=== PATIENT | female | born 1995 | race Two or more races ===

== ENCOUNTER → 2020-05-18 15:28 | Outpatient (BNVA) | payer OTHER, SELFPAY | PROVIDERS: PCP Internal Medicine; Visit Provider Internal Medicine Pulmonary Disease | DX: Z76.89 Persons encountering health services in other specified circumstances (principal) ==

== ENCOUNTER 2020-05-25 13:24 | Outpatient (REF) | payer OTHER, SELFPAY ==
--- NOTE | 2020-05-25 | US_ITS ---
EXAMINATION: OBSTETRICAL ULTRASOUND, FIRST TRIMESTER HISTORY: 24-year-old at 12.0 weeks of gestation NT screening COMPARISON: 05/01/2020 TECHNIQUE: Real time transabdominal imaging with color and M-mode Doppler. Transvaginal ultrasound was performed using an endovaginal probe. FINDINGS: A single, live IUP CRL of 59.2 mm c/w 12.3wks is noted. Heart Rate: 155 beats per minute. Normal yolk sac seen. NT was 1.0.mm. NB Present The embryo appears sonographically wnl for this GA. Unable to visualize bilateral ovaries. No adnexal mass or free fluid in the cul-de-sac were noted. GESTATIONAL AGE: 1. Established GA: 12 0 wks 2. GA from [facility]: 12.3 wks ESTIMATED DATE OF DELIVERY: 1. Established ARIANNA: 12/07/2020 2. ARIANNA from [facility]: 12/04/2020 IMPRESSION: 1. A single live IUP 2. Size equals dates 3. NT of 1.0 mm MFM Consultation: I reviewed the ultrasound findings along with significance of NT measurement. The NT of less than 3mm is generally reassuring. However, the sensitivity for T21 detection is only 60%. I reviewed the availability of serum aneuploidy screening which includes cell-free DNA and placental protein based tests. I discussed the sensitivity, false-positive rate, and other limitations associated with each test. I also reviewed the availability of invasive diagnostic tests that are associated small but definite risk of miscarriage. We also reviewed the differences between screening tests and diagnostic tests. Patient already had the NIPT drawn. The result is pending. A follow up at 18 weeks for survey has been scheduled. Thank you very much for this referral. Majority of this visit was spent reviewing her care and counselling her in face to face time: Time spent 20 min.
[2020-05-25 14:53] LABS: CT PCR NOT DETECTED (Not Detect.); NG PCR NOT DETECTED (Not Detect.)
== END 2020-05-25 13:25 | disposition home or self-care (01) ==
LOC: HO.US 13:24
PROVIDERS: Visit Provider Advanced Practice Midwife
DX: Z34.91 Encounter for supervision of normal pregnancy, unspecified, first trimester (principal)
CPT/HCPCS: 76813; 76830; 87491; 87591

== ENCOUNTER → 2020-06-15 16:52 | Outpatient (BNVA) | payer OTHER, SELFPAY | PROVIDERS: PCP Internal Medicine; Visit Provider Obstetrics & Gynecology | DX: Z76.89 Persons encountering health services in other specified circumstances (principal) ==

== ENCOUNTER 2020-06-22 09:19 | Outpatient (REF) | payer OTHER, SELFPAY ==
--- NOTE | 2020-06-22 09:23 | US_ITS ---
EXAMINATION: OBSTETRICAL ULTRASOUND, Follow up HISTORY: 24-year-old at 16.0 weeks of gestation Increased risk of aneuploidy on serum screening COMPARISON: 05/25/2020 TECHNIQUE: Real time transabdominal imaging with color and M-mode Doppler. PRESENTATION: Variable PLACENTA LOCATION: Posterior without previa AMNIOTIC FLUID: Normal MEASUREMENTS: 1. Biparietal Diameter: 3.3 cm; 16.2 wks 2. Head Circumference: 12.2 cm; 16.1 wks 3. Abdominal Circumference: 9.5 cm; 15.5 wks 4. Femur Length: 1.8 cm; 15.3 wks 5. Heart Rate: 149 beats per minute survey was not attempted due to early gestational age. Normal views of cranium, lateral cerebral ventricle, profile. GESTATIONAL AGE: 1. Established GA: 16.0 wks 2. GA from [facility]: 16.0 wks ESTIMATED DATE OF DELIVERY: 1. Established ARIANNA: 12/07/2020 2. ARIANNA from [facility]: 12/07/2020 US/ OB amniocentesis IMPRESSION: 1. A single fetus with appropriate interval growth. 2. No abnormalities were seen in visualized anatomy. However too early for complete survey. Her NIPT had low DNA fraction but suspicious for triploidy, trisomy 18 and 13. I informed the patient that the sensitivity and specificity of this result is unclear. In addition, an appropriately grown fetus today is reassuring especially regards to the possibility of triploidy. Ultrasound however cannot rule out these aneuploidy. We reviewed the risks and benefits of amniocentesis. She consented to the procedure. She was informed that the baseline instance of congenital abnormalities and defects in the general population is approximately 3-5%. Not all these conditions are diagnosable in utero. Thank you very much for this referral. AMNIOCENTESIS After obtaining the consent, preprocedural timeout was performed. Her abdomen was prepped and draped the usual sterile fashion. Under the ultrasound guidance amniocentesis was attempted using 22-gauge spinal needle. Although the needle tip was clearly visible within the amniotic cavity, no fluid was retrieved suggesting that the amnion was not punctured. Second attempt also resulted in no fluid retrieval. The fetus and umbilical cord loops were well out of the field. Further attempt was abandoned. I informed the patient that amnion and chorion layers have not fused yet, making it difficult to penetrate the amnion layer. She'll be referred to [facility] next week for consultation and amniocentesis. Her blood type is O+. There were no immediate complications. I gave her postprocedure warnings. Normal heart rate was documented after the procedure. Visiting time 25 minutes. Majority of this visit was spent reviewing the ultrasound findings as well as her care.
== END 2020-06-22 09:20 | disposition home or self-care (01) ==
LOC: HO.US 09:19
PROVIDERS: PCP Internal Medicine; Visit Provider Obstetrics & Gynecology
DX: O21.9 Vomiting of pregnancy, unspecified (principal); O28.9 Unspecified abnormal findings on antenatal screening of mother
CPT/HCPCS: 59000; 76816; 76946

== ENCOUNTER 2020-06-25 08:19 | Outpatient (REF) | payer OTHER, SELFPAY ==
[2020-06-25 09:38] LABS: Hematocrit 32.2 % (37-47); Hemoglobin 10.6 g/dl (12.0-16.0); Mean Corpuscular HGB Conc 32.9 g/dl (31.0-35.0); Mean Corpuscular Volume 75.9 fL (80-98); Mean Platelet Volume 9.5 fL (9.4-12.3); Platelet Count 333 X10*3/uL (160-400); Red Blood Count 4.24 X10*6/uL (4.20-5.50); Red Cell Distribution Width 15.1 % (11.0-16.0); White Blood Count 13.4 X10*3/uL (4.8-10.8)
[2020-06-25 10:12] LABS: MANUAL DIFF FLAG NO
[2020-06-25 10:15] LABS: Basophils Absolute Auto 0.1 X10*3/uL (0.0-0.2); Basophils Percent Auto 0.5 % (0-2); Eosinophils Absolute Auto 0.3 X10*3/uL (0.0-0.4); Imm Gran Abs Auto 0.14 X10*3/uL (0.00-0.03); Lymphocytes Absolute Auto 2.6 X10*3/uL (1.2-4.9); Lymphocytes Percent Auto 18.7 % (20-40); Monocytes Absolute Auto 0.6 X10*3/uL (0.1-1.2); Monocytes Percent Auto 4.6 % (2-11); Neutrophils Absolute Auto 10.1 X10*3/uL (2.0-8.3); Neutrophils Percent Auto 73.2 % (45-73)
[2020-06-26 11:34] LABS: CT PCR NOT DETECTED (Not Detect.); NG PCR NOT DETECTED (Not Detect.)
[2020-06-26 13:51] LABS: BV Int Neg Control Negative (Negative); BV Int Pos Control Positive (Positive)
== END 2020-06-25 08:20 | disposition home or self-care (01) ==
LOC: HO.LAB 08:19
PROVIDERS: PCP Internal Medicine; Visit Provider Advanced Practice Midwife
DX: O26.899 Other specified pregnancy related conditions, unspecified trimester (principal); R10.9 Unspecified abdominal pain; O09.892 Supervision of other high risk pregnancies, second trimester; Z3A.16 16 weeks gestation of pregnancy
CPT/HCPCS: 36415; 85025; 85027; 87480; 87491; 87510; 87591; 87660

== ENCOUNTER → 2020-07-02 09:25 | Outpatient (BNVA) | payer OTHER, SELFPAY | PROVIDERS: Visit Provider Advanced Practice Midwife | DX: Z76.89 Persons encountering health services in other specified circumstances (principal) ==

== ENCOUNTER 2020-07-02 12:04 | Outpatient (REF) | payer OTHER, SELFPAY ==
[2020-07-02 13:05] LABS: COVID-19 Test Negative (Negative); IDNOW Serial# 55D5AD1C
== END 2020-07-02 12:05 | disposition home or self-care (01) ==
LOC: HO.EMPCOV 12:04
PROVIDERS: Visit Provider Internal Medicine
DX: Z20.828 Contact with and (suspected) exposure to other viral communicable diseases (principal)
CPT/HCPCS: 87635; C9803

== ENCOUNTER 2020-07-09 08:17 | Outpatient (REF) | payer OTHER, SELFPAY ==
[2020-07-09 09:27] LABS: COVID-19 Test Negative (Negative)
== END 2020-07-09 08:18 | disposition home or self-care (01) ==
LOC: HO.EMPCOV 08:17
PROVIDERS: Visit Provider Internal Medicine
DX: Z20.828 Contact with and (suspected) exposure to other viral communicable diseases (principal)
CPT/HCPCS: 87635; C9803

== ENCOUNTER 2020-07-11 08:44 | Outpatient (REF) | payer OTHER, SELFPAY ==
[2020-07-11 09:29] LABS: COVID-19 Test Negative (Negative)
== END 2020-07-11 08:45 | disposition home or self-care (01) ==
LOC: HO.EMPCOV 08:44
PROVIDERS: Visit Provider Internal Medicine
DX: Z20.828 Contact with and (suspected) exposure to other viral communicable diseases (principal)
CPT/HCPCS: 87635; C9803

== ENCOUNTER 2020-07-13 08:34 | Outpatient (REF) | payer OTHER, SELFPAY ==
--- NOTE | 2020-07-13 | US_ITS ---
EXAMINATION: US OBSTETRICAL CLINICAL INFORMATION: 24-year-old at 19.0 weeks of gestation Suspected elected the chromosomal abnormality on serum aneuploidy screening COMPARISON: 06/22/2020 TECHNIQUE: Real-time transabdominal ultrasound was performed using C1-5 megahertz transducer. Transvaginal ultrasound was performed to better evaluate the intracranial anatomy as well as the cervical length. FINDINGS: A single, active, fetus is seen in vertex presentation. The placenta is posterior without previa, and the amniotic fluid volume is wnl. MEASUREMENTS: 1. Biparietal Diameter: 4.3 cm; 19.1 wks 2. Occipital Frontal Diameter: 5.2 cm 3. Head Circumference: 16.03 cm; 18.6 wks 4. Abdominal Circumference: 14.7 cm; 20.0 wks 5. Femur Length: 2.81 cm; 18.5 wks 6. Humerus Length: 2.8 cm; 19.0 wks 7. Tibia Length: 2.5 cm; 18.6 wks 8. Ulna Length: 2.5 cm; 19.1 wks 9. Lateral ventricle: 0.64 cm 10. Cerebellum: 1.98 cm; 20.2 wks 11. Cisterna Magna: 0.42 cm 12. Nuchal Fold: 2.5 mm 13. Heart Rate: 143 beats per minute Rt ovary: normal Lt ovary: normal Cervical length 3.5 cm on T/V. GESTATIONAL AGE: 1. Established GA: 19.0 wks 2. GA from [facility]: 19.2 wks ESTIMATED DATE OF DELIVERY: 1. Established ARIANNA: 12/07/2020 2. ARIANNA from [facility]: 12/05/2020 ANATOMY: The visualized anatomy includes but not limited to: 1. Cranium: Normal 2. Intracranial anatomy: cavum septum pellucidi, lateral ventricles, choroid plexus, cerebellum, posterior fossa, third and fourth ventricles. 3. face: orbits, lip/palate, profile, nasal bone 4. Heart: four-chamber view of the heart, ventricular septum, foramen ovale, pulmonary vein, left and right outflow tracts, three-vessel view, 3 vessel trachea view, aortic and ductal arches, situs.. 5. Diaphragm: Normal 6. Abdominal wall: Normal 7. Cord Insertion: Normal 8. Spine: Cervical, thoracic, lumbar, sacral. 9. Stomach: Normal size and shape 10. Right Kidney: Normal 11. Left Kidney: Normal 12. 3 vessel cord: Normal 13. Upper extremity: Open hands, fifth digit. 14. Lower extremity: Tibia, fibula, bilateral feet. 15. Bladder: Normal 16. Genitalia: Female, patient aware US/US OB transvaginal IMPRESSION: 1. Single, living, intrauterine with appropriate biometry. 2. Normal survey DISCUSSION: I reviewed today's ultrasound findings. We discussed the limitations of ultrasound in diagnosing aneuploidy and other congenital abnormalities. I reviewed the differences between screening test and diagnostic test. I reassured her that the there is no sonographic stigmata for triploidy, trisomy 18 or 13. She is scheduled to undergo amniocentesis at the [facility] for increased suspicion of triploidy, trisomy 18 and 13 on her serum aneuploidy screening. Amniocentesis attempted on 06/22/2020 was unsuccessful due to unfused amnion and chorion layers. She was informed that the baseline incidence of congenital abnormalities is approximately 3-5%. Not all these conditions are diagnosable in utero. RECOMMENDATIONS: 1. No further ultrasound has been scheduled today. Thank you for allowing me to participate in her care. Visiting time 25 minutes. Majority of this visit was spent reviewing and discussing her care.
--- NOTE | 2020-07-13 08:36 | US_ITS ---
EXAMINATION: US OBSTETRICAL CLINICAL INFORMATION: 24-year-old at 19.0 weeks of gestation Suspected elected the chromosomal abnormality on serum aneuploidy screening COMPARISON: 06/22/2020 TECHNIQUE: Real-time transabdominal ultrasound was performed using C1-5 megahertz transducer. Transvaginal ultrasound was performed to better evaluate the intracranial anatomy as well as the cervical length. FINDINGS: A single, active, fetus is seen in vertex presentation. The placenta is posterior without previa, and the amniotic fluid volume is wnl. MEASUREMENTS: 1. Biparietal Diameter: 4.3 cm; 19.1 wks 2. Occipital Frontal Diameter: 5.2 cm 3. Head Circumference: 16.03 cm; 18.6 wks 4. Abdominal Circumference: 14.7 cm; 20.0 wks 5. Femur Length: 2.81 cm; 18.5 wks 6. Humerus Length: 2.8 cm; 19.0 wks 7. Tibia Length: 2.5 cm; 18.6 wks 8. Ulna Length: 2.5 cm; 19.1 wks 9. Lateral ventricle: 0.64 cm 10. Cerebellum: 1.98 cm; 20.2 wks 11. Cisterna Magna: 0.42 cm 12. Nuchal Fold: 2.5 mm 13. Heart Rate: 143 beats per minute Rt ovary: normal Lt ovary: normal Cervical length 3.5 cm on T/V. GESTATIONAL AGE: 1. Established GA: 19.0 wks 2. GA from [facility]: 19.2 wks ESTIMATED DATE OF DELIVERY: 1. Established ARIANNA: 12/07/2020 2. ARIANNA from [facility]: 12/05/2020 ANATOMY: The visualized anatomy includes but not limited to: 1. Cranium: Normal 2. Intracranial anatomy: cavum septum pellucidi, lateral ventricles, choroid plexus, cerebellum, posterior fossa, third and fourth ventricles. 3. face: orbits, lip/palate, profile, nasal bone 4. Heart: four-chamber view of the heart, ventricular septum, foramen ovale, pulmonary vein, left and right outflow tracts, three-vessel view, 3 vessel trachea view, aortic and ductal arches, situs.. 5. Diaphragm: Normal 6. Abdominal wall: Normal 7. Cord Insertion: Normal 8. Spine: Cervical, thoracic, lumbar, sacral. 9. Stomach: Normal size and shape 10. Right Kidney: Normal 11. Left Kidney: Normal 12. 3 vessel cord: Normal 13. Upper extremity: Open hands, fifth digit. 14. Lower extremity: Tibia, fibula, bilateral feet. 15. Bladder: Normal 16. Genitalia: Female, patient aware US/US OB /maternal detail IMPRESSION: 1. Single, living, intrauterine with appropriate biometry. 2. Normal survey DISCUSSION: I reviewed today's ultrasound findings. We discussed the limitations of ultrasound in diagnosing aneuploidy and other congenital abnormalities. I reviewed the differences between screening test and diagnostic test. I reassured her that the there is no sonographic stigmata for triploidy, trisomy 18 or 13. She is scheduled to undergo amniocentesis at the [facility] for increased suspicion of triploidy, trisomy 18 and 13 on her serum aneuploidy screening. Amniocentesis attempted on 06/22/2020 was unsuccessful due to unfused amnion and chorion layers. She was informed that the baseline incidence of congenital abnormalities is approximately 3-5%. Not all these conditions are diagnosable in utero. RECOMMENDATIONS: 1. No further ultrasound has been scheduled today. Thank you for allowing me to participate in her care. Visiting time 25 minutes. Majority of this visit was spent reviewing and discussing her care.
== END 2020-07-13 08:35 | disposition home or self-care (01) ==
LOC: HO.US 08:34
PROVIDERS: Visit Provider Advanced Practice Midwife
DX: Z36.3 Encounter for antenatal screening for malformations (principal); Z34.92 Encounter for supervision of normal pregnancy, unspecified, second trimester; Z3A.19 19 weeks gestation of pregnancy
CPT/HCPCS: 76811; 76817; 76830

== ENCOUNTER → 2020-07-24 08:41 | Outpatient (BNVA) | payer OTHER, SELFPAY | PROVIDERS: PCP Internal Medicine; Visit Provider Advanced Practice Midwife | DX: O09.899 Supervision of other high risk pregnancies, unspecified trimester (principal); O26.899 Other specified pregnancy related conditions, unspecified trimester; N63.0 Unspecified lump in unspecified breast; Z23 Encounter for immunization; Z3A.20 20 weeks gestation of pregnancy | CPT/HCPCS: 81003; 90686 ==

== ENCOUNTER 2020-08-09 15:05 | Outpatient (REF) | payer OTHER, SELFPAY ==
--- NOTE | 2020-08-09 15:10 | US_ITS ---
EXAMINATION: US DIAGNOSTIC ULTRASOUND BREAST, RIGHT CLINICAL INFORMATION: 24-year-old female, or approximately 23 weeks gestation with palpable fullness upper outer right breast. No known family history breast cancer. COMPARISON: Targeted right breast ultrasound 05/02/2019. TECHNIQUE: Ultrasound of the right breast is targeted to the area of clinical concern upper outer quadrant. Patient is imaged both supine and sitting up and able to point to area of concern at time of imaging. Grayscale imaging and color Doppler are performed without and with harmonics. FINDINGS: There is no focal suspicious finding. There is no cystic or solid mass, architectural abnormality, duct ectasia, or edema in the soft tissue planes. No skin thickening. No ultrasound correlate for patient's symptoms. Results are discussed with the patient at time of visit. Patient should be managed based on the clinical impression. If clinically indicated, further evaluation may be considered with surgical consult. Decision to proceed with biopsy should be based on clinical grounds and degree of clinical concern. US/US breast RT limited IMPRESSION: Normal study. ASSESSMENT: BI-RADS 1: Negative RECOMMENDATION: Patient should be managed based on the clinical impression. If clinically indicated, further evaluation may be considered with surgical consult. Decision to proceed with biopsy should be based on clinical grounds and degree of clinical concern.
== END 2020-08-09 15:06 | disposition home or self-care (01) ==
LOC: HO.MAMMO 15:05
PROVIDERS: PCP Internal Medicine; Visit Provider Advanced Practice Midwife
DX: O26.892 Other specified pregnancy related conditions, second trimester (principal); N63.11 Unspecified lump in the right breast, upper outer quadrant; Z3A.23 23 weeks gestation of pregnancy
CPT/HCPCS: 76642

== ENCOUNTER 2020-08-21 08:33 | Outpatient (REF) | payer OTHER, SELFPAY | END 2020-08-21 08:34 | disposition home or self-care (01) | LOC: HO.LAB 08:33 | PROVIDERS: Visit Provider Advanced Practice Midwife | DX: O99.512 Diseases of the respiratory system complicating pregnancy, second trimester (principal); J45.909 Unspecified asthma, uncomplicated; O99.342 Other mental disorders complicating pregnancy, second trimester; F41.9 Anxiety disorder, unspecified; F32.9 Major depressive disorder, single episode, unspecified; Z3A.24 24 weeks gestation of pregnancy | CPT/HCPCS: 81003; 87086; 99212 ==

== ENCOUNTER 2020-09-04 13:26 | Outpatient (REF) | payer OTHER, SELFPAY ==
[2020-09-04 13:44] LABS: COVID-19 Test Negative (Negative)
== END 2020-09-04 13:27 | disposition home or self-care (01) ==
LOC: HO.EMPCOV 13:26
PROVIDERS: Visit Provider Internal Medicine
DX: Z20.822 Contact with and (suspected) exposure to COVID-19 (principal)
CPT/HCPCS: 36415; 87635; C9803

== ENCOUNTER 2020-09-14 16:49 | Outpatient (REF) | payer OTHER, SELFPAY ==
[2020-09-14 18:19] LABS: Hematocrit 29.3 % (37-47); Hemoglobin 9.3 g/dl (12.0-16.0); Mean Corpuscular HGB Conc 31.7 g/dl (31.0-35.0); Mean Corpuscular Hemoglobin 23.6 pg (27.0-33.0); Mean Corpuscular Volume 74.4 fL (80-98); Mean Platelet Volume 9.6 fL (9.4-12.3); Platelet Count 378 X10*3/uL (160-400); Red Blood Count 3.94 X10*6/uL (4.20-5.50); Red Cell Distribution Width 16.3 % (11.0-16.0); White Blood Count 13.1 X10*3/uL (4.8-10.8)
[2020-09-14 18:35] LABS: Glucose 1 Hour PP 50gm Dose 156 mg/dL (60-140)
[2020-09-14 19:00] LABS: Syphilis Screen Nonreactive (Nonreactive)
[2020-09-17 04:34] LABS: HIV AB/AG Nonreactive (Nonreactive); HIV Num 1 0.09 S/CO (0.00-0.99)
== END 2020-09-14 16:50 | disposition home or self-care (01) ==
LOC: HO.LAB 16:49
PROVIDERS: PCP Internal Medicine; Visit Provider Advanced Practice Midwife
DX: Z34.80 Encounter for supervision of other normal pregnancy, unspecified trimester (principal)
CPT/HCPCS: 36415; 85027; 86780; 87389

== ENCOUNTER 2020-09-18 09:09 | Outpatient (REF) | payer OTHER, SELFPAY ==
[2020-09-18 10:44] LABS: Glucose Fasting 79 mg/dL (60-99)
[2020-09-18 12:16] LABS: Glucose 1 Hour 170 mg/dL
[2020-09-18 12:30] LABS: Glucose 2 Hour 143 mg/dL
[2020-09-18 13:21] LABS: Glucose 3 Hour 117 mg/dL
== END 2020-09-18 09:10 | disposition home or self-care (01) ==
LOC: HO.LAB 09:09
PROVIDERS: PCP Internal Medicine; Visit Provider Advanced Practice Midwife
DX: O09.293 Supervision of pregnancy with other poor reproductive or obstetric history, third trimester (principal); O99.343 Other mental disorders complicating pregnancy, third trimester; F41.8 Other specified anxiety disorders; O99.513 Diseases of the respiratory system complicating pregnancy, third trimester; J45.40 Moderate persistent asthma, uncomplicated; O99.613 Diseases of the digestive system complicating pregnancy, third trimester; K21.9 Gastro-esophageal reflux disease without esophagitis; O99.013 Anemia complicating pregnancy, third trimester; D64.9 Anemia, unspecified; O99.810 Abnormal glucose complicating pregnancy; Z3A.28 28 weeks gestation of pregnancy; Z62.810 Personal history of physical and sexual abuse in childhood
CPT/HCPCS: 36415; 81003; 82951; 90471; 90715; 99212

== ENCOUNTER 2020-09-19 11:04 | Outpatient (REF) | payer OTHER, SELFPAY ==
[2020-09-19 11:22] LABS: COVID-19 Test Negative (Negative)
== END 2020-09-19 11:05 | disposition home or self-care (01) ==
LOC: HO.EMPCOV 11:04
PROVIDERS: Visit Provider Internal Medicine
DX: Z20.822 Contact with and (suspected) exposure to COVID-19 (principal)
CPT/HCPCS: 36415; 87635; C9803

== ENCOUNTER 2020-09-20 11:16 | Outpatient (REF) | payer OTHER, SELFPAY ==
[2020-09-20 11:37] LABS: COVID-19 Test Negative (Negative)
== END 2020-09-20 11:17 | disposition home or self-care (01) ==
LOC: HO.EMPCOV 11:16
PROVIDERS: Visit Provider Internal Medicine
DX: Z20.822 Contact with and (suspected) exposure to COVID-19 (principal)
CPT/HCPCS: 36415; 87635; C9803

== ENCOUNTER 2020-09-25 08:07 | Outpatient (REF) | payer OTHER, SELFPAY ==
[2020-09-25 08:56] LABS: COVID-19 Test Negative (Negative)
== END 2020-09-25 08:08 | disposition home or self-care (01) ==
LOC: HO.EMPCOV 08:07
PROVIDERS: Visit Provider Internal Medicine
DX: Z20.822 Contact with and (suspected) exposure to COVID-19 (principal)
CPT/HCPCS: 36415; 87635; C9803

== ENCOUNTER 2020-09-25 08:20 | Emergency (ER) | payer OTHER, SELFPAY ==
[2020-09-25 08:41] VITALS: BP 113/66; PULSE 110; RESP 16; TEMP 37; O2SAT 99; BMI 35.9
--- NOTE | 2020-09-25 08:46 | ED.NAVMDI ---
HPI - Nausea/Vomiting/Diarrhea General Chief complaint: Nausea/Vomiting/Diarrhea Stated complaint: nausea,headache,dizzy sob Time Seen by Provider: 09/25/20 08:46 Source: patient Mode of arrival: ambulatory Limitations: no limitations History of Present Illness HPI Narrative: 29 weeks not keeping any food down. Patient was covid tested this morning, results pending. Patient has phenergan and zofran at home with limited results MD elicited complaint: nausea and vomiting Onset (ago): day(s) (2) Associated nausea: Yes Severity: moderate Related Data Home Medications Medication Instructions Recorded Confirmed clotrimazole-betamethasone 1 applic TOPICAL 05/05/20 08/29/20 %-0.05 % topical cream fluticasone propionate 110 0 mcg INHALATION 05/05/20 08/29/20 mcg/actuation HFA aerosol inhaler prenat.vits,tari,[id number] 1 tab PO DAILY 07/17/20 07/17/20 epinephrine 0.3 mg/0.3 mL IM 07/24/20 08/29/20 injection, auto-injector Previous Rx's Medication Instructions Recorded ondansetron HCl 4 mg tablet 4 mg PO Q6H #30 tab 06/20/20 promethazine 12.5 mg rectal 12.5 mg IN Q4-6H PRN #12 ea 06/29/20 suppository famotidine 10 mg tablet 20 mg PO BID #60 tab 08/02/20 sucralfate 100 mg/mL oral 10 ml PO BID PRN 10 Days #200 ml 08/29/20 suspension ferrous sulfate 325 mg (65 mg 325 mg PO BID 30 Days #60 tab 09/17/20 iron) tablet,delayed release Allergies Allergy/AdvReac Type Severity Reaction Status Date / Time No Known Allergies Allergy Verified 09/18/20 14:54 Review of Systems Constitutional: Constitutional: Reports no additional constitutional complaints Eyes: Eyes: Reports no additional eye complaints ENT: Denies dizziness Cardiovascular: Cardiovascular: Reports no additional cardiovascular complaints Respiratory: Respiratory: Reports as per HPI Gastrointestinal: Gastrointestinal: Reports nausea Genitourinary: Genitourinary: Reports no additional female genitourinary complaints Musculoskeletal: Musculoskeletal: Reports no additional musculoskeletal complaints Integumentary/Breasts: Skin/Breast: Denies rash Neurologic: Reports system reviewed and no additional complaints, except as documented, Denies dizziness and Denies Sensory deficit (Neuro) Psychiatric: Psychiatric: Denies anxiety PMFSH Past Medical History Medical History Allergic rhinitis Anxiety Bipolar disorder Chronic eczema Depression History of deviated nasal septum IBS (irritable bowel syndrome) Moderate persistent asthma Obstetrical visit for first PCOS (polycystic ovarian syndrome) Surgical History History of wisdom tooth extraction Hx of nasal septoplasty Family History Family History Father Asthma Mother Liver disease Maternal Aunt Ovarian cancer Maternal Aunt Ovarian cancer Maternal Aunt Ovarian cancer Maternal Grandfather Leukemia Paternal Grandmother Pancreatic cancer Social History Social History Alcohol intake: never Smoking Status: Never smoker Substance Use Type: Marijuana Advance Directives: No Advance Directives Information Provided: No Sexual orientation: Straight/Heterosexual Gender identity: female Physical Exam Vital Signs: Vital Signs: Last Vital Signs Temp 98.6 F 09/25/20 08:41 Pulse 110 H 09/25/20 08:41 Resp 16 09/25/20 08:41 BP 113/66 09/25/20 08:41 Pulse Ox 99 09/25/20 08:41 Body Mass Index 35.9 Const: Other: gravid General: healthy appearing Nutritional Appearance: average body habitus Orientation/consciousness: oriented to person and patient oriented x3 Limitations: no limitations HENMT: Head: Yes normal to inspection Ears: external ears normal General nose exam: Normal external nose present Mouth: Normal oral and palatal mucosa present and oropharynx normal Throat: Yes posterior oropharynx normal Eyes: General: appearance normal, both eyes and all related structures Neck: Other: supple Neck: Yes normal visual inspection Chest: Chest palpation & inspection: normal inspection of the chest Resp: Auscultation: clear to auscultation bilaterally Cardio: Jugular venous distension: no JVD Rate: regular rate Rhythm: regular rhythm Heart sounds: S1 normal heart sound present and S2 normal heart sound present GI: Other: gravid Inspection: Yes normal to inspection Palpation (GI): Soft to palpation, nontender and No hepatosplenomegaly present Auscultation: normal bowel sounds : General: Yes no CVA tenderness Back/Spine/Pelvis: Back: no CVA tenderness Skin: General skin exam: no rashes or lesions noted Neuro: General: oriented to person and patient oriented x3 Cranial nerves: Yes CN's II-XII intact bilaterally Motor exam (neuro): 5/5 motor strength present throughout Sensory Exam: No Sensory deficit (Neuro) Extrem: General: Yes normal to inspection Psych: Appearance: grossly normal MDM - Nausea/Vomiting/Diarrhea MDM Narrative Medical decision making narrative: Labs normal COVID negative will dc home Lab Data Result diagrams: 09/25/20 09:46 09/25/20 09:46 Labs: Lab Results 09/25/20 09/25/20 09/25/20 Range/Units 09:46 09:46 09:46 WBC 12.9 H (4.8-10.8) X10*3/uL RBC 4.23 (4.20-5.50) X10*6/uL Hgb 9.9 L (12.0-16.0) g/dl Hct 31.8 L (37-47) % MCV 75.2 L (80-98) fL MCH 23.4 L (27.0-33.0) pg MCHC 31.1 (31.0-35.0) g/dl RDW 16.8 H (11.0-16.0) % Plt Count 361 (160-400) X10*3/uL MPV 9.5 (9.4-12.3) fL Immature Gran % (Auto) 1.0 H (0.0-0.4) % Neut % (Auto) 71.7 (45-73) % Lymph % (Auto) 19.0 L (20-40) % Campbell % (Auto) 6.0 (2-11) % Eos % (Auto) 1.8 (0-4) % Baso % (Auto) 0.5 (0-2) % Lymph # (Auto) 2.4 (1.2-4.9) X10*3/uL Campbell # (Auto) 0.8 (0.1-1.2) X10*3/uL Eos # (Auto) 0.2 (0.0-0.4) X10*3/uL Baso # (Auto) 0.1 (0.0-0.2) X10*3/uL Abs Immat Gran (auto) 0.13 H (0.00-0.03) X10*3/uL Absolute Neuts (auto) 9.2 H (2.0-8.3) X10*3/uL Absolute Nucleated RBC 0.000 (0.0-0.012) X10*3/uL Nucleated RBC % (auto) 0.0 (0.0-0.2) /100WBC Sodium 136 (135-145) mmol/L Potassium 4.2 (3.3-5.1) mmol/L Chloride 106 (96-108) mmol/L Carbon Dioxide 23 (22-29) mmol/L Anion Gap 11 L (12-20) BUN 5 L (9-16) mg/dL Creatinine 0.67 (0.5-1.4) mg/dL Estim Creat Clear Calc 122.9 Estimated GFR > 60 Random Glucose 80 (60-115) mg/dL Calcium 8.5 (8.4-10.2) mg/dL Urine Color YELLOW Urine Appearance HAZY Urine pH 7.0 (5.0-8.0) Ur Specific Eagle 1.025 (1.005-1.025) Urine Protein NEG (NEG-TRACE) MG/DL Urine Glucose (UA) NEG (NEG) MG/DL Urine Ketones NEG (NEG) MG/DL Urine Blood NEG (NEG) Urine Nitrite NEG (NEG) Ur Leukocyte Esterase 1+ H (NEG) Urine RBC 0 (0) /HPF Urine WBC 1-4 (0-4) /HPF Ur Squamous Epith Cells 4+ /LPF Urine Bacteria 1+ /LPF Discharge Plan Discharge Clinical Impression: Nausea/vomiting in Patient Disposition: Home, Self-Care Instructions: Hyperemesis Gravidarum (ED), Acute Nausea and Vomiting in Children (ED) Prescriptions: No Action ondansetron HCl 4 mg tablet 4 mg PO Q6H Qty: 30 RF: 0 promethazine 12.5 mg suppository 12.5 mg IN Q4-6H PRN (Reason: sedation) Qty: 12 RF: 0 famotidine [Pepcid AC] 10 mg tablet 20 mg PO BID Qty: 60 RF: 1 ferrous sulfate 325 mg (65 mg iron) tablet,delayed release (DR/EC) 325 mg PO BID 30 Days Qty: 60 RF: 2 sucralfate 100 mg/mL suspension 10 ml PO BID PRN (Reason: GERD symptoms ) 10 Days Qty: 200 RF: 0 prenat.vits,tari,[id number] Tablet 1 tab PO DAILY RF: 0 Flovent HFA 110 mcg/actuation HFA aerosol inhaler 0 mcg inhalation RF: 0 clotrimazole-betamethasone 1-0.05 % cream topical RF: 0 epinephrine 0.3 mg/0.3 mL auto-injector IM RF: 0 Referrals: Leslie Clements MD [Primary Care Provider] - 2 days
[2020-09-25 09:50] LABS: MANUAL DIFF FLAG NO
[2020-09-25] MEDS: ondansetron HCL 4 MG/2 ML VIAL IVPUSH (09:52)
[2020-09-25 09:54] LABS: Basophils Absolute Auto 0.1 X10*3/uL (0.0-0.2); Basophils Percent Auto 0.5 % (0-2); Eosinophils Absolute Auto 0.2 X10*3/uL (0.0-0.4); Eosinophils Percent Auto 1.8 % (0-4); Glucose Urine UA NEG (NEG); Hematocrit 31.8 % (37-47); Hemoglobin 9.9 g/dl (12.0-16.0); Imm Gran Abs Auto 0.13 X10*3/uL (0.00-0.03); Leukocyte Esterase Urine 1+ (NEG); Lymphocytes Absolute Auto 2.4 X10*3/uL (1.2-4.9); Mean Corpuscular HGB Conc 31.1 g/dl (31.0-35.0); Mean Corpuscular Hemoglobin 23.4 pg (27.0-33.0); Mean Corpuscular Volume 75.2 fL (80-98); Mean Platelet Volume 9.5 fL (9.4-12.3); Monocytes Absolute Auto 0.8 X10*3/uL (0.1-1.2); Neutrophils Absolute Auto 9.2 X10*3/uL (2.0-8.3); Neutrophils Percent Auto 71.7 % (45-73); Nitrite Urine NEG (NEG); Platelet Count 361 X10*3/uL (160-400); Red Blood Count 4.23 X10*6/uL (4.20-5.50); Red Cell Distribution Width 16.8 % (11.0-16.0); Specific Gravity - Urine 1.025 (1.005-1.025); UACC Culture Trigger YES; Urine Blood NEG (NEG); Urine Ketones NEG (NEG); Urine Protein NEG (NEG-TRACE); White Blood Count 12.9 X10*3/uL (4.8-10.8)
[2020-09-25] MEDS: 0.9 % Sodium Chloride 1,000 ML 999 ML IVCONT ×2 (09:54→09:55)
[2020-09-25 09:56] LABS: Appearance Urine HAZY; Color Urine YELLOW
[2020-09-25 10:04] LABS: Bacteria Urine 1+ /LPF; RBC Urine 0 /HPF (0); Squamous Epithelial Cell Urine 4+ /LPF
[2020-09-25 10:22] LABS: Anion Gap 11 (12-20); Blood Urea Nitrogen 5 mg/dL (9-16); Calcium 8.5 mg/dL (8.4-10.2); Carbon Dioxide 23 mmol/L (22-29); Chloride 106 mmol/L (96-108); Creatinine Clr Calc Pharmacy 122.9; Estimated Glomerular Filt Rate > 60; Glucose Random 80 mg/dL (60-115); Potassium 4.2 mmol/L (3.3-5.1); Sodium 136 mmol/L (135-145)
== END 2020-09-25 11:10 | disposition home or self-care (01) ==
PROVIDERS: Emergency Provider Emergency Medicine; PCP Internal Medicine
DX: O26.893 Other specified pregnancy related conditions, third trimester (principal); R11.2 Nausea with vomiting, unspecified; Z3A.29 29 weeks gestation of pregnancy
CPT/HCPCS: 36415; 80048; 81001; 81003; 85025; 87086; 96361; 96374; 99283; 99284; J2405

== ENCOUNTER → 2020-10-02 08:40 | Outpatient (BNVA) | payer OTHER, SELFPAY | PROVIDERS: PCP Internal Medicine; Visit Provider Advanced Practice Midwife | DX: Z34.80 Encounter for supervision of other normal pregnancy, unspecified trimester (principal) | CPT/HCPCS: 81003; 99212 ==

== ENCOUNTER → 2020-10-17 09:49 | Outpatient (BNVA) | payer OTHER, SELFPAY | PROVIDERS: PCP Internal Medicine; Visit Provider Obstetrics & Gynecology | DX: O09.899 Supervision of other high risk pregnancies, unspecified trimester (principal); Z3A.32 32 weeks gestation of pregnancy | CPT/HCPCS: 99212 ==

== ENCOUNTER 2020-10-18 09:47 | Outpatient (REF) | payer OTHER, SELFPAY ==
[2020-10-18 13:55] LABS: Fetal Fibronectin Positive (Negative)
[2020-10-19 19:07] LABS: C. trachomatis RNA TMA NOT DETECTED (NOT DETECTED); N. gonorrhoeae RNA TMA NOT DETECTED (NOT DETECTED)
== END 2020-10-18 09:48 | disposition home or self-care (01) ==
LOC: HO.LAB 09:47
PROVIDERS: PCP Internal Medicine; Visit Provider Obstetrics & Gynecology
DX: O34.33 Maternal care for cervical incompetence, third trimester (principal); O99.343 Other mental disorders complicating pregnancy, third trimester; F32.9 Major depressive disorder, single episode, unspecified; F41.9 Anxiety disorder, unspecified; J45.909 Unspecified asthma, uncomplicated; Z79.899 Other long term (current) drug therapy; Z3A.32 32 weeks gestation of pregnancy
CPT/HCPCS: 36415; 82731; 87081; 87147; 87491; 87591; 99212

== ENCOUNTER → 2020-10-19 14:21 | Outpatient (BNVA) | payer OTHER, SELFPAY | PROVIDERS: Visit Provider Obstetrics & Gynecology | DX: O34.30 Maternal care for cervical incompetence, unspecified trimester (principal); Z3A.33 33 weeks gestation of pregnancy | CPT/HCPCS: 99212 ==

== ENCOUNTER 2020-10-29 10:31 | Outpatient (REF) | payer OTHER, SELFPAY ==
[2020-10-29 12:00] LABS: MANUAL DIFF FLAG NO
[2020-10-29 12:06] LABS: Basophils Percent Auto 0.3 % (0-2); Eosinophils Absolute Auto 0.2 X10*3/uL (0.0-0.4); Eosinophils Percent Auto 1.1 % (0-4); Hematocrit 32.5 % (37-47); Hemoglobin 10.1 g/dl (12.0-16.0); Imm Gran Abs Auto 0.11 X10*3/uL (0.00-0.03); Imm Gran Pct Auto 0.8 % (0.0-0.4); Lymphocytes Absolute Auto 2.5 X10*3/uL (1.2-4.9); Lymphocytes Percent Auto 18.8 % (20-40); Mean Corpuscular HGB Conc 31.1 g/dl (31.0-35.0); Mean Corpuscular Hemoglobin 22.8 pg (27.0-33.0); Mean Corpuscular Volume 73.4 fL (80-98); Mean Platelet Volume 9.6 fL (9.4-12.3); Monocytes Absolute Auto 0.9 X10*3/uL (0.1-1.2); Monocytes Percent Auto 6.6 % (2-11); Neutrophils Absolute Auto 9.6 X10*3/uL (2.0-8.3); Neutrophils Percent Auto 72.4 % (45-73); Platelet Count 435 X10*3/uL (160-400); Red Blood Count 4.43 X10*6/uL (4.20-5.50); Red Cell Distribution Width 17.2 % (11.0-16.0); White Blood Count 13.2 X10*3/uL (4.8-10.8)
[2020-10-29 12:34] LABS: Creatinine Urine 87.18 mg/dL; Protein/Creatinine Ratio, Ur 0.09 (<0.2); Total Protein Urine Random 8 mg/dL (<12)
[2020-10-29 12:38] LABS: Alanine Aminotransferase 15 U/L (0-31); Aspartate Amino Transferase 14 U/L (5-31); Estimated Glomerular Filt Rate > 60
[2020-10-29 13:44] LABS: Uric Acid 4.1 mg/dL (2.4-5.7)
[2020-10-30 09:52] LABS: CT PCR NOT DETECTED (Not Detect.); NG PCR NOT DETECTED (Not Detect.)
== END 2020-10-29 10:32 | disposition home or self-care (01) ==
LOC: HO.LAB 10:31
PROVIDERS: Absent Provider Obstetrics & Gynecology; PCP Internal Medicine; Visit Provider Obstetrics & Gynecology
DX: O34.30 Maternal care for cervical incompetence, unspecified trimester (principal); O09.893 Supervision of other high risk pregnancies, third trimester; O99.613 Diseases of the digestive system complicating pregnancy, third trimester; O99.343 Other mental disorders complicating pregnancy, third trimester; O99.513 Diseases of the respiratory system complicating pregnancy, third trimester; O26.893 Other specified pregnancy related conditions, third trimester; K21.9 Gastro-esophageal reflux disease without esophagitis; J45.909 Unspecified asthma, uncomplicated; F41.9 Anxiety disorder, unspecified; M79.89 Other specified soft tissue disorders; R51.9 Headache, unspecified; Z3A.34 34 weeks gestation of pregnancy
CPT/HCPCS: 36415; 82565; 84156; 84450; 84460; 84550; 85025; 87491; 87591; 99212

== ENCOUNTER 2020-11-02 14:35 | Outpatient (REF) | payer OTHER, SELFPAY ==
--- NOTE | ~2020-11-02 | US_ITS ---
EXAMINATION: OBSTETRICAL ULTRASOUND, Follow up HISTORY: 25-year-old at the 35.0 weeks of gestation Size date discrepancy COMPARISON: 07/13/2020 TECHNIQUE: Real time transabdominal imaging with color and M-mode Doppler. PRESENTATION: Vertex PLACENTA LOCATION: Left, without previa AMNIOTIC FLUID: FRANSISCO 10.4 cm MEASUREMENTS: 1. Biparietal Diameter: 8.7 cm; 35.1 wks 2. Head Circumference: 31.3 cm; 35.0 wks 3. Abdominal Circumference: 31.8 cm; 35.5 wks 4. Femur Length: 6.32 cm; 32.5 wks 5. Heart Rate: 128 beats per minute WEIGHT: EFW: 2510 grams (5 lbs 9 oz) -- 40 %. BIOPHYSICAL PROFILE: Motion: 2 Tone: 2 Breathin Amniotic Fluid: 2 Total score: 8/8 GESTATIONAL AGE: 1. Established GA: 35.0 wks 2. GA from [facility]: 34.5 wks ESTIMATED DATE OF DELIVERY: 1. Established ARIANNA: 12/07/2020 2. [facility] 12[facility]09[facility]2020 US/US OB follow up IMPRESSION: 1. A single active fetus is in vertex presentation 2. Size equals dates, EFW corresponds to 48 percentile 3. Reassuring biophysical profile with normal amniotic fluid volume Thank you very much for this referral. This note was generated with a voice recognition program. Please excuse any errors which may have been overlooked during my review of this note. Sometimes these errors may affect the content or meaning of a given sentence.
== END 2020-11-02 14:36 | disposition home or self-care (01) ==
LOC: HO.US 14:35
PROVIDERS: Visit Provider Obstetrics & Gynecology
DX: Z34.80 Encounter for supervision of other normal pregnancy, unspecified trimester (principal)
CPT/HCPCS: 76816

== ENCOUNTER → 2020-11-14 08:43 | Outpatient (BNVA) | payer OTHER, SELFPAY | PROVIDERS: Visit Provider Obstetrics & Gynecology | DX: Z34.80 Encounter for supervision of other normal pregnancy, unspecified trimester (principal); Z3A.36 36 weeks gestation of pregnancy | CPT/HCPCS: 99212 ==

== ENCOUNTER → 2020-11-23 11:59 | Outpatient (BNVA) | payer OTHER, SELFPAY | PROVIDERS: Visit Provider Obstetrics & Gynecology | CPT/HCPCS: 99212 ==

== ENCOUNTER 2020-11-23 15:50 | Outpatient (REF) | payer OTHER, SELFPAY ==
[2020-11-23 16:12] LABS: COVID-19 Test Negative (Negative)
== END 2020-11-23 15:51 | disposition home or self-care (01) ==
LOC: HO.EMPCOV 15:50
PROVIDERS: Referring Provider Obstetrics & Gynecology; Visit Provider Internal Medicine
DX: Z20.822 Contact with and (suspected) exposure to COVID-19 (principal)
CPT/HCPCS: 36415; 87635; C9803

== ENCOUNTER → 2020-11-30 15:26 | Outpatient (BNVA) | payer OTHER, SELFPAY | PROVIDERS: Visit Provider Obstetrics & Gynecology | DX: Z34.83 Encounter for supervision of other normal pregnancy, third trimester (principal); Z3A.39 39 weeks gestation of pregnancy | CPT/HCPCS: 99212 ==

== ENCOUNTER → 2020-12-07 09:57 | Outpatient (BNVA) | payer OTHER, SELFPAY | PROVIDERS: Visit Provider Obstetrics & Gynecology | DX: Z34.03 Encounter for supervision of normal first pregnancy, third trimester (principal); Z3A.40 40 weeks gestation of pregnancy | CPT/HCPCS: 99212 ==

== ENCOUNTER → 2020-12-27 12:55 | Outpatient (BNVA) | payer OTHER, SELFPAY | PROVIDERS: Visit Provider Advanced Practice Midwife ==

== ENCOUNTER → 2021-01-01 08:58 | Outpatient (BNVA) | payer OTHER, SELFPAY | PROVIDERS: Visit Provider Obstetrics & Gynecology | DX: O99.345 Other mental disorders complicating the puerperium (principal); F53.0 Postpartum depression; Z30.09 Encounter for other general counseling and advice on contraception | CPT/HCPCS: 96372; J1050 ==

== ENCOUNTER 2021-01-06 11:47 | Emergency (ER) | payer OTHER, SELFPAY ==
--- NOTE | ~2021-01-06 | XR_ITS ---
EXAMINATION: XR CHEST CLINICAL INFORMATION: Dyspnea, COVID COMPARISON: 04/29/2020 TECHNIQUE: 2 views of the chest were obtained. FINDINGS: Normal cardiomediastinal silhouette. There are patchy opacities in the bilateral mid to lower lungs in a perihilar and peripheral distribution. No pleural effusion or pneumothorax. No acute osseous abnormality. XR/XR chest 2V IMPRESSION: Patchy airspace opacities in the bilateral mid to lower lungs in a perihilar and parapharyngeal distribution Commonly reported imaging features of COVID-19 pneumonia are present. Other processes such as influenza pneumonia or organizing pneumonia can cause a similar imaging appearance, as can certain drug toxicities and connective tissue disorders.
[2021-01-06 11:57] VITALS: BP 101/65; PULSE 116; RESP 18; TEMP 37.6; O2SAT 93; BMI 24.7
--- NOTE | 2021-01-06 12:26 | ECG_ITS ---
Test Reason : ASTHMA Blood Pressure : / mmHG Vent. Rate : 110 BPM Atrial Rate : 110 BPM P-R Int : 128 ms QRS Dur : 078 ms QT Int : 330 ms P-R-T Axes : 042 006 -08 degrees QTc Int : 446 ms Sinus tachycardia Nonspecific T wave abnormality Abnormal ECG When compared with ECG of 19-DEC-2019 09:34, T wave inversion now evident in Anterior leads Referred By: Arianna Silva Electronically Signed By:OLAMIDE BREWSTER
--- NOTE | 2021-01-06 12:39 | ED_ITS ---
HPI - Asthma General Chief Complaint: Asthma Stated Complaint: COVID + Time Seen by Provider: 01/06/21 12:16 Source: patient Mode of arrival: ambulatory History of Present Illness HPI Narrative: 25-year-old female past medical history of asthma, anemia, GERD, anxiety, depression presenting to emergency department for feeling unwell. She states she was COVID positive on 01/03. She states that she has been feeling unwell, fevers, headache, body aches, central chest pain that is described as tightness and sharp, Shortness of breath, nonproductive cough, diarrhea, nausea. She denies dysuria or hematuria. She denies recent travel. No limb swelling. She does admit that she gave 3 months ago and that was uncomplicated. She does have asthma and has been using her albuterol inhaler and nebulizer without any relief. She reports being hospitalized for her asthma but denies being intubated. Related Data Home Medications Medication Instructions Recorded Confirmed clotrimazole-betamethasone 1 applic TOPICAL 05/05/20 10/18/20 %-0.05 % topical cream fluticasone propionate 110 0 mcg INHALATION 05/05/20 10/18/20 mcg/actuation HFA aerosol inhaler prenat.vits,tari,[id number] 1 tab PO DAILY 07/17/20 10/18/20 epinephrine 0.3 mg/0.3 mL IM 07/24/20 10/18/20 injection, auto-injector Previous Rx's Medication Instructions Recorded ondansetron HCl 4 mg tablet 4 mg PO Q6H #30 tab 06/20/20 promethazine 12.5 mg rectal 12.5 mg OH Q4-6H PRN #12 ea 06/29/20 suppository famotidine 10 mg tablet 20 mg PO BID #60 tab 08/02/20 sucralfate 100 mg/mL oral 10 ml PO BID PRN 10 Days #200 ml 08/29/20 suspension ferrous sulfate 325 mg (65 mg 325 mg PO TID 30 Days #90 tab 10/29/20 iron) tablet,delayed release sennosides 8.6 mg-docusate sodium 1 tab-cap PO BEDTIME #30 tab 10/29/20 50 mg tablet levonorgestrel 1.5 mg tablet 1.5 mg PO ONCE #1 tab 12/27/20 medroxyprogesterone 150 mg/mL 150 mg IM [id number] #1 ml 12/27/20 intramuscular suspension dexamethasone 6 mg PO DAILY 5 Days #5 tab 01/06/21 ibuprofen 600 mg PO Q6H PRN 5 Days #20 tab 01/06/21 Allergies Allergy/AdvReac Type Severity Reaction Status Date / Time No Known Allergies Allergy Verified 01/06/21 12:00 Review of Systems Constitutional: Constitutional: Reports body ache(s), Reports chills, Reports fatigue, Reports fever(s) and Reports headache(s) Eyes: Eyes: Reports no additional eye complaints ENT: Reports headache(s) Cardiovascular: Cardiovascular: Reports chest pain and Reports dyspnea Respiratory: Respiratory: Reports cough and Reports dyspnea Gastrointestinal: Gastrointestinal: Reports diarrhea, Reports nausea and Denies vomiting Genitourinary: Genitourinary: Denies dysuria Musculoskeletal: Musculoskeletal: Reports myalgias Neurologic: Reports headache(s) Endocrine: Endocrine: Reports fatigue Hematologic/Lymphatic: Hematologic/Lymphatic: Denies easy bleeding PMF Past Medical History Medical History Allergic rhinitis Anxiety Bipolar disorder Chronic eczema Depression History of deviated nasal septum IBS (irritable bowel syndrome) Moderate persistent asthma Obstetrical visit for first PCOS (polycystic ovarian syndrome) Surgical History History of wisdom tooth extraction Hx of nasal septoplasty Family History Family History Father Asthma Mother Liver disease Maternal Aunt Ovarian cancer Maternal Aunt Ovarian cancer Maternal Aunt Ovarian cancer Maternal Grandfather Leukemia Paternal Grandmother Pancreatic cancer Social History Social History Alcohol intake: never Smoked in Last 30 Days: No Use of substances other than those prescribed or required for medical reasons: No Substance Use Type: Marijuana Advance Directives: No Advance Directives Information Provided: No Sexual orientation: Straight/Heterosexual Gender identity: female Physical Exam Vital Signs: Vital Signs: Last Vital Signs Temp 98.9 F 01/06/21 17:06 Pulse 91 01/06/21 17:06 Resp 24 H 01/06/21 17:06 BP 110/63 01/06/21 17:06 Pulse Ox 97 01/06/21 17:06 Body Mass Index 24.7 Const: Other: sitting upright in chair, appears fatigued Orientation/consciousness: patient oriented x3 HENMT: Head: Yes atraumatic Eyes: Pupils: Equal, round and reactive pupils present Neck: Neck: Yes full ROM, Yes no meningeal signs, Yes trachea midline and Yes supple Resp: Effort & Inspection: normal respiratory effort, able to speak in co mplete sentences and no audible wheezes Auscultation: clear to auscultation bilaterally Cardio: Rate: tachycardic Rhythm: regular rhythm GI: Inspection: No distended Palpation (GI): Soft to palpation and nontender Skin: Rashes: no rashes Neuro: General: patient oriented x3 and no meningeal signs Cranial nerves: Yes Equal, round and reactive pupils present Extrem: General: Yes full ROM Psych: Appearance: grossly normal Course Course Course Narrative: Tachycardia improving after 2 L of fluids. Will discharge her home with symptomatic management. Given his asthmatic will give her steroids to go home with. CXR was negative for focal PNA, shows pattern of COVID infection. She has albuterol and a nebulizer at home. discussed supportive measures with her. Advised her to get a pulse oximeter to monitor her O2 levels. Quarantine was discussed. Return precautions provided. Reevaluation(s) Reevaluation #1: pt. sitting upright in chair. She states she does not feel any different than when she first came in. Will order additional fluids. Time: 14:29 Reevaluation #2: Patient has been ambulatory to the bathroom, no significant dyspnea noted. O2 sat was 97%. Her urine appears concentrated, will give her 2nd fluid bolus. Time: 15:45 Reevaluation #3: pt. is sleeping. Fluids slowly infusing. Will re-evaluate once fluids are completed. Time: 16:52 MDM - Asthma MDM Narrative Medical decision making narrative: 25-year-old female presenting to the emergency department with feeling unwell since , recent diagnosis of COVID Vital significant for tachycardia, hypoxia Will initiate basic labs to assess for leukocytosis, anemia, renal dysfunction. We will check for electrolyte abnormalities. We will check troponin EKG for signs of ischemia. No evaluate for myocarditis with troponin. Will send off a D-dimer given she is tachycardic and has associated chest pain. She denies urinary symptoms therefore urinalysis will be withheld. Will obtain chest x-ray to assess for underlying pneumonia that could be contributing to her shortness of breath. Patient does have a history of asthma but does not have any wheezing on exam but will give her albuterol inhaler and p.o. steroids. Will give steroids to cover for COVID hypoxia as well. Low concern for intra-abdominal process. No meningeal signs. Will give her IV fluids and analgesia will monitor on the lead database developer case discussed with attending Lab Data Result diagrams: 01/06/21 13:08 01/06/21 13:08 Labs: Lab Results 01/06/21 01/06/21 01/06/21 Range/Units 13:08 13:08 13:08 WBC 9.8 (4.8-10.8) X10*3/uL RBC 5.00 (4.20-5.50) X10*6/uL Hgb 11.2 L (12.0-16.0) g/dl Hct 36.1 L (37-47) % MCV 72.2 L (80-98) fL MCH 22.4 L (27.0-33.0) pg MCHC 31.0 (31.0-35.0) g/dl RDW 19.4 H (11.0-16.0) % Plt Count 338 (160-400) X10*3/uL MPV 9.7 (9.4-12.3) fL Immature Gran % (Auto) 0.6 H (0.0-0.4) % Neut % (Auto) 77.6 H (45-73) % Lymph % (Auto) 17.4 L (20-40) % [place] % (Auto) 4.3 (2-11) % Eos % (Auto) 0.0 (0-4) % Baso % (Auto) 0.1 (0-2) % Lymph # (Auto) 1.7 (1.2-4.9) X10*3/uL [place] # (Auto) 0.4 (0.1-1.2) X10*3/uL Eos # (Auto) 0.0 (0.0-0.4) X10*3/uL Baso # (Auto) 0.0 (0.0-0.2) X10*3/uL Abs Immat Gran (auto) 0.06 H (0.00-0.03) X10*3/uL Absolute Neuts (auto) 7.6 (2.0-8.3) X10*3/uL Absolute Nucleated RBC 0.000 (0.0-0.012) X10*3/uL Nucleated RBC % (auto) 0.0 (0.0-0.2) /100WBC Smear Tech's Comments VERIFIED D-Dimer 451 NG/ML Sodium 139 (135-145) mmol/L Potassium 4.4 (3.3-5.1) mmol/L Chloride 107 (96-108) mmol/L Carbon Dioxide 22 (22-29) mmol/L Anion Gap 14 (12-20) BUN 6 L (9-16) mg/dL Creatinine 0.94 (0.5-1.4) mg/dL Estim Creat Clear Calc 98.9 Estimated GFR > 60 Random Glucose 96 (60-115) mg/dL Calcium 8.6 (8.4-10.2) mg/dL Troponin I High Sens (<3.5-17.0) ng/L B-Natriuretic Peptide (<100) pg/mL Beta HCG, Quant < 2 mIU/mL Urine Color Urine Appearance Urine pH (5.0-8.0) Ur Specific [place] (1.005-1.025) Urine Protein (NEG-TRACE) MG/DL Urine Glucose (UA) (NEG) MG/DL Urine Ketones (NEG) MG/DL Urine Blood (NEG) Urine Nitrite (NEG) Ur Leukocyte Esterase (NEG) Urine RBC (0) /HPF Urine WBC (0-4) /HPF Ur Squamous Epith Cells /LPF Urine Bacteria /LPF 01/06/21 01/06/21 Range/Units 13:08 15:50 WBC (4.8-10.8) X10*3/uL RBC (4.20-5.50) X10*6/uL Hgb (12.0-16.0) g/dl Hct (37-47) % MCV (80-98) fL MCH (27.0-33.0) pg MCHC (31.0-35.0) g/dl RDW (11.0-16.0) % Plt Count (160-400) X10*3/uL MPV (9.4-12.3) fL Immature Gran % (Auto) (0.0-0.4) % Neut % (Auto) (45-73) % Lymph % (Auto) (20-40) % [place] % (Auto) (2-11) % Eos % (Auto) (0-4) % Baso % (Auto) (0-2) % Lymph # (Auto) (1.2-4.9) X10*3/uL [place] # (Auto) (0.1-1.2) X10*3/uL Eos # (Auto) (0.0-0.4) X10*3/uL Baso # (Auto) (0.0-0.2) X10*3/uL Abs Immat Gran (auto) (0.00-0.03) X10*3/uL Absolute Neuts (auto) (2.0-8.3) X10*3/uL Absolute Nucleated RBC (0.0-0.012) X10*3/uL Nucleated RBC % (auto) (0.0-0.2) /100WBC Smear Tech's Comments D-Dimer NG/ML Sodium (135-145) mmol/L Potassium (3.3-5.1) mmol/L Chloride (96-108) mmol/L Carbon Dioxide (22-29) mmol/L Anion Gap (12-20) BUN (9-16) mg/dL Creatinine (0.5-1.4) mg/dL Estim Creat Clear Calc Estimated GFR Random Glucose (60-115) mg/dL Calcium (8.4-10.2) mg/dL Troponin I High Sens 3.6 (<3.5-17.0) ng/L B-Natriuretic Peptide 25 (<100) pg/mL Beta HCG, Quant mIU/mL Urine Color YELLOW Urine Appearance CLEAR Urine pH 6.0 (5.0-8.0) Ur Specific [place] <= 1.005 (1.005-1.025) Urine Protein 1+ H (NEG-TRACE) MG/DL Urine Glucose (UA) NEG (NEG) MG/DL Urine Ketones NEG (NEG) MG/DL Urine Blood 1+ H (NEG) Urine Nitrite NEG (NEG) Ur Leukocyte Esterase 1+ H (NEG) Urine RBC 0 (0) /HPF Urine WBC 1-4 (0-4) /HPF Ur Squamous Epith Cells 2+ /LPF Urine Bacteria 1+ /LPF ECG Data ECG interpretation date: 01/06/21 Interpretation: Rate 110, sinus tachycardia QTC 446 T-wave inversion in V3, V4, V5, 3 and AVF, no STEMI Discharge Plan Discharge Clinical Impression: Respiratory tract infection due to COVID-19 virus, Tachycardia, Dehydration Patient Disposition: Home, Self-Care Instructions: COVID-19 (Coronavirus Disease 2019) (ED) Additional Instructions: Please return to the emergency department if your fevers are ongoing, worsening breathing, weakness, dizziness, chest pain vomiting, unable to eat or drink, or any other concerning symptoms. Please self quarantine for the next 14 days. You may take Tylenol and Motrin as directed for your symptoms. Take the steroids as prescribed help with your asthma symptoms. Buy a pulse oximeter to measure your oxygen levels, if your oxygen drops below 94% please return back to the emergency department. Prescriptions: New ibuprofen 600 mg tablet 600 mg PO Q6H PRN (Reason: fever or pain) 5 Days Qty: 20 RF: 0 dexamethasone 6 mg tablet 6 mg PO DAILY 5 Days Qty: 5 RF: 0 No Action ondansetron HCl 4 mg tablet 4 mg PO Q6H Qty: 30 RF: 0 promethazine 12.5 mg suppository 12.5 mg OH Q4-6H PRN (Reason: sedation) Qty: 12 RF: 0 famotidine [Pepcid AC] 10 mg tablet 20 mg PO BID Qty: 60 RF: 1 ferrous sulfate 325 mg (65 mg iron) tablet,delayed release (DR/EC) 325 mg PO TID 30 Days Qty: 90 RF: 2 sennosides-docusate sodium [Lax Stool Softener With Senna] 8.6-50 mg tablet 1 tab-cap PO BEDTIME Qty: 30 RF: 2 sucralfate 100 mg/mL suspension 10 ml PO BID PRN (Reason: GERD symptoms ) 10 Days Qty: 200 RF: 0 prenat.vits,tair,[id number] Tablet 1 tab PO DAILY RF: 0 Flovent HFA 110 mcg/actuation HFA aerosol inhaler 0 mcg inhalation RF: 0 clotrimazole-betamethasone 1-0.05 % cream topical RF: 0 levonorgestrel [Plan B One-Step] 1.5 mg tablet 1.5 mg PO ONCE Qty: 1 RF: 0 medroxyprogesterone [Depo-Provera] 150 mg/mL suspension 150 mg IM [id number] Qty: 1 RF: 3 epinephrine 0.3 mg/0.3 mL auto-injector IM RF: 0
[2021-01-06] MEDS: Albuterol Sulfate 90 MCG 8 GM INHALER 6 PUFF INHALE (13:06)
[2021-01-06 13:09] VITALS: PULSE 112; O2SAT 94
[2021-01-06 13:15] LABS: Basophils Percent Auto 0.1 % (0-2); Hematocrit 36.1 % (37-47); Hemoglobin 11.2 g/dl (12.0-16.0); Imm Gran Abs Auto 0.06 X10*3/uL (0.00-0.03); Imm Gran Pct Auto 0.6 % (0.0-0.4); Lymphocytes Absolute Auto 1.7 X10*3/uL (1.2-4.9); Lymphocytes Percent Auto 17.4 % (20-40); MANUAL DIFF FLAG SCAN; Mean Corpuscular Hemoglobin 22.4 pg (27.0-33.0); Mean Corpuscular Volume 72.2 fL (80-98); Mean Platelet Volume 9.7 fL (9.4-12.3); Monocytes Absolute Auto 0.4 X10*3/uL (0.1-1.2); Monocytes Percent Auto 4.3 % (2-11); Neutrophils Absolute Auto 7.6 X10*3/uL (2.0-8.3); Neutrophils Percent Auto 77.6 % (45-73); Platelet Count 338 X10*3/uL (160-400); Red Cell Distribution Width 19.4 % (11.0-16.0); SCAN SMEAR FLAG 1; White Blood Count 9.8 X10*3/uL (4.8-10.8)
[2021-01-06] MEDS: 0.9 % Sodium Chloride 250 ML 999 ML IV (13:30)
[2021-01-06 13:37] LABS: Anion Gap 14 (12-20); Blood Urea Nitrogen 6 mg/dL (9-16); Calcium 8.6 mg/dL (8.4-10.2); Carbon Dioxide 22 mmol/L (22-29); Chloride 107 mmol/L (96-108); Creatinine Clr Calc Pharmacy 98.9; Estimated Glomerular Filt Rate > 60; Glucose Random 96 mg/dL (60-115); Potassium 4.4 mmol/L (3.3-5.1); Sodium 139 mmol/L (135-145)
[2021-01-06] MEDS: Acetaminophen 325 MG TABLET 650 MG PO (13:37)
[2021-01-06] MEDS: dexAMETHasone 6 MG TABLET PO (13:38)
[2021-01-06 13:39] LABS: SLIDE REVIEW VERIFIED
[2021-01-06 13:40] LABS: D Dimer 451 NG/ML
[2021-01-06 13:43] LABS: B Type Natriuretic Peptide 25 pg/mL (<100); Troponin-I High Sensitivity 3.6 ng/L (<3.5-17.0)
[2021-01-06 15:00] LABS: HCG Quantitative < 2 mIU/mL
[2021-01-06 15:26] VITALS: PULSE 116; RESP 18; O2SAT 97
[2021-01-06] MEDS: 0.9 % Sodium Chloride 1,000 ML 999 ML IV (15:49)
[2021-01-06 16:09] LABS: Glucose Urine UA NEG (NEG); Leukocyte Esterase Urine 1+ (NEG); Nitrite Urine NEG (NEG); Specific Gravity - Urine <= 1.005 (1.005-1.025); UACC Culture Trigger YES; Urine Blood 1+ (NEG); Urine Ketones NEG (NEG); Urine Protein 1+ MG/DL (NEG-TRACE)
[2021-01-06 16:11] LABS: Appearance Urine CLEAR; Color Urine YELLOW
[2021-01-06 16:23] LABS: Bacteria Urine 1+ /LPF; RBC Urine 0 /HPF (0); Squamous Epithelial Cell Urine 2+ /LPF; UACC CULT YES
[2021-01-06 17:06] VITALS: BP 110/63; PULSE 91; RESP 24; TEMP 37.2; O2SAT 97
== END 2021-01-06 17:32 | disposition home or self-care (01) ==
PROVIDERS: Physician Assistant Medical; Emergency Provider Emergency Medicine Emergency Medical Services; PCP Internal Medicine
DX: U07.1 COVID-19 (principal); J98.8 Other specified respiratory disorders; R00.0 Tachycardia, unspecified; R09.02 Hypoxemia; E86.0 Dehydration; R07.9 Chest pain, unspecified; J45.909 Unspecified asthma, uncomplicated; F12.90 Cannabis use, unspecified, uncomplicated; Z79.899 Other long term (current) drug therapy
CPT/HCPCS: 36415; 71046; 80048; 81001; 83880; 84484; 84702; 85025; 85379; 87086; 87088; 87186; 93005; 94640; 96360; 99285; J8540

== ENCOUNTER 2021-01-27 19:27 | Inpatient (IN) | payer OTHER, SELFPAY ==
[2021-01-27 19:42] VITALS: BP 129/92; PULSE 94; RESP 20; TEMP 36.8; O2SAT 98; BMI 32.5
[2021-01-27 20:43] LABS: COVID-19 Test Negative (Negative); IDNOW Serial# 9DD0AD1C
--- NOTE | 2021-01-27 20:51 | ED_ITS ---
HPI - Psych General Chief Complaint: Psychiatric Symptoms Stated Complaint: crisis Time Seen by Provider: 01/27/21 19:48 Source: patient Mode of arrival: ambulatory Limitations: no limitations History of Present Illness HPI Narrative: 25 y/o female with history of anxiety, depression, bipolar disorder, asthma, PCOS, recently diagnosed depression who presents to the ER with auditory hallucinations for unknown duration. She has been off of her psychiatric medications for months due to being , she gave in early December. She has been struggling hearing voices, being very anxious and her family reports she is not acting herself. She is very paranoid. She is worried about sleeping here, the cleanliness of the Pod, people watching her. She wants her family to come in to be with her. She denies drug use and does not want to be on any medications. She is not suicidal or homicidal. MD complaint: altered mental status, anxiety and hallucinations Onset (ago): week(s) Duration: constant History of same: No Relieving factors: none Exacerbating factors: none Context: significant life stressor Associated psychiatric symptoms: racing thoughts, auditory hallucinations and delusions Associated symptoms: confusion, headache and insomnia Related Data Home Medications Medication Instructions Recorded Confirmed clotrimazole-betamethasone 1 applic TOPICAL 05/05/20 10/18/20 %-0.05 % topical cream fluticasone propionate 110 0 mcg INHALATION 05/05/20 10/18/20 mcg/actuation HFA aerosol inhaler prenat.vits,tari,[id number] 1 tab PO DAILY 07/17/20 10/18/20 epinephrine 0.3 mg/0.3 mL IM 07/24/20 10/18/20 injection, auto-injector Previous Rx's Medication Instructions Recorded ondansetron HCl 4 mg tablet 4 mg PO Q6H #30 tab 06/20/20 promethazine 12.5 mg rectal 12.5 mg MS Q4-6H PRN #12 ea 06/29/20 suppository famotidine 10 mg tablet 20 mg PO BID #60 tab 08/02/20 sucralfate 100 mg/mL oral 10 ml PO BID PRN 10 Days #200 ml 08/29/20 suspension ferrous sulfate 325 mg (65 mg 325 mg PO TID 30 Days #90 tab 10/29/20 iron) tablet,delayed release sennosides 8.6 mg-docusate sodium 1 tab-cap PO BEDTIME #30 tab 10/29/20 50 mg tablet levonorgestrel 1.5 mg tablet 1.5 mg PO ONCE #1 tab 12/27/20 medroxyprogesterone 150 mg/mL 150 mg IM [id number] #1 ml 12/27/20 intramuscular suspension dexamethasone 6 mg PO DAILY 5 Days #5 tab 01/06/21 ibuprofen 600 mg PO Q6H PRN 5 Days #20 tab 01/06/21 levofloxacin 500 mg PO DAILY #5 tab 01/11/21 Allergies Allergy/AdvReac Type Severity Reaction Status Date / Time No Known Allergies Allergy Verified 01/06/21 12:00 Review of Systems Review of Systems: Yes Unobtainable due to mental status PMFSH Past Medical History Attestation statement: The following information was validated with the patient. Medical History Allergic rhinitis Anxiety Bipolar disorder Chronic eczema Depression History of deviated nasal septum IBS (irritable bowel syndrome) Moderate persistent asthma Obstetrical visit for first PCOS (polycystic ovarian syndrome) Surgical History History of wisdom tooth extraction Hx of nasal septoplasty Family History Family History Father Asthma Mother Liver disease Maternal Aunt Ovarian cancer Maternal Aunt Ovarian cancer Maternal Aunt Ovarian cancer Maternal Grandfather Leukemia Paternal Grandmother Pancreatic cancer Social History Social History Alcohol intake: never Patient Tobacco Use Status: Never used Tobacco Smoked in Last 30 Days: No Use of substances other than those prescribed or required for medical reasons: No Substance Use Type: Marijuana Any prior treatment program specific to substance use: No Advance Directives: No Advance Directives Information Provided: No Guardian: No Patient : No Sexual orientation: Straight/Heterosexual Gender identity: female Physical Exam Vital Signs: Vital Signs: Last Vital Signs Temp 97.3 F 01/28/21 00:37 Pulse 104 H 01/28/21 01:20 Resp 20 01/28/21 01:20 BP 96/65 01/28/21 01:20 Pulse Ox 98 01/28/21 01:20 Body Mass Index 32.5 Const: General: well developed, alert, awake and anxious Nutritional Appearance: average body habitus Orientation/consciousness: patient oriented x3 Limitations: behavioral limitations HENMT: Head: Yes normal to inspection Ears: hearing grossly normal bilaterally General nose exam: Normal external nose present Face and sinus: Yes normal facial exam Eyes: General: appearance normal, both eyes and all related structures Neck: Neck: Yes normal visual inspection Chest: Chest palpation & inspection: normal inspection of the chest Resp: Effort & Inspection: normal respiratory effort and able to speak in complete sentences Skin: General skin exam: no rashes or lesions noted Neuro: General: patient oriented x3 Extrem: General: Yes normal to inspection and Yes full ROM Psych: Appearance: grossly normal Speech and movement: Restless speech present Affect: Anxious affect present and Irritable affect present Attitude: Guarded attititude/behavior present Thought process: Illogical thought process present, Tangential thought process present and Racing thoughts present Thought content: Paranoid delusions present and Hallucination(s) present auditory Insight: Poor insight present (Psych) Judgement: Poor judgement present (Psych) Course Course Course Narrative: 25 y/o female with history of bipolar, anxiety, depression and recently diagnosed depression presents to the ER with auditory hallucinations, paranoia, anxiety and strange behavior at home. Not on her psych medications. Concern for acute psychosis given her behaviors here. Doubt substance abuse. Will get UA, Utox, lab workup and have CARE team evaluate her. Anticipate inpatient level of care. Reevaluation(s) Reevaluation #1: CARE team recommending inpatient bed search. Section 12 implemented. She has an appointment with [facility] [facility] here tomorrow for follow up of her depression, they have been made aware she is here. UA is positive for blood and small WBC. She reports some vaginal spotting. She denies dysuria, frequency or urgency. Will hold off on treating for infection as it is likely a contaminated sample. Labs are pending. Reevaluation #2: Called to the POD for worsening paranoia and anxiety. She was unable to be redirected. Not agreeing to take any oral medications. Her symptoms are severe to require IM medications at this time for her safety. IM Haldol and IM ativan ordered. Psych consult placed for medication recommendations. Reevaluation #3: Patient significantly improved after IM medications. Will continue to monitor closely. Physician observation started at 1:30am. Patient placed in physician observation because patient is awaiting inpatient psych admission. At the time observation was started patient's vital signs were stable. Patient is alert and oriented. Neuro exam is non-focal. CV: RRR and lungs are clear. Section 12 bed search underway. [facility] - Psych Lab Data Labs: Lab Results 01/27/21 01/27/21 01/27/21 Range/Units 20:08 21:47 21:48 Urine Color STRAW Urine Appearance CLEAR Urine pH 6.0 (5.0-8.0) Ur Specific [place] <= 1.005 (1.005-1.025) Urine Protein NEG (NEG-TRACE) MG/DL Urine Glucose (UA) NEG (NEG) MG/DL Urine Ketones NEG (NEG) MG/DL Urine Blood 3+ H (NEG) Urine Nitrite NEG (NEG) Ur Leukocyte Esterase 1+ H (NEG) Urine RBC 50-75 H (0) /HPF Urine WBC 5-9 H (0-4) /HPF Ur Squamous Epith Cells 2+ /LPF Urine Bacteria NONE /LPF Urine Opiates Screen Not Detected (Not Detect) Ur Barbiturates Screen Not Detected (Not Detect) Ur Phencyclidine Scrn Not Detected (Not Detect) Ur Amphetamines Screen Not Detected (Not Detect) U Benzodiazepines Scrn Not Detected (Not Detect) Urine Cocaine Screen Not Detected (Not Detect) U Marijuana (THC) Screen Not Detected (Not Detect) COVID-19 ([facility]AD[facility]INE) Negative (Negative) COVID-19 Clin Com See Note Discharge Plan Discharge Clinical Impression: Psychosis Qualifiers: Psychosis type: unspecified psychosis type Qualified Code(s): F29 - Unspecified psychosis not due to a substance or known physiological condition Prescriptions: No Action ondansetron HCl 4 mg tablet 4 mg PO Q6H Qty: 30 RF: 0 promethazine 12.5 mg suppository 12.5 mg MS Q4-6H PRN (Reason: sedation) Qty: 12 RF: 0 famotidine [Pepcid AC] 10 mg tablet 20 mg PO BID Qty: 60 RF: 1 ferrous sulfate 325 mg (65 mg iron) tablet,delayed release (DR/EC) 325 mg PO TID 30 Days Qty: 90 RF: 2 sennosides-docusate sodium [Lax Stool Softener With Senna] 8.6-50 mg tablet 1 tab-cap PO BEDTIME Qty: 30 RF: 2 ibuprofen 600 mg tablet 600 mg PO Q6H PRN (Reason: fever or pain) 5 Days Qty: 20 RF: 0 dexamethasone 6 mg tablet 6 mg PO DAILY 5 Days Qty: 5 RF: 0 levofloxacin 500 mg tablet 500 mg PO DAILY Qty: 5 RF: 0 sucralfate 100 mg/mL suspension 10 ml PO BID PRN (Reason: GERD symptoms ) 10 Days Qty: 200 RF: 0 prenat.vits,tari,[id number] Tablet 1 tab PO DAILY RF: 0 Flovent HFA 110 mcg/actuation HFA aerosol inhaler 0 mcg inhalation RF: 0 clotrimazole-betamethasone 1-0.05 % cream topical RF: 0 levonorgestrel [Plan B One-Step] 1.5 mg tablet 1.5 mg PO ONCE Qty: 1 RF: 0 medroxyprogesterone [Depo-Provera] 150 mg/mL suspension 150 mg IM [id number] Qty: 1 RF: 3 epinephrine 0.3 mg/0.3 mL auto-injector IM RF: 0
[2021-01-27 22:08] LABS: Glucose Urine UA NEG (NEG); Leukocyte Esterase Urine 1+ (NEG); Nitrite Urine NEG (NEG); Specific Gravity - Urine <= 1.005 (1.005-1.025); UACC Culture Trigger YES; Urine Blood 3+ (NEG); Urine Ketones NEG (NEG); Urine Protein NEG (NEG-TRACE)
[2021-01-27 22:09] LABS: Appearance Urine CLEAR; Color Urine STRAW
[2021-01-27 22:15] LABS: RBC Urine 50-75 /HPF (0); Squamous Epithelial Cell Urine 2+ /LPF; UACC CULT YES
[2021-01-27 22:33] LABS: Amphetamine Screen Urine Not Detected (Not Detect); Barbiturates, Urine Not Detected (Not Detect); Benzodiazepines Screen Urine Not Detected (Not Detect); Cannabinoid Screen Urine Not Detected (Not Detect); Cocaine Screen Urine Not Detected (Not Detect); Opiate Screen Urine Not Detected (Not Detect); Phencyclidine Screen Urine Not Detected (Not Detect)
--- NOTE | 2021-01-27 22:47 | PC.NURSE ---
Care team at bedside, patient seems engaged.
--- NOTE | 2021-01-27 23:25 | MHC.CARE ---
CARE team evaluated pt, disposition is for inpt psychiatric treatment. Discussed plan of care with ED provider. Sect 12a is signed and in pt's chart.
[2021-01-28] VITALS (8 sets, daily range): BP systolic 96–149; BP diastolic 65–93; PULSE 75–110; RESP 16–22; TEMP 36.3–37.1; O2SAT 97–99
[2021-01-28] MEDS: Haloperidol Lactate 5 MG/ML VIAL IM (01:05)
[2021-01-28] MEDS: LORazepam 2 MG/ML VIAL IM (01:05)
--- NOTE | 2021-01-28 01:46 | PC.NURSE ---
Patient is psychotic, delusional, non direct-able, at time loud and disruptive, tearful, refused to take PO medication, patient is evidently suffering, provider spoke with patient offered medication, patient refused, ordered Ativan 2 mg IM and Haldol 5 mg IM, administered IM medication at 0105 with therapeutic support from the [facility], VSS, patient is currently in bed appears sleeping, will continue to monitor.
--- NOTE | 2021-01-28 07:03 | PC.NURSE ---
patient appears at rest at present, appears to remain asleep with even unlabored breaths. patient appears in no distress
[2021-01-28 10:25] LABS: Basophils Percent Auto 0.4 % (0-2); Eosinophils Absolute Auto 0.2 X10*3/uL (0.0-0.4); Imm Gran Abs Auto 0.01 X10*3/uL (0.00-0.03); Imm Gran Pct Auto 0.1 % (0.0-0.4); Lymphocytes Absolute Auto 1.9 X10*3/uL (1.2-4.9); Lymphocytes Percent Auto 25.2 % (20-40); MANUAL DIFF FLAG NO; Mean Corpuscular HGB Conc 31.4 g/dl (31.0-35.0); Mean Corpuscular Volume 76.4 fL (80-98); Mean Platelet Volume 9.2 fL (9.4-12.3); Monocytes Absolute Auto 0.6 X10*3/uL (0.1-1.2); Monocytes Percent Auto 7.7 % (2-11); Neutrophils Absolute Auto 4.9 X10*3/uL (2.0-8.3); Neutrophils Percent Auto 64.6 % (45-73); Platelet Count 347 X10*3/uL (160-400); Red Blood Count 4.58 X10*6/uL (4.20-5.50); White Blood Count 7.6 X10*3/uL (4.8-10.8)
[2021-01-28 10:50] LABS: Alanine Aminotransferase 38 U/L (0-31); Albumin Level 4.3 g/dL (3.5-5.0); Alkaline Phosphatase 60 U/L (39-117); Anion Gap 13 (12-20); Aspartate Amino Transferase 35 U/L (5-31); Bilirubin Direct 0.4 mg/dL (0.0-0.5); Bilirubin Total 0.8 mg/dL (0.0-1.0); Blood Urea Nitrogen 6 mg/dL (9-16); Calcium 9.2 mg/dL (8.4-10.2); Carbon Dioxide 21 mmol/L (22-29); Chloride 113 mmol/L (96-108); Estimated Glomerular Filt Rate > 60; Glucose Random 101 mg/dL (60-115); Magnesium 2.2 mg/dL (1.6-2.6); Potassium 3.5 mmol/L (3.3-5.1); Sodium 143 mmol/L (135-145); Total Protein 7.4 g/dL (6.5-8.0)
--- NOTE | 2021-01-28 15:05 | MHC.CARE ---
Insurance: CARE Team received call from [facility]- Pt does not require prior authorization.
--- NOTE | 2021-01-28 16:09 | PC.NURSE ---
Report given to MARY Hill on M3. Pt will be going into room 326-1, ETA [id number]
[2021-01-29 06:00] VITALS: BP 134/80; PULSE 116; RESP 16; TEMP 37.4; O2SAT 99
[2021-01-29 08:11] LABS: Estimated Average Glucose 94 mg/dL; Hemoglobin A1c % 4.9 %
[2021-01-29 08:42] LABS: Cholesterol 106 mg/dL; HDL Cholesterol 25 mg/dL; LDL Cholesterol Calculated 67 mg/dl; Triglycerides 73 mg/dL
[2021-01-29 09:04] LABS: Thyroid Stimulating Hormone 0.38 uIU/mL (0.32-4.0)
[2021-01-29 09:24] LABS: Folate 10.8 ng/mL (> or = 4.0); Vitamin B12 375 pg/mL (200-900)
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
[2021-01-29] MEDS: clonazePAM 1 MG TABLET PO ×2 (11:47→22:01)
[2021-01-29] MEDS: risperiDONE 1 MG TABLET PO ×2 (11:47→22:01)
[2021-01-29 18:00] VITALS: BP 138/82; PULSE 91; RESP 16; TEMP 36.7; O2SAT 100
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
[2021-01-29] MEDS: OLANZapine 5 MG TABLET PO (22:01)
[2021-01-30 01:50] LABS: CT PCR NOT DETECTED (Not Detect.); NG PCR NOT DETECTED (Not Detect.)
[2021-01-30 07:38] LABS: HBsAGNum1 0.26 S/CO (0.00-0.99); HIV AB/AG Nonreactive (Nonreactive); HIV Num 1 0.13 S/CO (0.00-0.99); Hepatitis B Surface Antigen Negative (Negative)
[2021-01-30 08:53] LABS: Syphilis Screen Nonreactive (Nonreactive)
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
[2021-01-30 09:36] LABS: BV Int Neg Control Negative (Negative); BV Int Pos Control Positive (Positive)
[2021-01-30 17:35] LABS: UPreg QC Valid YES; Urine Pregnancy NEGATIVE (NEGATIVE)
[2021-01-30] MEDS: metroNIDAZOLE 500 MG TABLET PO (18:22)
[2021-01-30 20:15] VITALS: BP 140/82; PULSE 112; TEMP 37; O2SAT 100
[2021-01-31] MEDS: metroNIDAZOLE 500 MG TABLET PO ×2 (04:59→17:43)
[2021-01-31 06:00] VITALS: BP 129/75; PULSE 97; RESP 16; TEMP 37.1; O2SAT 100
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
[2021-01-31] MEDS: risperiDONE 2 MG TABLET PO (14:39)
--- NOTE | 2021-01-31 16:25 | PC.NURSE ---
Patient with increased paranoia early afternoon. Requested discharge multiple times, increasingly demanding. I need my things from back there to pack so I can go My sister is coming to get me right now . Sister's industrial sales manager? came on unit unannounced to provide support, followed by patients sister. Explained multiple times to patient her current legal status and inability to discharge at this time. Patient crying, becoming increasingly upset, increasingly irrational. Provider called to speak to patient. Provider met with patient and patients sister. Calmer following interaction. Accepted 1/2 of 2 mg Risperdol.
--- NOTE | 2021-01-31 17:23 | PC.NURSE ---
Patient informed staff she did not like the way the medication made her feel. Reports it made my face swell, I can't hold my head up, I feel tired and dizzy . I think it was too much for me . VSS 125/74 p96. Patient currently resting in bed. Requested female staff to sit with her.
[2021-02-01] MEDS: metroNIDAZOLE 500 MG TABLET PO ×2 (05:25→17:13)
--- NOTE | 2021-02-01 05:40 | PC.NURSE ---
05:30- Pt tearful at nursing station, demanding to go to the ED due to abdominal pain 07/19. After examining the packaging of scheduled Flagyl pt agreed to received scheduled dose. Refused PRN medication for pain and anxiety. When asked if she was experiencing vaginal bleeding, pt replied I'm holding it all in. Something is wrong. Will continue to monitor and report.
[2021-02-01 07:50] VITALS: BP 157/86; PULSE 111; RESP 17; TEMP 36.8; O2SAT 100
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
[2021-02-01] MEDS: OLANZapine 5 MG TABLET PO (17:13)
[2021-02-01 18:00] VITALS: BP 105/63; PULSE 94; TEMP 36.9; O2SAT 100
[2021-02-02 08:11] VITALS: BP 141/88; PULSE 126; RESP 18; TEMP 36.9; O2SAT 100
[2021-02-02] MEDS: OLANZapine ODT 10 MG TAB.RAPDIS 5 MG TRANSLINGU (09:06)
[2021-02-02] MEDS: metroNIDAZOLE 500 MG TABLET PO ×2 (09:06→17:34)
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
[2021-02-03 05:44] VITALS: BP 129/76; PULSE 114; TEMP 36.6
[2021-02-03] MEDS: OLANZapine ODT 10 MG TAB.RAPDIS 5 MG TRANSLINGU ×2 (06:02→21:18)
[2021-02-03] MEDS: metroNIDAZOLE 500 MG TABLET PO ×2 (06:02→18:12)
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
[2021-02-03 21:13] VITALS: BP 125/72; PULSE 107; RESP 18; TEMP 36.9; O2SAT 100
[2021-02-04 06:00] VITALS: TEMP 36.1
[2021-02-04] MEDS: metroNIDAZOLE 500 MG TABLET PO ×2 (06:06→18:29)
[2021-02-04] MEDS: OLANZapine ODT 10 MG TAB.RAPDIS 5 MG TRANSLINGU ×2 (08:00→21:54)
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
[2021-02-04 20:47] VITALS: BP 130/89; PULSE 116; RESP 16; TEMP 37.1; O2SAT 100
[2021-02-05 06:00] VITALS: BP 120/69; PULSE 115; RESP 16; TEMP 36.4; O2SAT 99
[2021-02-05] MEDS: metroNIDAZOLE 500 MG TABLET PO ×2 (06:29→18:02)
[2021-02-05] MEDS: OLANZapine ODT 10 MG TAB.RAPDIS 5 MG TRANSLINGU ×2 (09:10→21:21)
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
[2021-02-05 22:00] VITALS: BP 122/77; PULSE 106; TEMP 37.2; O2SAT 100
[2021-02-06 06:00] VITALS: BP 111/68; PULSE 109; TEMP 36.8; O2SAT 96
[2021-02-06] MEDS: metroNIDAZOLE 500 MG TABLET PO (06:13)
[2021-02-06] MEDS: OLANZapine ODT 10 MG TAB.RAPDIS 5 MG TRANSLINGU (08:15)
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
--- NOTE | 2021-02-06 13:12 | PC.NURSE ---
Patient gives verbal permission to send discharge information to PCP Dr. Leslie Ledesma.
== END 2021-02-06 12:07 | disposition home or self-care (01) | DRG 561 ==
LOC: HO.ED 01-28 16:32 → HO.PADLT16 01-28 17:17
PROVIDERS: Obstetrics & Gynecology; Physician Assistant; Admitting Provider Social Worker; Emergency Provider Emergency Medicine; Visit Provider Social Worker
DX: O99.345 Other mental disorders complicating the puerperium (principal); F31.12 Bipolar disorder, current episode manic without psychotic features, moderate; F53.1 Puerperal psychosis; O99.63 Diseases of the digestive system complicating the puerperium; K21.9 Gastro-esophageal reflux disease without esophagitis; Z20.822 Contact with and (suspected) exposure to COVID-19; Z79.899 Other long term (current) drug therapy
CPT/HCPCS: 36415; 80048; 80061; 80076; 80307; 81001; 81025; 82607; 82746; 83036; 83735; 84443; 85025; 86780; 87086; 87088; 87186; 87340; 87389; 87480; 87491; 87510; 87591; 87635; 87660; 99285; J2060

== ENCOUNTER → 2021-02-12 13:56 | Outpatient (BNVA) | payer OTHER, SELFPAY | PROVIDERS: Visit Provider Advanced Practice Midwife | DX: Z30.09 Encounter for other general counseling and advice on contraception (principal); O99.345 Other mental disorders complicating the puerperium; F53.0 Postpartum depression | CPT/HCPCS: 99212 ==

== ENCOUNTER → 2021-03-19 15:04 | Outpatient (BNVA) | payer OTHER, MEDICAID, SELFPAY | PROVIDERS: Visit Provider Obstetrics & Gynecology | DX: Z30.42 Encounter for surveillance of injectable contraceptive (principal) | CPT/HCPCS: 96372 ==

== ENCOUNTER 2021-03-26 14:18 | Outpatient (REF) | payer OTHER, SELFPAY | END 2021-03-26 14:19 | disposition home or self-care (01) | LOC: HO.LNP 14:18 | PROVIDERS: Visit Provider Internal Medicine | DX: J06.9 Acute upper respiratory infection, unspecified (principal); Z20.822 Contact with and (suspected) exposure to COVID-19 | CPT/HCPCS: U0003; U0005 ==

== ENCOUNTER 2021-04-24 08:46 | Emergency (ER) | payer OTHER, SELFPAY ==
--- NOTE | ~2021-04-24 | XR_ITS ---
EXAMINATION: LEFT SHOULDER, LEFT ELBOW, LEFT FOOT LEFT FOREARM, LEFT ANKLE CLINICAL INFORMATION: Status post fall. COMPARISON: None TECHNIQUE: Left ankle 2 views. Left foot 3 views. Left elbow 3 views. Left forearm 2 views. Left shoulder 3 views. FINDINGS: Left ankle: There is lateral malleolar soft tissue swelling. There is no visible acute fracture, dislocation or subluxation seen. A small retrocalcaneal and calculi heel enthesophytes. Left foot: There is no visible acute fracture, dislocation or subluxation seen. The soft tissues are normal. Left elbow: There is no visible acute fracture, dislocation or subluxation. The fat pad sign is normal. Left forearm: There is no visible acute fracture, dislocation or subluxation. The soft tissues are normal. Left shoulder: There is no visible acute fracture or dislocation. The soft tissues are normal. XR/XR elbow LT min 3V IMPRESSION: No acute fracture or dislocation left foot, left elbow or left forearm. There is moderate lateral malleolar soft tissue swelling left ankle. Unremarkable left shoulder exam.
--- NOTE | ~2021-04-24 | XR_ITS ---
EXAMINATION: LEFT SHOULDER, LEFT ELBOW, LEFT FOOT LEFT FOREARM, LEFT ANKLE CLINICAL INFORMATION: Status post fall. COMPARISON: None TECHNIQUE: Left ankle 2 views. Left foot 3 views. Left elbow 3 views. Left forearm 2 views. Left shoulder 3 views. FINDINGS: Left ankle: There is lateral malleolar soft tissue swelling. There is no visible acute fracture, dislocation or subluxation seen. A small retrocalcaneal and calculi heel enthesophytes. Left foot: There is no visible acute fracture, dislocation or subluxation seen. The soft tissues are normal. Left elbow: There is no visible acute fracture, dislocation or subluxation. The fat pad sign is normal. Left forearm: There is no visible acute fracture, dislocation or subluxation. The soft tissues are normal. Left shoulder: There is no visible acute fracture or dislocation. The soft tissues are normal. XR/XR ankle LT 2V IMPRESSION: No acute fracture or dislocation left foot, left elbow or left forearm. There is moderate lateral malleolar soft tissue swelling left ankle. Unremarkable left shoulder exam.
--- NOTE | ~2021-04-24 | XR_ITS ---
EXAMINATION: LEFT SHOULDER, LEFT ELBOW, LEFT FOOT LEFT FOREARM, LEFT ANKLE CLINICAL INFORMATION: Status post fall. COMPARISON: None TECHNIQUE: Left ankle 2 views. Left foot 3 views. Left elbow 3 views. Left forearm 2 views. Left shoulder 3 views. FINDINGS: Left ankle: There is lateral malleolar soft tissue swelling. There is no visible acute fracture, dislocation or subluxation seen. A small retrocalcaneal and calculi heel enthesophytes. Left foot: There is no visible acute fracture, dislocation or subluxation seen. The soft tissues are normal. Left elbow: There is no visible acute fracture, dislocation or subluxation. The fat pad sign is normal. Left forearm: There is no visible acute fracture, dislocation or subluxation. The soft tissues are normal. Left shoulder: There is no visible acute fracture or dislocation. The soft tissues are normal. XR/XR forearm LT 2V IMPRESSION: No acute fracture or dislocation left foot, left elbow or left forearm. There is moderate lateral malleolar soft tissue swelling left ankle. Unremarkable left shoulder exam.
--- NOTE | ~2021-04-24 | XR_ITS ---
EXAMINATION: LEFT SHOULDER, LEFT ELBOW, LEFT FOOT LEFT FOREARM, LEFT ANKLE CLINICAL INFORMATION: Status post fall. COMPARISON: None TECHNIQUE: Left ankle 2 views. Left foot 3 views. Left elbow 3 views. Left forearm 2 views. Left shoulder 3 views. FINDINGS: Left ankle: There is lateral malleolar soft tissue swelling. There is no visible acute fracture, dislocation or subluxation seen. A small retrocalcaneal and calculi heel enthesophytes. Left foot: There is no visible acute fracture, dislocation or subluxation seen. The soft tissues are normal. Left elbow: There is no visible acute fracture, dislocation or subluxation. The fat pad sign is normal. Left forearm: There is no visible acute fracture, dislocation or subluxation. The soft tissues are normal. Left shoulder: There is no visible acute fracture or dislocation. The soft tissues are normal. XR/XR shoulder LT min 2V IMPRESSION: No acute fracture or dislocation left foot, left elbow or left forearm. There is moderate lateral malleolar soft tissue swelling left ankle. Unremarkable left shoulder exam.
--- NOTE | ~2021-04-24 | XR_ITS ---
EXAMINATION: LEFT SHOULDER, LEFT ELBOW, LEFT FOOT LEFT FOREARM, LEFT ANKLE CLINICAL INFORMATION: Status post fall. COMPARISON: None TECHNIQUE: Left ankle 2 views. Left foot 3 views. Left elbow 3 views. Left forearm 2 views. Left shoulder 3 views. FINDINGS: Left ankle: There is lateral malleolar soft tissue swelling. There is no visible acute fracture, dislocation or subluxation seen. A small retrocalcaneal and calculi heel enthesophytes. Left foot: There is no visible acute fracture, dislocation or subluxation seen. The soft tissues are normal. Left elbow: There is no visible acute fracture, dislocation or subluxation. The fat pad sign is normal. Left forearm: There is no visible acute fracture, dislocation or subluxation. The soft tissues are normal. Left shoulder: There is no visible acute fracture or dislocation. The soft tissues are normal. XR/XR foot LT min 3V IMPRESSION: No acute fracture or dislocation left foot, left elbow or left forearm. There is moderate lateral malleolar soft tissue swelling left ankle. Unremarkable left shoulder exam.
[2021-04-24 09:41] VITALS: BP 115/70; PULSE 93; RESP 14; TEMP 36.4; O2SAT 100; BMI 29.6
--- NOTE | 2021-04-24 09:51 | ED_ITS ---
HPI - Extremity Problem General Chief complaint: Extremity Injury, Upper Stated complaint: fall - ankle & shoulder pain Time Seen by Provider: 04/24/21 09:36 Source: patient Mode of arrival: ambulatory Limitations: no limitations History of Present Illness HPI Narrative: This is a 25-year-old female presents to the emergency department after sustaining a fall from a pickup truck. She states she was getting out of the car, and fell onto the left side of her body. She did not hit her head, did not lose consciousness. But she reports 9/10 pain to her left lower extremity as well as her left upper extremity. She states she is unable to move her left arm. And is in severe pain to her left lower extremity. She states she scratched her ankle when she fell. She denies any paresthesias, numbness or tingling to her extremities. has no significant past medical history other than anxiety, and depression. She is currently not taking any blood thinners and is not on any medications. She reports no allergies. MD Complaint: extremity pain Onset (ago): hour(s) (2 hours) Pain Consistency: constant Location: left (Left ankle and foot as well as left shoulder, elbow and forearm) Severity scale (1-10): 9 Quality: constant Radiation: none Relieving factors: nothing Exacerbating factors: walking, exertion and palpation Associated symptoms: denies other symptoms Related Data Home Medications Medication Instructions Recorded Confirmed albuterol sulfate 90 mcg/actuation 1 inh INHALATION QID 03/26/21 04/08/21 aerosol inhaler medroxyprogesterone 150 mg/mL 150 mg IM [id number] 03/26/21 04/08/21 intramuscular suspension (Depo-Provera) Previous Rx's Medication Instructions Recorded ibuprofen 600 mg tablet 600 mg PO Q8H PRN 30 Days #90 tab 03/14/21 azithromycin 250 mg tablet 250 mg PO DIRECTED 5 Days #6 tab 04/08/21 fluticasone propionate 110 110 mcg INHALATION BID 30 Days #12 04/08/21 mcg/actuation HFA aerosol inhaler g methylprednisolone 4 mg tablets in 4 mg PO PER PKG DIR 6 Days #21 ea 04/08/21 a dose pack acetaminophen 500 mg tablet 1,000 mg PO QID PRN #14 tab 04/24/21 (Tylenol Extra Strength) ibuprofen 800 mg tablet 800 mg PO Q8H PRN #14 tab 04/24/21 oxycodone 5 mg tablet 5 mg PO Q6H PRN #14 tab 04/24/21 Allergies Allergy/AdvReac Type Severity Reaction Status Date / Time No Known Allergies Allergy Verified 04/08/21 09:49 Review of Systems Constitutional: Constitutional: Reports no additional constitutional complaints Eyes: Eyes: Reports no additional eye complaints ENT: Reports system reviewed and no additional complaints, except as documented Cardiovascular: Cardiovascular: Reports no additional cardiovascular complaints Respiratory: Respiratory: Reports no additional respiratory complaints Gastrointestinal: Gastrointestinal: Reports no additional gastrointestinal complaints Musculoskeletal: Musculoskeletal: Reports as per HPI and Reports abnormal gait Comments: Patient reports pain to her foot, ankle, elbow forearm and shoulder to the left side. Status post fall. She also reports decreased range of motion to the left upper extremity and lower extremity. Integumentary/Breasts: Skin/Breast: Reports other (Abrasion noted to the lateral portion of the left ankle.) Neurologic: Reports abnormal gait [facility] Past Medical History Medical History (Updated 04/24/21 @ 11:33 by RHINA Fine) Allergic rhinitis Anxiety Bipolar disorder Chronic eczema Class 1 obesity with body mass index (BMI) of 32.0 to 32.9 in adult Depression Enlarged tonsils History of deviated nasal septum IBS (irritable bowel syndrome) Mild recurrent major depression Moderate persistent asthma Obstetrical visit for first PCOS (polycystic ovarian syndrome) Surgical History History of wisdom tooth extraction Hx of nasal septoplasty Family History Family History Father Asthma Mother Liver disease Mental health disorder Maternal Aunt Ovarian cancer Maternal Aunt Ovarian cancer Maternal Aunt Ovarian cancer Maternal Grandfather Leukemia Paternal Grandmother Pancreatic cancer Social History Social History Household Members: Significant Other and Children Housing: Apartment Do you presently have visiting nurse or other home services: No Alcohol intake: never Patient Tobacco Use Status: Never used Tobacco e-Cigarette/Vaping Use: Never Used Second Hand Smoke Exposure: No Substance Use Type: Marijuana Advance Directives: No Advance Directives Information Provided: No Patient : No service: No 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 Blood pressure normal. Heart rate normal. Respiration rate normal. Temperature normal. Oxygen saturation normal. Appearance: Alert. Oriented X3. No acute distress. Head: Normal external exam. Normocephalic. Atraumatic. No Damian signs noted. No raccoon eyes noted. New lesions once or masses Eyes: PERRLA. EOMI. Conjunctiva and sclera normal. Eyelids normal. Neck: Normal inspection. Neck supple. FROM. No adenopathy. Thyroid Normal. No meningeal signs. No neck mass noted. No C-spine tenderness CVS: Normal heart rate and rhythm. Heart sound normal. Pulses normal throughout. No murmurs/rales/gallops. Respiratory: No respiratory distress. Painless inspiration. Breath sounds normal. No wheezes/rales/rhonchi noted. Chest nontender. No accessory muscle usage noted or decreased air movement noted. Abdomen: Soft and nontender. Back: No CVA tenderness. Full range of motion noted. No rashes/lesion/induration/fluctuance or signs of infection noted. Skin: Skin warm and dry. Normal skin color. Normal skin turgor. No rashes/lesions/lacerations noted. Extremities: No lower extremity edema. Patient unable to move her left shoulder, elbow due to pain but no obvious deformities. No skin abrasions, bruises or erythema noted to the left upper extremity. Pain to palpation and around the radial head, and distal 1/3 of the clavicle. No step-offs, or deformities noted to the clavicle. Left lower ankle/foot exhibits abrasions, and dry blood. Pain to palpation over the medial and lateral malleolus. Pain to palpation and around the Achilles area. Negative Segovia's test does not appear to be an Achilles tendon rupture. No ligamentous injury evident Neuro: Oriented X 3. No motor deficit. No sensory deficit. Reflexes normal. Normal steady gait. No focal neuro deficits noted. Vascular: + radial pulses/+ 2 distal pedal pulses/+2 dorsalis pedis b/l. Normal cap refill. No cyanosis noted to upper extremity nails and lower extremity toes nails. Course Course Course Narrative: 1127 Re-evaluated the patient, and discussed x-ray results with patient as well as discharge plan patient is aware of the plan. Upon re-evaluation the patient is able to move her shoulder, elbow and lower extremity. She has been advised to follow-up with her primary care provider, and contact Orthopedics if pain worsens, or if it persists for more than 2-3 weeks. She will be sent home with pain medication. And a work note will be written for a few days. MDM - Extremity (Nontraumatic) MDM Narrative Medical decision making narrative: Patient status post fall earlier this morning. Patient landed on her left side. Exhibits tenderness to the left lower extremities, as well as the right upper extremities. X-rays have been ordered ABS the left foot/ankle. Left forearm, elbow and shoulder. Patient in 04/19 pain, oxycodone and Motrin have been ordered. Will continue to monitor this patient. Imaging Data X-ray of left shoulder/left elbow/left ankle/left forearm/left 5th: Attestation: I personally reviewed and interpreted this imaging study as follows: Radiologist's impression: FINDINGS: Left ankle: There is lateral malleolar soft tissue swelling. There is no visible acute fracture, dislocation or subluxation seen. A small retrocalcaneal and calculi heel enthesophytes. Left foot: There is no visible acute fracture, dislocation or subluxation seen. The soft tissues are normal. Left elbow: There is no visible acute fracture, dislocation or subluxation. The fat pad sign is normal. Left forearm: There is no visible acute fracture, dislocation or subluxation. The soft tissues are normal. Left shoulder: There is no visible acute fracture or dislocation. The soft tissues are normal. XR/XR shoulder LT min 2V IMPRESSION: No acute fracture or dislocation left foot, left elbow or left forearm. ? There is moderate lateral malleolar soft tissue swelling left ankle. ? Unremarkable left shoulder exam. Discharge Plan Discharge Clinical Impression: Fall, Shoulder sprain, Sprain of elbow, left, Ankle sprain, Foot sprain Patient Disposition: Home, Self-Care Instructions: Ankle Sprain (ED), Elbow Sprain (ED), Shoulder Sprain (ED), Foot Sprain (ED), Fall Prevention (ED) Additional Instructions: Follow up with PCP and Orthopedics if no improvement in 2-3 weeks Try and move your shoulder, elbow and foot when possible. Dont wear the sling for more than 48 hours. Take medications as prescribed If worsening symptoms return to the emergency department Prescriptions: New oxycodone 5 mg tablet 5 mg PO Q6H PRN (Reason: pain) Qty: 14 RF: 0 ibuprofen 800 mg tablet 800 mg PO Q8H PRN (Reason: pain) Qty: 14 RF: 0 acetaminophen [Tylenol Extra Strength] 500 mg tablet 1,000 mg PO QID PRN (Reason: fever or pain) Qty: 14 RF: 0 No Action ibuprofen 600 mg tablet 600 mg PO Q8H PRN (Reason: pain) 30 Days Qty: 90 RF: 0 fluticasone propionate 110 mcg/actuation HFA aerosol inhaler 110 mcg inhalation BID 30 Days Qty: 12 RF: 3 methylprednisolone 4 mg tablets,dose pack 4 mg PO PER PKG DIR 6 Days Qty: 21 RF: 0 azithromycin 250 mg tablet 250 mg PO DIRECTED 5 Days Qty: 6 RF: 0 albuterol sulfate 90 mcg/actuation HFA aerosol inhaler 1 inh inhalation QID RF: 0 medroxyprogesterone [Depo-Provera] 150 mg/mL suspension 150 mg IM [id number] RF: 0 Referrals: Brittanie Montes MD [Physician] - 2 weeks (If symptoms persist) Leslie Clements MD [Primary Care Provider] - 2 days Stand Alone Forms: Work/School Release
[2021-04-24] MEDS: oxyCODONE HCl Immed Release 5 MG TABLET PO (10:08)
[2021-04-24] MEDS: Ibuprofen 800 MG TABLET PO (10:09)
== END 2021-04-24 12:34 | disposition home or self-care (01) ==
PROVIDERS: Emergency Provider Emergency Medicine; PCP Internal Medicine
DX: S43.402A Unspecified sprain of left shoulder joint, initial encounter (principal); S93.402A Sprain of unspecified ligament of left ankle, initial encounter; M25.512 Pain in left shoulder; M25.572 Pain in left ankle and joints of left foot; F12.90 Cannabis use, unspecified, uncomplicated; W17.89XA Other fall from one level to another, initial encounter; Y93.9 Activity, unspecified; Y92.9 Unspecified place or not applicable; Y99.9 Unspecified external cause status; Z79.899 Other long term (current) drug therapy
CPT/HCPCS: 73030; 73080; 73090; 73600; 73630; 99283; 99284

== ENCOUNTER → 2021-05-03 09:21 | Outpatient (BNVA) | payer OTHER, SELFPAY | PROVIDERS: PCP Internal Medicine; Visit Provider Orthopaedic Surgery ==

== ENCOUNTER → 2021-06-11 08:30 | Outpatient (BNVA) | payer OTHER, SELFPAY | PROVIDERS: PCP Internal Medicine; Visit Provider Advanced Practice Midwife | DX: Z30.42 Encounter for surveillance of injectable contraceptive (principal) | CPT/HCPCS: 96372 ==

== ENCOUNTER 2021-08-06 16:34 | Outpatient (REF) | payer OTHER, SELFPAY ==
--- NOTE | ~2021-08-06 | XR_ITS ---
EXAMINATION: XR CERVICAL SPINE CLINICAL INFORMATION: Ongoing low back pain without known injury and body aches COMPARISON: None TECHNIQUE: 4 views of the cervical spine FINDINGS: No fracture or dislocation. Slight straightening of the normal cervical curvature which may be secondary to patient positioning versus muscle spasm. No overt dynamic instability on flexion-extension views. Visualized dens is intact. Lateral masses are symmetric. Vertebral body heights and disc spaces are maintained. Prevertebral soft tissues are unremarkable. Posterior elements are intact. Paraspinal soft tissues are unremarkable. Visualized portions of the upper chest are unremarkable. XR/XR cervical spine w flex/ext IMPRESSION: 1. No fracture or dislocation. 2. Slight straightening of the normal cervical curvature which may be secondary to patient positioning versus muscle spasm. 3. No overt dynamic instability on flexion-extension views.
--- NOTE | ~2021-08-06 | XR_ITS ---
EXAMINATION: XR LUMBOSACRAL SPINE CLINICAL INFORMATION: Back pain COMPARISON: None TECHNIQUE: Three views of the lumbosacral spine. FINDINGS: 5 nonrib-bearing lumbar-type vertebral bodies. No acute visible fracture or dislocation. Minimal degenerative changes with right L4-L5 facet arthropathy. Vertebral body heights and disc spaces are maintained. Posterior elements are intact. Paraspinal soft tissues are unremarkable. Visualized bowel gas is unremarkable. XR/XR lumbar spine 2-3V IMPRESSION: 1. No acute visible fracture or dislocation. 2. Minimal degenerative changes with right L4-L5 facet arthropathy.
== END 2021-08-06 16:35 | disposition home or self-care (01) ==
LOC: HO.XRAY 16:34
PROVIDERS: PCP Internal Medicine; Visit Provider Nurse Practitioner Acute Care
DX: M54.50 Low back pain, unspecified (principal); R20.0 Anesthesia of skin
CPT/HCPCS: 72052; 72100

== ENCOUNTER 2021-08-09 10:44 | Outpatient (REF) | payer OTHER, SELFPAY ==
[2021-08-09 12:36] LABS: COVID-19 Test Negative (Negative)
== END 2021-08-09 10:45 | disposition home or self-care (01) ==
LOC: HO.LAB 10:44
PROVIDERS: Visit Provider Internal Medicine
DX: Z20.822 Contact with and (suspected) exposure to COVID-19 (principal)
CPT/HCPCS: 36415; 87635; C9803

== ENCOUNTER 2021-08-15 07:03 | Outpatient (RCR) | payer OTHER, SELFPAY ==
--- NOTE | 2021-08-15 15:26 | MHC.PT.EP ---
[facility] [place] Office [place] Office [place] Office [address] Rachele Harkins [address] [phone] F: [phone] F: [phone] F: [phone] F: [phone] Physical Therapy Plan of Care Date of Evaluation: Date of Surgery: Diagnosis: vertigo Assessment: The patient arrived reporting dizziness with head and body movement. She had a sense of dizziness in right hallpike but no true spinning. No nystagmus noted. I did the CRM as a precautionary measure but she felt no better upon repeating hallpike. Pt had significant weakness in her VOR. Dizziness noted with visual tracking. Pt had poor balance without visual fixation and on a soft surface. 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 She would benefit from Vestibular therapy to help her compensate for hypofunction and to help decrease and desensitize dizziness. Pt is a good candidate for skilled PT. Frequency and Duration: The patient will be seen 2x/week x 4 weeks. Short Term Goals: 1. Pt to be able to perform basic transfers and bed mobility with at least 30% reduced subjective dizziness. 2. Pt to be independent with initial HEP to help improve compliance and carryover. [employer] Goals: 1. For the patient to be negative for nystagmus or reports of vertigo in all diagnostic positions bilaterally to resolution of BPPV in 4 weeks. 2. For the patient to be able to functionally move in all planes and directions without provocation of dizziness to show return to PLOF. 3.For the patient to be educated on symptoms and indications to return to therapy when needed in 4 weeks. Treatment Plan: Modalities to reduce pain, spasms and effusion. Manual therapy to restore motion and function. Therapeutic exercise to improve strength and flexibility. Neuromuscular re-education for posture and balance. Therapeutic activities to return to functional activities of daily living. Electronically signed by: Birdie Ledesma PT DPT Please sign and return to therapist. Thank you for your referral.
== END 2022-02-14 11:14 | disposition home or self-care (01) ==
LOC: HO.PT 07:03
PROVIDERS: PCP Internal Medicine; Visit Provider Nurse Practitioner Acute Care
DX: H81.12 Benign paroxysmal vertigo, left ear (principal)
CPT/HCPCS: 95992; 97112; 97161

== ENCOUNTER → 2021-08-29 13:54 | Outpatient (BNVA) | payer OTHER, SELFPAY | PROVIDERS: PCP Internal Medicine; Visit Provider Advanced Practice Midwife | DX: Z30.42 Encounter for surveillance of injectable contraceptive (principal) | CPT/HCPCS: 96372; 99211 ==

== ENCOUNTER 2021-11-12 10:54 | Outpatient (REF) | payer OTHER, SELFPAY ==
[2021-11-12 14:33] LABS: IDNOW Serial# 08D9AD1C; Strep A Nucleic Acid Negative (Negative)
== END 2021-11-12 10:55 | disposition home or self-care (01) ==
LOC: HO.LNP 10:54
PROVIDERS: Visit Provider Nurse Practitioner Family
DX: J02.9 Acute pharyngitis, unspecified (principal)
CPT/HCPCS: 87071; 87147; 87651

== ENCOUNTER → 2021-11-20 10:05 | Outpatient (BNVA) | payer OTHER, SELFPAY | PROVIDERS: PCP Internal Medicine; Visit Provider Advanced Practice Midwife | DX: Z30.42 Encounter for surveillance of injectable contraceptive (principal) | CPT/HCPCS: 96372; 99211 ==

== ENCOUNTER 2021-12-19 14:03 | Outpatient (REF) | payer OTHER, SELFPAY ==
[2021-12-19 14:55] LABS: Influenza A PCR NEGATIVE (Negative); Influenza B PCR NEGATIVE (Negative); Resp Syncy Virus RNA Qual PCR NEGATIVE (Negative); SARS COV2 PCR INHOUSE NEGATIVE (Negative)
== END 2021-12-19 14:04 | disposition home or self-care (01) ==
LOC: HO.LNP 14:03
PROVIDERS: Visit Provider Internal Medicine
DX: Z20.822 Contact with and (suspected) exposure to COVID-19 (principal); J02.9 Acute pharyngitis, unspecified; J45.901 Unspecified asthma with (acute) exacerbation; M79.10 Myalgia, unspecified site
CPT/HCPCS: 0241U

== ENCOUNTER 2022-01-16 17:47 | Emergency (ER) | payer OTHER, SELFPAY ==
[2022-01-16 17:52] VITALS: BP 131/85; PULSE 117; RESP 18; TEMP 37.5; O2SAT 99; BMI 30.8
[2022-01-16 18:16] LABS: Strep A Nucleic Acid Positive (Negative)
--- NOTE | 2022-01-16 19:14 | ED.URI ---
HPI - URI/Sore Throat General Chief Complaint: Upper Respiratory Symptoms Stated Complaint: diff breathing/throat sweling Source: patient Mode of arrival: ambulatory Limitations: no limitations History of Present Illness HPI Narrative: 26-year-old female presents with 3 days of sore throat, headache, and body aches. Was evaluated at an urgent care and told that she had strep throat but was never given an antibiotic. MD elicited complaint: fever and sore throat Onset (ago): day(s) (3) Consistency: constant Severity: moderate Pain scale (0-10): 7 Able to tolerate fluids by mouth: Yes Exacerbating factors: swallowing and speaking Relieving factors: nothing Associated symptoms: fever, headache and sore throat Treatments prior to arrival: none Related Data Home Medications Medication Instructions Recorded Confirmed albuterol sulfate 90 mcg/actuation 1 inh inhalation QID 03/26/21 01/16/22 aerosol inhaler Previous Rx's Medication Instructions Recorded ibuprofen 800 mg tablet 800 mg PO Q8H PRN pain #14 tabs 04/24/21 meclizine 25 mg tablet 25 mg PO BID PRN dizziness #14 tabs 08/06/21 ondansetron HCl 4 mg tablet 4 mg PO Q8H PRN nausea and 11/12/21 vomiting #14 tabs medroxyprogesterone 150 mg/mL 150 mg IM [id number] #1 mL 11/19/21 intramuscular suspension (Depo-Provera) epinephrine 0.3 mg/0.3 mL 0.3 mg (0.3 mL) IM Q4H PRN 12/02/21 injection, auto-injector anaphylaxis 30 days #1 ea fluticasone propionate 110 110 mcg inhalation BID 30 days #12 12/02/21 mcg/actuation HFA aerosol inhaler grams albuterol sulfate 90 mcg/actuation 1 inh inhalation QID PRN shortness 12/19/21 aerosol inhaler (ProAir HFA) of breath or wheezing 30 days #18 grams amoxicillin 875 mg tablet 875 mg PO BID 7 days #14 tabs 12/19/21 prednisone 10 mg tablet 10 mg PO DAILY 7 days #7 tabs 12/19/21 levocetirizine 5 mg tablet (Xyzal) 5 mg PO DAILY #30 tabs 12/24/21 cyclobenzaprine 5 mg tablet 5 mg PO TID PRN muscle spasm #42 12/27/21 tabs oxycodone 5 mg tablet 5 mg PO Q8H PRN pain 5 days #15 12/27/21 tabs acetaminophen 500 mg tablet 1,000 mg PO QID PRN fever or pain 01/07/22 (Tylenol Extra Strength) #30 tabs lidocaine 5 % topical patch 1 patch topical DAILY #15 ea 01/07/22 (Lidoderm) amoxicillin 875 mg-potassium 1 tab PO Q12H 10 days #20 tabs 01/16/22 clavulanate 125 mg tablet Allergies Allergy/AdvReac Type Severity Reaction Status Date / Time No Known Allergies Allergy Verified 01/16/22 12:12 Review of Systems Review of Systems: Constitutional: No Fever, No Chills ENT/Mouth: No Ear Pain, No Hoarseness, positive sore throat Eyes: No Eye Pain, No Swelling, No Redness, No Foreign Body Cardiovascular: No Chest Pain, No SOB Respiratory: No Cough, No Dyspnea Gastrointestinal: No Nausea, No Vomiting, No Diarrhea, No abdominal Pain Genitourinary: No Dysuria, No Hematuria Musculoskeletal: No joint pain, No Myalgias, No Joint Swelling Skin: No Skin lacerations, No rash Neuro: No Weakness, No Numbness, No Paresthesias, No Loss of Consciousness, No Dizziness, positive Headache Psych: No Anxiety/Panic, No Depression Heme/Lymph: no easy bruising, no Lymphadenopathy Endocrine: No Polyuria, No Polydipsia Yes all other systems are reviewed and are negative [facility], LAT[facility] Past Medical History Attestation statement: The following information was validated with the patient. Source: old records reviewed Medical History Allergic rhinitis Anxiety Bipolar disorder Chronic eczema Class 1 obesity with body mass index (BMI) of 32.0 to 32.9 in adult Depression Enlarged tonsils History of deviated nasal septum IBS (irritable bowel syndrome) Mild recurrent major depression Moderate persistent asthma PCOS (polycystic ovarian syndrome) Physical exam Surgical History History of wisdom tooth extraction Hx of nasal septoplasty Family History Family History Father Asthma Mother Liver disease Mental health disorder Maternal Aunt Ovarian cancer Maternal Aunt Ovarian cancer Maternal Aunt Ovarian cancer Maternal Grandfather Leukemia Paternal Grandmother Pancreatic cancer Social History Social History Household Members: Significant Other and Children Housing: Apartment Do you presently have visiting nurse or other home services: No Alcohol intake: current Alcohol intake frequency: holidays/special occasions only Alcohol type: wine and hard liquor Patient Tobacco Use Status: Never used Tobacco e-Cigarette/Vaping Use: Never Used Second Hand Smoke Exposure: No Substance Use Type: Marijuana Advance Directives: No Advance Directives Information Provided: No service: No Current occupational status: employed Current occupational exposures/hazards: No Sexual orientation: Straight/Heterosexual Gender identity: Female Cognitive needs: No Hearing needs: No Vision needs: No Physical Exam Vital Signs: Vital Signs: Last Vital Signs Temp 99.5 F 01/16/22 17:52 Pulse 117 H 01/16/22 17:52 Resp 18 01/16/22 17:52 BP 131/85 01/16/22 17:52 Pulse Ox 99 01/16/22 17:52 O2 Del Method 01/16/22 17:52 BMI result Body Mass Index 30.8 Appearance: Alert. Oriented X3. No acute distress. Eyes: Pupils equal, round and reactive to light. ENT: Pharynx erythematous with bilaterally swollen tonsils with exudates. No mastoid tenderness. Tympanic membranes intact. Neck: Normal inspection. Neck supple. Anterior posterior cervical lymphadenopathy. CVS: Normal heart rate and rhythm. Pulses normal. Respiratory: No respiratory distress. Breath sounds normal. Abdomen: Soft and nontender. Skin: Skin warm and dry. Normal skin color. Normal skin turgor. Extremities: No lower extremity edema. Gait well-balanced well coordinated. Neuro: No motor deficit. No sensory deficit. Cranial nerves 2-12 intact. Course Course Course Narrative: 26-year-old female presents with 3 days of headache, sore throat, and body aches. Patient is afebrile, appears nontoxic. Strep tested positive in the emergency department waiting room. Will treat with Augmentin. Patient verbalized understanding of and agrees to plan of care to discharge home. Verbalized understanding of signs and symptoms indicating need for emergent intervention MDM - URI/Sore Throat Differential Diagnosis Differential diagnosis: Likely upper respiratory infection, otitis media, viral infection, bronchitis, influenza and pharyngitis Medical Records Attestation: I reviewed the patient's medical records. Lab Data Attestation: I reviewed the patient's lab results. Labs: Lab Results 01/16/22 Range/Units 18:03 S. pyogenes GrpA JAQCUELINE Positive A (Negative) Discharge Plan Discharge Clinical Impression: Strep throat Patient Disposition: Home, Self-Care Instructions: Strep Throat (ED) Additional Instructions: You tested positive for strep pharyngitis. We are treating you with Augmentin 875 mg every 12 hours for the next 10 days. Alternate Tylenol 650 mg and Motrin 600 mg every 6 hours as needed for pain management. Write down what time he take these medications to prevent accidental overdose. Drink plenty of fluids. If symptoms worsen please return for evaluation. You may return to her primary care physician. Thank you for choosing this emergency department for evaluation. Please follow-up with primary care physician as needed. Return to the emergency department for any new, concerning, or worsening symptoms. Prescriptions: New amoxicillin-pot clavulanate 875-125 mg tablet 1 tab PO Q12H 10 Days Qty: 20 0RF No Action medroxyprogesterone [Depo-Provera] 150 mg/mL suspension 150 mg IM [id number] Qty: 1 3RF levocetirizine [Xyzal] 5 mg tablet 5 mg PO DAILY Qty: 30 0RF lidocaine [Lidoderm] 5 % adhesive patch,medicated 1 patch topical DAILY Qty: 15 0RF Rx Instructions: leave on most painful area for up to 12 hrs acetaminophen [Tylenol Extra Strength] 500 mg tablet 1,000 mg PO QID PRN (Reason: fever or pain) Qty: 30 0RF ibuprofen 800 mg tablet 800 mg PO Q8H PRN (Reason: pain) Qty: 14 0RF fluticasone propionate 110 mcg/actuation HFA aerosol inhaler 110 mcg inhalation BID 30 Days Qty: 12 3RF epinephrine 0.3 mg/0.3 mL auto-injector 0.3 mg IM Q4H PRN (Reason: anaphylaxis) 30 Days Qty: 1 0RF albuterol sulfate 90 mcg/actuation HFA aerosol inhaler 1 inh inhalation QID ondansetron HCl 4 mg tablet 4 mg PO Q8H PRN (Reason: nausea and vomiting) Qty: 14 0RF meclizine 25 mg tablet 25 mg PO BID PRN (Reason: dizziness) Qty: 14 0RF Hold Instructions: Doctor's Order albuterol sulfate [ProAir HFA] 90 mcg/actuation HFA aerosol inhaler 1 inh inhalation QID PRN (Reason: shortness of breath or wheezing) 30 Days Qty: 18 0RF amoxicillin 875 mg tablet 875 mg PO BID 7 Days Qty: 14 0RF prednisone 10 mg tablet 10 mg PO DAILY 7 Days Qty: 7 0RF cyclobenzaprine 5 mg tablet 5 mg PO TID PRN (Reason: muscle spasm) Qty: 42 0RF oxycodone 5 mg tablet 5 mg PO Q8H PRN (Reason: pain) 5 Days Qty: 15 0RF
[2022-01-16] MEDS: Amoxicillin/Potassium Clav 875 MG TABLET PO (19:32)
[2022-01-16] MEDS: Lidocaine HCl Viscous 2 % 15 ML SOLUTION MUCOUS MEM (19:33)
== END 2022-01-16 20:34 | disposition home or self-care (01) ==
PROVIDERS: Emergency Medicine; Emergency Provider Emergency Medicine; PCP Internal Medicine
DX: J02.0 Streptococcal pharyngitis (principal)
CPT/HCPCS: 36415; 87651; 99281; 99283

== ENCOUNTER → 2022-02-05 10:59 | Outpatient (BNVA) | payer OTHER, SELFPAY | PROVIDERS: PCP Internal Medicine; Visit Provider Advanced Practice Midwife | DX: Z30.42 Encounter for surveillance of injectable contraceptive (principal) | CPT/HCPCS: 96372; 99211 ==

== ENCOUNTER 2022-02-06 08:51 | Outpatient (REF) | payer OTHER, SELFPAY ==
[2022-02-06 21:14] LABS: CT PCR NOT DETECTED (Not Detect.)
[2022-02-06 21:15] LABS: NG PCR NOT DETECTED (Not Detect.)
[2022-02-07 13:35] LABS: BV Int Neg Control Negative (Negative); BV Int Pos Control Positive (Positive)
== END 2022-02-06 08:52 | disposition home or self-care (01) ==
LOC: HO.LAB 08:51
PROVIDERS: Visit Provider Advanced Practice Midwife
DX: N76.0 Acute vaginitis (principal); Z11.3 Encounter for screening for infections with a predominantly sexual mode of transmission; Z11.8 Encounter for screening for other infectious and parasitic diseases
CPT/HCPCS: 87480; 87491; 87510; 87591; 87660; 99212

== ENCOUNTER 2022-03-14 13:07 | Outpatient (REF) | payer OTHER, SELFPAY ==
[2022-03-14 13:23] LABS: MANUAL DIFF FLAG NO
[2022-03-14 13:49] LABS: Basophils Absolute Auto 0.1 X10*3/uL (0.0-0.2); Basophils Percent Auto 0.9 % (0-2); Eosinophils Absolute Auto 0.8 X10*3/uL (0.0-0.4); Eosinophils Percent Auto 7.5 % (0-4); Hematocrit 39.2 % (37.0-47.0); Hemoglobin 12.8 g/dl (12.0-16.0); Imm Gran Abs Auto 0.05 X10*3/uL (0.00-0.03); Imm Gran Pct Auto 0.5 % (0.0-0.4); Immature Retic Fraction 12.6 % (3.0-15.9); Lymphocytes Absolute Auto 3.6 X10*3/uL (1.2-4.9); Lymphocytes Percent Auto 33.5 % (20-40); Mean Corpuscular HGB Conc 32.7 g/dl (31.0-35.0); Mean Corpuscular Hemoglobin 25.3 pg (27.0-33.0); Mean Corpuscular Volume 77.5 fL (80.0-98.0); Mean Platelet Volume 10.1 fL (9.4-12.3); Monocytes Absolute Auto 0.8 X10*3/uL (0.1-1.2); Monocytes Percent Auto 7.4 % (2-11); Neutrophils Absolute Auto 5.5 x10*3/uL (2.0-8.3); Neutrophils Percent Auto 50.2 % (45-73); Platelet Count 374 X10*3/uL (160-400); Red Blood Count 5.06 X10*6/uL (4.20-5.50); Red Cell Distribution Width 15.2 % (11.0-16.0); Retic HGB Equivalent 29.4 pg (30.0-35.0); Reticulocytes Absolute 0.052 X10*6/uL (0.026-0.095); White Blood Count 10.9 X10*3/uL (4.8-10.8)
[2022-03-14 14:16] LABS: Alanine Aminotransferase 13 U/L (0-31); Albumin Level 4.2 g/dL (3.5-5.0); Alkaline Phosphatase 65 U/L (39-117); Anion Gap 12 (12-20); Aspartate Amino Transferase 16 U/L (5-31); Bilirubin Total 0.6 mg/dL (0.0-1.0); Blood Urea Nitrogen 14 mg/dL (9-16); Calcium 9.2 mg/dL (8.4-10.2); Carbon Dioxide 24 mmol/L (22-29); Chloride 107 mmol/L (96-108); Estimated Glomerular Filt Rate > 60; Glucose Random 98 mg/dL (60-115); Iron 73 mcg/dL (30-160); Percent Iron Saturation 24 % (15-50); Potassium 4.1 mmol/L (3.3-5.1); Sodium 139 mmol/L (135-145); Total Iron Binding Capacity 308 mcg/dL (228-428); Total Protein 7.7 g/dL (6.5-8.0); Unsaturated Iron Binding 235 ug/dL
[2022-03-14 14:37] LABS: Ferritin 90 ng/mL (10-122); Thyroid Stimulating Hormone 0.36 uIU/mL (0.32-4.0)
[2022-03-14 14:46] LABS: Vitamin B12 378 pg/mL (200-900)
== END 2022-03-14 13:08 | disposition home or self-care (01) ==
LOC: HO.LAB 13:07
PROVIDERS: PCP Internal Medicine; Visit Provider Internal Medicine
DX: R51.9 Headache, unspecified (principal)
CPT/HCPCS: 36415; 80053; 82607; 82728; 82746; 83540; 84443; 85025; 85045

== ENCOUNTER 2022-05-15 11:15 | Emergency (ER) | payer OTHER, SELFPAY ==
--- NOTE | ~2022-05-15 | CT_ITS ---
EXAMINATION: CT ABDOMEN AND PELVIS WITHOUT CONTRAST CLINICAL INFORMATION: Abdominal pain COMPARISON: None TECHNIQUE: Multidetector volumetric imaging was performed from the superior aspect of the liver through the pubic symphysis. Sagittal and coronal reformatted images were obtained on the technologist's workstation. This CT examination was performed using dose optimization techniques as appropriate, variously including the following: *Automated exposure control *Adjustment of mA and/or kV according to patient size (this includes techniques or standardized protocols for targeted exams where dose is matched to indication/reason for exam; i.e. extremities or head) *Use of iterative reconstruction technique DLP: 577 mGy-cm FINDINGS: LUNG BASES: The visualized lung bases are unremarkable. LIVER, GALLBLADDER, AND BILIARY TREE: There are scattered hepatic cysts and subcentimeter low-attenuation lesions throughout the liver that likely represent cysts or small biliary hamartomas. Liver demonstrates homogeneous attenuation. No intrahepatic biliary ductal dilatation. The gallbladder is unremarkable with no evidence of radiopaque gallstones, gallbladder wall thickening, or obvious pericholecystic inflammatory changes. PANCREAS: Unremarkable. SPLEEN: Unremarkable. ADRENAL GLANDS: Unremarkable. KIDNEYS AND URETERS: The kidneys are normal in size, shape, and attenuation. No hydronephrosis, hydroureter, or calculi seen. No perinephric stranding. BLADDER: Unremarkable. GASTROINTESTINAL TRACT: There is no bowel obstruction. Stomach is decompressed. Appendix is normal. There is colonic diverticulosis with acute diverticulitis with colonic wall thickening in the mid descending:. Small amount of fluid and stranding along the left paracolic gutter. No organized fluid collection. ABDOMINAL WALL: No significant hernia is appreciated. LYMPH NODES: Normal. VASCULAR: Unremarkable. PELVIC VISCERA: Retroverted uterus. Suspect bilateral ovarian cysts. OSSEOUS STRUCTURES: Unremarkable. CT/CT abdomen pelvis wo IV con IMPRESSION: There is descending colon diverticulitis. No organized fluid collection or free air. Hepatic cysts and subcentimeter low-attenuation lesions throughout the liver that likely represent small cysts. Fleischner guidelines were followed.
[2022-05-15 11:34] VITALS: BP 124/77; PULSE 93; RESP 20; TEMP 37; O2SAT 98; BMI 31.4
[2022-05-15 11:51] LABS: MANUAL DIFF FLAG NO
[2022-05-15 11:53] LABS: Basophils Absolute Auto 0.1 X10*3/uL (0.0-0.2); Basophils Percent Auto 0.6 % (0-2); Eosinophils Absolute Auto 0.6 X10*3/uL (0.0-0.4); Eosinophils Percent Auto 4.1 % (0-4); Hematocrit 40.4 % (37.0-47.0); Hemoglobin 13.2 g/dl (12.0-16.0); Imm Gran Abs Auto 0.05 X10*3/uL (0.00-0.03); Imm Gran Pct Auto 0.3 % (0.0-0.4); Lymphocytes Absolute Auto 2.3 X10*3/uL (1.2-4.9); Lymphocytes Percent Auto 14.7 % (20-40); Mean Corpuscular HGB Conc 32.7 g/dl (31.0-35.0); Mean Corpuscular Volume 76.5 fL (80.0-98.0); Mean Platelet Volume 9.8 fL (9.4-12.3); Monocytes Absolute Auto 1.1 X10*3/uL (0.1-1.2); Monocytes Percent Auto 6.9 % (2-11); Neutrophils Absolute Auto 11.6 x10*3/uL (2.0-8.3); Neutrophils Percent Auto 73.4 % (45-73); Platelet Count 338 X10*3/uL (160-400); Red Blood Count 5.28 X10*6/uL (4.20-5.50); Red Cell Distribution Width 14.2 % (11.0-16.0); White Blood Count 15.8 X10*3/uL (4.8-10.8)
[2022-05-15 12:02] LABS: Appearance Urine Clear; Color Urine Dark Yellow; Glucose Urine UA Negative (Negative); Leukocyte Esterase Urine Trace (Negative); Nitrite Urine Negative (Negative); PH 5.5 (5.0-9.0); Specific Gravity - Urine 1.025 (1.005-1.025); UMIC TRIGGER UACC YES; Urine Blood Negative (Negative); Urine Ketones Trace mg/dL (Negative); Urine Protein Negative (Neg-Trace)
[2022-05-15 12:04] LABS: Bacteria Urine None Seen (None Seen); Hyaline Casts Urine 0-2 /LPF (0-2); RBC Urine 0-2 /HPF (0-2); WBC Urine 0-5 /HPF (0-5)
[2022-05-15 12:09] LABS: Alanine Aminotransferase 12 U/L (0-31); Albumin Level 4.3 g/dL (3.5-5.0); Alkaline Phosphatase 67 U/L (39-117); Anion Gap 14 (12-20); Aspartate Amino Transferase 15 U/L (5-31); Bilirubin Direct 0.5 mg/dL (0.0-0.5); Bilirubin Total 1.2 mg/dL (0.0-1.0); Blood Urea Nitrogen 12 mg/dL (9-16); Calcium 9.2 mg/dL (8.4-10.2); Carbon Dioxide 20 mmol/L (22-29); Chloride 108 mmol/L (96-108); Creatinine Clr Calc Pharmacy 90.4; Estimated Glomerular Filt Rate > 60; Glucose Random 103 mg/dL (60-115); Lipase 11 U/L (8-78); Potassium 4.1 mmol/L (3.3-5.1); Sodium 138 mmol/L (135-145); Total Protein 7.7 g/dL (6.5-8.0)
[2022-05-15 12:19] LABS: UPreg QC Valid YES; Urine Pregnancy NEGATIVE (NEGATIVE)
[2022-05-15 21:29] VITALS: BP 128/78; PULSE 96; RESP 18; TEMP 36.4; O2SAT 100
[2022-05-16 01:09] VITALS: BP 120/67; PULSE 77; RESP 12; TEMP 36.1; O2SAT 98
--- NOTE | 2022-05-16 01:22 | ED_ITS ---
HPI - Abdominal Pain General Chief Complaint: Abdominal Pain Stated Complaint: Low Quad Pain w/Nausea Time Seen by Provider: 05/16/22 01:22 Source: patient Mode of arrival: ambulatory Limitations: no limitations History of Present Illness HPI narrative: Patient been having left lower abdominal pain for last 2 days ago with nausea and poor oral intake no vomiting no diarrhea no blood in the stool never had similar pain in the past no fever no chills Related Data Home Medications Medication Instructions Recorded Confirmed albuterol sulfate 90 mcg/actuation 1 inh inhalation QID 03/26/21 01/31/22 aerosol inhaler azelastine 137 mcg (0.1 %) nasal 2 spray intranasal BID 03/14/22 spray aerosol Previous Rx's Medication Instructions Recorded ibuprofen 800 mg tablet 800 mg PO Q8H PRN pain #14 tabs 04/24/21 meclizine 25 mg tablet 25 mg PO BID PRN dizziness #14 tabs 08/06/21 medroxyprogesterone 150 mg/mL 150 mg IM [id number] #1 mL 11/19/21 intramuscular suspension (Depo-Provera) fluticasone propionate 110 110 mcg inhalation BID 30 days #12 12/02/21 mcg/actuation HFA aerosol inhaler grams albuterol sulfate 90 mcg/actuation 1 inh inhalation QID PRN shortness 12/19/21 aerosol inhaler (ProAir HFA) of breath or wheezing 30 days #18 grams cyclobenzaprine 5 mg tablet 5 mg PO TID PRN muscle spasm #42 12/27/21 tabs lidocaine 5 % topical patch 1 patch topical DAILY #15 ea 01/07/22 (Lidoderm) epinephrine 0.3 mg/0.3 mL 0.3 mg (0.3 mL) IM Q4H PRN 01/28/22 injection, auto-injector anaphylaxis 30 days #1 ea acetaminophen 500 mg tablet 1,000 mg PO QID PRN fever or pain 03/14/22 (Tylenol Extra Strength) #30 tabs amitriptyline 10 mg tablet 10 mg PO BEDTIME #30 tabs 03/14/22 levocetirizine 5 mg tablet (Xyzal) 5 mg PO DAILY #30 tabs 04/07/22 ondansetron HCl 4 mg tablet 4 mg PO Q8H PRN nausea and 04/07/22 vomiting #14 tabs albuterol sulfate 2.5 mg/3 mL 2.5 mg (3 mL) inhalation Q4H PRN 04/08/22 (0.083 %) solution for nebulization shortness of breath or wheezing 30 days #90 mL nebulizers (AeroEclipse II #1 ea 04/08/22 Nebulizer) ciprofloxacin HCl 500 mg tablet 500 mg PO BID #20 tabs 05/16/22 (Cipro) metronidazole 500 mg tablet 500 mg PO Q12H 10 days #20 tabs 05/16/22 oxycodone 5 mg tablet 5 mg PO Q6H PRN Abdominal 05/16/22 Discomfort #20 tabs Allergies Allergy/AdvReac Type Severity Reaction Status Date / Time No Known Allergies Allergy Verified 03/14/22 12:33 Review of Systems Review of Systems Yes all other systems are reviewed and are negative [facility] Past Medical History Medical History Allergic rhinitis Anxiety Bipolar disorder Chronic eczema Class 1 obesity with body mass index (BMI) of 32.0 to 32.9 in adult Depression Enlarged tonsils History of deviated nasal septum IBS (irritable bowel syndrome) Mild recurrent major depression Moderate persistent asthma PCOS (polycystic ovarian syndrome) Physical exam Surgical History History of wisdom tooth extraction Hx of nasal septoplasty Family History Family History Father Asthma Mother Liver disease Mental health disorder Maternal Aunt Ovarian cancer Maternal Aunt Ovarian cancer Maternal Aunt Ovarian cancer Maternal Grandfather Leukemia Paternal Grandmother Pancreatic cancer Social History Social History Household Members: Significant Other and Children Housing: Apartment Do you presently have visiting nurse or other home services: No Alcohol intake: current Alcohol intake frequency: holidays/special occasions only Alcohol type: wine and hard liquor Patient Tobacco Use Status: Never used Tobacco e-Cigarette/Vaping Use: Never Used Second Hand Smoke Exposure: No Use of substances other than those prescribed or required for medical reasons: No Substance Use Type: Marijuana Advance Directives: No Patient : No service: No Current occupational status: employed Current occupational exposures/hazards: No Sexual orientation: Straight/Heterosexual Gender identity: Female Cognitive needs: No Hearing needs: No Vision needs: Yes (glasses) Physical Exam ED Vital Signs: Vital Signs - 24 hr 05/15/22 11:34 05/15/22 21:29 05/16/22 01:09 Temperature 98.6 F 97.5 F 97.0 F Pulse Rate 93 96 77 Respiratory Rate 20 18 12 Blood Pressure 124/77 128/78 120/67 Pulse Oximetry 98 100 98 Oxygen Delivery Method Room Air Room Air Room Air 05/16/22 04:00 Temperature 98.5 F Pulse Rate 74 Respiratory Rate 18 Blood Pressure 107/55 L Pulse Oximetry 97 Oxygen Delivery Method Room Air BMI result Body Mass Index 31.4 Appearance: Alert. Oriented X3. No acute distress. Eyes: PERRLA, No Nystagmus ENT: Pharynx normal. Oral Mucosa moist Neck: Normal inspection. Neck supple. CVS: Normal heart rate and rhythm. Pulses normal. Respiratory: No respiratory distress. Equal air entry bilateral, no wheezing/rales/rhonchi Abdomen: Soft tenderness left lower quadrant with guarding no rebound tenderness Bowel sounds are present, no mass palpable, no CVA tenderness Skin: Skin warm and dry. Normal skin color. Normal skin turgor. Extremities: No lower extremity edema. No calf tenderness Neuro: Oriented X 3. No motor deficit. No sensory deficit.No cerebellar signs , cranial nerves II-XII intact MDM - Abdominal Pain MDM Narrative Medical decision making narrative: Patient with uncomplicated diverticulitis will discharge patient home on Cipro Flagyl already received IV dose of Zosyn in the ER, patient tolerating p.o. f luids will discharge patient home Lab Data Attestation: I reviewed the patient's lab results. Result diagrams: 05/15/22 11:47 05/15/22 11:47 Labs: Lab Results 05/15/22 05/15/22 05/15/22 Range/Units 11:47 11:47 11:51 WBC 15.8 H (4.8-10.8) X10*3/uL RBC 5.28 (4.20-5.50) X10*6/uL Hgb 13.2 (12.0-16.0) g/dl Hct 40.4 (37.0-47.0) % MCV 76.5 L (80.0-98.0) fL MCH 25.0 L (27.0-33.0) pg MCHC 32.7 (31.0-35.0) g/dl RDW 14.2 (11.0-16.0) % Plt Count 338 (160-400) X10*3/uL MPV 9.8 (9.4-12.3) fL Immature Gran % (Auto) 0.3 (0.0-0.4) % Neut % (Auto) 73.4 H (45-73) % Lymph % (Auto) 14.7 L (20-40) % [place] % (Auto) 6.9 (2-11) % Eos % (Auto) 4.1 H (0-4) % Baso % (Auto) 0.6 (0-2) % Lymph # (Auto) 2.3 (1.2-4.9) X10*3/uL [place] # (Auto) 1.1 (0.1-1.2) X10*3/uL Eos # (Auto) 0.6 H (0.0-0.4) X10*3/uL Baso # (Auto) 0.1 (0.0-0.2) X10*3/uL Abs Immat Gran (auto) 0.05 H (0.00-0.03) X10*3/uL Absolute Neuts (auto) 11.6 H (2.0-8.3) x10*3/uL Absolute Nucleated RBC 0.000 (0.0-0.012) X10*3/uL Nucleated RBC % (auto) 0.0 (0.0-0.2) /100WBC Sodium 138 (135-145) mmol/L Potassium 4.1 (3.3-5.1) mmol/L Chloride 108 (96-108) mmol/L Carbon Dioxide 20 L (22-29) mmol/L Anion Gap 14 (12-20) BUN 12 (9-16) mg/dL Creatinine 0.84 (0.5-1.4) mg/dL Estim Creat Clear Calc 90.4 Estimated GFR > 60 Random Glucose 103 (60-115) mg/dL Calcium 9.2 (8.4-10.2) mg/dL Total Bilirubin 1.2 H (0.0-1.0) mg/dL Direct Bilirubin 0.5 (0.0-0.5) mg/dL AST 15 (5-31) U/L ALT 12 (0-31) U/L Alkaline Phosphatase 67 (39-117) U/L Total Protein 7.7 (6.5-8.0) g/dL Albumin 4.3 (3.5-5.0) g/dL Lipase 11 (8-78) U/L Urine Color Dark Yellow Urine Appearance Clear Urine pH 5.5 (5.0-9.0) Ur Specific [place] 1.025 (1.005-1.025) Urine Protein Negative (Neg-Trace) mg/dL Urine Glucose (UA) Negative (Negative) mg/dL Urine Ketones Trace (Negative) mg/dL Urine Blood Negative (Negative) Urine Nitrite Negative (Negative) Ur Leukocyte Esterase Trace H (Negative) Urine RBC 0-2 (0-2) /HPF Urine WBC 0-5 (0-5) /HPF Ur Squamous Epith Cells 3-5 (0-2) /HPF Urine Bacteria None Seen (None Seen) Hyaline Casts 0-2 (0-2) /LPF Urine Test (NEGATIVE) 05/15/22 Range/Units 11:51 WBC (4.8-10.8) X10*3/uL RBC (4.20-5.50) X10*6/uL Hgb (12.0-16.0) g/dl Hct (37.0-47.0) % MCV (80.0-98.0) fL MCH (27.0-33.0) pg MCHC (31.0-35.0) g/dl RDW (11.0-16.0) % Plt Count (160-400) X10*3/uL MPV (9.4-12.3) fL Immature Gran % (Auto) (0.0-0.4) % Neut % (Auto) (45-73) % Lymph % (Auto) (20-40) % [place] % (Auto) (2-11) % Eos % (Auto) (0-4) % Baso % (Auto) (0-2) % Lymph # (Auto) (1.2-4.9) X10*3/uL [place] # (Auto) (0.1-1.2) X10*3/uL Eos # (Auto) (0.0-0.4) X10*3/uL Baso # (Auto) (0.0-0.2) X10*3/uL Abs Immat Gran (auto) (0.00-0.03) X10*3/uL Absolute Neuts (auto) (2.0-8.3) x10*3/uL Absolute Nucleated RBC (0.0-0.012) X10*3/uL Nucleated RBC % (auto) (0.0-0.2) /100WBC Sodium (135-145) mmol/L Potassium (3.3-5.1) mmol/L Chloride (96-108) mmol/L Carbon Dioxide (22-29) mmol/L Anion Gap (12-20) BUN (9-16) mg/dL Creatinine (0.5-1.4) mg/dL Estim Creat Clear Calc Estimated GFR Random Glucose (60-115) mg/dL Calcium (8.4-10.2) mg/dL Total Bilirubin (0.0-1.0) mg/dL Direct Bilirubin (0.0-0.5) mg/dL AST (5-31) U/L ALT (0-31) U/L Alkaline Phosphatase (39-117) U/L Total Protein (6.5-8.0) g/dL Albumin (3.5-5.0) g/dL Lipase (8-78) U/L Urine Color Urine Appearance Urine pH (5.0-9.0) Ur Specific [place] (1.005-1.025) Urine Protein (Neg-Trace) mg/dL Urine Glucose (UA) (Negative) mg/dL Urine Ketones (Negative) mg/dL Urine Blood (Negative) Urine Nitrite (Negative) Ur Leukocyte Esterase (Negative) Urine RBC (0-2) /HPF Urine WBC (0-5) /HPF Ur Squamous Epith Cells (0-2) /HPF Urine Bacteria (None Seen) Hyaline Casts (0-2) /LPF Urine Test NEGATIVE (NEGATIVE) Discharge Plan Discharge Clinical Impression: Acute diverticulitis Patient Disposition: Home, Self-Care Instructions: Diverticulitis (ED), Diverticulitis Diet (ED) Additional Instructions: Drink plenty of fluids Take antibiotic advised Pain medication and nausea medication as prescribed Clear liquid diet , advanced as tolerated Report to the ER if worsening pain//blood in the urine Prescriptions: New metronidazole 500 mg tablet 500 mg PO Q12H 10 Days Qty: 20 0RF oxycodone 5 mg tablet 5 mg PO Q6H PRN (Reason: Abdominal Discomfort) Qty: 20 0RF Rx Instructions: Partial Fill upon patient request. ciprofloxacin HCl [Cipro] 500 mg tablet 500 mg PO BID Qty: 20 0RF No Action medroxyprogesterone [Depo-Provera] 150 mg/mL suspension 150 mg IM [id number] Qty: 1 3RF lidocaine [Lidoderm] 5 % adhesive patch,medicated 1 patch topical DAILY Qty: 15 0RF Rx Instructions: leave on most painful area for up to 12 hrs epinephrine 0.3 mg/0.3 mL auto-injector 0.3 mg IM Q4H PRN (Reason: anaphylaxis) 30 Days Qty: 1 0RF ondansetron HCl 4 mg tablet 4 mg PO Q8H PRN (Reason: nausea and vomiting) Qty: 14 0RF levocetirizine [Xyzal] 5 mg tablet 5 mg PO DAILY Qty: 30 0RF (DME) AeroEclipse II Nebulizer [facility] [place] See Rx Instructions .Route Qty: 1 0RF Rx Instructions: As directed albuterol sulfate 2.5 mg /3 mL (0.083 %) solution for nebulization 2.5 mg inhalation Q4H PRN (Reason: shortness of breath or wheezing) 30 Days Qty: 90 1RF ibuprofen 800 mg tablet 800 mg PO Q8H PRN (Reason: pain) Qty: 14 0RF fluticasone propionate 110 mcg/actuation HFA aerosol inhaler 110 mcg inhalation BID 30 Days Qty: 12 3RF albuterol sulfate 90 mcg/actuation HFA aerosol inhaler 1 inh inhalation QID meclizine 25 mg tablet 25 mg PO BID PRN (Reason: dizziness) Qty: 14 0RF Hold Instructions: Doctor's Order albuterol sulfate [ProAir HFA] 90 mcg/actuation HFA aerosol inhaler 1 inh inhalation QID PRN (Reason: shortness of breath or wheezing) 30 Days Qty: 18 0RF cyclobenzaprine 5 mg tablet 5 mg PO TID PRN (Reason: muscle spasm) Qty: 42 0RF azelastine 137 mcg (0.1 %) aerosol,spray 2 spray intranasal BID Rx Instructions: administer into each nostril acetaminophen [Tylenol Extra Strength] 500 mg tablet 1,000 mg PO QID PRN (Reason: fever or pain) Qty: 30 0RF amitriptyline 10 mg tablet 10 mg PO BEDTIME Qty: 30 0RF
[2022-05-16] MEDS: 0.9 % Sodium Chloride 1,000 ML 999 ML IV (02:00)
[2022-05-16] MEDS: Morphine Sulfate 4 MG/ML CARTRIDGE IVPUSH (02:00)
[2022-05-16] MEDS: ondansetron HCL 4 MG/2 ML VIAL IVPUSH (02:00)
[2022-05-16] MEDS: Piperacillin Sodium/Tazobactam 3.375 GM in 0.9 % Sodium Chloride 50 ML IV (02:00)
--- NOTE | 2022-05-16 02:07 | PC.NURSE ---
Pt aox4. Breaths are even and unlabored. Reports LLQ abd pain, 8/10. Abd soft and tender to touch with active bowel sounds in all quadrants. 22G R AC with NS and ab running. Pt medicated and aware of plan of care. Will continue to monitor.
[2022-05-16 04:00] VITALS: BP 107/55; PULSE 74; RESP 18; TEMP 36.9; O2SAT 97
[2022-05-16] MEDS: Ketorolac Tromethamine 30 MG/ML VIAL IVPUSH (05:52)
--- NOTE | 2022-05-16 06:14 | PC.NURSE ---
Discharge instructions provided to pt. Pt verbalizes understanding.
== END 2022-05-16 06:14 | disposition home or self-care (01) ==
PROVIDERS: Emergency Provider Internal Medicine; PCP Internal Medicine
DX: K57.32 Diverticulitis of large intestine without perforation or abscess without bleeding (principal); R10.32 Left lower quadrant pain; Z79.899 Other long term (current) drug therapy
CPT/HCPCS: 36415; 74176; 80048; 80076; 81001; 81003; 81025; 83690; 85025; 96361; 96374; 96375; 99284; 99285; J1885; J2270; J2405; J2543

== ENCOUNTER 2022-05-22 09:06 | Outpatient (REF) | payer OTHER, SELFPAY ==
--- NOTE | ~2022-05-22 | XR_ITS ---
EXAMINATION: XR HIP, LEFT CLINICAL INFORMATION: Left hip pain. COMPARISON: 03/01/2009. TECHNIQUE: 2 views of the left hip. FINDINGS: There is no evidence of acute fracture or dislocation of the left hip. No destructive bony lesions identified. Joint space appears maintained. Old healed superior ramus fracture identified. XR/XR hip LT min 2V IMPRESSION: No significant left hip abnormality identified.
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
== END 2022-05-22 09:07 | disposition home or self-care (01) ==
LOC: HO.XRAY 09:06
PROVIDERS: PCP Internal Medicine; Visit Provider Internal Medicine
DX: M25.552 Pain in left hip (principal); M25.512 Pain in left shoulder
CPT/HCPCS: 73030; 73502

== ENCOUNTER 2022-06-17 16:22 | Outpatient (REF) | payer OTHER, SELFPAY ==
[2022-06-17 17:07] LABS: Influenza A PCR NEGATIVE (Negative); Influenza B PCR NEGATIVE (Negative); Resp Syncy Virus RNA Qual PCR NEGATIVE (Negative); SARS COV2 PCR INHOUSE NEGATIVE (Negative)
== END 2022-06-17 16:23 | disposition home or self-care (01) ==
LOC: HO.LNP 16:22
PROVIDERS: Visit Provider Physician Assistant
DX: Z20.822 Contact with and (suspected) exposure to COVID-19 (principal); R09.89 Other specified symptoms and signs involving the circulatory and respiratory systems
CPT/HCPCS: 0241U

== ENCOUNTER 2022-06-18 08:10 | Emergency (ER) | payer OTHER, SELFPAY ==
--- NOTE | ~2022-06-18 | XR_ITS ---
EXAMINATION: XR CHEST CLINICAL INFORMATION: Cough COMPARISON: None TECHNIQUE: 2 views of the chest were obtained. FINDINGS: No significant abnormality is noted involving the heart, lungs, mediastinum, bony thorax or soft tissues. XR/XR chest 2V IMPRESSION: Unremarkable examination.
[2022-06-18 08:31] VITALS: BP 128/78; PULSE 108; RESP 20; TEMP 36.7; O2SAT 99; BMI 31.6
--- NOTE | 2022-06-18 09:36 | ED_ITS ---
HPI - General Adult General Chief complaint: General Medical Stated complaint: SOB/Swollen tonsils Time Seen by Provider: 06/18/22 09:13 History of Present Illness HPI narrative: Patient complains of painful sore throat that makes it painful to swallow and she has not been drinking or eating as it hurts too much but she is able to swallow no difficulty breathing no fever She did go to an urgent care yesterday which was negative for strep and negative for COVID negative for flu but she was given a prescription for amoxicillin and prednisone as well She also complains of some nausea but no vomiting no abdominal pain Related Data Home Medications Medication Instructions Recorded Confirmed azelastine 137 mcg (0.1 %) nasal 2 spray intranasal BID 03/14/22 05/29/22 spray aerosol Previous Rx's Medication Instructions Recorded ibuprofen 800 mg tablet 800 mg PO Q8H PRN pain #14 tabs 04/24/21 meclizine 25 mg tablet 25 mg PO BID PRN dizziness #14 tabs 08/06/21 medroxyprogesterone 150 mg/mL 150 mg IM [id number] #1 mL 11/19/21 intramuscular suspension (Depo-Provera) fluticasone propionate 110 110 mcg inhalation BID 30 days #12 12/02/21 mcg/actuation HFA aerosol inhaler grams albuterol sulfate 90 mcg/actuation 1 inh inhalation QID PRN shortness 12/19/21 aerosol inhaler (ProAir HFA) of breath or wheezing 30 days #18 grams cyclobenzaprine 5 mg tablet 5 mg PO TID PRN muscle spasm #42 12/27/21 tabs lidocaine 5 % topical patch 1 patch topical DAILY #15 ea 01/07/22 (Lidoderm) epinephrine 0.3 mg/0.3 mL 0.3 mg (0.3 mL) IM Q4H PRN 01/28/22 injection, auto-injector anaphylaxis 30 days #1 ea amitriptyline 10 mg tablet 10 mg PO BEDTIME #30 tabs 03/14/22 levocetirizine 5 mg tablet (Xyzal) 5 mg PO DAILY #30 tabs 04/07/22 albuterol sulfate 2.5 mg/3 mL 2.5 mg (3 mL) inhalation Q4H PRN 04/08/22 (0.083 %) solution for nebulization shortness of breath or wheezing 30 days #90 mL nebulizers (AeroEclipse II #1 ea 04/08/22 Nebulizer) ciprofloxacin HCl 500 mg tablet 500 mg PO BID #20 tabs 05/16/22 (Cipro) metronidazole 500 mg tablet 500 mg PO Q12H 10 days #20 tabs 05/16/22 ondansetron HCl 4 mg tablet 4 mg PO Q8H PRN nausea and 05/16/22 vomiting #14 tabs oxycodone 5 mg tablet 5 mg PO Q6H PRN Abdominal 05/16/22 Discomfort #20 tabs nirmatrelvir 300 mg (150 mg 3 ea PO PER PKG DIR 5 days #30 ea 05/29/22 x2)-ritonavir 100 mg tablet,dose pack(EUA) (Paxlovid) amoxicillin 875 mg-potassium 1 tab PO BID 10 days #20 tabs 06/17/22 clavulanate 125 mg tablet prednisone 20 mg tablet 40 mg PO DAILY 5 days #10 tabs 06/17/22 ibuprofen 600 mg tablet 600 mg PO Q6H PRN fever or pain 06/18/22 #20 tabs oxycodone 5 mg tablet 5 mg PO Q6H PRN pain #10 tabs 06/18/22 Allergies Allergy/AdvReac Type Severity Reaction Status Date / Time No Known Allergies Allergy Verified 06/17/22 13:35 Review of Systems Review of Systems: Positive for sore throat and mild nausea Negatives are no chills no dizziness no weakness no fainting no feeling faint no headache no stiff neck no neck pain, no dysphagia, patient can swallow but it hurts no drooling no voice change no stiff neck no chest pain no shortness of breath no cough with sputum no abdominal pain no vomiting or diarrhea Yes all other systems are reviewed and are negative [facility] Past Medical History Source: nursing notes reviewed Medical History Allergic rhinitis Anxiety Bipolar disorder Chronic eczema Class 1 obesity with body mass index (BMI) of 32.0 to 32.9 in adult Depression Enlarged tonsils History of deviated nasal septum IBS (irritable bowel syndrome) Mild recurrent major depression Moderate persistent asthma PCOS (polycystic ovarian syndrome) Physical exam Surgical History History of wisdom tooth extraction Hx of nasal septoplasty Family History Family History Father Asthma Mother Liver disease Mental health disorder Maternal Aunt Ovarian cancer Maternal Aunt Ovarian cancer Maternal Aunt Ovarian cancer Maternal Grandfather Leukemia Paternal Grandmother Pancreatic cancer Social History Social History Household Members: Significant Other and Children Housing: Apartment Do you presently have visiting nurse or other home services: No Alcohol intake: current Alcohol intake frequency: holidays/special occasions only Alcohol type: wine and hard liquor Patient Tobacco Use Status: Never used Tobacco e-Cigarette/Vaping Use: Never Used Second Hand Smoke Exposure: No Substance Use Type: Marijuana Advance Directives: No Advance Directives Information Provided: No service: No Current occupational status: employed Current occupational exposures/hazards: No Sexual orientation: Straight/Heterosexual Gender identity: Female Cognitive needs: No Hearing needs: No Vision needs: Yes (glasses) Physical Exam ED Vital Signs: Vital Signs - 24 hr 06/18/22 08:31 06/18/22 10:22 Temperature 98.1 F 99.2 F Pulse Rate 108 H 86 Respiratory Rate 20 20 Blood Pressure 128/78 134/76 Pulse Oximetry 99 98 Oxygen Delivery Method Room Air Room Air BMI result Body Mass Index 31.6 General appearance is no acute distress The eyes no redness or discharge The pharynx the tonsils are symmetrically red an in large, the uvula is not swollen, the voice is normal, membranes are mildly dry, no trismus no drooling The neck is supple Chest clear to auscultation bilateral Heart no murmur Abdomen soft nontender Extremities full range of motion x4 Skin no rash Course Course Course Narrative: Patient was hydrated given Toradol given Zofran and felt very improved after the treatment, she was tolerating p.o. and she was discharged Repeat testing for strep, testing for mono and testing for COVID and flu were all negative Medications Administered Discontinued Medications Generic Name Dose Route Start Last Admin Trade Name Freq PRN Reason Stop Dose Admin Dexamethasone Sodium Phosphate 10 mg 06/18/22 09:41 06/18/22 10:42 Dexamethasone Sod Phosphate 10 Mg/Ml Vial IVPUSH 06/18/22 09:42 10 mg ONCE ONE Administration Sodium Chloride 1,000 mls @ 999 mls/hr 06/18/22 10:00 06/18/22 12:17 Ns IVCONT 06/18/22 11:00 Infused .Q1H1M KEYSHA Infusion Ketorolac Tromethamine 30 mg 06/18/22 09:41 06/18/22 10:40 Ketorolac Tromethamine 30 Mg/Ml Vial IVPUSH 06/18/22 09:42 30 mg ONCE ONE Administration Ondansetron HCl 4 mg 06/18/22 09:41 06/18/22 10:37 Ondansetron Hcl 4 Mg/2 Ml Vial IVPUSH 06/18/22 09:42 4 mg ONCE ONE Administration Medical Decision Making Lab Data Labs: Lab Results 06/18/22 06/18/22 06/18/22 Range/Units 09:51 09:51 10:30 COVID-19 (MADELINE) Negative (Negative) COVID-19 Clin Com See Note Monoscreen (Negative) Influenza Type A (JACQUELINE) Negative (Negative) Influenza Type B (JACQUELINE) Negative (Negative) Influenza A & B Note See Note S. pyogenes GrpA JACQUELINE Negative (Negative) 06/18/22 Range/Units 10:30 COVID-19 (MADELINE) (Negative) COVID-19 Clin Com Monoscreen Negative (Negative) Influenza Type A (JACQUELINE) (Negative) Influenza Type B (JACQUELINE) (Negative) Influenza A & B Note S. pyogenes GrpA JACQUELINE (Negative) Discharge Plan Discharge Clinical Impression: Pharyngitis Patient Disposition: Home, Self-Care Additional Instructions: This should resolve within 2-3 days Breathing steam sometimes soothe the throat, honey is often helpful Use Motrin or if needed Percocet for pain control Drink plenty of fluids Return to the ER any time any worse condition or any concerns Prescriptions: New oxycodone 5 mg tablet 5 mg PO Q6H PRN (Reason: pain) Qty: 10 0RF Rx Instructions: Partial Fill upon patient request. ibuprofen 600 mg tablet 600 mg PO Q6H PRN (Reason: fever or pain) Qty: 20 0RF No Action medroxyprogesterone [Depo-Provera] 150 mg/mL suspension 150 mg IM [id number] Qty: 1 3RF lidocaine [Lidoderm] 5 % adhesive patch,medicated 1 patch topical DAILY Qty: 15 0RF Rx Instructions: leave on most painful area for up to 12 hrs epinephrine 0.3 mg/0.3 mL auto-injector 0.3 mg IM Q4H PRN (Reason: anaphylaxis) 30 Days Qty: 1 0RF levocetirizine [Xyzal] 5 mg tablet 5 mg PO DAILY Qty: 30 0RF (DME) AeroEclipse II Nebulizer Misc See Rx Instructions .Route Qty: 1 0RF Rx Instructions: As directed albuterol sulfate 2.5 mg /3 mL (0.083 %) solution for nebulization 2.5 mg inhalation Q4H PRN (Reason: shortness of breath or wheezing) 30 Days Qty: 90 1RF ondansetron HCl 4 mg tablet 4 mg PO Q8H PRN (Reason: nausea and vomiting) Qty: 14 0RF ibuprofen 800 mg tablet 800 mg PO Q8H PRN (Reason: pain) Qty: 14 0RF metronidazole 500 mg tablet 500 mg PO Q12H 10 Days Qty: 20 0RF oxycodone 5 mg tablet 5 mg PO Q6H PRN (Reason: Abdominal Discomfort) Qty: 20 0RF Rx Instructions: Partial Fill upon patient request. ciprofloxacin HCl [Cipro] 500 mg tablet 500 mg PO BID Qty: 20 0RF fluticasone propionate 110 mcg/actuation HFA aerosol inhaler 110 mcg inhalation BID 30 Days Qty: 12 3RF Paxlovid (EUA) 300 mg (150 mg x 2)-100 mg tablets,dose pack 3 ea PO PER PKG DIR 5 Days Qty: 30 0RF prednisone 20 mg tablet 40 mg PO DAILY 5 Days Qty: 10 0RF amoxicillin-pot clavulanate 875-125 mg tablet 1 tab PO BID 10 Days Qty: 20 0RF meclizine 25 mg tablet 25 mg PO BID PRN (Reason: dizziness) Qty: 14 0RF Hold Instructions: Doctor's Order albuterol sulfate [ProAir HFA] 90 mcg/actuation HFA aerosol inhaler 1 inh inhalation QID PRN (Reason: shortness of breath or wheezing) 30 Days Qty: 18 0RF cyclobenzaprine 5 mg tablet 5 mg PO TID PRN (Reason: muscle spasm) Qty: 42 0RF azelastine 137 mcg (0.1 %) aerosol,spray 2 spray intranasal BID Rx Instructions: administer into each nostril amitriptyline 10 mg tablet 10 mg PO BEDTIME Qty: 30 0RF Interventions: ED Discharge Assessment Last Done: 06/18/22 12:22 Discharge Date/Time: 06/18/22 12:24
[2022-06-18 10:15] LABS: COVID-19 Test Negative (Negative); IDNOW Serial# 16C4AD1C; Influenza A Negative (Negative); Influenza B2 Negative (Negative)
[2022-06-18 10:22] VITALS: BP 134/76; PULSE 86; RESP 20; TEMP 37.3; O2SAT 98
[2022-06-18] MEDS: ondansetron HCL 4 MG/2 ML VIAL IVPUSH (10:37)
[2022-06-18] MEDS: Ketorolac Tromethamine 30 MG/ML VIAL IVPUSH (10:40)
[2022-06-18] MEDS: dexAMETHasone sod phosphate 10 MG/ML VIAL IVPUSH (10:42)
[2022-06-18] MEDS: 0.9 % Sodium Chloride 1,000 ML 999 ML IVCONT (10:44)
[2022-06-18 10:51] LABS: Strep A Nucleic Acid Negative (Negative)
[2022-06-18 11:12] LABS: Monotest Negative (Negative)
== END 2022-06-18 12:24 | disposition home or self-care (01) ==
PROVIDERS: Physician Assistant Medical; Emergency Provider Emergency Medicine; PCP Internal Medicine
DX: J02.9 Acute pharyngitis, unspecified (principal); R06.02 Shortness of breath; Z20.822 Contact with and (suspected) exposure to COVID-19; Z79.899 Other long term (current) drug therapy
CPT/HCPCS: 71046; 86308; 87502; 87635; 87651; 96361; 96374; 96375; 99284; J1100; J1885; J2405

== ENCOUNTER 2022-06-20 12:00 | Outpatient (REF) | payer OTHER, SELFPAY ==
[2022-06-20 15:01] LABS: Free T4 (Free Thyroxine) 1.05 ng/dL (0.71-1.85); Thyroid Stimulating Hormone 0.52 uIU/mL (0.32-4.0)
[2022-06-23 22:11] LABS: Thyroglobulin Antibodies <1 IU/mL (< or = 1); Thyroid Peroxidase Antibodies 1 IU/mL (<9)
== END 2022-06-20 12:01 | disposition home or self-care (01) ==
LOC: HO.LAB 12:00
PROVIDERS: PCP Internal Medicine; Visit Provider Internal Medicine
DX: E04.1 Nontoxic single thyroid nodule (principal)
CPT/HCPCS: 36415; 84439; 84443; 86376; 86800

== ENCOUNTER 2022-06-30 12:00 | Outpatient (REF) | payer OTHER, SELFPAY ==
[2022-06-30 18:08] LABS: Blood Urea Nitrogen 12 mg/dL (9-16); Estimated Glomerular Filt Rate > 60
[2022-07-01 06:03] LABS: CT PCR NOT DETECTED (Not Detect.); NG PCR NOT DETECTED (Not Detect.)
[2022-07-01 12:05] LABS: BV Int Neg Control Negative (Negative); BV Int Pos Control Positive (Positive)
== END 2022-06-30 12:01 | disposition home or self-care (01) ==
LOC: HO.LAB 12:00
PROVIDERS: Absent Provider Surgery; PCP Internal Medicine; Visit Provider Obstetrics & Gynecology
DX: Z01.419 Encounter for gynecological examination (general) (routine) without abnormal findings (principal); Z11.3 Encounter for screening for infections with a predominantly sexual mode of transmission; R10.2 Pelvic and perineal pain; B37.31 Acute candidiasis of vulva and vagina
CPT/HCPCS: 36415; 81025; 82565; 84520; 87480; 87491; 87510; 87591; 87624; 87625; 87660; 88142; 99202; 99212

== ENCOUNTER 2022-06-30 12:23 | Outpatient (REF) | payer OTHER, SELFPAY ==
[2022-07-16 08:39] LABS: HPV 16 RNA NOT DETECTED (NOT DETECTED); HPV mRNA E6/E7 rflx Detected (Not Detected)
== END 2022-06-30 12:24 | disposition home or self-care (01) ==
LOC: HO.LNP 12:23
PROVIDERS: Visit Provider Obstetrics & Gynecology
DX: Z11.51 Encounter for screening for human papillomavirus (HPV) (principal); K57.92 Diverticulitis of intestine, part unspecified, without perforation or abscess without bleeding; R10.2 Pelvic and perineal pain
CPT/HCPCS: 87624; 87625; 88142; 99202; 99212

== ENCOUNTER 2022-07-07 10:17 | Outpatient (REF) | payer OTHER, SELFPAY ==
--- NOTE | ~2022-07-07 | US_ITS ---
PROCEDURE: ULTRASOUND-GUIDED THYROID BIOPSY CLINICAL INFORMATION: Thyroid nodules. COMPARISON: None TECHNIQUE: Procedure and risks and benefits including bleeding, and infection were discussed with the patient and informed consent was obtained. Using ultrasound guidance, access to the largest nodule in the inferior left lobe was obtained. Five separate 25-gauge FNA specimens were obtained. There was no complication. FINDINGS: There is a 1.6 x 1.2 x 1.3 cm heterogeneous partially solid partially cystic nodule in the inferior left lobe that was targeted for fine-needle aspiration as per ordering physician. There are multiple left thyroid nodules seen. US/US biopsy thyroid IMPRESSION: Ultrasound-guided left inferior thyroid nodule fine-needle aspiration.
[2022-07-07] MEDS: Lidocaine HCl 1 % MPF 5 ML VIAL 10 ML SUBCUT (11:48)
== END 2022-07-07 10:18 | disposition home or self-care (01) ==
LOC: HO.US 10:17
PROVIDERS: Visit Provider Internal Medicine
DX: E04.1 Nontoxic single thyroid nodule (principal)
CPT/HCPCS: 10005; 88172; 88173; 88177; 88305

== ENCOUNTER 2022-07-15 10:03 | Outpatient (REF) | payer OTHER, SELFPAY ==
--- NOTE | ~2022-07-15 | CT_ITS ---
EXAMINATION: CT ABDOMEN AND PELVIS WITH CONTRAST CLINICAL INFORMATION: Diverticulitis COMPARISON: May 15, 2022 TECHNIQUE: Multidetector volumetric images were obtained from the superior aspect of the liver through the pubic symphysis following administration 85 mL of Omnipaque 350 intravenous contrast. Sagittal and coronal reformatted images were obtained on the technologist's workstation. Oral contrast: No This CT examination was performed using dose optimization techniques as appropriate, variously including the following: *Automated exposure control *Adjustment of mA and/or kV according to patient size (this includes techniques or standardized protocols for targeted exams where dose is matched to indication/reason for exam; i.e. extremities or head) *Use of iterative reconstruction technique DLP: 652 mGy-cm FINDINGS: LUNG BASES: The visualized lung bases are unremarkable. No pleural or pericardial effusion. LIVER, GALLBLADDER, AND BILIARY TREE: Numerous hepatic cysts are present. No intrahepatic bile duct dilatation is seen. The gallbladder is unremarkable with no evidence of radiopaque gallstones, gallbladder wall thickening, or obvious pericholecystic inflammatory changes. PANCREAS: Unremarkable. No abnormal mass or peripancreatic inflammatory change. SPLEEN: Unremarkable. ADRENAL GLANDS: Unremarkable. KIDNEYS AND URETERS: The kidneys are normal in size, shape, and attenuation. No hydronephrosis, hydroureter, or calculi seen. No perinephric stranding. BLADDER: Unremarkable. GASTROINTESTINAL TRACT: No dilated loops of large or small bowel are evident. No free air or free fluid. There is mild colonic diverticulosis without evidence of acute diverticulitis. Appendix appears unremarkable. ABDOMINAL WALL: No significant hernia is appreciated. LYMPH NODES: No lymphadenopathy appreciated. VASCULAR: Unremarkable. PELVIC VISCERA: Unremarkable. OSSEOUS STRUCTURES: Unremarkable. CT/CT abdomen pelvis w IV con IMPRESSION: Colonic diverticulosis without definite evidence of acute diverticulitis. Fleischner guidelines were followed.
[2022-07-15] MEDS: iohexoL 350 MG/ML 100 ML INFUS..BTL 85 ML IV (10:39)
== END 2022-07-15 10:04 | disposition home or self-care (01) ==
LOC: HO.CT 10:03
PROVIDERS: PCP Internal Medicine; Visit Provider Surgery
DX: K57.92 Diverticulitis of intestine, part unspecified, without perforation or abscess without bleeding (principal)
CPT/HCPCS: 74177; Q9967

== ENCOUNTER → 2022-07-22 10:57 | Outpatient (BNVA) | payer OTHER, SELFPAY | PROVIDERS: PCP Internal Medicine; Visit Provider Obstetrics & Gynecology | DX: Z32.02 Encounter for pregnancy test, result negative (principal); Z30.42 Encounter for surveillance of injectable contraceptive | CPT/HCPCS: 81025; 96372; 99212 ==

== ENCOUNTER → 2022-07-24 13:36 | Outpatient (BNVA) | payer OTHER, SELFPAY | PROVIDERS: PCP Internal Medicine; Referring Provider Internal Medicine; Visit Provider Surgery | DX: K57.92 Diverticulitis of intestine, part unspecified, without perforation or abscess without bleeding (principal) | CPT/HCPCS: 99212 ==

== ENCOUNTER 2022-08-01 14:02 | Outpatient (REF) | payer OTHER, SELFPAY ==
--- NOTE | ~2022-08-01 | US_ITS ---
EXAMINATION: US PELVIC AND TRANSVAGINAL CLINICAL INFORMATION: Pelvic and perineal pain. COMPARISON: CT abdomen and pelvis 07/15/2022. TECHNIQUE: Ultrasound of the pelvis is performed using both transabdominal and transvaginal transducers along with Doppler. Transvaginal imaging is performed due to inadequate visualization transabdominally. FINDINGS: UTERUS: The uterus is anteverted and measures 7.8 x 3.2 x 3.8 cm. The double wall endometrial thickness is 0.5 mm. Some echogenic foci with twinkle artifact seen in the endometrium suggesting calcification, but none were seen on the recent CT scan. No associated mass is seen. This is usually a benign finding. Cervical length was not measured by the cst but nabothian cysts were noted. The uterus is smooth in contour and has normal myometrial echogenicity. No visible fibroid. ADNEXA: Both ovaries are visualized. There is normal color flow to the adnexa. There is no ovarian torsion. There is no pelvic ascites or fluid collection. Right ovary measures 3.1 x 2.8 x 2.5 cm for a volume of 11.4 mL. Left ovary measures 3.8 x 2.8 x 2.8 cm for a volume of 15.6 mL. US/US pelvic and transvaginal IMPRESSION: No significant abnormality is seen aside from some possible calcification in the endometrium.
== END 2022-08-01 14:03 | disposition home or self-care (01) ==
LOC: HO.US 14:02
PROVIDERS: Visit Provider Obstetrics & Gynecology
DX: R10.2 Pelvic and perineal pain (principal)
CPT/HCPCS: 76830; 76856

== ENCOUNTER 2022-08-13 13:40 | Emergency (ER) | payer OTHER, SELFPAY ==
--- NOTE | ~2022-08-13 | US_ITS ---
EXAMINATION: US VENOUS ULTRASOUND WITH DOPPLER LOWER EXTREMITY, LEFT CLINICAL INFORMATION: Calf pain after surgery COMPARISON: None TECHNIQUE: Ultrasound of the deep veins is performed from the hip to the calf with compression sonography and color and pulse Doppler assessment. Spectral analysis with color-flow imaging is performed. FINDINGS: There is normal venous compression and respiratory variation and augmented flow. The visualized common femoral vein, superficial femoral vein, profunda femoral vein, popliteal vein, and the trifurcation region shows no evidence of deep venous thrombosis. There is no significant popliteal fossa cyst. If the patient's symptoms persist, followup ultrasound in 5 days 7 days might be of value to exclude proximal propagation from a non-visualized calf vein. US/US venous duplex LE LT IMPRESSION: No DVT demonstrated in the left lower extremity.
[2022-08-13 14:13] VITALS: BP 127/79; PULSE 98; RESP 18; TEMP 36.6; O2SAT 99; BMI 30.2
--- NOTE | 2022-08-13 14:14 | ED.LOWEXIN ---
HPI - Extremity Injury (Lower) General Chief Complaint: Extremity Problem <RHINA Akins Last Filed: 08/13/22 15:01> Stated Complaint: Pain S/P Surgery 08/12/22 <RHINA Akins Last Filed: 08/13/22 15:01> Time Seen by Provider: 08/13/22 15:38 <RHINA Akins Last Filed: 08/13/22 15:01> Source: patient <RHINA Toure Last Filed: 08/13/22 16:46> Mode of arrival: ambulatory <RHINA Toure Last Filed: 08/13/22 16:46> Limitations: no limitations <RHINA Toure Last Filed: 08/13/22 16:46> History of Present Illness HPI Narrative: 26 yo female presents to the ER for evaluation of left calf pain s/p tonsillectomy yesterday. She reports cramping pain And tenderness to touch of the left calf only since yesterday. She reports 15/10 pain in her tonsils. She has been taking ibuprofen and Tylenol as directed. She was prescribed narcotic pain medication but is trying to control the pain without taking them. She states her left lower leg pain was not noted until she woke up from anesthesia yesterday. She denies any redness or swelling of her leg. No chest pain or shortness of breath. No fevers. No known injury. <RHINA Toure Last Filed: 08/13/22 16:46> MD complaint: leg injury <RHINA Toure Last Filed: 08/13/22 16:46> Onset (ago): day(s) (1) <RHINA Toure Last Filed: 08/13/22 16:46> Type of Injury: unknown <RHINA Toure Last Filed: 08/13/22 16:46> Severity: moderate <RHINA Toure Last Filed: 08/13/22 16:46> Relieving factors: nothing <RHINA Toure Last Filed: 08/13/22 16:46> Exacerbating factors: palpation <RHINA Toure Last Filed: 08/13/22 16:46> Associated symptoms: ambulatory <RHINA Toure - Last Filed: 08/13/22 16:46> Other symptoms: none <RHINA Toure - Last Filed: 08/13/22 16:46> Treatments prior to arrival: NSAIDS <RHINA Toure - Last Filed: 08/13/22 16:46> Related Data Home Medications: Home Medications Medication Instructions Recorded Confirmed azelastine 137 mcg (0.1 %) nasal 2 spray intranasal BID 03/14/22 07/29/22 spray aerosol Previous Rx's Medication Instructions Recorded ibuprofen 800 mg tablet 800 mg PO Q8H PRN pain #14 tabs 04/24/21 meclizine 25 mg tablet 25 mg PO BID PRN dizziness #14 tabs 08/06/21 medroxyprogesterone 150 mg/mL 150 mg IM [id number] #1 mL 11/19/21 intramuscular suspension (Depo-Provera) fluticasone propionate 110 110 mcg inhalation BID 30 days #12 12/02/21 mcg/actuation HFA aerosol inhaler grams albuterol sulfate 90 mcg/actuation 1 inh inhalation QID PRN shortness 12/19/21 aerosol inhaler (ProAir HFA) of breath or wheezing 30 days #18 grams cyclobenzaprine 5 mg tablet 5 mg PO TID PRN muscle spasm #42 12/27/21 tabs lidocaine 5 % topical patch 1 patch topical DAILY #15 ea 01/07/22 (Lidoderm) epinephrine 0.3 mg/0.3 mL 0.3 mg (0.3 mL) IM Q4H PRN 01/28/22 injection, auto-injector anaphylaxis 30 days #1 ea amitriptyline 10 mg tablet 10 mg PO BEDTIME #30 tabs 03/14/22 levocetirizine 5 mg tablet (Xyzal) 5 mg PO DAILY #30 tabs 04/07/22 albuterol sulfate 2.5 mg/3 mL 2.5 mg (3 mL) inhalation Q4H PRN 04/08/22 (0.083 %) solution for nebulization shortness of breath or wheezing 30 days #90 mL nebulizers (AeroEclipse II #1 ea 04/08/22 Nebulizer) ibuprofen 600 mg tablet 600 mg PO Q6H PRN fever or pain 06/18/22 #20 tabs montelukast 10 mg tablet 10 mg PO DAILY #30 tabs 07/01/22 hydroxyzine HCl 25 mg tablet 25 mg PO BEDTIME PRN anxiety #14 07/29/22 tabs sertraline 25 mg tablet 25 mg PO DAILY #30 tabs 07/29/22 ondansetron HCl 4 mg tablet 4 mg PO Q8H PRN nausea and 08/08/22 vomiting #14 tabs oxycodone 5 mg tablet 5 mg PO Q6H PRN pain #10 tabs 08/12/22 <RHINA Akins - Last Filed: 08/13/22 15:01> Allergies/Adverse Reactions: Allergies Allergy/AdvReac Type Severity Reaction Status Date / Time No Known Allergies Allergy Verified 07/29/22 10:44 <HRINA Akins - Last Filed: 08/13/22 15:01> Review of Systems Review of Systems: Yes all other systems are reviewed and are negative <RHINA Toure - Last Filed: 08/13/22 16:46> [facility] Past Medical History Medical History: Medical History (Updated 08/13/22 @ 16:32 by RHINA Toure) Acute diverticulitis Allergic rhinitis Anxiety Chronic eczema Class 1 obesity with body mass index (BMI) of 32.0 to 32.9 in adult Depression Enlarged tonsils Family history of ovarian cancer History of deviated nasal septum IBS (irritable bowel syndrome) Mild recurrent major depression Moderate persistent asthma PCOS (polycystic ovarian syndrome) Physical exam <RHINA Akins - Last Filed: 08/13/22 15:01> Surgical History: Surgical History History of wisdom tooth extraction Hx of nasal septoplasty <RHINA Akins - Last Filed: 08/13/22 15:01> Family History Family History: Family History Father Asthma Mother Liver disease Mental health disorder Maternal Aunt Ovarian cancer Maternal Aunt Ovarian cancer Maternal Aunt Ovarian cancer Maternal Grandfather Leukemia Paternal Grandmother Pancreatic cancer <RHINA Akins - Last Filed: 08/13/22 15:01> Social History Social History: Social History Household Members: Significant Other and Children Housing: Apartment Do you presently have visiting nurse or other home services: No Alcohol intake: current Alcohol intake frequency: holidays/special occasions only Alcohol type: wine and hard liquor Patient Tobacco Use Status: Never used Tobacco e-Cigarette/Vaping Use: Never Used Second Hand Smoke Exposure: No Substance Use Type: Marijuana Advance Directives: No Advance Directives Information Provided: Yes service: No Current occupational status: employed Current occupational exposures/hazards: No Sexual orientation: Straight/Heterosexual Gender identity: Female Cognitive needs: No Hearing needs: No Vision needs: Yes (glasses) <RHINA Akins - Last Filed: 08/13/22 15:01> Physical Exam Vital Signs: Vital Signs: Last Vital Signs Temp 98 F 08/13/22 14:13 Pulse 98 08/13/22 14:13 Resp 18 08/13/22 14:13 BP 127/79 08/13/22 14:13 Pulse Ox 99 08/13/22 14:13 O2 Del Method 08/13/22 14:13 BMI result Body Mass Index 30.2 <RHINA Akins - Last Filed: 08/13/22 15:01> Vital Signs: Last Vital Signs Temp 98 F 08/13/22 14:13 Pulse 98 08/13/22 14:13 Resp 18 08/13/22 14:13 BP 127/79 08/13/22 14:13 Pulse Ox 99 08/13/22 14:13 O2 Del Method 08/13/22 14:13 BMI result Body Mass Index 30.2 <RHINA Toure - Last Filed: 08/13/22 16:46> Appearance: Alert. Oriented X3. No acute distress. HEENT: normal external inspection. moist mucous membranes. Posterior pharynx with post tonsillectomy changes including black and tissue. Uvula midline. No bleeding. Normal voice. CVS: Normal heart rate and rhythm. Pulses normal. Respiratory: No respiratory distress. Lungs are clear throughout Skin: Skin warm and dry. Normal skin color. Normal skin turgor. No rashes. Extremities: normal inspection of the bilateral lower extremities. No swelling, no erythema. Posterior calf tenderness. Compartments are soft and compressible. Neurovascularly intact distally. Neuro: Oriented X 3. No motor deficit. No sensory deficit. ambulatory <RHINA Toure - Last Filed: 08/13/22 16:46> Course Course Course Narrative: DOMENICO-- 26yo F with past medical history anxiety, depression, PCOS, IBS, s/p tonsillectomy yesterday, complaining of left calf pain since being discharged. Reports area feels swollen. Denies redness, SOB LLE without appreciable swelling, +calf tenderness noted on palpation. NV intact. Oropahrynx with cauterized tonsillar areas, no active, talking in complete sentences Venous duplex ultrasound ordered <RHINA Akins - Last Filed: 08/13/22 15:01> Reevaluation(s) Reevaluation #1: lower extremity Dopplers are negative. We discussed the need to get re-evaluated if pain persist in 7-10 days. She will follow-up with her PCP. She will continue to take Tylenol and Motrin for pain along with her prescribed pain medication. She will follow-up with her doctor. Stable for discharge home. <RHINA Toure - Last Filed: 08/13/22 16:46> Medical Decision Making Differential Diagnosis Differential Diagnoses: The differential diagnosis associated with the presentation includes <RHINA Toure Last Filed: 08/13/22 16:46> Muscular strain, spasm, acute DVT, chronic DVT, myositis, rhabdomyolysis <RHINA Toure - Last Filed: 08/13/22 16:46> Radiology Impression Discussion of test interpretation with radiology: I have reviewed the radiologist's reading. <RHINA Toure - Last Filed: 08/13/22 16:46> Radiologist Impression: FINDINGS: There is normal venous compression and respiratory variation and augmented flow. The visualized common femoral vein, superficial femoral vein, profunda femoral vein, popliteal vein, and the trifurcation region shows no evidence of deep venous thrombosis. ? There is no significant popliteal fossa cyst. If the patient's symptoms persist, followup ultrasound in 5 days 7 days might be of value to exclude proximal propagation from a non-visualized calf vein. US/US venous duplex LE LT IMPRESSION: No DVT demonstrated in the left lower extremity. <RHINA Toure - Last Filed: 08/13/22 16:46> External Record Review External record reviewed: Prior outpatient labs <RHINA Toure - Last Filed: 08/13/22 16:46> Prescription Management I considered prescription management with: Pain Medication <RHINA Toure - Last Filed: 08/13/22 16:46> Discharge Plan Discharge Clinical Impression: Pain of left calf <RHINA Akins Last Filed: 08/13/22 15:01> Patient Disposition: Home, Self-Care <RHINA Akins Last Filed: 08/13/22 15:01> Instructions: Leg Pain (ED) <RHINA Akins Last Filed: 08/13/22 15:01> Additional Instructions: Your ultrasound did not show any evidence fo blood clot. Recommend continuing motrin and tylenol for pain. If you have ongoing pain or develop redness or swelling call your doctor or come back to the ER for re-evaluation. <RHINA Akins - Last Filed: 08/13/22 15:01> Prescriptions: No Action medroxyprogesterone [Depo-Provera] 150 mg/mL suspension 150 mg IM [id number] Qty: 1 3RF lidocaine [Lidoderm] 5 % adhesive patch,medicated 1 patch topical DAILY Qty: 15 0RF Rx Instructions: leave on most painful area for up to 12 hrs epinephrine 0.3 mg/0.3 mL auto-injector 0.3 mg IM Q4H PRN (Reason: anaphylaxis) 30 Days Qty: 1 0RF levocetirizine [Xyzal] 5 mg tablet 5 mg PO DAILY Qty: 30 0RF (DME) AeroEclipse II Nebulizer Misc See Rx Instructions .Route Qty: 1 0RF Rx Instructions: As directed albuterol sulfate 2.5 mg /3 mL (0.083 %) solution for nebulization 2.5 mg inhalation Q4H PRN (Reason: shortness of breath or wheezing) 30 Days Qty: 90 1RF ondansetron HCl 4 mg tablet 4 mg PO Q8H PRN (Reason: nausea and vomiting) Qty: 14 0RF oxycodone 5 mg tablet 5 mg PO Q6H PRN (Reason: pain) Qty: 10 0RF Rx Instructions: Partial Fill upon patient request. ibuprofen 800 mg tablet 800 mg PO Q8H PRN (Reason: pain) Qty: 14 0RF ibuprofen 600 mg tablet 600 mg PO Q6H PRN (Reason: fever or pain) Qty: 20 0RF fluticasone propionate 110 mcg/actuation HFA aerosol inhaler 110 mcg inhalation BID 30 Days Qty: 12 3RF montelukast 10 mg tablet 10 mg PO DAILY Qty: 30 3RF sertraline 25 mg tablet 25 mg PO DAILY Qty: 30 1RF hydroxyzine HCl 25 mg tablet 25 mg PO BEDTIME PRN (Reason: anxiety) Qty: 14 0RF meclizine 25 mg tablet 25 mg PO BID PRN (Reason: dizziness) Qty: 14 0RF Hold Instructions: Doctor's Order albuterol sulfate [ProAir HFA] 90 mcg/actuation HFA aerosol inhaler 1 inh inhalation QID PRN (Reason: shortness of breath or wheezing) 30 Days Qty: 18 0RF cyclobenzaprine 5 mg tablet 5 mg PO TID PRN (Reason: muscle spasm) Qty: 42 0RF azelastine 137 mcg (0.1 %) aerosol,spray 2 spray intranasal BID Rx Instructions: administer into each nostril amitriptyline 10 mg tablet 10 mg PO BEDTIME Qty: 30 0RF <RHNIA Akins - Last Filed: 08/13/22 15:01> Interventions: ED Discharge Assessment Last Done: 08/13/22 16:39 <RHINA Akins - Last Filed: 08/13/22 15:01> Discharge Date/Time: 08/13/22 16:40 <RHINA Akins - Last Filed: 08/13/22 15:01>
== END 2022-08-13 16:40 | disposition home or self-care (01) ==
PROVIDERS: Emergency Provider Student in an Organized Health Care Education/Training Program; PCP Internal Medicine
DX: M79.662 Pain in left lower leg (principal)
CPT/HCPCS: 93971; 99282; 99284

== ENCOUNTER 2022-08-19 09:29 | Outpatient (REF) | payer OTHER, SELFPAY | END 2022-08-19 09:30 | disposition home or self-care (01) | LOC: HO.LNP 09:29 | PROVIDERS: PCP Internal Medicine; Visit Provider Obstetrics & Gynecology | DX: R87.610 Atypical squamous cells of undetermined significance on cytologic smear of cervix (ASC-US) (principal); R87.810 Cervical high risk human papillomavirus (HPV) DNA test positive | CPT/HCPCS: 57454; 88305; 88342; 88360 ==

== ENCOUNTER → 2022-08-25 14:16 | Outpatient (BNVA) | payer OTHER, SELFPAY | PROVIDERS: PCP Internal Medicine; Visit Provider Obstetrics & Gynecology | DX: D06.9 Carcinoma in situ of cervix, unspecified (principal) | CPT/HCPCS: 99212 ==

== ENCOUNTER 2022-09-05 11:38 | Day surgery (SDC) | payer OTHER, SELFPAY ==
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
[2022-09-05] VITALS (9 sets, daily range): BP systolic 85–120; BP diastolic 41–72; PULSE 63–96; RESP 15–16; TEMP 36.4–37.1; O2SAT 97–100
[2022-09-05 12:04] LABS: UPreg QC Valid YES; Urine Pregnancy NEGATIVE (NEGATIVE)
[2022-09-05] MEDS: Lactated Ringers 1,000 ML 100 ML IVCONT (12:18)
--- NOTE | 2022-09-05 12:30 | MHC.SHP ---
Pre-Procedural Eval Section A Date of Service: 09/05/22 The patient is an INPATIENT: No Changes since office visit: No Cold of Flu in the past 2 weeks, No New Medical Problems, No Changes in Medication and No Patient answered all questions The History & Physical has been completed within 30 days and I have reviewed it.: Yes Section B Chief Complaint: Carcinoma in situ of cervix, unspecified Allergies: Allergies Allergy/AdvReac Type Severity Reaction Status Date / Time peanut Allergy Swelling Verified 08/29/22 14:35 Plan Diagnosis/Plan: Unchanged I have reviewed the history and physical and performed a pertinent physical examination on my patient. No changes have occurred unless specified. Time Spent With Patient Time: Total time managing care of this patient today ____ minutes.
--- NOTE | 2022-09-05 14:00 | P.OP_ITS ---
Operative Note Operative Note Date of Service: 09/05/22 Narrative: Pre op diagnosis: PHUONG 3 Operation: Colposcopy, Loop electrical excision procedure cone, top hat endocervical excision, post cone ECC Postop diagnosis: the same Quantitative blood loss: Minimal Surgeon: Carloz Eli MD, FACOG Administrative Supervisor: None Pathology: Cervical cone, top-hat endo cervical excision, endo cervical curettage Complications: none Anesthesia: MAC and Para cervical block Procedure: The patient was put in a dorsal lithotomy position, scrubbed and draped in the usual sterile fashion. A speculum was inserted inside the patient's vagina. The cervix is assessed using the colposcope with acetic acid , the lesions were seen, and at least 1 cm of the squamocolumnar junction was observed. 20 x 5 mm size loop was selected based upon the diameter of the lesion. Lugol solution was used to outline the lesions and area of the transformation zone order to be removed 10 cc of xylocaine with epinephrine were injected submucosally into the surface of the cervix (ectocervix) at the 3, 6, 9, and 12 o'clock positions. The electrosurgical generator is set at 30 to 40 escobar on blend 1. The loop is carefully passed simultaneously around and under the transformation zone, in order to ensure excising it making sure the lesion is at least 5 mm far from the specimen margins . The loop was allowed to glide through the cervix from one side to the other, allowing the cutting current to divide the tissue. In an effort to make sure endo cervical disease could be beyond the reach of the loop, additional tissue was excised from this area with a smaller-diameter loop , endo cervical top-hat excision was performed An endo cervical curettage is performed following completion of excision, and hemostasis is obtained with a Ball electrode or regular tip cautery. At the end, Monsel's solution was applied to the cone bed. The patient tolerated the procedure well and, all instruments were taken out of the patient vaginal cavity, and the patient was transferred to the PACU in stable condition.
--- NOTE | 2022-09-05 14:00 | P.BOP_ITS ---
Brief Operative Note Date of Service: 09/05/22 Pre-op diagnosis: PHUONG 3 Post-op diagnosis: same Procedure: LEEP CONE with post CONE ECC Surgeon: Carloz Eli MD Anesthesia: GLMA and other (Paracervical block) Was an Experimental Worker used for this Procedure?: No Estimated blood loss (mL): 0 Pathology: other (Cervical cone, top-hat, Post cone ECC) Condition: stable Disposition: other (Home)
[2022-09-05] MEDS: Acetaminophen 325 MG TABLET 650 MG PO (14:25)
[2022-09-05] MEDS: oxyCODONE HCl Immed Release 5 MG TABLET PO (14:25)
[2022-09-05] MEDS: fentaNYL citrate/PF 100 MCG/2 ML VIAL 50 MCG IVPUSH (14:27)
[2022-09-05] MEDS: ondansetron HCL 4 MG/2 ML VIAL IVPUSH (14:33)
== END 2022-09-05 16:30 | disposition home or self-care (01) ==
PROVIDERS: PCP Internal Medicine; Visit Provider Obstetrics & Gynecology
PROC: 0UBC7ZZ Excision of Cervix, Via Natural or Artificial Opening (ICD-10-PCS; CPT 57522; principal; 2022-09-05 13:50)
DX: D06.0 Carcinoma in situ of endocervix (principal); Z80.41 Family history of malignant neoplasm of ovary; E28.2 Polycystic ovarian syndrome; J45.40 Moderate persistent asthma, uncomplicated; E66.8 Other obesity; Z68.32 Body mass index [BMI] 32.0-32.9, adult; Z79.51 Long term (current) use of inhaled steroids; Z79.899 Other long term (current) drug therapy
CPT/HCPCS: 57461; 81025; 88305; 88307; 88342; J2405; J3010

== ENCOUNTER → 2022-09-23 08:14 | Outpatient (BNVA) | payer OTHER, SELFPAY | PROVIDERS: PCP Internal Medicine; Visit Provider Obstetrics & Gynecology | DX: D06.9 Carcinoma in situ of cervix, unspecified (principal) | CPT/HCPCS: 99212 ==

== ENCOUNTER 2023-03-24 08:18 | Outpatient (AMB) | payer OTHER, SELFPAY ==
[2023-03-24 08:21] VITALS: BP 90/60; BMI 32.5
--- NOTE | 2023-03-24 08:21 | MHC.OFFVIS ---
Intake Vital Signs 03/24/23 08:21 Height 5 ft Weight 166 lb 4 oz BMI 32.5 BP 90/60 Blood Pressure Location Lt brachial Position Sitting Intake Visit Reasons: 6 month pap Organizational Psychologist Required: No Allergies peanut Allergy (Verified 03/24/23 08:25) Swelling Is last menstrual period known: Yes Last menstrual period: 03/19/23 HPI HPI Comments History of Present Illness Details Presenting for 6 months repeat co testing. The Patient had a biopsy showing PHUONG 2-3, status post LEEP showed PHUONG 1 6 months ago. The patient is complaining of irregular menstrual cycle associated with passage of blood clots and pelvic cramping [facility] Medical History (Updated 03/24/23 @ 08:52 by Carloz Eli MD) Acute diverticulitis Allergic rhinitis Anxiety Chronic eczema Class 1 obesity with body mass index (BMI) of 32.0 to 32.9 in adult Depression Enlarged tonsils Family history of ovarian cancer History of deviated nasal septum IBS (irritable bowel syndrome) Mild recurrent major depression Moderate persistent asthma PCOS (polycystic ovarian syndrome) Physical exam Surgical History (Updated 03/24/23 @ 08:53 by Carloz Eli MD) H/O LEEP History of tonsillectomy History of wisdom tooth extraction Hx of nasal septoplasty Family History Father Asthma Mother Liver disease Mental health disorder Maternal Aunt Ovarian cancer Maternal Aunt Ovarian cancer Maternal Aunt Ovarian cancer Maternal Grandfather Leukemia Paternal Grandmother Pancreatic cancer Social History Household Members: Significant Other and Children Housing: Apartment Do you presently have visiting nurse or other home services: No Alcohol intake: current Alcohol intake frequency: does not drink Alcohol type: wine and hard liquor Patient Tobacco Use Status: Never used Tobacco e-Cigarette/Vaping Use: Never Used Second Hand Smoke Exposure: No Substance Use Type: Marijuana service: No Current occupational status: employed Current occupational exposures/hazards: No Sexual orientation: Straight/Heterosexual Gender identity: Female Cognitive needs: No Hearing needs: No Vision needs: Yes (glasses) Female Reproductive History Menstrual Age of Menarche: 9 Date of last menstrual period: 03/19/23 Total pregnancies: 2 Full term: 1 Number of Living Children: 1 Ab spontaneous: 1 Date of last pap smear: 06/30/22 (wnl) Review of Systems Const All systems reviewed & are unremarkable except as noted in HPI and below Card Reports as per HPI Resp Reports as per HPI GI Reports as per HPI and Reports no additional complaints Reports as per HPI Physical Exam Vital Signs: Last Vital Signs BP 90/60 03/24/23 08:21 BMI result Body Mass Index 32.5 Const General: cooperative, healthy appearing and comfortable Chest Chest palpation & inspection: normal inspection of the chest and normal palpation of entire chest wall Breast/axilla inspection: normal inspection of the breasts and normal inspection of the axillae Breast/axilla palpation: normal palpation of the breasts, normal palpation of the axillae and no axillary lymphadenopathy Resp Effort & Inspection: normal respiratory effort Auscultation: clear to auscultation bilaterally Percussion: percussion normal Cardio Palpation: normal PMI Rate: regular rate Rhythm: regular rhythm Heart sounds: no murmurs and no rubs Peripheral pulses: Peripheral pulses 2+ throughout GI Inspection: Yes normal to inspection Palpation (GI): Soft to palpation, nontender, no guarding, not rigid and No hepatosplenomegaly present Percussion: Yes normal to percussion Auscultation: normal bowel sounds Rectal Exam - Female: deferred General: Yes bladder normal to palpation External Female Exam: No lesion Speculum Exam - Vagina: normal appearance of the vagina, normal palpation, normal vaginal discharge and not erythematous Speculum Exam - Cervix: normal appearance of the cervix and normal palpation Bimanual exam- vagina & uterus: normal bimanual exam, normal palpation, uterine size normal, bladder normal to palpation, consistency normal and normal palpation Bimanual Exam- Adnexa, other: normal adnexae, no masses and no tenderness Assessment & Plan Assessment & Plan (1) 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 Will check the results and treat accordingly. If negative will repeat co testing Q year for 3 years then every 3 years for 25 years. Instructions given to patient to schedule co testing in a year (2) Abnormal uterine bleeding: Code(s): N93.9 - Abnormal uterine and vaginal bleeding, unspecified Plan: Co testing done, GC and chlamydia taken CBC, TSH, HCG, and pelvic ultrasound ordered. Discussed with the patient the different causes of abnormal bleeding including thyroid disorders, uterine and ovarian pathology, and other potential causes. Discussed with the patient the work up including CBC (to r/o anemia), TSH, pelvic Ultrasound. All questions answered and the patient verbalized understanding. Instructed the patient to schedule an appointment for follow-up in 2 weeks. (3) Screen for STD (sexually transmitted disease): Code(s): Z11.3 - Encounter for screening for infections with a predominantly sexual mode of transmission Plan: STD screening tests done includes: BV panel for trichomonas, GC/CT will send patient for serology std screening for HIV, RPR, Hep b s Ag, HepC Ab. Instructions given the patient to schedule a follow-up appointment for repeat serology screen in 6 months for possible false negatives. Orders: Orders Bacterial Vaginosis Panel Today Z87.42 - Personal history of other diseases of the female genital tract CT NG by PCR Today Z87.42 - Personal history of other diseases of the female genital tract Pap Smear Today Z87.42 - Personal history of other diseases of the female genital tract HCG Quantitative Today N93.9 - Abnormal uterine and vaginal bleeding, unspecified Prolactin Today N93.9 - Abnormal uterine and vaginal bleeding, unspecified TSH reflex Free T4 Today N93.9 - Abnormal uterine and vaginal bleeding, unspecified Complete Blood Count no Diff Today N93.9 - Abnormal uterine and vaginal bleeding, unspecified Hepatitis B Surface Antigen Today Z20.2 - Contact with and (suspected) exposure to infections with a predominantly sexual mode of transmission Hepatitis C Antibody Today Z20.2 - Contact with and (suspected) exposure to infections with a predominantly sexual mode of transmission HIV Ab/Ag Today Z20.2 - Contact with and (suspected) exposure to infections with a predominantly sexual mode of transmission Syphilis Screen Today Z20.2 - Contact with and (suspected) exposure to infections with a predominantly sexual mode of transmission US pelvic and transvaginal Today N93.9 - Abnormal uterine and vaginal bleeding, unspecified Coding Level of Care Code Est Pt Level 3 (73849) Diagnoses 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
== END 2023-03-24 08:58 | disposition home or self-care (01) ==
LOC: HO.HWS 08:18
PROVIDERS: PCP Internal Medicine; Visit Provider Obstetrics & Gynecology
DX: D06.9 Carcinoma in situ of cervix, unspecified (principal); N93.9 Abnormal uterine and vaginal bleeding, unspecified; Z11.3 Encounter for screening for infections with a predominantly sexual mode of transmission
CPT/HCPCS: 99213

== ENCOUNTER 2023-03-24 08:18 | Outpatient (REF) | payer OTHER, SELFPAY ==
[2023-03-24 17:53] LABS: CT PCR NOT DETECTED (Not Detect.); NG PCR NOT DETECTED (Not Detect.)
[2023-03-25 15:11] LABS: BV Int Neg Control Negative (Negative); BV Int Pos Control Positive (Positive)
[2023-03-26 04:13] LABS: HPV mRNA E6/E7 rflx Not Detected (Not Detected)
== END 2023-03-24 08:19 | disposition home or self-care (01) ==
LOC: HO.LNP 08:18
PROVIDERS: PCP Internal Medicine; Visit Provider Obstetrics & Gynecology
DX: Z12.4 Encounter for screening for malignant neoplasm of cervix (principal); Z11.51 Encounter for screening for human papillomavirus (HPV); Z87.42 Personal history of other diseases of the female genital tract
CPT/HCPCS: 0353U; 87480; 87510; 87624; 87660; 88142; 99212

== ENCOUNTER 2023-04-01 10:55 | Outpatient (REF) | payer OTHER, SELFPAY ==
--- NOTE | ~2023-04-01 | US_ITS ---
EXAMINATION: US PELVIS CLINICAL INFORMATION: Abnormal uterine vaginal bleeding; the last menstrual period was on 03/22/2023. COMPARISON: None available. TECHNIQUE: Ultrasound of the pelvis is performed using both transabdominal and transvaginal transducers along with Doppler. Transvaginal imaging is performed due to inadequate visualization transabdominally. FINDINGS: Uterus: The uterus is anteverted and measures 7.3 x 4.1 x 5.2 cm. A Nabothian cyst is seen within the cervix. There is trace nonspecific endocervical free fluid. The double wall endometrial thickness is 6 mm. There are again tiny punctate endometrial calcifications. The uterus is smooth in contour and has normal myometrial echogenicity. No visible fibroid. Adnexa: Both ovaries are visualized. There is normal color flow to the adnexa. There is no ovarian torsion. There is trace nonspecific free fluid within the cul-de-sac. Right ovary measures 3.9 x 2.8 x 2.8 cm, volume 16.0 mL. There are physiologic follicles. Left ovary measures 4.6 x 2.0 x 2.8 cm, volume 13.7 mL. There are physiologic follicles. US/US pelvic and transvaginal IMPRESSION: 1. A Nabothian cyst is seen within the cervix. 2. There is trace nonspecific endocervical free fluid. 3. There is stable minimal endometrial punctate calcification, possibly a sequela of prior inflammation or infection. 4. A small amount of nonspecific free fluid is seen within the cul-de-sac.
[2023-04-01 11:51] LABS: Hematocrit 42.3 % (37.0-47.0); Hemoglobin 13.5 g/dl (12.0-16.0); Mean Corpuscular HGB Conc 31.9 g/dl (31.0-35.0); Mean Corpuscular Hemoglobin 25.2 pg (27.0-33.0); Mean Corpuscular Volume 78.9 fL (80.0-98.0); Mean Platelet Volume 9.4 fL (9.4-12.3); Platelet Count 378 X10*3/uL (160-400); Red Blood Count 5.36 X10*6/uL (4.20-5.50); White Blood Count 12.3 X10*3/uL (4.8-10.8)
--- NOTE | 2023-04-01 11:53 | ECG_ITS ---
Test Reason : cp Blood Pressure : / mmHG Vent. Rate : 084 BPM Atrial Rate : 084 BPM P-R Int : 136 ms QRS Dur : 084 ms QT Int : 364 ms P-R-T Axes : 059 021 024 degrees QTc Int : 430 ms Normal sinus rhythm Normal ECG When compared with ECG of 06-JAN-2021 12:52, T wave inversion no longer evident in Anterior leads Nonspecific T wave abnormality is no longer Present Heart rate has decreased Referred By: Leslie Reilly Electronically Signed By:DELANEY SMITH
[2023-04-01 12:45] LABS: Syphilis Screen Nonreactive (Nonreactive)
[2023-04-01 12:53] LABS: HBsAGNum1 0.37 S/CO (0.00-0.99); HIV AB/AG Nonreactive (Nonreactive); Hepatitis B Surface Antigen Negative (Negative); ~HepC Num1 0.14 S/CO (0.00-0.79); ~Hepatitis C Antibody Nonreactive (Nonreactive)
[2023-04-01 12:56] LABS: HCG Quantitative < 2 mIU/mL; TSH reflex Free T4 0.53 uIU/mL (0.32-4.0)
[2023-04-02 18:29] LABS: Prolactin 5.2 ng/mL
== END 2023-04-01 10:56 | disposition home or self-care (01) ==
LOC: HO.US 10:55
PROVIDERS: Absent Provider Internal Medicine; PCP Internal Medicine; Visit Provider Obstetrics & Gynecology
DX: Z11.4 Encounter for screening for human immunodeficiency virus [HIV] (principal); R07.9 Chest pain, unspecified; Z20.2 Contact with and (suspected) exposure to infections with a predominantly sexual mode of transmission; N93.9 Abnormal uterine and vaginal bleeding, unspecified
CPT/HCPCS: 36415; 76830; 76856; 84146; 84443; 84702; 85027; 86780; 86803; 87340; 87389; 93005

== ENCOUNTER 2023-05-05 08:50 | Emergency (ER) | payer OTHER, SELFPAY ==
--- NOTE | ~2023-05-05 | US_ITS ---
EXAMINATION: US ABDOMEN LIMITED CLINICAL INFORMATION: Right upper quadrant/epigastric pain. COMPARISON: None available. TECHNIQUE: Real-time imaging of the right upper quadrant abdominal viscera. FINDINGS: PANCREAS: Normal. LIVER: The liver is normal in size. The liver contour is normal. There is diffuse increased liver parenchymal echogenicity, consistent with hepatic steatosis. There are numerous simple cysts, largest is in the right lobe, measuring 2.3 x 1.7 x 2.3 cm There is no intrahepatic biliary duct dilatation seen. GALLBLADDER: Normal. The gallbladder is physiologically distended without evidence of stones, sludge, polyps, wall thickening or pericholecystic fluid. COMMON BILE DUCT: Normal in caliber measuring 0.3 cm in diameter. RIGHT KIDNEY: Normal. No hydronephrosis. No renal calculi or focal parenchymal lesions. The kidney measures 10.2 cm in maximum dimension. FREE FLUID: None. US/US abdomen limited IMPRESSION: 1. Hepatic steatosis. 2. Numerous simple cysts in the liver. 3. Normal appearance of the gallbladder.
[2023-05-05 08:56] VITALS: BP 98/53; PULSE 68; RESP 16; TEMP 36.7; O2SAT 99; BMI 31.2
[2023-05-05 09:19] LABS: MANUAL DIFF FLAG NO
[2023-05-05 09:21] LABS: Basophils Absolute Auto 0.1 X10*3/uL (0.0-0.2); Basophils Percent Auto 0.6 % (0-2); Eosinophils Absolute Auto 0.2 X10*3/uL (0.0-0.4); Eosinophils Percent Auto 1.4 % (0-4); Hematocrit 38.8 % (37.0-47.0); Hemoglobin 12.8 g/dl (12.0-16.0); Imm Gran Abs Auto 0.04 X10*3/uL (0.00-0.03); Imm Gran Pct Auto 0.3 % (0.0-0.4); Lymphocytes Absolute Auto 1.7 X10*3/uL (1.2-4.9); Lymphocytes Percent Auto 12.3 % (20-40); Mean Corpuscular Volume 78.7 fL (80.0-98.0); Mean Platelet Volume 9.7 fL (9.4-12.3); Monocytes Absolute Auto 0.4 X10*3/uL (0.1-1.2); Monocytes Percent Auto 2.6 % (2-11); Neutrophils Absolute Auto 11.3 x10*3/uL (2.0-8.3); Neutrophils Percent Auto 82.8 % (45-73); Platelet Count 383 X10*3/uL (160-400); Red Blood Count 4.93 X10*6/uL (4.20-5.50); Red Cell Distribution Width 14.6 % (11.0-16.0); White Blood Count 13.6 X10*3/uL (4.8-10.8)
[2023-05-05 09:34] LABS: Alanine Aminotransferase 12 U/L (0-31); Albumin Level 4.1 g/dL (3.5-5.0); Alkaline Phosphatase 71 U/L (39-117); Anion Gap 13 (12-20); Aspartate Amino Transferase 17 U/L (5-31); Bilirubin Total 0.5 mg/dL (0.0-1.0); Blood Urea Nitrogen 11 mg/dL (9-16); Calcium 9.5 mg/dL (8.4-10.2); Carbon Dioxide 21 mmol/L (22-29); Chloride 109 mmol/L (96-108); Creatinine Clr Calc Pharmacy 96.3; Estimated Glomerular Filt Rate > 60; Glucose Random 127 mg/dL (60-115); Potassium 4.1 mmol/L (3.3-5.1); Sodium 139 mmol/L (135-145); Total Protein 7.5 g/dL (6.5-8.0)
--- NOTE | 2023-05-05 09:44 | PC.NURSE ---
attempted to call patient into ED. no answer in waiting room
--- NOTE | 2023-05-05 09:59 | PC.NURSE ---
no answer in waiting room when called a second time
--- NOTE | 2023-05-05 10:05 | PC.NURSE ---
pt was in bathroom. ambulated from waiting room into room 9, steady gait.
[2023-05-05 10:23] VITALS: BP 130/81; PULSE 75; RESP 18; TEMP 36.6; O2SAT 99
--- NOTE | 2023-05-05 10:24 | ED_ITS ---
HPI - Abdominal Pain General Chief Complaint: Abdominal Pain Stated Complaint: Nausea/Vomiting/ABd pain Time Seen by Provider: 05/05/23 10:11 Source: patient, RN notes reviewed and old records reviewed Mode of arrival: ambulatory History of Present Illness HPI narrative: 27-year-old female with a past medical history of diverticulitis, PCOS, IBS, anxiety, depression, asthma, presenting to the ED complaining of generalized abdominal pain, nausea, vomiting, and nonbloody diarrhea since 02:00. Reports abdominal cramping woke her up from sleep. Denies hematemesis, fever/chills, sick contacts, recent travel, suspicious food intake, dysuria/hematuria or flank pain MD elicited complaint: abdominal pain Related Data Home Medications Medication Instructions Recorded Confirmed azelastine 137 mcg (0.1 %) nasal 2 spray intranasal BID 03/14/22 12/08/22 spray aerosol Previous Rx's Medication Instructions Recorded meclizine 25 mg tablet 25 mg PO BID PRN dizziness #14 tabs 08/06/21 albuterol sulfate 90 mcg/actuation 1 inh inhalation QID PRN shortness 12/19/21 aerosol inhaler (ProAir HFA) of breath or wheezing 30 days #18 grams lidocaine 5 % topical patch 1 patch topical DAILY #15 ea 01/07/22 (Lidoderm) amitriptyline 10 mg tablet 10 mg PO BEDTIME #30 tabs 03/14/22 levocetirizine 5 mg tablet (Xyzal) 5 mg PO DAILY #30 tabs 04/07/22 nebulizers (AeroEclipse II #1 ea 04/08/22 Nebulizer) ibuprofen 600 mg tablet 600 mg PO Q6H PRN fever or pain 06/18/22 #20 tabs montelukast 10 mg tablet 10 mg PO DAILY #30 tabs 07/01/22 hydroxyzine HCl 25 mg tablet 25 mg PO BEDTIME PRN anxiety #14 07/29/22 tabs oxycodone 5 mg tablet 5 mg PO Q6H PRN pain #10 tabs 08/12/22 epinephrine 0.3 mg/0.3 mL 0.3 mg (0.3 mL) IM Q4H PRN 11/11/22 injection, auto-injector anaphylaxis 30 days #1 ea beclomethasone dipropionate 40 1 inh inhalation BID 30 days #10.6 12/08/22 mcg/actuation HFA breath activated grams aerosol (Qvar RediHaler) ondansetron HCl 4 mg tablet 4 mg PO Q8H PRN nausea and 12/30/22 vomiting #14 tabs terconazole 0.8 % vaginal cream 1 appful vaginal BEDTIME 3 days 03/25/23 #20 grams albuterol sulfate 2.5 mg/3 mL 2.5 mg (3 mL) inhalation Q4H PRN 04/02/23 (0.083 %) solution for nebulization shortness of breath or wheezing 30 days #90 mL sertraline 25 mg tablet 25 mg PO DAILY #30 tabs 04/29/23 ondansetron 4 mg disintegrating 4 mg PO Q8H PRN nausea and 05/05/23 tablet vomiting #10 tabs Allergies Allergy/AdvReac Type Severity Reaction Status Date / Time peanut Allergy Swelling Verified 03/24/23 08:25 Review of Systems Review of Systems Constitutional: No Fever, No Chills, No Fatigue, No Malaise ENT/Mouth: No Hearing loss, No Ear Pain, No Nasal Congestion, No sore throat, No Rhinorrhea, No Swallowing Difficulty Eyes: No Eye Pain, No Swelling, No Redness Cardiovascular: No Chest Pain, No SOB, No Palpitations Respiratory: No Cough, No Sputum,No Dyspnea Gastrointestinal: + Nausea, + Vomiting, + Diarrhea, No Constipation, + Abdominal pain, No Hematochezia, No Melena Genitourinary: No Dysuria, No Urinary Frequency, No Hematuria, No Urinary Incontinence/retention, No Urgency, No Flank Pain Musculoskeletal: No joint pain, No Myalgias, No Joint Swelling Skin: No Skin Lesions, No rash Neuro: No Weakness, No Dizziness, No Headache Yes all other systems are reviewed and are negative Constitutional: Reports as per [facility] Past Medical History Attestation statement: The following information was validated with the patient. Source: old records reviewed Medical History Acute diverticulitis Family history of ovarian cancer Physical exam Mild recurrent major depression Class 1 obesity with body mass index (BMI) of 32.0 to 32.9 in adult Enlarged tonsils Allergic rhinitis Chronic eczema PCOS (polycystic ovarian syndrome) IBS (irritable bowel syndrome) Anxiety Depression History of deviated nasal septum Moderate persistent asthma Surgical History H/O LEEP History of tonsillectomy Hx of nasal septoplasty History of wisdom tooth extraction Family History Family History Father Asthma Mother Liver disease Mental health disorder Maternal Aunt Ovarian cancer Maternal Aunt Ovarian cancer Maternal Aunt Ovarian cancer Maternal Grandfather Leukemia Paternal Grandmother Pancreatic cancer Social History Social History Household Members: Significant Other and Children Housing: Apartment Do you presently have visiting nurse or other home services: No Alcohol intake: current Alcohol intake frequency: holidays/special occasions only Alcohol type: wine and hard liquor Patient Tobacco Use Status: Never used Tobacco Smoked in Last 30 Days: No e-Cigarette/Vaping Use: Never Used Second Hand Smoke Exposure: No Use of substances other than those prescribed or required for medical reasons: Yes Substance Use Type: Marijuana Substance Use Frequency: Daily Last Used Substance: Hours (ago) Advance Directives: No Patient : No service: No Current occupational status: employed Current occupational exposures/hazards: No Sexual orientation: Straight/Heterosexual Gender identity: Female Cognitive needs: No Hearing needs: No Vision needs: Yes (glasses) Physical Exam ED Vital Signs: Vital Signs - 24 hr 05/05/23 08:56 05/05/23 10:23 05/05/23 12:22 Temperature 98.1 F 97.9 F Pulse Rate 68 75 71 Respiratory Rate 16 18 16 Blood Pressure 98/53 L 130/81 94/52 L Pulse Oximetry 99 99 98 Oxygen Delivery Method Room Air Room Air Room Air BMI result Body Mass Index 31.2 Const General: cooperative, healthy appearing and no acute distress Orientation/consciousness: patient oriented x3 Limitations: no limitations HENMT Head: Yes normal to inspection and Yes atraumatic Ears: hearing grossly normal bilaterally General nose exam: Normal external nose present Face and sinus: Yes normal facial exam Eyes General: appearance normal, both eyes and all related structures EOM: EOMs intact bilaterally Neck Neck: Yes normal visual inspection and Yes no meningeal signs Resp Effort & Inspection: normal respiratory effort and no respiratory distress Auscultation: clear to auscultation bilaterally Cardio Rate: regular rate Heart sounds: S1 normal heart sound present and S2 normal heart sound present GI Inspection: Yes normal to inspection Palpation (GI): Soft to palpation, Tenderness to palpation present (GI) in the epigastrum and in the RUQ; with no rebound tenderness, no guarding and not rigid General: Yes no CVA tenderness Back/Spine/Pelvis Back: no CVA tenderness Skin Rashes: no rashes Wounds: no wounds Neuro General: patient oriented x3, tone normal and no meningeal signs Cranial nerves: Yes CN's II-XII intact bilaterally Gait exam (Neuro): Normal gait present Extrem General: Yes normal to inspection Course Course Course Narrative: -mild leukocytosis of 13.6, appears chronic. Labs otherwise reassuring. HCG negative -UA with 15 ketones, not infected US abdomen limited IMPRESSION: 1. Hepatic steatosis. 2. Numerous simple cysts in the liver. 3. Normal appearance of the gallbladder. > on re-evaluation patient reports symptomatic improvement. Tolerating p.o. without difficulty. Results discussed with patient including worrisome signs and symptoms and strict return precautions, and when to return to the emergency department. They verbalized understanding and feel safe for discharge at this time. Medical Decision Making Medical Decision Making MDM Narrative: 27-year-old female with a past medical history of diverticulitis, PCOS, IBS, anxiety, depression, asthma, presenting to the ED complaining of generalized abdominal pain, nausea, vomiting, and nonbloody diarrhea since 02:00. On exam BP soft, NAD, nontoxic appearing, holding emesis bag, abdomen soft with epigastric/RUQ tenderness, no rebound or guarding, no CVAT. Concern for gastroenteritis vs food poisoning vs cholecystitis/lithiasis or pancreatitis. Lower suspicion for appendicitis, diverticulitis, ovarian cyst/torsion or pyelo Plan: Labs, UA, abdomen ultrasound, IVF, pain control/antiemetic, re-evaluate Please refer to course for remaining clinical decision making, interpretation of labs/imaging results, and discussions with consultants and/or family members. Differential Diagnosis Differential Diagnoses: The differential diagnosis associated with the presentation includes As above Admission/Observation Consideration of admission/observation: Escalation of care including admission/observation considered Lab Data [facility] Lab Attestation statement: I reviewed the patient's lab results. 05/05/23 09:16 05/05/23 09:16 Labs: Lab Results 05/05/23 05/05/23 Range/Units 09:16 13:14 WBC 13.6 H (4.8-10.8) X10*3/uL RBC 4.93 (4.20-5.50) X10*6/uL Hgb 12.8 (12.0-16.0) g/dl Hct 38.8 (37.0-47.0) % MCV 78.7 L (80.0-98.0) fL MCH 26.0 L (27.0-33.0) pg MCHC 33.0 (31.0-35.0) g/dl RDW 14.6 (11.0-16.0) % Plt Count 383 (160-400) X10*3/uL MPV 9.7 (9.4-12.3) fL Immature Gran % (Auto) 0.3 (0.0-0.4) % Neut % (Auto) 82.8 H (45-73) % Lymph % (Auto) 12.3 L (20-40) % [place] % (Auto) 2.6 (2-11) % Eos % (Auto) 1.4 (0-4) % Baso % (Auto) 0.6 (0-2) % Lymph # (Auto) 1.7 (1.2-4.9) X10*3/uL [place] # (Auto) 0.4 (0.1-1.2) X10*3/uL Eos # (Auto) 0.2 (0.0-0.4) X10*3/uL Baso # (Auto) 0.1 (0.0-0.2) X10*3/uL Abs Immat Gran (auto) 0.04 H (0.00-0.03) X10*3/uL Absolute Neuts (auto) 11.3 H (2.0-8.3) x10*3/uL Absolute Nucleated RBC 0.000 (0.0-0.012) X10*3/uL Nucleated RBC % (auto) 0.0 (0.0-0.2) /100WBC Sodium 139 (135-145) mmol/L Potassium 4.1 (3.3-5.1) mmol/L Chloride 109 H (96-108) mmol/L Carbon Dioxide 21 L (22-29) mmol/L Anion Gap 13 (12-20) BUN 11 (9-16) mg/dL Creatinine 0.78 (0.5-1.4) mg/dL Estim Creat Clear Calc 96.3 Estimated GFR > 60 Random Glucose 127 H (60-115) mg/dL Calcium 9.5 (8.4-10.2) mg/dL Magnesium 2.0 (1.6-2.6) mg/dL Total Bilirubin 0.5 (0.0-1.0) mg/dL AST 17 (5-31) U/L ALT 12 (0-31) U/L Alkaline Phosphatase 71 (39-117) U/L Total Protein 7.5 (6.5-8.0) g/dL Albumin 4.1 (3.5-5.0) g/dL Lipase 9 (8-78) U/L Beta HCG, Quant < 2 mIU/mL Urine Color Yellow Urine Appearance Clear Urine pH 6.5 (5.0-9.0) Ur Specific [place] 1.020 (1.005-1.025) Urine Protein Negative (Neg-Trace) mg/dL Urine Glucose (UA) Negative (Negative) mg/dL Urine Ketones 15 (Negative) mg/dL Urine Blood Negative (Negative) Urine Nitrite Negative (Negative) Ur Leukocyte Esterase Negative (Negative) Radiology Impression Discussion of test interpretation with radiology: I have reviewed the radiologist's reading. External Record Review External record reviewed: Inpatient record, Office record, Outpatient record, Prior outpatient labs, Prior outpatient radiology, Primary care record and Outside ED record Tests considered The following testing was considered but not selected: As above Prescription Management I considered prescription management with: Pain Medication Medications Administered Discontinued Medications Generic Name Dose Route Start Last Admin Trade Name Freq PRN Reason Stop Dose Admin Famotidine 20 mg 05/05/23 10:22 05/05/23 10:57 Famotidine/Pf 20 Mg/2 Ml Vial IVPUSH 05/05/23 10:23 20 mg ONCE ONE Administration Sodium Chloride 1,000 mls @ 999 mls/hr 05/05/23 10:30 05/05/23 11:37 Ns IV 05/05/23 11:30 Infused .Q1H1M KEYSHA Infusion Ketorolac Tromethamine 15 mg 05/05/23 10:22 05/05/23 10:56 Ketorolac Tromethamine 15 Mg/Ml Vial IVPUSH 05/05/23 10:23 15 mg ONCE ONE Administration Ketorolac Tromethamine 15 mg 05/05/23 14:37 05/05/23 14:45 Ketorolac Tromethamine 15 Mg/Ml Vial IVPUSH 05/05/23 14:38 15 mg ONCE ONE Administration Metoclopramide HCl 10 mg 05/05/23 14:37 05/05/23 14:45 Metoclopramide Hcl 10 Mg/2 Ml Vial IVPUSH 05/05/23 14:38 10 mg ONCE ONE Administration Ondansetron HCl 4 mg 05/05/23 10:22 05/05/23 10:56 Ondansetron Hcl 4 Mg/2 Ml Vial IVPUSH 05/05/23 10:23 4 mg ONCE ONE Administration Discharge Plan Discharge Clinical Impression: Gastroenteritis Patient Disposition: Home, Self-Care Instructions: Gastroenteritis (DC) Additional Instructions: Your ultrasound was reassuring. Her blood work and urine were unremarkable Zofran as an antinausea medication P take as needed Practice of bland diet, avoid spicy foods, sweets, caffeine and chocolate as may upset her stomach If you are unable to eat or drink persistent or worsening pain or fever please return to the emergency department Prescriptions: New ondansetron 4 mg tablet,disintegrating 4 mg PO Q8H PRN (Reason: nausea and vomiting) Qty: 10 0RF No Action lidocaine [Lidoderm] 5 % adhesive patch,medicated 1 patch topical DAILY Qty: 15 0RF Rx Instructions: leave on most painful area for up to 12 hrs levocetirizine [Xyzal] 5 mg tablet 5 mg PO DAILY Qty: 30 0RF (DME) AeroEclipse II Nebulizer [facility] See Rx Instructions .Route Qty: 1 0RF Rx Instructions: As directed oxycodone 5 mg tablet 5 mg PO Q6H PRN (Reason: pain) Qty: 10 0RF Rx Instructions: Partial Fill upon patient request. ondansetron HCl 4 mg tablet 4 mg PO Q8H PRN (Reason: nausea and vomiting) Qty: 14 0RF terconazole 0.8 % cream 1 appful vaginal BEDTIME 3 Days Qty: 20 0RF albuterol sulfate 2.5 mg /3 mL (0.083 %) solution for nebulization 2.5 mg inhalation Q4H PRN (Reason: shortness of breath or wheezing) 30 Days Qty: 90 3RF sertraline 25 mg tablet 25 mg PO DAILY Qty: 30 0RF ibuprofen 600 mg tablet 600 mg PO Q6H PRN (Reason: fever or pain) Qty: 20 0RF montelukast 10 mg tablet 10 mg PO DAILY Qty: 30 3RF hydroxyzine HCl 25 mg tablet 25 mg PO BEDTIME PRN (Reason: anxiety) Qty: 14 0RF meclizine 25 mg tablet 25 mg PO BID PRN (Reason: dizziness) Qty: 14 0RF Hold Instructions: Doctor's Order Qvar RediHaler 40 mcg/actuation HFA aerosol breath activated 1 inh inhalation BID 30 Days Qty: 10.6 2RF albuterol sulfate [ProAir HFA] 90 mcg/actuation HFA aerosol inhaler 1 inh inhalation QID PRN (Reason: shortness of breath or wheezing) 30 Days Qty: 18 0RF azelastine 137 mcg (0.1 %) aerosol,spray 2 spray intranasal BID Rx Instructions: administer into each nostril amitriptyline 10 mg tablet 10 mg PO BEDTIME Qty: 30 0RF epinephrine 0.3 mg/0.3 mL auto-injector 0.3 mg IM Q4H PRN (Reason: anaphylaxis) 30 Days Qty: 1 0RF Patient Comments: PT STS NEVER USED HER EPI PEN Referrals: Leslie Clements MD [Primary Care Provider] - 5 days Stand Alone Forms: Work/School Release Interventions: ED Discharge Assessment Last Done: 05/05/23 15:05 Discharge Date/Time: 05/05/23 15:06
[2023-05-05] MEDS: 0.9 % Sodium Chloride 1,000 ML 999 ML IV (10:35)
[2023-05-05] MEDS: ondansetron HCL 4 MG/2 ML VIAL IVPUSH (10:56)
[2023-05-05] MEDS: Ketorolac Tromethamine 15 MG/ML VIAL IVPUSH ×2 (10:56→14:45)
[2023-05-05] MEDS: Famotidine/PF 20 MG/2 ML VIAL IVPUSH (10:57)
[2023-05-05 11:05] LABS: Lipase 9 U/L (8-78)
[2023-05-05 11:07] LABS: HCG Quantitative < 2 mIU/mL
[2023-05-05 12:22] VITALS: BP 94/52; PULSE 71; RESP 16; O2SAT 98
--- NOTE | 2023-05-05 12:25 | PC.NURSE ---
pt resting R lateral position with eyes closed, breathing even and unlabored. pt reports abd pain is better, 4/10 and n/v has resolved
[2023-05-05 13:23] LABS: Appearance Urine Clear; Color Urine Yellow; Glucose Urine UA Negative (Negative); Leukocyte Esterase Urine Negative (Negative); Nitrite Urine Negative (Negative); PH 6.5 (5.0-9.0); Urine Blood Negative (Negative); Urine Ketones 15 mg/dL (Negative); Urine Protein Negative (Neg-Trace)
--- NOTE | 2023-05-05 14:20 | PC.NURSE ---
pt tried to eat and drink, c/o nausea and abd pain after. RHINA francisco
[2023-05-05] MEDS: Metoclopramide HCl 10 MG/2 ML VIAL IVPUSH (14:45)
== END 2023-05-05 15:06 | disposition home or self-care (01) ==
PROVIDERS: Physician Assistant; Emergency Provider Emergency Medicine; PCP Internal Medicine
DX: K52.9 Noninfective gastroenteritis and colitis, unspecified (principal); R11.2 Nausea with vomiting, unspecified; R10.30 Lower abdominal pain, unspecified; Z79.899 Other long term (current) drug therapy
CPT/HCPCS: 36415; 76705; 80053; 81003; 83690; 83735; 84702; 85025; 96361; 96374; 96375; 96376; 99284; J1885; J2405; J2765

== ENCOUNTER 2023-05-14 08:27 | Outpatient (AMB) | payer OTHER, SELFPAY ==
[2023-05-14 08:52] VITALS: BP 110/70; BMI 32.2
--- NOTE | 2023-05-14 08:52 | MHC.OFFVIS ---
Intake Vital Signs 05/14/23 08:52 Height 5 ft Weight 165 lb BMI 32.2 BP 110/70 Intake Visit Reasons: Ultrasound follow up Allergies peanut Allergy (Verified 05/14/23 08:54) Swelling HPI HPI Comments History of Present Illness Details The patient is presenting for follow-up to discuss the results of her abnormal uterine bleeding workup and options of treatment. The following workup was done.: H&H= 12.8/38.8 TSH, hCG, GC and chlamydia were negative. Serology for STD screen were negative Co testing was done was negative. Pelvic ultrasound showed the following: IMPRESSION: 1. A Nabothian cyst is seen within the cervix. 2. There is trace nonspecific endocervical free fluid. 3. There is stable minimal endometrial punctate calcification, possibly a sequela of prior inflammation or infection. 4. A small amount of nonspecific free fluid is seen within the cul-de-sac. [facility] Medical History Acute diverticulitis Family history of ovarian cancer Physical exam Mild recurrent major depression Class 1 obesity with body mass index (BMI) of 32.0 to 32.9 in adult Enlarged tonsils Allergic rhinitis Chronic eczema PCOS (polycystic ovarian syndrome) IBS (irritable bowel syndrome) Anxiety Depression History of deviated nasal septum Moderate persistent asthma Surgical History H/O LEEP History of tonsillectomy Hx of nasal septoplasty History of wisdom tooth extraction Family History Father Asthma Mother Liver disease Mental health disorder Maternal Aunt Ovarian cancer Maternal Aunt Ovarian cancer Maternal Aunt Ovarian cancer Maternal Grandfather Leukemia Paternal Grandmother Pancreatic cancer Social History Household Members: Significant Other and Children Housing: Apartment Do you presently have visiting nurse or other home services: No Alcohol intake: current Alcohol intake frequency: holidays/special occasions only Alcohol type: wine and hard liquor Patient Tobacco Use Status: Never used Tobacco e-Cigarette/Vaping Use: Never Used Second Hand Smoke Exposure: No Substance Use Type: Marijuana service: No Current occupational status: employed Current occupational exposures/hazards: No Sexual orientation: Straight/Heterosexual Gender identity: Female Cognitive needs: No Hearing needs: No Vision needs: Yes (glasses) Female Reproductive History Menstrual Age of Menarche: 9 control method: none Review of Systems Const All systems reviewed & are unremarkable except as noted in HPI and below Reports as per HPI and Reports no additional complaints GI Reports no additional complaints Reports no additional complaints Physical Exam Vital Signs: Last Vital Signs BP 110/70 05/14/23 08:52 BMI result Body Mass Index 32.2 Assessment & Plan Assessment & Plan (1) Abnormal uterine bleeding: Code(s): N93.9 - Abnormal uterine and vaginal bleeding, unspecified Plan: Discussed with the patient the results of the work up done and options of treatment including but not limited to BCP's, cyclic Progesterone, Mirena IUD Depo-Provera. All pros, cons, risks and benefits of each option were discussed with the patient and the patient decided to go ahead with cyclic Prometrium, so a more detailed discussion re: Progesterone treatment including mechanism of action, benefits (regular menses, endometrial protection form unopposed estrogen and reduction in the risk of endometrial hyperplasia and/or cancer ...), risks (Thrombosis, mood changes, weight gain, breast soreness, ? increased breast ca, others). Instructions were given to use a back- up method for contraception since this is not a method control and schedule a 3 months follow-up. The patient verbalized understanding and agreed with the plan. Medications: New progesterone micronized (Prometrium) Take the pill 1 tablet a day cyclically every month from day 15-24 day 1 being the 1st day of next menstrual cycle 200 mg PO BEDTIME 30 caps 0RF 10 days Coding Level of Care Code Est Pt Level 3 (65472) Diagnoses Abnormal uterine bleeding N93.9
== END 2023-05-14 09:15 | disposition home or self-care (01) ==
PROVIDERS: PCP Internal Medicine; Visit Provider Obstetrics & Gynecology
DX: N93.9 Abnormal uterine and vaginal bleeding, unspecified (principal)
CPT/HCPCS: 99213

== ENCOUNTER → 2023-05-14 08:27 | Outpatient (BNVA) | payer OTHER, SELFPAY | PROVIDERS: PCP Internal Medicine; Visit Provider Obstetrics & Gynecology | DX: N93.9 Abnormal uterine and vaginal bleeding, unspecified (principal) | CPT/HCPCS: 99212 ==

== ENCOUNTER 2023-07-28 10:25 | Emergency (ER) | payer OTHER, SELFPAY ==
--- NOTE | ~2023-07-28 | XR_ITS ---
EXAMINATION: XR CHEST 2 VIEW CLINICAL INFORMATION: Cough and fever COMPARISON: 06/18/2022 TECHNIQUE: PA and lateral views of the chest obtained. FINDINGS: The lungs are clear. There are no pleural effusions. The cardiomediastinal silhouette is normal. XR/XR chest 2V IMPRESSION: No acute cardiopulmonary disease.
[2023-07-28 13:38] VITALS: BP 107/75; PULSE 91; RESP 16; TEMP 37.2; O2SAT 98; BMI 27.9
[2023-07-28 14:30] LABS: IDNOW Serial# 08D9AD1C; Strep A Nucleic Acid Negative (Negative)
[2023-07-28 14:59] LABS: Influenza A PCR NEGATIVE (Negative); Influenza B PCR NEGATIVE (Negative); Resp Syncy Virus RNA Qual PCR NEGATIVE (Negative); SARS COV2 PCR INHOUSE NEGATIVE (Negative)
[2023-07-28 16:24] VITALS: BP 117/89; PULSE 99; RESP 20; TEMP 38.4; O2SAT 100
[2023-07-28] MEDS: Ibuprofen 600 MG TABLET PO (16:38)
[2023-07-28] MEDS: Acetaminophen 325 MG TABLET 650 MG PO (16:38)
--- NOTE | 2023-07-28 16:52 | ED_ITS ---
HPI - General Adult General Chief complaint: General Medical Stated complaint: body aches nausea Time Seen by Provider: 07/28/23 16:27 Source: patient Mode of arrival: ambulatory Limitations: no limitations History of Present Illness HPI narrative: Patient is a 27-year-old female with history of asthma presenting to the ED with complaint of productive cough, wheezing and fever. States symptoms began Thursday with a sore throat, which is ongoing. Feels symptoms worsened today. Has been using nebulizer and inhaler at home with temporary relief. Denies abdominal pain, nausea, vomiting, diarrhea. MD complaint: cough, fever Onset (ago): day(s) Location: chest Relieving factors: medication and rest Exacerbating factors: movement Associated symptoms: cough, fever/chills and other (sore throat) Treatments prior to arrival: other (albuterol, nebs) Related Data Home Medications Medication Instructions Recorded Confirmed azelastine 137 mcg (0.1 %) nasal 2 spray intranasal BID 03/14/22 12/08/22 spray aerosol Previous Rx's Medication Instructions Recorded meclizine 25 mg tablet 25 mg PO BID PRN dizziness #14 tabs 08/06/21 lidocaine 5 % topical patch 1 patch topical DAILY #15 ea 01/07/22 (Lidoderm) amitriptyline 10 mg tablet 10 mg PO BEDTIME #30 tabs 03/14/22 levocetirizine 5 mg tablet (Xyzal) 5 mg PO DAILY #30 tabs 04/07/22 nebulizers (AeroEclipse II #1 ea 04/08/22 Nebulizer) ibuprofen 600 mg tablet 600 mg PO Q6H PRN fever or pain 06/18/22 #20 tabs montelukast 10 mg tablet 10 mg PO DAILY #30 tabs 07/01/22 hydroxyzine HCl 25 mg tablet 25 mg PO BEDTIME PRN anxiety #14 07/29/22 tabs oxycodone 5 mg tablet 5 mg PO Q6H PRN pain #10 tabs 08/12/22 epinephrine 0.3 mg/0.3 mL 0.3 mg (0.3 mL) IM Q4H PRN 11/11/22 injection, auto-injector anaphylaxis 30 days #1 ea beclomethasone dipropionate 40 1 inh inhalation BID 30 days #10.6 12/08/22 mcg/actuation HFA breath activated grams aerosol (Qvar RediHaler) ondansetron HCl 4 mg tablet 4 mg PO Q8H PRN nausea and 12/30/22 vomiting #14 tabs albuterol sulfate 2.5 mg/3 mL 2.5 mg (3 mL) inhalation Q4H PRN 04/02/23 (0.083 %) solution for nebulization shortness of breath or wheezing 30 days #90 mL ondansetron 4 mg disintegrating 4 mg PO Q8H PRN nausea and 05/05/23 tablet vomiting #10 tabs progesterone micronized 200 mg 200 mg PO BEDTIME 10 days #30 caps 05/14/23 capsule (Prometrium) albuterol sulfate 90 mcg/actuation 1 inh inhalation QID PRN shortness 06/19/23 aerosol inhaler (ProAir HFA) of breath or wheezing 30 days #18 grams sertraline 25 mg tablet 25 mg PO DAILY #30 tabs 07/01/23 azithromycin 250 mg tablet See Rx Instructions PO .COMPLEX #6 07/28/23 tabs benzonatate 100 mg capsule 100 mg PO TID PRN cough #14 caps 07/28/23 prednisone 20 mg tablet 40 mg (2 x 20 mg) PO DAILY #10 tabs 07/28/23 Allergies Allergy/AdvReac Type Severity Reaction Status Date / Time peanut Allergy Swelling Verified 05/14/23 08:54 Review of Systems Review of Systems: As per HPI. Yes all other systems are reviewed and are negative Constitutional: Constitutional: Reports as per HPI [facility] Past Medical History Medical History Acute diverticulitis Family history of ovarian cancer Physical exam Mild recurrent major depression Class 1 obesity with body mass index (BMI) of 32.0 to 32.9 in adult Enlarged tonsils Allergic rhinitis Chronic eczema PCOS (polycystic ovarian syndrome) IBS (irritable bowel syndrome) Anxiety Depression History of deviated nasal septum Moderate persistent asthma Surgical History H/O LEEP History of tonsillectomy Hx of nasal septoplasty History of wisdom tooth extraction Family History Family History Father Asthma Mother Liver disease Mental health disorder Maternal Aunt Ovarian cancer Maternal Aunt Ovarian cancer Maternal Aunt Ovarian cancer Maternal Grandfather Leukemia Paternal Grandmother Pancreatic cancer Social History Social History Household Members: Significant Other and Children Housing: Apartment Do you presently have visiting nurse or other home services: No Alcohol intake: current Alcohol intake frequency: other Alcohol type: wine Patient Tobacco Use Status: Never used Tobacco Smoked in Last 30 Days: No e-Cigarette/Vaping Use: Never Used Second Hand Smoke Exposure: No Use of substances other than those prescribed or required for medical reasons: Yes Substance Use Type: Marijuana Substance Use Frequency: Weekly Last Used Substance: Days (ago) Any prior treatment program specific to substance use: No Advance Directives: No Advance Directives Information Provided: No service: No Current occupational status: employed Current occupational exposures/hazards: No Sexual orientation: Straight/Heterosexual Gender identity: Female Cognitive needs: No Hearing needs: No Vision needs: Yes (glasses) Physical Exam ED Vital Signs: Vital Signs - 24 hr 07/28/23 13:38 07/28/23 16:24 07/28/23 18:15 Temperature 98.9 F 101.2 F H 99.7 F Pulse Rate 91 99 77 Respiratory Rate 16 20 15 Blood Pressure 107/75 117/89 Pulse Oximetry 98 100 Oxygen Delivery Method Room Air Room Air BMI result Body Mass Index 27.9 Vital signs have been reviewed and appear to be correct. Blood pressure normal. Heart rate normal. Respiratory rate normal. Temperature febrile. Oxygen saturation normal. Const General: cooperative, healthy appearing and no acute distress Orientation/consciousness: oriented to person, oriented to place, oriented to time and patient oriented x3 Limitations: no limitations HENMT Head: Yes normocephalic and Yes atraumatic Ears: external ears normal, TM's normal bilaterally and EAC's normal General nose exam: Normal external nose present, Normal nasal mucous membranes and turbinates present and Normal septum present Face and sinus: Yes face symmetric Mouth: oropharynx normal, moist mucous membranes and no trismus Throat: Yes uvula midline, Yes abnormal tonsil (erythema and edema, no exudate), No peritonsillar mass and No uvular edema Eyes Pupils: Equal, round and reactive pupils present Neck Neck: Yes normal visual inspection and Yes supple Lymphatic: no lymphadenopathy noted Resp Effort & Inspection: normal respiratory effort and able to speak in complete sentences Auscultation: clear to auscultation bilaterally and wheezes scattered wheezes Cardio Rate: regular rate Rhythm: regular rhythm Heart sounds: S1 normal heart sound present and S2 normal heart sound present GI Palpation (GI): Soft to palpation and nontender Auscultation: normoactive bowel sounds General: Yes no CVA tenderness Back/Spine/Pelvis Back: no CVA tenderness Skin General skin exam: elasticity normal and turgor normal Neuro General: oriented to person, oriented to place, oriented to time, patient oriented x3, moves all extremities, no focal motor deficits and CN's II-XI intact bilaterally Cranial nerves: Yes Equal, round and reactive pupils present Cognition (Neuro): normal cognition Extrem General: Yes full ROM, Yes no pedal edema and Yes no calf tenderness Psych Mental Status: mental status grossly normal Affect: normal affect Thought process: Normal thought process present Medications Administered Discontinued Medications Generic Name Dose Route Start Last Admin Trade Name Freq PRN Reason Stop Dose Admin Acetaminophen 650 mg 07/28/23 16:33 07/28/23 16:38 Acetaminophen 325 Mg Tablet PO 07/28/23 16:34 650 mg ONCE ONE Administration Ibuprofen 600 mg 07/28/23 16:34 07/28/23 16:38 Ibuprofen 600 Mg Tablet PO 07/28/23 16:35 600 mg ONCE ONE Administration Medical Decision Making Medical Decision Making [facility] Narrative: Patient is a 27-year-old female with history of asthma presenting to the ED with complaint of productive cough, wheezing and fever. On exam patient is awake, A+Ox3, VS WNL, afebrile, normal neurological exam without focal deficits, physical exam findings as above. Given reported symptoms and physical exam findings, initial differential includes viral illness, strep pharyngitis, Covid, flu, RSV. Viral and strep swabs negative. X-ray notable for no evidence of pneumonia. My interpretation is in agreement with the radiologist's interpretation. Monospot negative. Will treat for bronchitis with azithromycin, prednisone, benzonatate. Instructed patient follow-up with primary care provider this week. Return precautions discussed at bedside. Patient verbalized understanding of and agreement with plan. Differential Diagnosis Differential Diagnoses: The differential diagnosis associated with the presentation includes As per MDM. Lab Data [facility] Lab Attestation statement: I reviewed the patient's lab results. As per MDM. Labs: Lab Results 07/28/23 07/28/23 Range/Units 14:14 17:45 Monoscreen Negative (Negative) Influenza Type A (PCR) NEGATIVE (Negative) Influenza Type B (PCR) NEGATIVE (Negative) RSV RNA Qual (PCR) NEGATIVE (Negative) SARS-CoV-2 RNA (RT-PCR) NEGATIVE (Negative) S. pyogenes GrpA JACQUELINE Negative (Negative) Independent Interpretation I performed an independent interpretation of an: Plain X-Ray Interpretation: No evidence of pneumonia on chest x-ray Radiology Impression Discussion of test interpretation with radiology: I have reviewed the radiologist's reading. Radiologist Impression: XR/XR chest 2V IMPRESSION: No acute cardiopulmonary disease. External Record Review External record reviewed: Inpatient record, Office record and Outpatient record Prescription Management I considered prescription management with: Antibiotic and Other Discharge Plan Discharge Clinical Impression: Bronchitis, Asthma exacerbation Patient Disposition: Home, Self-Care Instructions: Acute Bronchitis (ED) Additional Instructions: You were evaluated in the emergency department today for cough and shortness of breath. You are being treated for bronchitis with an antibiotic, please complet e the full course as prescribed. You are also being prescribed a short course of steroids to decrease inflammation. You are being prescribed cough medicine which you can use every 8 hours as needed for cough. Please follow-up with your primary care provider this week. Return to the emergency department if you develop worsening shortness of breath, difficulty breathing, chest pain, fever not improved with Tylenol or ibuprofen, or any other concerning symptoms. Prescriptions: New azithromycin 250 mg tablet See Rx Instructions .ROUTE .COMPLEX Qty: 6 0RF Rx Instructions: For 250 mg dose pack: take 500 mg today (day 1), then 250 mg for 4 days (days 2-5) prednisone 20 mg tablet 40 mg PO DAILY Qty: 10 0RF benzonatate 100 mg capsule 100 mg PO TID PRN (Reason: cough) Qty: 14 0RF No Action lidocaine [Lidoderm] 5 % adhesive patch,medicated 1 patch topical DAILY Qty: 15 0RF Rx Instructions: leave on most painful area for up to 12 hrs levocetirizine [Xyzal] 5 mg tablet 5 mg PO DAILY Qty: 30 0RF (DME) AeroEclipse II Nebulizer Misc See Rx Instructions .Route Qty: 1 0RF Rx Instructions: As directed oxycodone 5 mg tablet 5 mg PO Q6H PRN (Reason: pain) Qty: 10 0RF Rx Instructions: Partial Fill upon patient request. ondansetron HCl 4 mg tablet 4 mg PO Q8H PRN (Reason: nausea and vomiting) Qty: 14 0RF albuterol sulfate 2.5 mg /3 mL (0.083 %) solution for nebulization 2.5 mg inhalation Q4H PRN (Reason: shortness of breath or wheezing) 30 Days Qty: 90 3RF albuterol sulfate [ProAir HFA] 90 mcg/actuation HFA aerosol inhaler 1 inh inhalation QID PRN (Reason: shortness of breath or wheezing) 30 Days Qty: 18 0RF sertraline 25 mg tablet 25 mg PO DAILY Qty: 30 0RF ibuprofen 600 mg tablet 600 mg PO Q6H PRN (Reason: fever or pain) Qty: 20 0RF ondansetron 4 mg tablet,disintegrating 4 mg PO Q8H PRN (Reason: nausea and vomiting) Qty: 10 0RF montelukast 10 mg tablet 10 mg PO DAILY Qty: 30 3RF hydroxyzine HCl 25 mg tablet 25 mg PO BEDTIME PRN (Reason: anxiety) Qty: 14 0RF meclizine 25 mg tablet 25 mg PO BID PRN (Reason: dizziness) Qty: 14 0RF Hold Instructions: Doctor's Order Qvar RediHaler 40 mcg/actuation HFA aerosol breath activated 1 inh inhalation BID 30 Days Qty: 10.6 2RF azelastine 137 mcg (0.1 %) aerosol,spray 2 spray intranasal BID Rx Instructions: administer into each nostril amitriptyline 10 mg tablet 10 mg PO BEDTIME Qty: 30 0RF epinephrine 0.3 mg/0.3 mL auto-injector 0.3 mg IM Q4H PRN (Reason: anaphylaxis) 30 Days Qty: 1 0RF Patient Comments: PT STS NEVER USED HER EPI PEN progesterone micronized [Prometrium] 200 mg capsule 200 mg PO BEDTIME 10 Days Qty: 30 0RF Rx Instructions: Take the pill 1 tablet a day cyclically every month from day 15-24 day 1 being the 1st day of next menstrual cycle
[2023-07-28 18:05] LABS: Monotest Negative (Negative)
[2023-07-28 18:15] VITALS: PULSE 77; RESP 15; TEMP 37.6
== END 2023-07-28 18:36 | disposition home or self-care (01) ==
PROVIDERS: Registered Nurse Emergency; Emergency Provider Emergency Medicine; PCP Internal Medicine
DX: J40 Bronchitis, not specified as acute or chronic (principal); M79.10 Myalgia, unspecified site; R11.2 Nausea with vomiting, unspecified; R05.9 Cough, unspecified; R50.9 Fever, unspecified; Z20.822 Contact with and (suspected) exposure to COVID-19; Z20.828 Contact with and (suspected) exposure to other viral communicable diseases; Z79.899 Other long term (current) drug therapy
CPT/HCPCS: 0241U; 36415; 71046; 86308; 87651; 99283; 99284

== ENCOUNTER 2023-07-30 17:06 | Emergency (ER) | payer OTHER, SELFPAY ==
[2023-07-30 18:41] VITALS: BP 127/79; PULSE 109; RESP 18; TEMP 36.6; O2SAT 96; BMI 31.8
--- NOTE | 2023-07-30 18:41 | ED_ITS ---
HPI - Asthma General Chief Complaint: Upper Respiratory Symptoms Stated Complaint: asthma shortness of breath/no taste/no smell Time Seen by Provider: 07/30/23 19:36 Source: patient Mode of arrival: ambulatory Limitations: no limitations History of Present Illness HPI Narrative: Patient comes to the emergency room complaining of not feeling better. Patient was seen here 2 days ago, patient complained of congestion, coughing, sneezing, sore throat loss of taste and smell. In her last visit, patient was given a prescription of azithromycin, prednisone and Tessalon Perles. Related Data Home Medications Medication Instructions Recorded Confirmed azelastine 137 mcg (0.1 %) nasal 2 spray intranasal BID 03/14/22 12/08/22 spray aerosol Previous Rx's Medication Instructions Recorded meclizine 25 mg tablet 25 mg PO BID PRN dizziness #14 tabs 08/06/21 lidocaine 5 % topical patch 1 patch topical DAILY #15 ea 01/07/22 (Lidoderm) amitriptyline 10 mg tablet 10 mg PO BEDTIME #30 tabs 03/14/22 levocetirizine 5 mg tablet (Xyzal) 5 mg PO DAILY #30 tabs 04/07/22 nebulizers (AeroEclipse II #1 ea 04/08/22 Nebulizer) ibuprofen 600 mg tablet 600 mg PO Q6H PRN fever or pain 06/18/22 #20 tabs montelukast 10 mg tablet 10 mg PO DAILY #30 tabs 07/01/22 hydroxyzine HCl 25 mg tablet 25 mg PO BEDTIME PRN anxiety #14 07/29/22 tabs oxycodone 5 mg tablet 5 mg PO Q6H PRN pain #10 tabs 08/12/22 epinephrine 0.3 mg/0.3 mL 0.3 mg (0.3 mL) IM Q4H PRN 11/11/22 injection, auto-injector anaphylaxis 30 days #1 ea beclomethasone dipropionate 40 1 inh inhalation BID 30 days #10.6 12/08/22 mcg/actuation HFA breath activated grams aerosol (Qvar RediHaler) ondansetron HCl 4 mg tablet 4 mg PO Q8H PRN nausea and 12/30/22 vomiting #14 tabs albuterol sulfate 2.5 mg/3 mL 2.5 mg (3 mL) inhalation Q4H PRN 04/02/23 (0.083 %) solution for nebulization shortness of breath or wheezing 30 days #90 mL ondansetron 4 mg disintegrating 4 mg PO Q8H PRN nausea and 05/05/23 tablet vomiting #10 tabs progesterone micronized 200 mg 200 mg PO BEDTIME 10 days #30 caps 05/14/23 capsule (Prometrium) albuterol sulfate 90 mcg/actuation 1 inh inhalation QID PRN shortness 06/19/23 aerosol inhaler (ProAir HFA) of breath or wheezing 30 days #18 grams sertraline 25 mg tablet 25 mg PO DAILY #30 tabs 07/01/23 azithromycin 250 mg tablet See Rx Instructions PO .COMPLEX #6 07/28/23 tabs benzonatate 100 mg capsule 100 mg PO TID PRN cough #14 caps 07/28/23 prednisone 20 mg tablet 40 mg (2 x 20 mg) PO DAILY #10 tabs 07/28/23 oseltamivir 75 mg capsule (Tamiflu) 75 mg PO BID 5 days #10 caps 07/30/23 Allergies Allergy/AdvReac Type Severity Reaction Status Date / Time peanut Allergy Swelling Verified 07/30/23 18:41 Review of Systems Review of Systems: Constitutional : No Weight loss, No Fever, No Chills, No Night Sweats, No Fatigue, No Malaise ENT/Mouth : Complaining of nasal congestion, no ear pain, no difficulty swallowing, mild sore throat. Now patient reports having loss of taste and smell starting today. Eyes: No Eye Pain, No Swelling, No Redness, No Foreign Body, No Discharge, No Vision Changes Cardiovascular : No Chest Pain, No SOB, No Dyspnea on Exertion, No Orthopnea, No Edema, No Palpitations Respiratory : Complaining of dry cough, No Sputum, No Wheezing, No Smoke Exposure, No Dyspnea Gastrointestinal : No Nausea, No Vomiting, No Diarrhea, No Constipation, No abdominal Pain, No Hematochezia, No Melena Genitourinary : no irregular bleeding, No Dysuria, No Urinary Frequency, No Hematuria, No Urinary Incontinence, No Urgency, No Flank Pain, No Urinary Flow Changes, No Hesitancy Musculoskeletal : No joint pain, No Myalgias, No Joint Swelling Skin : No Skin Lesions, No rash Neuro : No Weakness, No Numbness, No Paresthesias, No Loss of Consciousness, No Dizziness, No Headache Psych : No Anxiety/Panic, No Depression, No SI/HI/AH/VH, No Social Issues, Heme/Lymph: No Bruising, No Bleeding,No Lymphadenopathy Endocrine : No Polyuria, No Polydipsia, No Temperature Intolerance [facility] Past Medical History Medical History Acute diverticulitis Family history of ovarian cancer Physical exam Mild recurrent major depression Class 1 obesity with body mass index (BMI) of 32.0 to 32.9 in adult Enlarged tonsils Allergic rhinitis Chronic eczema PCOS (polycystic ovarian syndrome) IBS (irritable bowel syndrome) Anxiety Depression History of deviated nasal septum Moderate persistent asthma Surgical History H/O LEEP History of tonsillectomy Hx of nasal septoplasty History of wisdom tooth extraction Family History Family History Father Asthma Mother Liver disease Mental health disorder Maternal Aunt Ovarian cancer Maternal Aunt Ovarian cancer Maternal Aunt Ovarian cancer Maternal Grandfather Leukemia Paternal Grandmother Pancreatic cancer Social History Social History Household Members: Significant Other and Children Housing: Apartment Do you presently have visiting nurse or other home services: No Alcohol intake: current Alcohol intake frequency: other Alcohol type: wine Patient Tobacco Use Status: Never used Tobacco e-Cigarette/Vaping Use: Never Used Second Hand Smoke Exposure: No Substance Use Type: Marijuana Advance Directives: No Advance Directives Information Provided: No service: No Current occupational status: employed Current occupational exposures/hazards: No Sexual orientation: Straight/Heterosexual Gender identity: Female Cognitive needs: No Hearing needs: No Vision needs: Yes (glasses) Physical Exam Vital Signs: Vital Signs: Last Vital Signs Temp 97.8 F 07/30/23 18:41 Pulse 109 H 07/30/23 18:41 Resp 18 07/30/23 18:41 BP 127/79 07/30/23 18:41 Pulse Ox 96 07/30/23 18:41 O2 Del Method Room Air 07/30/23 18:41 BMI result Body Mass Index 31.8 Const: Other: Appearance: Alert. Oriented X3. No acute distress. Eyes: Pupils equal, round and reactive to light. ENT: Erythematous oropharynx, no abscess, no exudates, normal tone, uvula midline Neck: Normal inspection. Neck supple. No lymph nodes noted. No crepitus CVS: Normal heart rate and rhythm. Pulses normal. Normal S1 and S2 Respiratory: No respiratory distress. Breath sounds normal. No Wheezing. No rales Abdomen: Soft and nontender. No rigidity. No distention. Skin: Skin warm and dry. Normal skin color. Normal skin turgor. Extremities: No lower extremity edema. No Lacerations. No Rash Neuro: Oriented X 3. No motor deficit. No sensory deficit. Moving all extremities. No slurred speech. CN 2 through 12 grossly intact Psych: calm, cooperative, normal affect Course Course Course Narrative: RME: 27yo F w/PMHx PCOS, IBS, Depression, Asthma, c/o SOB & loss of taste & smell x today. was seen & tx in our ED 07/28 for asthma exacerbation/bronchitis Rx Zithromax, Prednisone & Tessalon pearls +congestion, lungs CTA COVID/FLU ordered Full HPI, ROS and PE to be performed by primary ED provider. Medical Decision Making Medical Decision Making MDM Narrative: -I discussed the patient to continue taking her current prescription medications, azithromycin, prednisone -also I discussed with the patient that her symptoms will probably last for weeks gradually improving. She will not have resolution of symptoms within couple of days -Patient tested positive for influenza B. since patient was tested 2 days ago, was negative, it is unclear how many days patient has been actually symptomatic. Seems that he has been less than 4. I discussed with the patient that Tamiflu may not work on her. However, patient would likely take a chance and try Tamiflu. Differential Diagnosis Differential Diagnoses: The differential diagnosis associated with the presentation includes (Asthma, pneumonia, influenza, viral illness) Lab Data [facility] Lab Attestation statement: I reviewed the patient's lab results. Labs: Lab Results 07/30/23 Range/Units 19:34 COVID-19 (MADELINE) Negative (Negative) COVID-19 Clin Com See Note Influenza Type A (JACQUELINE) Negative (Negative) Influenza Type B (JACQUELINE) Positive A (Negative) Influenza A & B Note See Note Discharge Plan Discharge Clinical Impression: Influenza Patient Disposition: Home, Self-Care Instructions: Influenza (ED) Additional Instructions: Please follow-up with your primary care physician tomorrow. If you have any worsening or new symptoms, please return to the emergency room or call 911 Prescriptions: New oseltamivir [Tamiflu] 75 mg capsule 75 mg PO BID 5 Days Qty: 10 0RF No Action lidocaine [Lidoderm] 5 % adhesive patch,medicated 1 patch topical DAILY Qty: 15 0RF Rx Instructions: leave on most painful area for up to 12 hrs levocetirizine [Xyzal] 5 mg tablet 5 mg PO DAILY Qty: 30 0RF (DME) AeroEclipse II Nebulizer [facility] [place] See Rx Instructions .Route Qty: 1 0RF Rx Instructions: As directed oxycodone 5 mg tablet 5 mg PO Q6H PRN (Reason: pain) Qty: 10 0RF Rx Instructions: Partial Fill upon patient request. ondansetron HCl 4 mg tablet 4 mg PO Q8H PRN (Reason: nausea and vomiting) Qty: 14 0RF albuterol sulfate 2.5 mg /3 mL (0.083 %) solution for nebulization 2.5 mg inhalation Q4H PRN (Reason: shortness of breath or wheezing) 30 Days Qty: 90 3RF albuterol sulfate [ProAir HFA] 90 mcg/actuation HFA aerosol inhaler 1 inh inhalation QID PRN (Reason: shortness of breath or wheezing) 30 Days Qty: 18 0RF sertraline 25 mg tablet 25 mg PO DAILY Qty: 30 0RF ibuprofen 600 mg tablet 600 mg PO Q6H PRN (Reason: fever or pain) Qty: 20 0RF azithromycin 250 mg tablet See Rx Instructions .ROUTE .COMPLEX Qty: 6 0RF Rx Instructions: For 250 mg dose pack: take 500 mg today (day 1), then 250 mg for 4 days (days 2-5) prednisone 20 mg tablet 40 mg PO DAILY Qty: 10 0RF benzonatate 100 mg capsule 100 mg PO TID PRN (Reason: cough) Qty: 14 0RF ondansetron 4 mg tablet,disintegrating 4 mg PO Q8H PRN (Reason: nausea and vomiting) Qty: 10 0RF montelukast 10 mg tablet 10 mg PO DAILY Qty: 30 3RF hydroxyzine HCl 25 mg tablet 25 mg PO BEDTIME PRN (Reason: anxiety) Qty: 14 0RF meclizine 25 mg tablet 25 mg PO BID PRN (Reason: dizziness) Qty: 14 0RF Hold Instructions: Doctor's Order Qvar RediHaler 40 mcg/actuation HFA aerosol breath activated 1 inh inhalation BID 30 Days Qty: 10.6 2RF azelastine 137 mcg (0.1 %) aerosol,spray 2 spray intranasal BID Rx Instructions: administer into each nostril amitriptyline 10 mg tablet 10 mg PO BEDTIME Qty: 30 0RF epinephrine 0.3 mg/0.3 mL auto-injector 0.3 mg IM Q4H PRN (Reason: anaphylaxis) 30 Days Qty: 1 0RF Patient Comments: PT STS NEVER USED HER EPI PEN progesterone micronized [Prometrium] 200 mg capsule 200 mg PO BEDTIME 10 Days Qty: 30 0RF Rx Instructions: Take the pill 1 tablet a day cyclically every month from day 15-24 day 1 being the 1st day of next menstrual cycle Stand Alone Forms: Work/School Release
[2023-07-30 20:04] LABS: IDNOW Serial# 58CA691E; Influenza A Negative (Negative); Influenza B2 Positive (Negative)
[2023-07-30 20:05] LABS: COVID-19 Test Negative (Negative); IDNOW Serial# 6674DD1D
== END 2023-07-30 21:26 | disposition home or self-care (01) ==
PROVIDERS: Physician Assistant; Emergency Provider Emergency Medicine; PCP Internal Medicine
DX: J10.1 Influenza due to other identified influenza virus with other respiratory manifestations (principal); Z79.899 Other long term (current) drug therapy; Z11.52 Encounter for screening for COVID-19; Z20.822 Contact with and (suspected) exposure to COVID-19
CPT/HCPCS: 87502; 87635; 99282; 99283

== ENCOUNTER 2023-08-20 08:43 | Outpatient (AMB) | payer OTHER, SELFPAY ==
--- NOTE | 2023-08-20 08:48 | MHC.OFFVIS ---
Intake Vital Signs 08/20/23 08:50 Height 5 ft Weight 160 lb 14.999 oz BMI 31.4 BP 112/70 Intake Visit Reasons: 3 month follow up Brand Marketing Coordinator Required: No Information Interpreted: non-clinical & clinical Accompanied by: Self / Same As Patient Allergies peanut Allergy (Verified 08/20/23 08:51) Swelling Is last menstrual period known: Yes Last menstrual period: 07/22/23 HPI HPI Comments History of Present Illness Details Presenting for follow-up . The patient has been taking Prometrium 200 mg p.o. q.d. day 15-24, her menstrual cycles have been regular and light, no other complaints [facility] Medical History Acute diverticulitis Family history of ovarian cancer Physical exam Mild recurrent major depression Class 1 obesity with body mass index (BMI) of 32.0 to 32.9 in adult Enlarged tonsils Allergic rhinitis Chronic eczema PCOS (polycystic ovarian syndrome) IBS (irritable bowel syndrome) Anxiety Depression History of deviated nasal septum Moderate persistent asthma Surgical History H/O LEEP History of tonsillectomy Hx of nasal septoplasty History of wisdom tooth extraction Family History Father Asthma Mother Liver disease Mental health disorder Maternal Aunt Ovarian cancer Maternal Aunt Ovarian cancer Maternal Aunt Ovarian cancer Maternal Grandfather Leukemia Paternal Grandmother Pancreatic cancer Social History Household Members: Significant Other and Children Housing: Apartment Do you presently have visiting nurse or other home services: No Alcohol intake: current Alcohol intake frequency: other Alcohol type: wine Patient Tobacco Use Status: Never used Tobacco e-Cigarette/Vaping Use: Never Used Second Hand Smoke Exposure: No Substance Use Type: Marijuana service: No Current occupational status: employed Current occupational exposures/hazards: No Sexual orientation: Straight/Heterosexual Gender identity: Female Cognitive needs: No Hearing needs: No Vision needs: Yes (glasses) Female Reproductive History Menstrual Age of Menarche: 9 Date of last menstrual period: 07/22/23 Review of Systems Const All systems reviewed & are unremarkable except as noted in HPI and below Reports as per HPI and Reports no additional complaints GI Reports no additional complaints Reports no additional complaints Physical Exam Vital Signs: Last Vital Signs BP 112/70 08/20/23 08:50 BMI result Body Mass Index 31.4 Assessment & Plan Assessment & Plan (1) Abnormal uterine bleeding: Code(s): N93.9 - Abnormal uterine and vaginal bleeding, unspecified Plan: Prometrium 200 mg p.o. q.d. day 15-24 refill sent to the patient's pharmacy. Medications: Refilled progesterone micronized (Prometrium) Take the pill 1 tablet a day cyclically every month from day 15-24 day 1 being the 1st day of next menstrual cycle 200 mg PO BEDTIME 30 caps 3RF 10 days Coding Level of Care Code Est Pt Level 3 (19596) Diagnoses Abnormal uterine bleeding N93.9
[2023-08-20 08:50] VITALS: BP 112/70; BMI 31.4
== END 2023-08-20 09:01 | disposition home or self-care (01) ==
LOC: HO.HWS 08:43
PROVIDERS: PCP Internal Medicine; Visit Provider Obstetrics & Gynecology
DX: N93.9 Abnormal uterine and vaginal bleeding, unspecified (principal)
CPT/HCPCS: 99213

== ENCOUNTER → 2023-08-20 08:43 | Outpatient (BNVA) | payer OTHER, SELFPAY | PROVIDERS: PCP Internal Medicine; Visit Provider Obstetrics & Gynecology | DX: N93.9 Abnormal uterine and vaginal bleeding, unspecified (principal) | CPT/HCPCS: 99212 ==

== ENCOUNTER 2023-09-10 08:50 | Outpatient (AMB) | payer OTHER, SELFPAY ==
[2023-09-10 08:52] VITALS: BP 111/62; PULSE 88; O2SAT 96; BMI 32.9
--- NOTE | 2023-09-10 08:52 | MHC.OFFVIS ---
Intake Vital Signs 09/10/23 08:52 Height 5 ft Weight 168 lb 10.458 oz BMI 32.9 BP 111/62 Blood Pressure Location Rt brachial Position Sitting Pulse 88 Pulse Source Doppler Pulse Oximetry (%) 96 Oxygen Delivery Method Room Air Intake Visit Reasons: Asthma Allergies peanut Allergy (Verified 09/10/23 08:56) Swelling HPI Asthma HPI Details 27-year-old lady, lifetime nonsmoker, previously seen for moderate persistent asthma, however lost to follow-up for approximately 3 years, now re-referred for management of her asthma symptoms. Patient states that she has been using QVAR 40 and albuterol MDI with suboptimal control of her symptoms. She is receiving weekly antigen injections with her ENT. She denies acute exacerbations. She does complain of daily wheezing. [facility] Medical History Acute diverticulitis Family history of ovarian cancer Physical exam Mild recurrent major depression Class 1 obesity with body mass index (BMI) of 32.0 to 32.9 in adult Enlarged tonsils Allergic rhinitis Chronic eczema PCOS (polycystic ovarian syndrome) IBS (irritable bowel syndrome) Anxiety Depression History of deviated nasal septum Moderate persistent asthma Surgical History H/O LEEP History of tonsillectomy Hx of nasal septoplasty History of wisdom tooth extraction Family History Father Asthma Mother Liver disease Mental health disorder Maternal Aunt Ovarian cancer Maternal Aunt Ovarian cancer Maternal Aunt Ovarian cancer Maternal Grandfather Leukemia Paternal Grandmother Pancreatic cancer Social History Household Members: Significant Other and Children Housing: Apartment Do you presently have visiting nurse or other home services: No Alcohol intake: current Alcohol intake frequency: other Alcohol type: wine Patient Tobacco Use Status: Never used Tobacco e-Cigarette/Vaping Use: Never Used Second Hand Smoke Exposure: No Substance Use Type: Marijuana service: No Current occupational status: employed Current occupational exposures/hazards: No Sexual orientation: Straight/Heterosexual Gender identity: Female Cognitive needs: No Hearing needs: No Vision needs: Yes (glasses) Female Reproductive History Menstrual Age of Menarche: 9 Review of Systems Const Denies daytime sleepiness, Denies excessive sweating, Denies fatigue, Denies fever(s), Denies lethargy, Denies malaise, Denies night sweats, Denies snoring and Denies weight loss Eyes Denies blurry vision and Denies itchy eyes ENT Denies nasal congestion, Denies post nasal drip, Denies sinus pain, Denies sinus pressure and Denies other ( Thrush) Card Denies chest pain, Denies pedal edema, Denies dyspnea, Denies orthopnea and Denies paroxysmal nocturnal dyspnea Resp Denies cough, Denies hemoptysis, Denies excessive phlegm production, Denies dyspnea, Denies snoring and Denies wheezing GI Denies abdominal pain and Denies heartburn Musc Denies myalgias, Denies arthralgias and Denies joint swelling Skin/Breast Denies rash Neuro Denies memory loss and Denies seizure-like activity Psych Denies abnormal sleep pattern, Denies anxiety and Denies memory loss Endo Denies excessive sweating, Denies fatigue and Denies heat intolerance Víctor/Lymph Denies easy bruising Aller/Immun Denies itchy eyes, Denies seasonal rhinorrhea and Denies wheezing Physical Exam Vital Signs: Last Vital Signs Pulse 88 09/10/23 08:52 BP 111/62 09/10/23 08:52 Pulse Ox 96 09/10/23 08:52 Oxygen Delivery Method Room Air 09/10/23 08:52 BMI result Body Mass Index 32.9 Const General: no acute distress and alert Nutritional Appearance: not obese Orientation/consciousness: Other orientation findings ( oriented) HEENT Head: Yes atraumatic Eyes General: appearance normal, both eyes and all related structures Sclerae: sclerae normal EOM: EOMs intact bilaterally Neck Neck: Yes supple Lymphatic: no lymphadenopathy noted Resp Effort & Inspection: normal respiratory effort and no use of accessory muscles Auscultation: clear to auscultation bilaterally Cardio Rate: regular rate Rhythm: regular rhythm Heart sounds: no gallops, no murmurs and no rubs Skin General skin exam: other ( warm) Extrem General: No clubbing, No cyanosis and No edema Assessment & Plan Assessment & Plan (1) Moderate persistent asthma: Code(s): J45.40 - Moderate persistent asthma, uncomplicated Qualifiers: Asthma complication type: uncomplicated Qualified Code(s): J45.40 - Moderate persistent asthma, uncomplicated Plan: Suboptimal control on QVAR 40 and albuterol MDI. Will switch QVAR to Breo. Will obtain full PFT. (2) Environmental allergies: Code(s): Z91.09 - Other allergy status, other than to drugs and biological substances Plan: Now on antigen injections by her ENT, singulair, and azelastine, if symptoms worsen will consider further immunologic workup and therapy. Orders: Orders PFT pulmonary function test Today J45.40 - Moderate persistent asthma, uncomplicated Medications: New fluticasone furoate-vilanterol 200-25 mcg/dose (Breo Ellipta) 1 inh inhalation DAILY 1 ea 6RF 30 days J45.40 - Moderate persistent asthma, uncomplicated Discontinued beclomethasone dipropionate 40 mcg/actuation (Qvar RediHaler) Discontinued Reason: Doctor's Order 1 inh inhalation BID 10.6 grams 2RF 30 days Coding Level of Care Code New Pt Level 4 (68509) Diagnoses Moderate persistent asthma without complication J45.40 Asthma complication type: uncomplicated Environmental allergies Z91.09
== END 2023-09-10 09:10 | disposition home or self-care (01) ==
PROVIDERS: PCP Internal Medicine; Visit Provider Internal Medicine Pulmonary Disease
DX: J45.40 Moderate persistent asthma, uncomplicated (principal); Z91.09 Other allergy status, other than to drugs and biological substances
CPT/HCPCS: 99204

== ENCOUNTER → 2023-09-10 08:50 | Outpatient (BNVA) | payer OTHER, SELFPAY | PROVIDERS: PCP Internal Medicine; Visit Provider Internal Medicine Pulmonary Disease | DX: J45.40 Moderate persistent asthma, uncomplicated (principal); Z91.09 Other allergy status, other than to drugs and biological substances | CPT/HCPCS: 99202 ==

== ENCOUNTER 2023-10-01 08:39 | Outpatient (REF) | payer OTHER, SELFPAY ==
[2023-10-01 08:39] VITALS: PULSE 82; RESP 14; O2SAT 96
--- NOTE | 2023-10-05 12:19 | PFT_ITS ---
Flows: FEV1: 106% of predicted at 2.99L FVC: 107 % of predicted at 3.51 L FEV1/FVC: 85 % Bronchodilator response: Absent Volumes: Total lung capacity: 99 % of predicted at 4.41 L Residual volume: 93 % of predicted at 0.93 L Slow vital capacity: 101 % of predicted at 3.48 L Expiratory reserve volume: 87 % of predicted at 0.94 L Diffusion capacity: Normal Impression: No obstructive or restrictive ventilatory defect. No bronchodilator response. Normal pulmonary function test. MTDD
== END 2023-10-01 08:40 | disposition home or self-care (01) ==
LOC: HO.RESP 08:39
PROVIDERS: PCP Internal Medicine; Visit Provider Internal Medicine Pulmonary Disease
DX: J45.40 Moderate persistent asthma, uncomplicated (principal)
CPT/HCPCS: 94010; 94640; 94727; 94729

== ENCOUNTER → 2023-10-05 12:19 | Outpatient (BNV) | payer OTHER, SELFPAY | PROVIDERS: PCP Internal Medicine; Visit Provider Internal Medicine Pulmonary Disease | DX: J45.40 Moderate persistent asthma, uncomplicated (principal) | CPT/HCPCS: 94060; 94729 ==

== ENCOUNTER 2023-10-21 11:06 | Outpatient (AMB) | payer OTHER, SELFPAY ==
[2023-10-21 11:08] VITALS: BP 102/62; PULSE 88; O2SAT 97; BMI 34.2
--- NOTE | 2023-10-21 11:08 | A.OFFVIS_ITS ---
Intake Vital Signs 10/21/23 11:08 Height 5 ft Weight 175 lb 4.28 oz BMI 34.2 BP 102/62 Blood Pressure Location Lt brachial Position Sitting Pulse 88 Pulse Source Doppler Pulse Oximetry (%) 97 Oxygen Delivery Method Room Air Intake Visit Reasons: Asthma Allergies peanut Allergy (Verified 10/21/23 11:14) Swelling HPI Asthma HPI Details 28-year-old lady, lifetime nonsmoker, fo llowed for underlying at least moderate persistent asthma and environmental allergies. At the last office visit patient has been switched from Flovent to Breo with significantly improved control. She denies recent exacerbations. 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 [facility] Medical History Acute diverticulitis Family history of ovarian cancer Physical exam Mild recurrent major depression Class 1 obesity with body mass index (BMI) of 32.0 to 32.9 in adult Enlarged tonsils Allergic rhinitis Chronic eczema PCOS (polycystic ovarian syndrome) IBS (irritable bowel syndrome) Anxiety Depression History of deviated nasal septum Moderate persistent asthma Surgical History H/O LEEP History of tonsillectomy Hx of nasal septoplasty History of wisdom tooth extraction Family History Father Asthma Mother Liver disease Mental health disorder Maternal Aunt Ovarian cancer Maternal Aunt Ovarian cancer Maternal Aunt Ovarian cancer Maternal Grandfather Leukemia Paternal Grandmother Pancreatic cancer Social History Household Members: Significant Other and Children Housing: Apartment Do you presently have visiting nurse or other home services: No Alcohol intake: current Alcohol intake frequency: other Alcohol type: wine Patient Tobacco Use Status: Never used Tobacco e-Cigarette/Vaping Use: Never Used Second Hand Smoke Exposure: No Substance Use Type: Marijuana service: No Current occupational status: employed Current occupational exposures/hazards: No Sexual orientation: Straight/Heterosexual Gender identity: Female Cognitive needs: No Hearing needs: No Vision needs: Yes (glasses) Female Reproductive History Menstrual Age of Menarche: 9 Review of Systems Const Denies daytime sleepiness, Denies excessive sweating, Denies fatigue, Denies fever(s), Denies lethargy, Denies malaise, Denies night sweats, Denies snoring and Denies weight loss Eyes Denies blurry vision and Denies itchy eyes ENT Denies nasal congestion, Denies post nasal drip, Denies sinus pain, Denies sinus pressure and Denies other ( Thrush) Card Denies chest pain, Denies pedal edema, Denies dyspnea, Denies orthopnea and Denies paroxysmal nocturnal dyspnea Resp Denies cough, Denies hemoptysis, Denies excessive phlegm production, Denies dyspnea, Denies snoring and Denies wheezing GI Denies abdominal pain and Denies heartburn Musc Denies myalgias, Denies arthralgias and Denies joint swelling Skin/Breast Denies rash Neuro Denies memory loss and Denies seizure-like activity Psych Denies abnormal sleep pattern, Denies anxiety and Denies memory loss Endo Denies excessive sweating, Denies fatigue and Denies heat intolerance Víctor/Lymph Denies easy bruising Aller/Immun Denies itchy eyes, Denies seasonal rhinorrhea and Denies wheezing Physical Exam Vital Signs: Last Vital Signs Pulse 88 10/21/23 11:08 BP 102/62 10/21/23 11:08 Pulse Ox 97 10/21/23 11:08 Oxygen Delivery Method Room Air 10/21/23 11:08 BMI result Body Mass Index 34.2 Const General: no acute distress and alert Nutritional Appearance: not obese Orientation/consciousness: Other orientation findings ( oriented) HEENT Head: Yes atraumatic Eyes General: appearance normal, both eyes and all related structures Sclerae: sclerae normal EOM: EOMs intact bilaterally Neck Neck: Yes supple Lymphatic: no lymphadenopathy noted Resp Effort & Inspection: normal respiratory effort and no use of accessory muscles Auscultation: clear to auscultation bilaterally Cardio Rate: regular rate Rhythm: regular rhythm Heart sounds: no gallops, no murmurs and no rubs Skin General skin exam: other ( warm) Extrem General: No clubbing, No cyanosis and No edema Assessment & Plan Assessment & Plan (1) Moderate persistent asthma: Code(s): J45.40 - Moderate persistent asthma, uncomplicated Qualifiers: Asthma complication type: uncomplicated Qualified Code(s): J45.40 - Moderate persistent asthma, uncomplicated Plan: Well controlled on Breo and albuterol MDI/nebs. Continue current regimen. (2) Environmental allergies: Code(s): Z91.09 - Other allergy status, other than to drugs and biological substances Plan: Continues on antigen injection by her allergies. Continue montelukast and azelastine as needed. Coding Level of Care Code Est Pt Level 4 (24581) Diagnoses Moderate persistent asthma without complication J45.40 Asthma complication type: uncomplicated Environmental allergies Z91.09
== END 2023-10-21 11:20 | disposition home or self-care (01) ==
PROVIDERS: PCP Internal Medicine; Visit Provider Internal Medicine Pulmonary Disease
DX: J45.40 Moderate persistent asthma, uncomplicated (principal); Z91.09 Other allergy status, other than to drugs and biological substances
CPT/HCPCS: 99214

== ENCOUNTER → 2023-10-21 11:06 | Outpatient (BNVA) | payer OTHER, SELFPAY | PROVIDERS: PCP Internal Medicine; Visit Provider Internal Medicine Pulmonary Disease | DX: J45.40 Moderate persistent asthma, uncomplicated (principal); Z91.09 Other allergy status, other than to drugs and biological substances; Z79.899 Other long term (current) drug therapy | CPT/HCPCS: 99212 ==

== ENCOUNTER 2024-05-30 08:31 | Outpatient (REF) | payer OTHER, SELFPAY ==
[2024-06-02 16:15] LABS: HPV mRNA E6/E7 Not Detected (Not Detected)
== END 2024-05-30 08:32 | disposition home or self-care (01) ==
LOC: HO.LNP 08:31
PROVIDERS: PCP Internal Medicine; Visit Provider Obstetrics & Gynecology
DX: Z01.419 Encounter for gynecological examination (general) (routine) without abnormal findings (principal)
CPT/HCPCS: 87624; 88175; 99395

== ENCOUNTER 2024-05-30 08:31 | Outpatient (AMB) | payer OTHER, SELFPAY ==
--- OUTSIDE RECORDS SUMMARY | 2024-05-30 08:32 | XMS_ITS | Continuity of Care Document ---
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 Start Date: 11/19/22 Status: Ordered amitriptyline 25 mg oral tablet 50 mg, 2, tablet, By Mouth, Daily at bedtime, # 60 tablet, Refills 2, Tot. Refills 2, Maintenance, 10/08/23 14:50:00 EST, Route to Pharmacy Electronically, [facility]/pharmacy #[id number], Partial fill upon patient request if the prescription is for a schedule II... Start Date: 10/08/23 Status: Ordered Breo Ellipta 200 mcg-25 mcg/inh inhalation powder 0 Refills, Maintenance, 11/11/23 14:05:00 EDT, Partial fill upon patient request if the prescription is for a schedule II opioid drug. Start Date: 11/11/23 Status: Ordered diclofenac 1% topical gel = 2 Gm, Topically, 2 times a day, apply to shoulders, not to exceed 32 grams/day, # 100 Gm, 0 Refills, Maintenance, 10/08/23 14:51:00 EST, Gel, [id number], Partial fill upon patient request if the prescription is for a schedule II opioid ranjith... Start Date: 10/08/23 Status: Ordered eletriptan 40 mg oral tablet 1 tablet = 40 mg, By Mouth, Daily, PRN for migraine headache, # 9 tablet, 0 Refills, Soft Stop, 11/11/23 14:10:00 EDT, Tablet, [facility]/pharmacy #[id number], Partial fill upon patient request if the prescription is for a schedule II opioid drug., 152, cm, ... Start Date: 11/11/23 Status: Ordered Ferrous Sulfate ER Refills 0, Maintenance, 10/19/20 15:10:00 EST, Partial fill upon patient request if the prescription is for a schedule II opioid drug. Start Date: 10/19/20 Status: Ordered 1 0 Refills, Maintenance, 06/25/20 14:20:00 EST, Partial fill upon patient request Start Date: 06/25/20 Status: Ordered sertraline 25 mg oral tablet 1 tablet = 25 mg, By Mouth, Daily, 0 Refills, Maintenance, 11/19/22 8:04:00 EDT, Partial fill upon patient request if the prescription is for a schedule II opioid drug. Start Date: 11/19/22 Status: Ordered sodium chloride 0.65% nasal spray 2 sprays, Nares, Both, 4 times a day, PRN Other, dryness, # 1 each, 0 Refills, Maintenance, 12/21/21 13:08:00 EDT, Nasal [place], [facility] 3, Partial fill upon patient request if the prescription is for a schedule II opioid drug., 2 sprays... Start Date: 12/21/21 Stop Date: 01/20/22 Status: Ordered Zofran 4 mg oral tablet 1 tablet = 4 mg, By Mouth, Every 8 hours, 0 Refills, Maintenance, 06/25/20 14:20:00 EST, Partial fill upon patient request Start Date: 06/25/20 Status: Ordered Problem List Condition Confirmation Course Effective Dates Status H ealth Status Informant Abdominal pain Confirmed Active Anxiety Confirmed Active Constipation Confirmed Active Depression Confirmed Active Hematochezia Confirmed Active Irritable bowel syndrome (IBS) Confirmed Active Obese class I Confirmed Active History of amniocentesis Confirmed Active Social History Social History Type Response Smoking Status Never (less than 100 in lifetime) entered on: 10/18/20 Sex Patient Care team information Care Team Personnel Name: Baltazar Reilly MD , Leslie Vazquez Position: Reference Physician Member Role: PCP Address: Address: [address] [place] [address]- Care Team Related Persons Name: CONNIE HUMBLEWESLEY Address: home [address] [place] [address] Name: LUNA PINK
--- OUTSIDE RECORDS SUMMARY | 2024-05-30 08:32 | XMS_ITS | Continuity of Care Document ---
Author Organization [facility] Address [address] [facility], 3r d Floor, [address] [place] [address]- Care Team Providers Care Light Rail Transit Operator Name Role Phone Baltazar Reilly MD, Leslie Vazquez [id number]07[facility] [address] [facility], 3rd Floor, [address] [place] [address]- Allergies, Adverse Reactions, Alerts No Known Allergies Medications Ferrous Sulfate ER Refills 0, Maintenance, 10/19/20 15:10:00 EST, Partial fill upon patient request if the prescription is for a schedule II opioid drug. Start Date: 10/19/20 Status: Ordered 1 0 Refills, Maintenance, 06/25/20 14:20:00 EST, Partial fill upon patient request Start Date: 06/25/20 Status: Ordered sodium chloride 0.65% nasal spray 2 sprays, Nares, Both, 4 times a day, PRN Other, dryness, # 1 each, 0 Refills, Maintenance, 12/21/21 13:08:00 EDT, Nasal [place], [facility], Partial fill upon patient request if [...] Active Irritable bowel syndrome (IBS) Confirmed Active History of amniocentesis Confirmed Active Social History Social History Type Response Smoking Status Never (less than 100 in lifetime) entered on: 10/18/20 Sex Patient Care team information Care Team Personnel Name: Baltazar Reilly MD , Leslie Vazquez Position: Reference Physician Member Role: PCP Address: Address: [address] [place] [address]- Care Team Related Persons Name: MANDO ROSALES Address: home [address] [place] [address] Name: LUNA PINK
--- OUTSIDE RECORDS SUMMARY | 2024-05-30 08:32 | XMS_ITS | Continuity of Care Document ---
Author Organization [facility] Address [address] [facility], [address] d Floor, [address] [place] [address]- Care Team Providers Care Cardiac/Vascular Sonographer Name Role Phone Baltazar Reilly MD, Leslie Vazquez Primary Care Physician Encounter [facility] Date(s): 10/14/23 - 11/18/23 [facility] [address], [address] [place] [address]- Attending Physician: Jaskaran Vogt MD Admitting Physician: Jaskaran Vogt MD Allergies, Adverse Reactions, Alerts No Known Allergies [...] 10/08/23 14:50:00 EST, Route to Pharmacy Electronically, [facility]/pharmacy #[id number], Partial fill upon patient request if the [...] 0 Refills, Maintenance, 10/08/23 14:51:00 EST, Gel, [facility]/pharmacy #[id number], Partial fill upon patient request if the prescription is for a schedule II opioid ranjith... Start Date: 10/08/23 Status: Ordered eletriptan 40 mg oral tablet 1 tablet = 40 mg, By Mouth, Daily, PRN for migraine headache, # 9 tablet, 0 Refills, Soft Stop, 11/11/23 14:10:00 EDT, Tablet, [facility]/pharmacy #[id number], Partial fill upon patient request if the prescription is for a schedule II opioid drug., 152, cm, ... Start Date: 11/11/23 Status: Ordered Ferrous Sulfate ER Refills 0, Maintenance, 10/19/20 15:10:00 EST, Partial fill upon patient request if the prescription is for a schedule II opioid drug. Start Date: 10/19/20 Status: Ordered oxyCODONE 5 mg oral capsule 1 capsule = 5 mg, By Mouth, Every 6 hours, 0 Refills, Maintenance, 11/19/22 8:05:00 EDT, Partial fill upon patient request if the prescription is for a schedule II opioid drug. Start Date: 11/19/22 Status: Ordered 1 0 Refills, Maintenance, 06/25/20 [...] 0 Refills, Maintenance, 12/21/21 13:08:00 EDT, Nasal [place], [facility], Partial fill upon patient request [...] Address: [address] [place] [address]- Care Team Related Persons Name: MANDO ROSALES Address: home [address] [place] [address] Name: LUNA PINK
--- OUTSIDE RECORDS SUMMARY | 2024-05-30 08:32 | XMS_ITS | Continuity of Care Document ---
Author Organization [facility] Address [address] [facility], 3[address] d Floor, [address] [place] [address]- Care Team Providers Care Thread Spooler Name Role Phone Baltazar Reilly MD, Leslie Vazquez Primary Care Physician [id number] Date(s): 04/10/23 - 05/10/23 [facility] [address], 3[address] Floor, [address] [place] [address]- Allergies, Adverse Reactions, Alerts No Known Allergies Medications albuterol 0.021% inhalation solution 3 mL = 0.63 mg, Neb, 3 times a day, 0 Refills, Maintenance, 11/19/22 8:04:00 EDT, Partial fill uponpatient request if the prescription is for a schedule II opioid drug. Start Date: 11/19/22 Status: Ordered amitriptyline 25 mg oral tablet See Instructions, 1/2 tablet By Mouth Daily at bedtime for 1 week then increase to one full tablet nightly., # 30 tablet, Refills 6, Tot. Refills 6, Maintenance, 11/19/22 8:41:00 EDT, Instructions Replace Required Details, Route to Pharmacy Electronic... Start Date: 11/19/22 Status: Ordered diclofenac 3% topical gel = 0.5 Gm, Topically, 2 times a day, avoid sun exposure during therapy, apply to L shoulder/neck, # 100 Gm, 0 Refills, Maintenance, 04/01/23 9:29:00 EDT, Gel, [id number], Partial fill upon patient request if the prescription is for a schedule I... Start Date: 04/01/23 Status: Ordered Ferrous Sulfate ER Refills 0, [...] patient request Start Date: 06/25/20 Status: Ordered rizatriptan 10 mg oral tablet 1 tablet = 10 mg, By Mouth, Daily, PRN Migraine Headache, may repeat dose in 2 hours if needed, do not exceed 2 doses in 24 hours, # 9 tablet, 5 Refills, Acute 04/01/24 0:00:00 EDT, 04/01/23 9:28:00 EDT, [facility]/pharmacy #[id number], Partial fill upon patient r... Start Date: 04/01/23 Stop Date: 04/01/24 Status: Ordered sertraline 25 mg oral tablet [...] 0 Refills, Maintenance, 12/21/21 13:08:00 EDT, Nasal [place], [facility], Partial fill upon patient request if [...] Reference Physician Member Role: PCP Address: Address: [address] [place] [address] [address] [place] [address]- Care Team Related Persons Name: MANDO ROSALES Address: home [address] [place] [address] Name: LUNA PINK
--- OUTSIDE RECORDS SUMMARY | 2024-05-30 08:32 | XMS_ITS | Continuity of Care Document ---
Author Organization [facility] Address [address] [facility], 3r d Floor, [address] [place] [address]- Care Team Providers Care Child Life Specialist Name Role Phone Baltazar Reilly MD, Leslie Vazquez [id number] - 11[facility]12[facility] [address] [facility], 3rd Floor, [address] [place] [address] Allergies, Adverse Reactions, Alerts No Known Allergies [...] 0 Refills, Maintenance, 12/21/21 13:08:00 EDT, Nasal [place], [facility], Partial fill upon patient request [...] Care team information Care Team Personnel Name: Leslie Clements MD Position: Reference Physician Member Role: PCP Address: Address: [address] [place] [address]- Care Team Related Persons Name: MANDO ROSALES Address: home [address] [place] [address] Name: LUNA PINK
--- OUTSIDE RECORDS SUMMARY | 2024-05-30 08:32 | XMS_ITS | Continuity of Care Document ---
Author Organization [facility] Address [address] [facility], 3r d Floor, [address] [place] [address]- Care Team Providers Care Orange Peel Operator Name Role Phone Baltazar Reilly MD, Leslie Vazquez [id number] 12/21/22 - 01/20/23 [facility] [address] [place], [address] Floor, [address] [place] [address]- Allergies, Adverse Reactions, Alerts No Known Allergies [...] Pharmacy Electronic... Start Date: 11/19/22 Status: Ordered Ferrous Sulfate ER Refills 0, [...] a schedule II opioid drug. Start Date: 4/12/23 Status: Ordered 1 0 Refills, Maintenance, 06/25/20 [...] 0 Refills, Maintenance, 12/21/21 13:08:00 EDT, Nasal [place], [facility], Partial fill upon patient request if [...] Physician Member Role: PCP Address: Address: [address] [place] [address]- Care Team Related Persons Name: MANDO ROSALES Address: home [address] [place] [address] Name: LUNA PINK
--- NOTE | 2024-05-30 08:33 | A.OFFVIS_ITS ---
Vital Signs 05/30/24 08:34 Height 5 ft Weight 174 lb 2.643 oz BMI 34.0 BP 116/70 Intake Visit Reasons: co testing/DO NOT RS Assembling Motor Builder Required: No Information Interpreted: non-clinical & clinical Driver Trainee: Driver Trainee Present (Basilia Meneses GENARO) Accompanied by: Self / Same As Patient Allergies peanut Allergy (Verified 05/30/24 08:38) Swelling Is last menstrual period known: Yes Last menstrual period: 05/21/24 HPI Comments Details: Presenting for annual exam. No complaints. Last Pap/HPV in 04/01 was negative, the patient had PHUONG 3 on colposcopy after ascus/HPV positive in 07/01 status post LEEP cone with post cone ECC pathology showed PHUONG 1 in 09/01 [facility] Medical History Acute diverticulitis Family history of ovarian cancer Physical exam Mild recurrent major depression Class 1 obesity with body mass index (BMI) of 32.0 to 32.9 in adult Enlarged tonsils Allergic rhinitis Chronic eczema PCOS (polycystic ovarian syndrome) IBS (irritable bowel syndrome) Anxiety Depression History of deviated nasal septum Moderate persistent asthma Surgical History H/O LEEP History of tonsillectomy Hx of nasal septoplasty History of wisdom tooth extraction Family History Father Asthma Mother Liver disease Mental health disorder Maternal Aunt Ovarian cancer Maternal Aunt Ovarian cancer Maternal Aunt Ovarian cancer Maternal Grandfather Leukemia Paternal Grandmother Pancreatic cancer Social History Household Members: Significant Other and Children Housing: Apartment Do you presently have visiting nurse or other home services: No Alcohol intake: current Alcohol intake frequency: other Alcohol type: wine Patient Tobacco Use Status: Never used Tobacco e-Cigarette/Vaping Use: Never Used Second Hand Smoke Exposure: No Substance Use Type: Marijuana service: No Current occupational status: employed Current occupational exposures/hazards: No Sexual orientation: Straight/Heterosexual Gender identity: Female Cognitive needs: No Hearing needs: No Vision needs: Yes (glasses) Female Reproductive History Menstrual Age of Menarche: 9 Date of last menstrual period: 05/21/24 Total pregnancies: 1 Full term: 1 Number of Living Children: 1 Date of last pap smear: 03/24/23 Review of Systems Const All systems reviewed & are unremarkable except as noted in HPI and below Card Reports as per HPI Resp Reports as per HPI GI Reports as per HPI and Reports no additional complaints Reports as per HPI Physical Exam Vital Signs: Last Vital Signs BP 116/70 05/30/24 08:34 BMI result Body Mass Index 34.0 Const General: cooperative, healthy appearing and comfortable Chest Chest palpation & inspection: normal inspection of the chest and normal palpation of entire chest wall Breast/axilla inspection: normal inspection of the breasts and normal inspection of the axillae Breast/axilla palpation: normal palpation of the breasts, normal palpation of the axillae and no axillary lymphadenopathy Resp Effort & Inspection: normal respiratory effort Auscultation: clear to auscultation bilaterally Percussion: percussion normal Cardio Palpation: normal PMI Rate: regular rate Rhythm: regular rhythm Heart sounds: no murmurs and no rubs Peripheral pulses: Peripheral pulses 2+ throughout GI Inspection: Yes normal to inspection Palpation (GI): Soft to palpation, nontender, no guarding, not rigid and No hepatosplenomegaly present Percussion: Yes normal to percussion Auscultation: normal bowel sounds Rectal Exam - Female: deferred General: Yes bladder normal to palpation External Female Exam: No lesion Speculum Exam - Vagina: normal appearance of the vagina, normal palpation, normal vaginal discharge and not erythematous Speculum Exam - Cervix: normal appearance of the cervix and normal palpation Bimanual exam- vagina & uterus: normal bimanual exam, normal palpation, uterine size normal, bladder normal to palpation, consistency normal and normal palpation Bimanual Exam- Adnexa, other: normal adnexae, no masses and no tenderness Assessment & Plan Assessment & Plan (1) Well woman exam: Comment: PHUONG 3 in 09/01 status post LEEP cone 04/01 co testing negative Code(s): Z01.419 - Encounter for gynecological examination (general) (routine) without abnormal findings Category: Medical Plan: Cotesting done. Counseled the patient about the recommended dietary allowance of 1000 mg of Calcium & 600 IU of vitamin D. The patient was instructed to perform monthly self-breast exams and to schedule an annual exam in a year; All questions answered and the patient verbalized understanding. Instructed the patient to schedule annual exam in a year Coding Level of Care Code Est Pt Prev Care 18-39y(28243) Diagnoses Well woman exam Z01.419
[2024-05-30 08:34] VITALS: BP 116/70; BMI 34.0
== END 2024-05-30 09:00 | disposition home or self-care (01) ==
LOC: HO.HWS 08:31
PROVIDERS: PCP Internal Medicine; Visit Provider Obstetrics & Gynecology
DX: Z01.419 Encounter for gynecological examination (general) (routine) without abnormal findings (principal)
CPT/HCPCS: 99395

== ENCOUNTER 2024-07-26 14:33 | Outpatient (AMB) | payer OTHER, SELFPAY ==
[2024-07-26 14:40] VITALS: BP 104/60; PULSE 84; O2SAT 97; BMI 33.0
--- NOTE | 2024-07-26 14:40 | MHC.OFFVIS ---
Vital Signs 07/26/24 14:40 Height 5 ft Weight 169 lb BMI 33.0 BP 104/60 Blood Pressure Location Rt brachial Position Sitting Pulse 84 Pulse Source Doppler Pulse Oximetry (%) 97 Oxygen Delivery Method Room Air Intake Visit Reasons: asthma Allergies peanut Allergy (Verified 05/30/24 08:38) Swelling HPI HPI asthma: Details: 28-year-old lady, lifetime nonsmoker, followed for underlying at least moderate persistent asthma and environmental allergies. She continues on Breo and albuterol MDI/nebs with good baseline control of his symptoms. Today she is coming for sick visit she has been having asthma exacerbation ongoing last 9 days symptomatic with wheezing and cough productive of yellowish to greenish sputum. [facility] Medical History Acute diverticulitis Family history of ovarian cancer Physical exam Mild recurrent major depression Class 1 obesity with body mass index (BMI) of 32.0 to 32.9 in adult Enlarged tonsils Allergic rhinitis Chronic eczema PCOS (polycystic ovarian syndrome) IBS (irritable bowel syndrome) Anxiety Depression History of deviated nasal septum Moderate persistent asthma Surgical History H/O LEEP History of tonsillectomy Hx of nasal septoplasty History of wisdom tooth extraction Family History Father Asthma Mother Liver disease Mental health disorder Maternal Aunt Ovarian cancer Maternal Aunt Ovarian cancer Maternal Aunt Ovarian cancer Maternal Grandfather Leukemia Paternal Grandmother Pancreatic cancer Social History Household Members: Significant Other and Children Housing: Apartment Do you presently have visiting nurse or other home services: No Alcohol intake: current Alcohol intake frequency: other Alcohol type: wine Patient Tobacco Use Status: Never used Tobacco e-Cigarette/Vaping Use: Never Used Second Hand Smoke Exposure: No Substance Use Type: Marijuana service: No Current occupational status: employed Current occupational exposures/hazards: No Sexual orientation: Straight/Heterosexual Gender identity: Female Cognitive needs: No Hearing needs: No Vision needs: Yes (glasses) Female Reproductive History Menstrual Age of Menarche: 9 Review of Systems Const Denies daytime sleepiness, Denies excessive sweating, Denies fatigue, Denies fever(s), Denies lethargy, Denies malaise, Denies night sweats, Denies snoring and Denies weight loss Eyes Denies blurry vision and Denies itchy eyes ENT Denies nasal congestion, Denies post nasal drip, Denies sinus pain, Denies sinus pressure and Denies other ( Thrush) Card Denies chest pain, Denies pedal edema, Denies dyspnea, Denies orthopnea and Denies paroxysmal nocturnal dyspnea Resp Reports cough, Denies hemoptysis, Reports excessive phlegm production, Denies dyspnea, Denies snoring and Reports wheezing GI Denies abdominal pain and Denies heartburn Musc Denies myalgias, Denies arthralgias and Denies joint swelling Skin/Breast Denies rash Neuro Denies memory loss and Denies seizure-like activity Psych Denies abnormal sleep pattern, Denies anxiety and Denies memory loss Endo Denies excessive sweating, Denies fatigue and Denies heat intolerance Víctor/Lymph Denies easy bruising Aller/Immun Denies itchy eyes, Denies seasonal rhinorrhea and Reports wheezing Physical Exam Vital Signs: Last Vital Signs Pulse 84 07/26/24 14:40 BP 104/60 07/26/24 14:40 Pulse Ox 97 07/26/24 14:40 Oxygen Delivery Method Room Air 07/26/24 14:40 BMI result Body Mass Index 33.0 Const General: no acute distress and alert Nutritional Appearance: not obese Orientation/consciousness: Other orientation findings ( oriented) HEENT Head: Yes atraumatic Eyes General: appearance normal, both eyes and all related structures Sclerae: sclerae normal EOM: EOMs intact bilaterally Neck Neck: Yes supple Lymphatic: no lymphadenopathy noted Resp Effort & Inspection: normal respiratory effort and no use of accessory muscles Auscultation: wheezes (Expiratory bilateral) Cardio Rate: regular rate Rhythm: regular rhythm Heart sounds: no gallops, no murmurs and no rubs Skin General skin exam: other ( warm) Extrem General: No clubbing, No cyanosis and No edema Assessment & Plan Assessment & Plan (1) Moderate persistent asthma: Code(s): J45.40 - Moderate persistent asthma, uncomplicated Category: Medical Qualifiers: Asthma complication type: uncomplicated Qualified Code(s): J45.40 - Moderate persistent asthma, uncomplicated Plan: Baseline controlled on Breo, albuterol MDI, and albuterol neb. Continue current regimen. (2) Asthma exacerbation: Code(s): J45.901 - Unspecified asthma with (acute) exacerbation Category: Medical Plan: Now with bronchitic exacerbation, will treat with a course of azithromycin and prednisone. (3) Environmental allergies: Code(s): Z91.09 - Other allergy status, other than to drugs and biological substances Category: Medical Plan: Continue as needed azelastine and Singulair. Medications: New azithromycin For 250 mg dose pack: take 500 mg today (day 1), then 250 mg for 4 days (days 2-5) PO 6 tabs 0RF prednisone Take 4 tabs daily for 5 days, then go down by 1 tab every 5 days 10 mg PO DIRECTED 50 tabs 0RF Coding Level of Care Code Est Pt Level 4 (66699) Diagnoses Moderate persistent asthma without complication J45.40 Asthma complication type: uncomplicated Asthma exacerbation J45.901 Environmental allergies Z91.09
== END 2024-07-26 14:53 | disposition home or self-care (01) ==
PROVIDERS: PCP Internal Medicine; Visit Provider Internal Medicine Pulmonary Disease
DX: J45.40 Moderate persistent asthma, uncomplicated (principal); J45.901 Unspecified asthma with (acute) exacerbation; Z91.09 Other allergy status, other than to drugs and biological substances
CPT/HCPCS: 99214

== ENCOUNTER → 2024-07-26 14:33 | Outpatient (BNVA) | payer OTHER, SELFPAY | PROVIDERS: PCP Internal Medicine; Visit Provider Internal Medicine Pulmonary Disease | DX: J45.41 Moderate persistent asthma with (acute) exacerbation (principal); Z91.09 Other allergy status, other than to drugs and biological substances | CPT/HCPCS: 99212 ==

== ENCOUNTER 2024-10-11 15:58 | Outpatient (REF) | payer OTHER, SELFPAY ==
[2024-10-11 17:38] LABS: HCG Quantitative < 2 mIU/mL
--- OUTSIDE RECORDS SUMMARY | 2024-10-11 19:54 | XMS_ITS | Clinical Summary ---
Author Organization [facility] it Address [address] [place] [address] Care Team Providers Care Phlebotomist Lab Assistant Name Role Phone Diane Casey MD Primary Care Provider [phone] Social History Tobacco Use Types Packs/Day Years Used Date Smoking Tobacco: Never Assessed Comments Unknown Sex and Gender Information Value Date Recorded Sex Assigned at Not on file Legal Sex Female 4:37 AM EST Gender Identity Not on file Sexual Orientation Not on file Obstetrics History Plan of Treatment Health Maintenance Due Date Last Done Comments DTaP,Tdap,and Td Vaccines (1 - Tdap) 2014 Hepatitis B Vaccines (1 of 3 - 19+ 3-dose series) 2014 Cervical Cancer Screening: P ap Smear 2016 COVID-19 Vaccine ( - 2023-2 5 season) 2024 Influenza Vaccine (#1) 2024 HIB Vaccines Aged Out No longer eligi ble based on patient's age to complete this topic HPV Vaccines Aged Out No longer eligi ble based on patient's age to complete this topic Hepatitis A Vaccines Aged Out No long er eligible based on patient's age to complete this topic IPV Vaccines Aged Out No longer eligi ble based on patient's age to complete this topic MMR Vaccines Aged Out No longer eligi ble based on patient's age to complete this topic Meningococcal ACWY Vaccine Aged Out N o longer eligible based on patient's age to complete this topic Meningococcal B Vacine Aged Out No lo nger eligible based on patient's age to complete this topic Pneumococcal Vaccine: Pediat rics (0 to 5 Years) and At-Risk Patients (6 to 64 Years) Aged Out No longer eligible b ased on patient's age to complete this topic RSV Immunization Patients Un ksenia 20 months Aged Out No longer eligible b ased on patient's age to complete this topic Varicella Vaccines Aged Out No longer eligible based on patient's age to complete this topic Care Teams Phlebotomist Lab Assistant Relationship Specialty Start Date End Date Diane Casey MD [address] [facility] [place] [address] PCP - General Pediatrics 01/10/14
--- OUTSIDE RECORDS SUMMARY | 2024-10-11 19:54 | XMS_ITS | Encounter Summary ---
Author Organization [facility] Address [address] [place] [address] Phone Support Name Relationship Address Phone Ellis Connolly Father [address] [place] [address] Care Team Providers Care Motorsports Technician Name Role Phone Kaylan Casey MD Primary Care Provider [phone] Encounter Details Date Type Department Care Team (Late st Contact Info) Description 11/27/[address] [facility] [place] Family Medicine [address] [place], [place] [id number] Family Medicine, Physician [address] [place], [place] [id number] Social History Tobacco Use Types Packs/Day Years Used Date Smoking Tobacco: Never Assessed Comments Unknown Sex and Gender Information Value Date Recorded Sex Assigned at Not on file Legal Sex Female 5:10 PM EDT Gender Identity Not on file Sexual Orientation Not on file documented as of this encounter Plan of Treatment Not on file documented as of this encounter Visit Diagnoses Not on filedocumented in this encounter Care Teams Motorsports Technician Relationship Specialty Start Date End Date Kaylan Casey MD [address] [facility] [place] [address] PCP - General 03/20/17 01/14/23 documented as of this encounter
--- OUTSIDE RECORDS SUMMARY | 2024-10-11 19:54 | XMS_ITS | Encounter Summary ---
Author Organization [facility] Address [address] [place] [address] Phone Support Name Relationship Address Phone Ellis Connolly Father [address] [place] [address] Care Team Providers Care Limousine Rental Clerk Name Role Phone Kaylan Casey MD Primary Care Provider Encounter Details Date Type Department Care Team (Late st Contact Info) Description 01/24/2010 Documentation [facility] [place] [address] [place], [place] [id number] Family Medicine, Physician [address] [place] [address] Social History Tobacco Use Types Packs/Day Years [...] on filedocumented in this encounter Care Teams Limousine Rental Clerk Relationship Specialty Start Date End Date Kaylan Casey MD [address] [facility] [place] [address] PCP - General 03/20/17 01/14/23 documented as of this encounter
--- OUTSIDE RECORDS SUMMARY | 2024-10-11 19:54 | XMS_ITS | Continuity of Care Document ---
Author Organization [place] - [facility], Allergy Address [address] [place] [id number] Assessment Encounter Date Assessment Date Assessment LastModified by Organization Details LastModified Time 10/07/2024 10/07/2024 Visit With: Glory Chance RN Use of Antihistamine s: No If yes: Vial Test Change in medications: No If yes ? ? ? Increase in asthma symptoms No If yes, inhaler use: Reaction to last injections: No If yes: ? ? ? Allergy Symptoms: Other: ? ? ? Missed: 3 weeks Dose Decreased Aware of Vial Test Yes Notes:? ? ? hlorinser Not available 10/07/2024 09:31:04 Plan of Treatment Reminders Order Date Submit Date Provider Last Modified By Organization Details Last Modified Time Details Appointments [facility]- Allergy f-up 6mon 2024 10:30A M NERI CONTRERAS MD Not available Not available Not available Lab None recorded . Referral None recorded . Procedures None recorded . Surgeries None recorded . Imaging None recorded . Medication Orders None recorded . Patient TargetsNo targets recorded. Patient InstructionsNo instructions recorded. Reason for Referral None Reported. Problems Name Problem SNOMED Code Status Onset Date Resolution Date Notes Provider Name and Address Organization Details Recorded Time Allergic rhinitis 61126016 Active 2023 Allergic rhinitis : Due to other allergen ; Note: Date Diagnose d: 4 4:18 PM (477.8) Note: Date Diagnose d: 4 4:18 PM (477.8) Allerg ic rhinitis : Due to other allergen ; Note: Date Diagnose d: 4 9:52 AM (477.8) Note: Date Diagnose d: 4 9:52 AM (477.8) ; Start Date : 08/21/19 Aller gic rhinitis : Due to other allergen ; Note: Date Diagnose d: 08/14/2023 10:33 AM (477.8) Note: Date Diagnose d: 08/14/2023 10:33 AM (477.8) ; Start Date : 08/14/19 24 Aller gic rhinitis : Due to other allergen ; Note: Date Diagnose d: 08/04/20 2:04 PM (477.8) Note: Date Diagnose d: 08/04/20 2:04 PM (477.8) ; Start Date : 08/04/20 Aller gic rhinitis : Due to other allergen ; Note: Date Diagnose d: 07/24/20 1:53 PM (477.8) Note: Date Diagnose d: 07/24/20 1:53 PM (477.8) ; Start Date : 07/24/20 Aller gic rhinitis : Due to other allergen ; Note: Date Diagnose d: 11:57 AM (477.8) Note: Date Diagnose d: 11:57 AM (477.8) ; Start Date : 07/10/20 Aller gic rhinitis : Due to other allergen ; Note: Date Diagnose d: 07/01/20 2:30 PM (477.8) Note: Date Diagnose d: 07/01/20 2:30 PM (477.8) ; Start Date : 07/01/20 Aller gic rhinitis : Due to other allergen ; Note: Date Diagnose d: 06/26/20 9:48 AM (477.8) Note: Date Diagnose d: 06/26/20 9:48 AM (477.8) ; Start Date : 06/26/20 Aller gic rhinitis : Due to other allergen ; Note: Date Diagnose d: 06/19/20 3:10 PM (477.8) Note: Date Diagnose d: 06/19/20 3:10 PM (477.8) ; Start Date : 06/19/20 Aller gic rhinitis : Due to other allergen ; Note: Date Diagnose d: 2:56 PM (477.8) Note: Date Diagnose d: 2:56 PM (477.8) ; Start Date : 06/12/20 Aller gic rhinitis : Due to other allergen ; Note: Date Diagnose d: 06/05/20 11:40 AM (477.8) Note: Date Diagnose d: 06/05/20 11:40 AM (477.8) ; Start Date : 06/05/20 Aller gic rhinitis : Due to other allergen ; Note: Date Diagnose d: 05/29/20 3:23 PM (477.8) Note: Date Diagnose d: 05/29/20 3:23 PM (477.8) ; Start Date : 05/29/20 Aller gic rhinitis : Due to other allergen ; Note: Date Diagnose d: 05/19/20 9:15 AM (477.8) Note: Date Diagnose d: 05/19/20 9:15 AM (477.8) ; Start Date : 05/19/20 Aller gic rhinitis : Due to other allergen ; Note: Date Diagnose d: 10:00 AM (477.8) Note: Date Diagnose d: 10:00 AM (477.8) ; Start Date : 05/14/20 Aller gic rhinitis : Due to other allergen ; Note: Date Diagnose d: 2:51 PM (477.8) Note: Date Diagnose d: 2:51 PM (477.8) ; Start Date : 05/08/20 Aller gic rhinitis : Due to other allergen ; Note: Date Diagnose d: 3:06 PM (477.8) Note: Date Diagnose d: 3:06 PM (477.8) ; Start Date : 04/28/20 Aller gic rhinitis : Due to other allergen ; Note: Date Diagnose d: 3:56 PM (477.8) Note: Date Diagnose d: 3:56 PM (477.8) ; Start Date : 04/23/20 Aller gic rhinitis : Due to other allergen ; Note: Date Diagnose d: 04/16/2023 2:00 PM (477.8) Note: Date Diagnose d: 04/16/2023 2:00 PM (477.8) ; Start Date : 04/16/20 Aller gic rhinitis : Due to other allergen ; Note: Date Diagnose d: 3 1:46 PM (477.8) Note: Date Diagnose d: 3 1:46 PM (477.8) ; Start Date : 04/07/20 Aller gic rhinitis : Due to other allergen ; Note: Date Diagnose d: 3 1:53 PM (477.8) Note: Date Diagnose d: 1:53 PM (477.8) ; Start Date : 02/21/20 Aller gic rhinitis : Due to other allergen ; Note: Date Diagnose d: 02/13/2023 11:56 AM (477.8) Note: Date Diagnose d: 02/13/2023 11:56 AM (477.8) ; Start Date : 02/14/20 Aller gic rhinitis : Due to other allergen ; Note: Date Diagnose d: 3 11:47 AM (477.8) Note: Date Diagnose d: 11:47 AM (477.8) ; Start Date : 02/07/20 Aller gic rhinitis : Due to other allergen ; Note: Date Diagnose d: 3 11:15 AM (477.8) Note: Date Diagnose d: 11:15 AM (477.8) ; Start Date : 01/31/20 Aller gic rhinitis : Due to other allergen ; Note: Date Diagnose d: 3 11:09 AM (4 Not Available [facility] 4 01:19:06 Chronic tonsilli tis 15865792 Completed 202103/11/2024 Chronic tonsilli tis; Note: Date Diagnose d: 04/18/2022 12:18 PM (J35.01) Not Available [facility] 4 03:07:19 Hypertro phy of nasal turbinat es 19595216 Active 2018 Hypertro phy of nasal turbinat es; Note: Date Diagnose d: 9 12:38 PM (J34.3) Not Available [facility] 4 03:07:20 Contusio n of nose 03115053 Active 2021 Contusio n of nose, initial encounte r; Note: Date Diagnose d: 2 11:21 AM (S00.33X A) Not Available [facility] 4 03:07:19 Abnormal auditory percepti on 17469952 Active 2022 Other abnormal auditory percepti ons, bilatera l; Note: Date Diagnose d: 3 12:05 PM (H93.293 ) Other abnormal auditory percepti ons, bilatera l; Note: Date Diagnose d: 01/14/2023 9:47 AM (H93.293 ) ; Start Date : 01/15/20 23 Not Available [facility] 4 03:07:20 Uncompli cated moderate persiste nt asthma 699223902 Active 2018 Moderate persiste nt asthma NOS; Note: Date Diagnose d: 9 10:53 AM (J45.40) Not Available [facility] 4 03:07:21 Follow-u p visit Active 2019 Medical surveill ance followin g complete d treatmen t; Note: Date Diagnose d: 0 3:20 PM (Z09) Not Available [facility] 4 03:07:19 Nasal congesti on 04239967 Active 2018 Nasal congesti on; Note: Date Diagnose d: 9 10:51 AM (R09.81) Not Available [facility] 4 03:07:21 Deviated nasal septum 599320947 Active 2018 Deviated nasal septum; Note: Date Diagnose d: 9 12:38 PM (J34.2) Not Available [facility] 4 03:07:20 Snoring 39172871 Active 2019 Snoring; Note: Date Diagnose d: 0 3:44 PM (R06.83) Not Available [facility] 4 03:07:21 Chronic disease of tonsils AND/OR adenoids 68228640 Completed 202103/11/2024 Calculus , tonsil; Note: Date Diagnose d: 04/18/2022 12:18 PM (J35.8) Not Available [facility] 4 03:07:19 Perennia l allergic rhinitis 827182973 Active 2023 KARISSA IRVIN [facility] [address], [place], [address] , [place] - [facility] 4 15:20:18 Exacerba tion of moderate persiste nt asthma 580312471 Active 2023 NERI NUNO MD [address] [facility], [place], [address] , [place] - [facility] 4 10:56:48 Acute respirat ory syncytia l virus bronchit is 005461533 Active 2023 NERI NUNO MD [address], [place], [address] , [place] - [facility] 4 10:56:56 Problem Notes None recorded. Procedures Surgical History Date Name Laterality Status Provider Name and Address Organization Details Recorded Time 10/07/19 25 Allergy Immunotherapy Injections completed GLORY CHANCE RN [address] [place] [address], [place], [address], [place] - [facility] 10/07/2024 09:34:51 09/09/19 25 Allergy Immunotherapy Injections completed GENARO GOMEZ [address] [facility], [place], [address], [place] [facility] 09/09/2024 12:08:11 09/02/19 25 Allergy Immunotherapy Injections completed GLORY CHANCE RN [address] [facility], [place], [address], [place] [facility] 09/02/2024 11:18:45 08/26/19 25 Allergy Immunotherapy Injections completed KARISSA KAILEYZEC, RMA [address], [place], [address], [place] - [facility] 08/26/2024 10:14:32 08/19/19 25 Allergy Immunotherapy Injections completed KARISSA KAILEYZEC, RMA [address], [place], [address], [place] [facility] 08/19/2024 12:05:52 07/15/20 24 Allergy Immunotherapy Injections completed KARISSA KIALEYZEC, RMA [address], [place], [address], [place] [facility] 07/15/2024 15:28:49 07/08/20 24 Allergy Immunotherapy Injections completed KARISSA BONNERZEC, RMA [address], [place], [address], [place] [facility] 07/08/2024 10:51:03 07/01/20 24 Allergy Immunotherapy Injections completed KARISSA OBDULIOC, RMA [address], [place], [address], [place] [facility] 07/01/2024 12:06:05 06/24/20 24 Allergy Immunotherapy Injections completed KARISSA KAILEYPREETHIC, RMA [address], [place], [address], [place] [facility] 06/24/2024 10:43:53 05/27/20 24 Allergy Immunotherapy Injections completed GLORY CHANCE RN [address], [place], [address], [place] [facility] 05/27/2024 14:17:32 05/20/20 24 Allergy Immunotherapy Injections completed CHANDA BRAVO RMA [address], [place], [address], [place] [facility] 05/20/2024 14:53:55 05/06/20 24 Allergy Immunotherapy Injections completed KARISSA MAKC, RMA [address], [place], [address], [place] [facility] 05/06/2024 12:16:34 04/22/20 24 Allergy Immunotherapy Injections completed KARISSA IRVIN, RMA [address], [place], [address], [place] [facility] 04/22/2024 14:44:11 04/14/20 24 Allergy Immunotherapy Injections completed KARISSA IRVIN, RMA [address], [place], [address], [place] [facility] 04/14/2024 09:39:13 04/07/20 24 Allergy Immunotherapy Injections completed GLORY CHANCE RN [address], [place], [address], [place] [facility] 04/07/2024 10:47:25 03/30/20 24 Allergy Immunotherapy Injections completed GLORY CHANCE RN [address], [place], [address], [place] [facility] 03/30/2024 16:46:23 03/25/20 24 Allergy Immunotherapy Injections completed GLORY CHANCE RN [address] [facility], [place], [address], [place] [facility] 03/25/2024 09:57:47 03/16/20 24 Allergy Immunotherapy Injections completed GLORY CHANCE RN [address] [place] [address], [address], [place] [facility] 03/16/2024 16:30:45 03/01/20 24 Allergy Immunotherapy Injections completed GLORY CHANCE RN 100 [facility],[address] [place] [address], [address], [place] [facility] 03/01/2024 14:09:49 02/24/20 24 Allergy Immunotherapy Injections completed KARISSA IRVIN, RMA [address], [place], [address], [place] [facility] 02/24/2024 11:58:32 02/19/20 24 Allergy Immunotherapy Injections completed GENARO GOMEZ [address], [place], [address], [place] [facility] 02/19/2024 11:57:43 02/05/20 24 Allergy Immunotherapy Injections completed KARISSA KAILEYPERETHI, RMA [address], [place], [address], [facility] - [facility] 02/05/2024 13:29:36 01/22/20 24 Allergy Immunotherapy Injections completed KARISSA KAILEYPREETHI, RMA [address], [place], [address], [facility] - [facility] 01/22/2024 15:12:23 01/07/20 24 Allergy Immunotherapy Injections completed CHANDA BRAVO [facility] [address], [place], [address], [facility] - [facility] 01/07/2024 10:29:05 01/01/20 24 Allergy Immunotherapy Injections completed CHANDA BRAVO [facility] [address] [place] [address], [address], [facility] - [facility] 01/01/2024 09:50:13 12/25/19 24 Allergy Immunotherapy Injections completed KARISSA KAILEYPREETHI, [facility] [address] [place],[address] [place] [address], [address], [facility] - [facility] 12/25/2023 15:20:45 08/12/19 23 Tonsillectomy completed NERI KRISHNA MD [address] [facility] [place],[address], [address], [facility] - [facility] 07/25/2024 00:29:19 08/18/19 20 Septoplasty completed NERI KRISHNA MD [address] [facility],[address], [address], [facility] - [facility] 07/25/2024 00:29:56 Imaging Results None recorded. Procedure Notes None recorded. Medical Equipment None Reported. Medications Name Sig Start Date Stop Date Status Note LastModified by Organization Details LastModified Time Vitamin B-6 25 mg tablet 07/14 completed Medicati on ID: [id number] D uration Value: 60 Brand Name: Vitamin B-6 Send Method: E-Prescr ibed Sub s Allowed: subs OK Medic ationGen ericName : Vitamin B-6 Not Available Not Available Not Available albuterol sulfate 2.5 mg/3 mL (0.083 %) solution for nebulizat ion INHALE 1 VIAL EVERY 4 HOURS NEEDED FOR SHORTNES S OF BREATH OR WHEEZING FOR 30 DAYS active Not Available Not Available No t Available azithromy marcial 250 mg tablet TOME 2 TABLETAS V A ORAL HOY, [place] TOME 1 TABLETA DIARIAME NTE CECILE 4 D SEG N LAS INDICACI ONES active Not Available Not Available No t Available albuterol sulfate 1.25 mg/3 mL solution for nebulizat ion 2018 active Medicati on ID: [id number] D uration Value: 25 Brand Name: albutero l sulfate Send Method: E-Prescr ibed Sub s Allowed: subs OK Speci al Instruct ion: INHALE 1 VIAL VIA NEBULIZE R EVERY 8 HRS NEEDED M edicatio nGeneric Name: albutero l sulfate Not Available Not Available Not Available ondansetr on HCl 4 mg tablet 07/14 completed Medicati on ID: [id number] B rand Name: ondanset yuko HCl Send Method: E-Prescr ibed Sub s Allowed: subs OK Speci al Instruct ion: TOME MARCELL TABLETA CADA OCHO HORAS CUANDO SEA NECESARI O PARA LAS N USEAS Y EL V MARISABEL Med icationG enericNa me: ondanset yuko HCl Not Available Not Available Not Available prednison e 20 mg tablet TOME DOS TABLETAS POR V A ORAL TODOS LOS D active Not Available Not Available No t Available clobetaso l 0.05 % topical cream 03/30 completed Medicati on ID: [id number] D uration Value: 10 Reason: () Brand Name: clobetas ol Send Method: E-Prescr ibed Sub s Allowed: subs OK Speci al Instruct ion: APLIQUE AL ?REBEKAH AFECTADA DOS VECES AL D?A POR 10 D? Med icationG enericNa me: clobetas ol Not Available Not Available Not Available oxycodone 5 mg/5 mL oral solution Take 4 ml by mouth every six hours as needed for pain 2022 active Medicati on ID: [id number] D uration Value: 5 Brand Name: oxycodon e Send Method: E-Prescr ibed Sub s Allowed: subs OK Medic ationGen ericName : oxycodon e Not Available Not Available Not Available amitripty line 25 mg tablet TAKE 3 TABLET BY MOUTH DAILY AT BEDTIME active Not Available Not Available No t Available benzonata te 100 mg capsule TOME MARCELL C PSULA KATJA VECES AL D A CUANDO SEA NECESARI O FOR COUGH active Not Available Not Available No t Available oseltamiv ir 75 mg capsule TAKE 1 CAPSULE BY MOUTH TWICE DAILY FOR 5 DAYS. active Not Available Not Available No t Available lidocaine 5 % topical patch APPLY 1 PATCH TOPICALL Y DAILY NEEDED FOR MILD PAIN REMOVE AFTER 12 HOURS active Not Available Not Available No t Available progester one micronize d 200 mg capsule PLEASE SEE ATTACHED FOR DETAILED DIRECTIO NS active Not Available Not Available No t Available sertralin e 25 mg tablet active Medicati on ID: [id number] B rand Name: sertrali ne Send Method: E-Prescr ibed Sub s Allowed: subs OK Medic ationGen ericName : sertrali ne Not Available Not Available Not Available omeprazol e 20 mg capsule,d elayed release 03/30 completed Medicati on ID: [id number] D uration Value: 30 Reason: () Brand Name: omeprazo le Send Method: E-Prescr ibed Sub s Allowed: subs OK Speci al Instruct ion: TOME MARCELL C?PSULA TODOS LOS D? Med icationG enericNa me: omeprazo le Not Available Not Available Not Available monteluka st 10 mg tablet 1 tablet by mouth 03/30 completed Medicati on ID: [id number] P rescribe d By Name: Lisa Zapien nd Name: monteluk ast Send Method: E-Prescr ibed Sub s Allowed: subs OK Speci al Instruct ion: Take 1 tablet by mouth every day in the evening Medicati onGeneri cName: monteluk ast Not Available Not Available Not Available hydroxyzi ne HCl 25 mg tablet 03/30 completed Medicati on ID: [id number] D uration Value: 30 Reason: () Brand Name: hydroxyz ine HCl Send Method: E-Prescr ibed Sub s Allowed: subs OK Speci al Instruct ion: TOME MARCELL TABLETA POR V?A ORAL TODOS LOS D? CUANDO SEA NECESARI O FOR 30 DAYS Med icationG enericNa me: hydroxyz ine HCl Not Available Not Available Not Available azelastin e 137 mcg (0.1 %) nasal spray [place] 2 spray into both nostrils twice a day as directed 07/25 completed Medicati on ID: [id number] D uration Value: 30 Prescri bed By Name: GREGORY Curiel nd Name: azbebetostjonathon ne Send Method: E-Prescr ibed Sub s Allowed: subs OK Medic ationGen ericName : azelasti ne Not Available Not Available Not Available epinephri ne 0.3 mg/0.3 mL injection , auto-inje ctor INJECT 1 PEN INJECTOR INTRAMUS CULARLY SINGLE DOSE active Not Available Not Available No t Available ibuprofen 600 mg tablet 03/30 completed Medicati on ID: [id number] D uration Value: 10 Reason: () Brand Name: ibuprofe n Send Method: E-Prescr ibed Sub s Allowed: subs OK Speci al Instruct ion: TAKE 1 TABLET WITH FOOD OR MILK NEEDED THREE TIMES A DAY ORALLY 10 DAYS Med icationG enericNa me: ibuprofe n Not Available Not Available Not Available methylpre dnisolone 4 mg tablets in a dose pack 07/29 completed Medicati on ID: [id number] D uration Value: 6 Brand Name: methylpr ednisolo ne Send Method: E-Prescr ibed Sub s Allowed: subs OK Medic ationGen ericName : methylpr ednisolo ne Not Available Not Available Not Available oxycodone 5 mg tablet 08/12 completed Medicati on ID: [id number] B rand Name: oxycodon e Send Method: E-Prescr ibed Sub s Allowed: subs OK Speci al Instruct ion: TOME MARCELL TABLETA POR V A ORAL CADA SEIS HORAS CUANDO SEA NECESARI O PARA EL DOLOR Me dication GenericN cami: oxycodon e Not Available Not Available Not Available DentaGel 1.1 % USE DIRECTED BEFORE BEDTIME active Not Available Not Available No t Available cyclobenz aprine 5 mg tablet 01/14 completed Medicati on ID: [id number] B rand Name: markie zaprine Send Method: E-Prescr ibed Sub s Allowed: subs OK Speci al Instruct ion: TOME MARCELL TABLETA KATJA VECES AL D A PARA EL ESPASMO MUSCULAR CUANDO SEA NECESARI O Medica tionGene ricName: cycloben zaprine Not Available Not Available Not Available bupropion HCl XL 150 mg 24 hr tablet, extended release 03/30 completed Medicati on ID: [id number] D uration Value: 30 Reason: () Bran d Name: bupropio n HCl Send Method: E-Prescr ibed Sub s Allowed: subs OK Speci al Instruct ion: TOME MARCELL TABLETA TODOS LOS D? EN LA MA?MODESTO Vazquez edicatio nGeneric Name: bupropio n HCl Not Available Not Available Not Available Flovent HFA 110 mcg/actua tion aerosol inhaler 01/14 completed Medicati on ID: [id number] B rand Name: Flovent HFA Send Method: E-Prescr ibed Sub s Allowed: subs OK Medic ationGen ericName : Flovent HFA Not Available Not Available Not Available Depo-SubQ provera 104 104 mg/0.65 mL subcutane ous syringe 01/14 completed Medicati on ID: [id number] B rand Name: Depo-Sub Q provera 104 Send Method: E-Prescr ibed Sub s Allowed: subs OK Medic ationGen ericName : Depo-Sub Q provera 104 Not Available Not Available Not Available Breo Ellipta 200 mcg-25 mcg/dose powder for inhalatio n USE 1 INHALATI ON DAILY active Not Available Not Available No t Available Qvar RediHaler 40 mcg/actua tion HFA breath activated aerosol active Medicati on ID: [id number] B rand Name: Qvar RediHale r Send Method: E-Prescr ibed Sub s Allowed: subs OK Medic ationGen ericName : Qvar RediHale r Not Available Not Available Not Available Gummies 400 mcg-35 mg-25 mg-5 mg chewable tablet 07/14 completed Medicati on ID: [id number] D uration Value: 90 Brand Name: Gummies Send Method: E-Prescr ibed Sub s Allowed: subs OK Medic ationGen ericName : Gummies Not Available Not Available Not Available Vitals None Recorded Social History None recorded. Functional Status None recorded. Mental Status None recorded. Family History Nothing Reported. Medical History Condition Response Nasal or Sinus Problems Y Allergies/Hayfever Y Asthma Y Gynecological HistoryNo gynecological history recorded. Obstetrics History GPAL:G 0 P 0 0 0 0 Past Encounters Encounter ID Performer Location Encounter Start Date Encounter Closed Date Diagnosis/Indication Diagnosis SNOMED-CT Code Diagnosis ICD10 Code Diagnosis Note [id number] GENARO GOMEZ Allergy [address] [place] [address],[facility] [address] [place] [address] 09/09/2024 11:57:35 09/09/2024 12:08:45 Perennial allergic rhinitis 034459683 J30.89 [id number] GLORY CHANCE RN Allergy [address] [place] [address] [address] [place] [address] 10/07/2024 09:15:52 10/07/2024 09:35:05 Perennial allergic rhinitis [id number] J30.89 Health Concerns Section Related Observation LastModified by Organization Detai ls LastModified Time None Recorded Concern Status LastModified by Organization Details LastModified Time None Recorded Payers Encounter Date Sequence Insurance Name Policy Number Policy Sykes Covered Member ID Sykes Member ID Guarantor Name 10/07/2024 1 [facility] NET PLAN (MEDICAID HMO) CHELSI bella [id number] Gigi Kendrick OBGyn Episode No OBEpisode recorded.
--- OUTSIDE RECORDS SUMMARY | 2024-10-11 19:55 | XMS_ITS | Clinical Summary ---
Author Organization [facility] Address [address] [place] [address] Phone Support Name Relationship Address Phone Ellis Connolly Father [address] [place] [address] Care Team Providers Care Pediatric Radiologist Name Role Phone Unavailable Primary Care Provider Unavailabl e Immunizations Immunization Administration Dates Next Due DTP 02/06/1997, 6,01/08/1996,11/07 DTaP 5 10/02/2000 HPV, Quadrivalent 06/22/2008,02/21/2008,12/16/19 08 Hep A, Adult 08/31/2015 Hep B, ped/adol 03/09/1996,01/08/1996,1995 Hib (PRP-T) 02/06/1997, 6,01/08/1996,11/07 IPV 10/02/2000, 6,01/08/1996,11/07 Influenza Split 06/04/2012,04/21/2011 Influenza, injectable, quadrivalent 08/31/2015,1 08/20/2013 Influenza, injectable, quadr ivalent, preservative free 06/17/2013 MMR 10/02/2000,02/06/1997,09/09/1996 Meningococcal Conj (Menactra) MCV4P 06/20/2014,0 10/27/2006 Tdap 10/27/2006 Varicella 12/16/2007,10/03/1998 Family History Relation Name Status Comments Father Father: Asthma Mother Mother: Depress ion, Migraines Other No family histo ry of Sudden /DC under age 55, Family history of Asthma, Family history of Cancer, throat, Family history of Diabetes mellitus, Family history of Elevated cholesterol Paternal Grandmother Paterna l grandmother: stomach Sister 1 Alive Sister: Alive a nd well, Alive and well Sister 2 Alive Sister: Alive a nd well, Alive and well Social History Tobacco Use Types Packs/Day Years Used Date Smoking Tobacco: Never Comments:Never smoker Comments Unknown Sex and Gender Information Value Date Recorded Sex Assigned at Not on file Legal Sex Female 5:10 PM EDT Gender Identity Not on file Sexual Orientation Not on file Last Filed Vital Signs Vital Sign Reading Time Taken Comments Blood Pressure 108/62 03/22/2016 12:00 AM EDT Pulse 109 03/22/2016 12:00 AM EDT Temperature 37.2 ??C (99 ??F) 03/22/2016 12:00 AM EDT Respiratory Rate - - Oxygen Saturation - - Inhaled Oxygen Concentration - - Weight 69.9 kg (154 lb) 03/22/2016 12:00 AM EDT Height 154.9 cm (5' 1 ) 03/22/2016 12:00 AM EDT Body Mass Index 29.1 03/22/2016 12:00 AM EDT Plan of Treatment Health Maintenance Due Date Last Done Comments Consider Men B Vaccine (1 of 2 - Bexsero 2-dose series) 2011 DTaP,Tdap,and Td Vaccines (7 - Td or Tdap) 10/27/2016 10/27/2006, 10/02/2000, 02/06/1997, Additional history exists Influenza Vaccines (#1) 2024 08/31/19 16, 06/20/2014, 06/17/2013, Additional history exists COVID-19 Vaccine (2023- season) 2024 Hepatitis B Vaccines Completed 03/09/1996, 01/08/1996, 1995 HIB Vaccines Completed 02/06/1997, 02/09, 01/08/1996, Additional history exists IPV Vaccines Completed 10/02/2000, 02/09, 01/08/1996, Additional history exists MMR Vaccines Completed 10/02/2000, 01/10, 09/09/1996 Varicella Vaccines Completed 12/16/2007, 10/03/1998 HPV Vaccines Completed 06/22/2008, 02/07, 12/16/2007 Meningococcal Vaccine Completed 06/20/2014, 007 Hepatitis A Vaccines Aged Out 08/31/2015 No long er eligible based on patient's age to complete this topic Men B Vaccine Aged Out No longer elig ible based on patient's age to complete this topic Pneumococcal Vaccine Aged Out No long er eligible based on patient's age to complete this topic Procedures * Due to [place] law, this organization might not be sharing sensitive test results. Procedure Name Priority Date/Time Associated Diagnosis Comments CHLAMYDIA AND GONORRHEA, AMPLIFIED Routine 09/03/2015 2:05 PM EST from Last 3 Months or Most Recently Relevant to Health Maintenance Results * Due to [place] law, this organization might not be sharing sensitive test results. * Chlamydia and Gonorrhoea, Amplified (09/03/2015 2:05 PM EST) URINE CHLAMYDIA AMP PROBE NEGATIVE [facility] Comment: No Chlamydia Trachomatis RNA detected in this patient's sample (REFERENCE RANGE/NORMAL VALUE: NOT DETECTED) URINE GC AMP PROBE NEGATIVE [facility] Comment: No Neisseria Gonorrhoeae RNA detected in this patient's sample (REFERENCE RANGE/NORMAL VALUE: NOT DETECTED) NOTE: This test uses diesel mechanic helper-mediated amplification method to detect rRNA from C.Trachomatis and N.Gonorrhoeae. A negative result does not preclude infection. In the case of a negative urine result, testing of an endocervical(female) or urethral(male) specimen is recommended if there is high clinical suspicion of infection. The performance characteristics of this test have not been evaluated in children. The Aptima Combo2 assay is not intended for the evaluation of suspected sexual abuse or for other medico-legal indications. The ordering provider should assess if the patient had consensual sex without risk of sexual abuse. Consult the [facility] if needed. Contact phone number . Therapeutic failure or success cannot be determined with the Aptima Combo2 assay since nucleic acid may persist following appropriate antimicrobial therapy. The Centers for Disease Control and Prevention (CDC) recommends confirmatory retesting using culture or a different nucleic acid amplification test when positive results occur, if indicated. Testing performed or reported by [facility], a Service of [facility], [place] [address] CLIA ??[id number] Michael Nguyen MD, PhD, Chemical Dependency Counselor 09/03/2015 2:05 PM EST Narrative [facility] - 09/03/2015 2:05 PM EST URINE CHLAMYDIA GC AMP PROBE us Kaylan Casey MD LAB MICROBIOLOGY - GENERAL ORD ERABLES Final Result [facility] [address] [place] [address], [place] from Last 3 Months or Most Recently Relevant to Health Maintenance
--- OUTSIDE RECORDS SUMMARY | 2024-10-11 19:55 | XMS_ITS | Encounter Summary ---
Author Organization [facility] Address [address] [place] [address] Phone Support Name Relationship Address Phone Ellis Connolly Father [address] [place] [address] Care Team Providers Care Recording Studio Internship Name Role Phone Kaylan Casey MD Primary Care Provider [phone] Encounter Details Date Type Department Care Team (Late st Contact Info) Description 01/12/2015 Documentation [facility] [address] [place], [place] [id number] Family Medicine, Physician [address] [place] [address] Social History Tobacco Use Types Packs/Day Years [...] on filedocumented in this encounter Care Teams Recording [employer] Internship Relationship Specialty Start Date End Date Kaylan Casey MD [address] [place] [address] PCP - General 03/20/17 01/14/23 documented as of this encounter
--- OUTSIDE RECORDS SUMMARY | 2024-10-11 19:55 | XMS_ITS | Data Portability ---
Author Organization [place] [facility], Allergy Address [address] [place] [address] Assessment Encounter Date Assessment Date Assessment LastModified by Organization Details LastModified Time 08/19/2024 08/19/2024 Visit With: GENARO Rogers Use of Antihistamine s: No If yes: Vial Test Change in medications: No If yes ? ? ? Increase in asthma symptoms No If yes, inhaler use: Reaction to last injections: No If yes: ? ? ? Allergy Symptoms: Other: ? ? ? Missed: 2 weeks Dose Decreased Aware of Vial Test Notes:? ? ? sd Not available 08/19/2024 12:08:22 08/26/2024 08/26/2024 Visit With: GENARO Rogers Use of Antihistamine s: No If yes: Vial Test Change in medications: No If yes ? ? ? Increase in asthma symptoms If yes, inhaler use: Reaction to last injections: No If yes: ? ? ? Allergy Symptoms: Other: ? ? ? Missed: Dose Aware of Vial Test Notes:? ? ? sd Not available 08/26/2024 10:14:36 09/02/2024 09/02/2024 Visit With: GENARO Rogers Use of Antihistamine s: No If yes: Vial Test Change in medications: No If yes ? ? ? Increase in asthma symptoms No If yes, inhaler use: Reaction to last injections: No If yes: ? ? ? Allergy Symptoms: Other: ? ? ? Missed: Dose Aware of Vial Test Notes:? ? ? [email or web address] Not available 09/02/2024 11:18:58 09/09/2024 09/09/2024 Visit With: GENARO Rogers Use of Antihistamine s: No If yes: Vial Test Change in medications: No If yes ? ? ? Increase in asthma symptoms If yes, inhaler use: Reaction to last injections: No If yes: ? ? ? Allergy Symptoms: Other: ? ? ? Missed: Dose Aware of Vial Test Notes:? ? ? [email or web address] Not available 09/09/2024 12:08:22 10/07/2024 10/07/2024 Visit With: Glory Chance RN [...] Organization Details Last Modified Time Details Appointments [facility]- Allergy f-up 6mon 2024 10:30A M NERI [...] Address Organization Details Recorded Time Allergic rhinitis 12398836 Active 2023 Allergic rhinitis : Due to other allergen ; Note: Date Diagnose d: 4 4:18 PM (477.8) Note: Date Diagnose d: 4 4:18 PM (477.8) Allerg ic rhinitis : Due to other allergen ; Note: Date Diagnose d: 4 9:52 AM (477.8) Note: Date Diagnose d: 4 9:52 AM (477.8) ; Start Date : 08/21/19 24 Aller gic rhinitis : Due to other allergen ; Note: Date Diagnose d: 08/14/2023 10:33 AM (477.8) Note: Date Diagnose d: 08/14/2023 10:33 AM (477.8) ; Start Date : 08/14/19 Aller gic rhinitis : Due to other [...] 1:53 PM (477.8) Note: Date Diagnose d: 3 1:53 PM (477.8) ; Start Date : [...] d: 3 11:09 AM (4 Not Available [facility] 4 01:19:06 Chronic tonsilli tis 54712083 Completed 202103/11/2024 Chronic tonsilli tis; Note: Date Diagnose d: 04/18/2022 12:18 PM (J35.01) Not Available [facility] 4 03:07:19 Hypertro phy of nasal turbinat es 86184644 Active 2018 Hypertro phy of nasal turbinat es; Note: Date Diagnose d: 9 12:38 PM (J34.3) Not Available [facility] 4 03:07:20 Contusio n of nose 06903993 Active 2021 Contusio n of nose, initial encounte r; Note: Date Diagnose d: 2 11:21 AM (S00.33X A) Not Available [facility] 4 03:07:19 Abnormal auditory percepti on 30388899 Active 2022 Other abnormal auditory percepti ons, bilatera l; Note: Date Diagnose d: 3 12:05 PM (H93.293 ) Other abnormal auditory percepti ons, bilatera l; Note: Date Diagnose d: 01/14/2023 9:47 AM (H93.293 ) ; Start Date : 01/15/20 23 Not Available [facility] 4 03:07:20 Uncompli cated moderate persiste nt asthma 827305992 Active 2018 Moderate persiste nt asthma NOS; Note: Date Diagnose d: 9 10:53 AM (J45.40) Not Available [facility] 4 03:07:21 Follow-u p visit Active 2019 Medical surveill ance followin g complete d treatmen t; Note: Date Diagnose d: 0 3:20 PM (Z09) Not Available [facility] 4 03:07:19 Nasal congesti on 19014942 Active 2018 Nasal congesti on; Note: Date Diagnose d: 9 10:51 AM (R09.81) Not Available [facility] 4 03:07:21 Deviated nasal septum 163545711 Active 2018 Deviated nasal septum; Note: Date Diagnose d: 9 12:38 PM (J34.2) Not Available [facility] 4 03:07:20 Snoring 80437480 Active 2019 Snoring; Note: Date Diagnose d: 0 3:44 PM (R06.83) Not Available [facility] 4 03:07:21 Chronic disease of tonsils AND/OR adenoids 90132105 Completed 202103/11/2024 Calculus , tonsil; Note: Date Diagnose d: 04/18/2022 12:18 PM (J35.8) Not Available [facility] 4 03:07:19 Perennia l allergic rhinitis 004106055 Active 2023 KARISSA IRVIN RMA [address], [place], [address] , [facility] [place] 4 15:20:18 Exacerba tion of moderate persiste nt asthma 813578574 Active 2023 NERI NUNO MD [address], [place], [address] , [facility] [place] 4 10:56:48 Acute respirat ory syncytia l virus bronchit is 164349707 Active 2023 NERI NUNO MD [address], [place], [address] , [place] [facility] [place] 4 10:56:56 Problem Notes None recorded. Procedures Surgical History Date Name Laterality Status Provider Name and Address Organization Details Recorded Time 10/07/19 25 Allergy Immunotherapy Injections completed GLORY CHANCE RN 100 [facility],[address], [address], [facility] [place] 10/07/2024 09:34:51 09/09/19 25 Allergy Immunotherapy Injections completed GENARO GOMEZ [address] [place] [address], [address], [facility] [place] 09/09/2024 12:08:11 09/02/19 25 Allergy Immunotherapy Injections completed GLORY CHANCE RN [address] [facility] [place],[address] [place] [address], [address], [facility] [place] 09/02/2024 11:18:45 08/26/19 25 Allergy Immunotherapy Injections completed KARISSA IRVIN Nicol [address] [place] [address], [address], [facility] [place] 08/26/2024 10:14:32 08/19/19 25 Allergy Immunotherapy Injections completed KARISSA IRVIN A [address] [facility] [place],[address], [address], [place] [facility] 08/19/2024 12:05:52 07/15/20 24 Allergy Immunotherapy Injections completed KARISSA OBDULIOC, RMA [address], [address], [place] [facility] 07/15/2024 15:28:49 07/08/20 24 Allergy Immunotherapy Injections completed KARISSA KORZEC, RMA [address], [address], [place] [facility] 07/08/2024 10:51:03 07/01/20 24 Allergy Immunotherapy Injections completed KARISSA KORZEC, RMA [address], [address], [place] [facility] 07/01/2024 12:06:05 06/24/20 24 Allergy Immunotherapy Injections completed KARISSA KORZEC, RMA [address] [place] [address], [address], [place] [facility] 06/24/2024 10:43:53 05/27/20 24 Allergy Immunotherapy Injections completed GLORY CHANCE RN [address] [place] [address], [address], [place] [facility] 05/27/2024 14:17:32 05/20/20 24 Allergy Immunotherapy Injections completed CHANDA BRAVO RMA [address], [address], [place] [facility] 05/20/2024 14:53:55 05/06/20 24 Allergy Immunotherapy Injections completed KARISSA KAILEYZEC, RMA [address], [address], [place] [facility] 05/06/2024 12:16:34 04/22/20 24 Allergy Immunotherapy Injections completed KARISSA KORZEC, RMA [address], [address], [place] [facility] [place] 04/22/2024 14:44:11 04/14/20 24 Allergy Immunotherapy Injections completed KARISSA KORZEC, RMA [address], [address], [place] [facility] 04/14/2024 09:39:13 04/07/20 24 Allergy Immunotherapy Injections completed GLORY CHANCE RN [address] [facility] [place],[address] [place] [address], [address], [place] [facility] 04/07/2024 10:47:25 03/30/20 24 Allergy Immunotherapy Injections completed GLORY CHANCE RN [address] [facility] [place],[address], [address], [place] [facility] 03/30/2024 16:46:23 03/25/20 24 Allergy Immunotherapy Injections completed GLORY CHANCE RN [address] [facility] [place],[address], [address], [place] [facility] [place] 03/25/2024 09:57:47 03/16/20 24 Allergy Immunotherapy Injections completed GLORY CHANCE RN 100 [facility],[address] [place] [address], [address], [place] [facility] [place] 03/16/2024 16:30:45 03/01/20 24 Allergy Immunotherapy Injections completed GLORY CHANCE RN [address] [facility] [place],[address] [place] [address], [address], [place] [facility] 03/01/2024 14:09:49 02/24/20 24 Allergy Immunotherapy Injections completed KARISSA IRVIN RMA [address] [place] [address], [address], [place] [facility] 02/24/2024 11:58:32 02/19/20 24 Allergy Immunotherapy Injections completed CHANDA BRAVO RMNicol [address], [place], [address], [place] [facility] 02/19/2024 11:57:43 02/05/20 24 Allergy Immunotherapy Injections completed KARISSA IRVIN RMA [address], [address], [place] [facility] 02/05/2024 13:29:36 01/22/20 24 Allergy Immunotherapy Injections completed KARISSA IRVIN RMA [address], [place], [address], [facility] 01/22/2024 15:12:23 01/07/20 24 Allergy Immunotherapy Injections completed CHANDA BRAVO [facility] [address] [place] [address], [address], [facility] 01/07/2024 10:29:05 01/01/20 24 Allergy Immunotherapy Injections completed CHANDA BRAVO [facility] [address] [facility] [place],[address] [place] [address], [address], [facility] 01/01/2024 09:50:13 12/25/19 24 Allergy Immunotherapy Injections completed KARISSA IRVIN, [facility] [address] [facility] [place],[address] [place] [address], [address], [facility] 12/25/2023 15:20:45 08/12/19 23 Tonsillectomy completed NERI KRISHNA MD 100 [facility],[address], [address], [facility] 07/25/2024 00:29:19 08/18/19 20 Septoplasty completed NERI KRISHNA MD 100 [facility],[address], [address], [facility] 07/25/2024 00:29:56 Imaging Results None recorded. Procedure Notes None recorded. Medical Equipment None Reported. Medications Name Sig Start Date Stop Date Status Note LastModified by Organization Details LastModified Time Vitamin B-6 25 mg tablet 07/14 completed Medicati on ID: [id number] D uration Value: 60 Brand Name: Vitamin [...] nebulizat ion 2018 active Medicati on ID: 937106 D uration Value: 25 Brand Name: albutero l sulfate Send Method: E-Prescr ibed Sub s Allowed: subs OK Speci al Instruct ion: INHALE 1 VIAL VIA NEBULIZE R EVERY 8 HRS NEEDED M edicatio nGeneric Name: albutero l sulfate Not Available Not Available Not Available ondansetr on HCl 4 mg tablet 07/14 completed Medicati on ID: 345907 B rand Name: ondanset yuko HCl Send [...] topical cream 03/30 completed Medicati on ID: 440344 D uration Value: 10 Reason: () Brand [...] for pain 2022 active Medicati on ID: 306246 D uration Value: 5 Brand Name: oxycodon [...] 25 mg tablet active Medicati on ID: [id number] B rand Name: sertrali ne Send Method: E-Prescr ibed Sub s Allowed: subs OK Medic ationGen ericName : sertrali ne Not Available Not Available Not Available omeprazol e 20 mg capsule,d elayed release 03/30 completed Medicati on ID: [id number] D uration Value: 30 Reason: () Brand Name: omeprazo le Send Method: E-Prescr ibed Sub s Allowed: subs OK Speci al Instruct ion: TOME MARCELL C?PSULA TODOS LOS D? Med icationG enericNa me: omeprazo le Not Available Not Available Not Available monteluka st 10 mg tablet 1 tablet by mouth 03/30 completed Medicati on ID: [id number] P stevie d By Name: Lisa Zapien nd Name: monteluk ast Send Method: E-Prescr ibed Sub s Allowed: subs OK Speci al Instruct ion: Take 1 tablet by mouth every day in the evening Medicati onGeneri cName: monteluk ast Not Available Not Available Not Available hydroxyzi ne HCl 25 mg tablet 03/30 completed Medicati on ID: [id number] D uration Value: 30 Reason: () Brand Name: hydroxyz ine HCl Send Method: E-Prescr ibed Sub s Allowed: subs OK Speci al Instruct ion: TOME MARCELL TABLETA POR V?A ORAL TODOS LOS D? CUANDO SEA NECESARI O FOR 30 DAYS Med icationG enericNa me: hydroxyz ine HCl Not Available Not Available Not Available azelastin e 137 mcg (0.1 %) nasal spray [place] 2 spray into both nostrils twice a day as directed 07/25 completed Medicati on ID: [id number] D uration Value: 30 Prescri bed By Name: GREGORY Curiel nd Name: reji campbell Send Method: E-Prescr ibed Sub s Allowed: subs OK Medic ationGen ericName : reji ne Not Available Not Available Not Available epinephri ne 0.3 mg/0.3 mL injection , auto-inje ctor INJECT 1 PEN INJECTOR INTRAMUS CULARLY SINGLE DOSE active Not Available Not Available No t Available ibuprofen 600 mg tablet 03/30 completed Medicati on ID: 467502 D uration Value: 10 Reason: () Brand [...] dose pack 07/29 completed Medicati on ID: [id number] D uration Value: 6 Brand Name: methylpr ednisolo ne Send Method: E-Prescr ibed Sub s Allowed: subs OK [facility] methylpr ednisolo ne Not Available Not Available Not Available oxycodone 5 mg tablet 08/12 completed Medicati on ID: [id number] B rand Name: oxycodon e Send Method: [...] mg tablet 01/14 completed Medicati on ID: [id number] B rand Name: cycloben zaprine Send Method: E-Prescr ibed Sub s Allowed: subs OK Speci al Instruct ion: TOME MARCELL TABLETA KATJA VECES AL D A PARA EL ESPASMO MUSCULAR CUANDO SEA NECESARI O Medica tionGene ricName: cycloben zaprine Not Available Not Available Not Available bupropion HCl XL 150 mg 24 hr tablet, extended release 03/30 completed Medicati on ID: [id number] D uration Value: 30 Reason: () Brand Name: bupropio n HCl Send Method: E-Prescr ibed Sub s Allowed: subs OK Speci al Instruct ion: TOME MARCELL TABLETA TODOS LOS D? EN LA MA?TAB edicatio nGeneric Name: bupropio n HCl Not Available Not Available Not Available Flovent HFA 110 mcg/actua tion aerosol inhaler 01/14 completed Medicati on ID: [id number] B rand Name: Flovent HFA Send Method: E-Prescr ibed Sub s Allowed: subs OK Medic ationGen ericName : Flovent HFA Not Available Not Available Not Available Depo-SubQ provera 104 104 mg/0.65 mL subcutane ous syringe 01/14 completed Medicati on ID: [id number] B rand Name: Depo-Sub Q provera 104 [...] breath activated aerosol active Medicati on ID: 764111 B rand Name: Qvar [employer]iHale r Send Method: E-Prescr ibed Sub s Allowed: subs OK Medic ationGen ericName : Qvar [employer] r Not Available Not Available Not Available Gummies 400 mcg-35 mg-25 mg-5 mg chewable tablet 07/14 completed Medicati on ID: 333656 D uration Value: 90 Brand Name: Gummies [...] SNOMED-CT Code Diagnosis ICD10 Code Diagnosis Note 750 NERI NUNO MD Allergy [facility] [place],[address] [place] [address] 12/25/2023 14:43:25 12/29/2023 08:48:44 Perennial allergic rhinitis [id number] J30.89 1424 CHANDA BRAVO [facility] Allergy 100 [facility],[address] [place] [address] 01/01/2024 09:36:15 01/01/2024 09:56:52 Perennial allergic rhinitis [id number] J30.89 2019 CHANDA BRAVO [facility] Allergy 100 [facility],[address] [place] [address] 01/07/2024 10:20:29 01/07/2024 10:28:06 Perennial allergic rhinitis 343224577 J30.89 4177 [facility] All[facility] 100 [facility],[address] [place] [address] 01/22/2024 14:40:30 01/22/2024 15:26:50 Perennial allergic rhinitis [id number] J30.89 6048 [facility] [address] [facility] [place],[address] [place] [address] 02/05/2024 13:07:34 02/05/2024 13:43:16 Perennial allergic rhinitis [id number] J30.89 7671 CHANDA BRAVO A Allergy [address] [facility] [place],[address] [place] [address] 02/19/2024 11:19:36 02/19/2024 13:05:59 Perennial allergic rhinitis [id number] J30.89 8245 KARISSA OBDULIO, A Allergy [address] [facility] [place],[address] [place] [address] 02/24/2024 11:42:37 02/24/2024 13:00:06 Perennial allergic rhinitis [id number] J30.89 9124 GLORY CHANCE RN Allergy [address] [place] [address],[address] [place] [address] 03/01/2024 13:30:55 03/01/2024 14:10:09 Perennial allergic rhinitis [id number] J30.89 [id number] GLORY CHANCE RN Allergy [address] [place] [address],[address] [place] [address] 03/16/2024 15:42:09 03/16/2024 16:54:31 Perennial allergic rhinitis [id number] J30.89 [id number] GLORY CHANCE RN Allergy [address] [place] [address],[address] [place] [address] 03/25/2024 09:57:02 03/25/2024 09:59:06 Perennial allergic rhinitis [id number] J30.89 [id number] GLORY CHANCE RN Allergy [address] [place] [address], [address] [place] [address] 03/30/2024 15:51:02 03/30/2024 16:46:47 Perennial allergic rhinitis [id number] J30.89 [id number] GLORY CHANCE RN Allergy [address] [place] [address], [address] [place] [address] 04/07/2024 09:02:30 04/07/2024 10:48:22 Perennial allergic rhinitis [id number] J30.89 [id number] [facility] Allergy [address] [place] [address],[address] [place] [address] 04/14/2024 09:36:57 04/14/2024 10:01:59 Perennial allergic rhinitis [id number] J30.89 [id number] [facility], A Allergy [address] [place] [address],[address] [place] [address] 04/22/2024 14:39:52 04/22/2024 15:41:42 Perennial allergic rhinitis [id number] J30.89 [id number] [facility], A Allergy [address] [place] [address],[address] [place] [address] 05/06/2024 11:47:02 05/06/2024 12:17:17 Perennial allergic rhinitis [id number] J30.89 [id number] CHANDA BRAVO [facility] Allergy [address] [place] [address] 100 [place] [address] 05/20/2024 14:53:04 05/20/2024 16:14:07 Perennial allergic rhinitis [id number] J30.89 [id number] GLORY CHANCE RN Allergy [address] [place] [address] 100 [place] [address] 05/27/2024 14:16:54 05/27/2024 14:18:01 Perennial allergic rhinitis [id number] J30.89 [id number] [facility] Allergy [address] [place] [address] 100 [place] [address] 06/24/2024 10:00:17 06/24/2024 10:44:20 Perennial allergic rhinitis [id number] J30.89 [id number] [facility] Allergy [address] [place] [address], [place] [address] 07/01/2024 11:58:54 07/01/2024 12:07:09 Perennial allergic rhinitis [id number] J30.89 [id number] [facility] Allergy [address] [place] [address] [place] [address] 07/08/2024 10:45:09 07/08/2024 10:54:57 Perennial allergic rhinitis [id number] J30.89 17013 [facility] Allergy [address] [place] [address] [place] [address] 07/15/2024 14:42:28 07/15/2024 15:29:46 Perennial allergic rhinitis [id number] J30.89 11242 NERI NUNO MD [facility] [address] [address] 07/25/2024 10:46:22 07/25/2024 11:03:11 Allergic rhinitis 73272260 J30.89 Exacerbati on of moderate persistent asthma 830918826 J45.41 Acute resp iratory syncytial virus bronchitis 711166056 J20.5 15236 [facility] Allergy [facility],[address] [place] [address] 08/19/2024 11:30:02 08/19/2024 12:08:41 Perennial allergic rhinitis [id number] J30.89 [id number] KARISSA IRVIN, RMA Allergy [facility] [place],[address] [place] [address] 08/26/2024 09:08:01 08/26/2024 10:14:57 Perennial allergic rhinitis [id number] J30.89 [id number] GLORY CHANCE RN Allergy 100 [facility],[address] [place] [address] 09/02/2024 10:48:25 09/02/2024 11:19:13 Perennial allergic rhinitis [id number] J30.89 58046 CHANDA BRAVO, A Allergy 100 [facility],[address] [place] [address] 09/09/2024 11:57:35 09/09/2024 12:08:45 Perennial allergic rhinitis [id number] J30.89 23692 GLORY CHANCE RN Allergy 100 [facility],[address] [place] [address] 10/07/2024 09:15:52 10/07/2024 09:35:05 Perennial allergic rhinitis 801121140 J30.89 Health Concerns Section Related Observation LastModified by Organization Detai ls LastModified Time None Recorded Concern Status LastModified by Organization Details LastModified Time None Recorded Advance Directives Directive None Recorded Payers Encounter Date Sequence Insurance Name Policy Number Policy Sykes Covered Member ID Sykes Member ID Guarantor Name 08/19/2024 1 [facility] NET PLAN (MEDICAID HMO) CHELSI Guerin Connolly-Lef ebre [id number] Gigi J Connolly Lefebre 08/26/2024 1 [facility] NET PLAN (MEDICAID HMO) CHELSI Guerin Connolly-Lef ebre [id number] Loydinil J Connolly Lefebre 09/02/2024 1 [facility] NET PLAN (MEDICAID HMO) CHELSI Guerin Connolly-Lef ebre [id number] Gigi J Connolly Lefebre 09/09/2024 1 [facility] PLAN (MEDICAID HMO) CHELSI Guerin Connolly-Lef ebre [id number] Gigi Guerin Connolly Lefebre 10/07/2024 1 [facility] PLAN (MEDICAID HMO) CHELSI Guerin Connolly-Lef ebre [id number] Gigi Guerin Connolly Lefebre Notes Date Note Type Note Provider Name and Address Organization Details Recorded Time 08/19/2024 text/html Pt saw pulmonary 07/26 and was put on multiple inhalers and prednisone for bronchitis and RSV. She spoke with pulmonary last thursday because she knew Dr. Krishna wanted pulmonary to clear her first and they had her wait until this week for shots. Spoke with Dr. Krishna who is fine with her resuming shots if her peak flow was between 450-500. Peak in office today was 450 KARISSA IRVIN, [facility] [address], [address], [facility] 08/19/2024 12:08:33 OBGyn Episode No OBEpisode recorded.
--- OUTSIDE RECORDS SUMMARY | 2024-10-11 19:55 | XMS_ITS | Encounter Summary ---
Author Organization [facility] Address [address] [place] [address] Phone Support Name Relationship Address Phone Ellis Connolly Father [address] [place] [address] Care Team Providers Care Director Of Restaurant Name Role Phone Kaylan Casey MD Primary Care Provider [phone] Encounter Details Date Type Department Care Team (Late st Contact Info) Description 03/26/2017 Conversion Encounter [facility] [place] [address] [place] [address] Social History Tobacco Use Types Packs/Day Years [...] on filedocumented in this encounter Care Teams Director Of Restaurant Relationship Specialty Start Date End Date Kaylan Casey MD [address] [place] [address] PCP - General 03/20/17 01/14/23 documented as of this encounter
--- OUTSIDE RECORDS SUMMARY | 2024-10-11 19:55 | XMS_ITS | Encounter Summary ---
Author Organization [facility] Address [address] [place] [address] Phone Support Name Relationship Address Phone Ellis Connolly Father [address] [place] [address] Care Team Providers Care Tow Motor Mechanic Name Role Phone Kaylan Casey MD Primary Care Provider [phone] Encounter Details Date Type Department Care Team (Late st Contact Info) Description 01/23/2016 Documentation [facility] [place] Family Medicine [address] [place] [address] Family Medicine, Physician [address] [place] [address] Social History Tobacco Use Types Packs/Day Years [...] on filedocumented in this encounter Care Teams Tow Motor Mechanic Relationship Specialty Start Date End Date Kaylan Casey MD [address] [place] [address] [place] [address] PCP - General 03/20/17 01/14/23 documented as of this encounter
== END 2024-10-11 15:59 | disposition home or self-care (01) ==
LOC: HO.LAB 15:58
PROVIDERS: PCP Internal Medicine; Visit Provider Obstetrics & Gynecology
DX: Z34.90 Encounter for supervision of normal pregnancy, unspecified, unspecified trimester (principal)
CPT/HCPCS: 36415; 84702

== ENCOUNTER 2024-10-12 09:03 | Outpatient (AMB) | payer OTHER, SELFPAY ==
--- NOTE | 2024-10-12 09:26 | MHC.OFFVIS ---
Vital Signs 10/12/24 09:27 Height 5 ft Weight 168 lb BMI 32.8 BP 110/74 Intake Visit Reasons: HCG follow up Allergies peanut Allergy (Verified 05/30/24 08:38) Swelling HPI Comments Details: Presenting after a positive urine test on 10/03, hCG done today was less than 2, no complaints PFSH Medical History Acute diverticulitis Family history of ovarian cancer Physical exam Mild recurrent major depression Class 1 obesity with body mass index (BMI) of 32.0 to 32.9 in adult Enlarged tonsils Allergic rhinitis Chronic eczema PCOS (polycystic ovarian syndrome) IBS (irritable bowel syndrome) Anxiety Depression History of deviated nasal septum Moderate persistent asthma Surgical History H/O LEEP History of tonsillectomy Hx of nasal septoplasty History of wisdom tooth extraction Family History Father Asthma Mother Liver disease Mental health disorder Maternal Aunt Ovarian cancer Maternal Aunt Ovarian cancer Maternal Aunt Ovarian cancer Maternal Grandfather Leukemia Paternal Grandmother Pancreatic cancer Social History Household Members: Significant Other and Children Housing: Apartment Do you presently have visiting nurse or other home services: No Alcohol intake: current Alcohol intake frequency: other Alcohol type: wine Patient Tobacco Use Status: Never used Tobacco e-Cigarette/Vaping Use: Never Used Second Hand Smoke Exposure: No Substance Use Type: Marijuana service: No Current occupational status: employed Current occupational exposures/hazards: No Sexual orientation: Straight/Heterosexual Gender identity: Female Cognitive needs: No Hearing needs: No Vision needs: Yes (glasses) Female Reproductive History Menstrual Age of Menarche: 9 Review of Systems Const All systems reviewed & are unremarkable except as noted in HPI and below Reports as per HPI and Reports no additional complaints GI Reports no additional complaints Reports no additional complaints Physical Exam Vital Signs: Last Vital Signs BP 110/74 10/12/24 09:27 BMI result Body Mass Index 32.8 Assessment & Plan Assessment & Plan (1) Negative test: Code(s): Z32.02 - Encounter for test, result negative Category: Medical Plan: Discussed with the patient the possible use of positive urine test followed by hCG quantitative less than 2, chemical or false positive urine test. Instructions given the patient to call in case of any other concerns. All questions answered, the patient verbalized understanding. Coding Level of Care Code Est Pt Level 3 (07330) Diagnoses Negative test Z32.02
[2024-10-12 09:27] VITALS: BP 110/74; BMI 32.8
--- OUTSIDE RECORDS SUMMARY | 2024-10-12 09:54 | XMS_ITS | Encounter Summary ---
Author Organization [facility] Address [address] [place] [address] Phone Support Name Relationship Address Phone Ellis Connolly Father [address] [place] [address] Care Team Providers Care Cis Coordinator Name Role Phone Kaylan Casey MD Primary Care Provider [phone] Encounter Details Date Type Department Care Team (Late st Contact Info) Description 01/12/2015 Documentation [facility] [place] Family Medicine [address] [place], [place] [id number] Family Medicine, Physician [address] [place], [place] [address] Social History Tobacco Use Types Packs/Day Years [...] on filedocumented in this encounter Care Teams Cis Coordinator Relationship Specialty Start Date End Date Kaylan Casey MD [address] [place] [address] PCP - General 03/20/17 01/14/23 documented as of this encounter
--- OUTSIDE RECORDS SUMMARY | 2024-10-12 09:54 | XMS_ITS | Clinical Summary ---
Author Organization [facility] Address [address] [place] [address] Phone Support Name Relationship Address Phone lElis Connolly Father [address] [place] [address] Care Team Providers Care Mortising Machine Operator Name Role Phone Unavailable Primary Care Provider [...] Other No family histo ry of Sudden /ND under age 55, Family history of Asthma, [...] Date Last Done Comments DTaP,Tdap,and Td Vaccines (7 - Td or [...] complete this topic Procedures * Due to [place] Want[employer] law, this organization might not be sharing sensitive test results. Procedure Name Priority Date/Time Associated Diagnosis Comments CHLAMYDIA AND GONORRHEA, AMPLIFIED Routine 09/03/2015 2:05 PM EST from Last 3 Months or Most Recently Relevant to Health Maintenance Results * Due to [facility] law, this organization might not be sharing sensitive test results. * Chlamydia and Gonorrhoea, Amplified (09/03/2015 2:05 PM EST) URINE CHLAMYDIA AMP PROBE NEGATIVE [facility] Comment: No Chlamydia Trachomatis RNA detected in this patient's sample (REFERENCE RANGE/NORMAL VALUE: NOT DETECTED) URINE GC AMP PROBE NEGATIVE F [facility] Comment: No Neisseria Gonorrhoeae RNA detected in this patient's sample (REFERENCE RANGE/NORMAL VALUE: NOT DETECTED) NOTE: This test uses leak operator paraffin plant-mediated amplification method to detect rRNA from C.Trachomatis [...] without risk of sexual abuse. Consult the [facility] if needed. Contact phone number . Therapeutic failure or success cannot be determined with the Aptima Combo2 assay since nucleic acid may persist following appropriate antimicrobial therapy. The Centers for Disease Control and Prevention (CDC) recommends confirmatory retesting using culture or a different nucleic acid amplification test when positive results occur, if indicated. Testing performed or reported by [facility], a Service of [facility], [place] [address] CLIA ??[id number] Michael Nguyen MD, PhD, Cured Meat Packing Supervisor 09/03/2015 2:05 PM EST Narrative [facility] - 09/03/2015 2:05 PM EST URINE CHLAMYDIA GC AMP PROBE us Kaylan Casey MD LAB MICROBIOLOGY - GENERAL ORD ERABLES Final Result [facility] [address] [place] [address], [place] from Last 3 Months or Most Recently Relevant to Health Maintenance
--- OUTSIDE RECORDS SUMMARY | 2024-10-12 09:54 | XMS_ITS | Encounter Summary ---
Author Organization [facility] Address [address] [place] [address] Phone Support Name Relationship Address Phone Ellis Connolly Father [address] [place] [address] Care Team Providers Care Manufacturing Technology Professor Name Role Phone Kaylan Casey MD Primary Care Provider [phone] Encounter Details Date Type Department Care Team (Late st Contact Info) Description 03/26/2017 Conversion Encounter [facility] [place] [address] [place] [address] Social History Tobacco Use Types Packs/Day Years [...] on filedocumented in this encounter Care Teams Manufacturing Technology Professor Relationship Specialty Start Date End Date Kaylan Casey MD [address] [place] [address] PCP - General 03/20/17 01/14/23 documented as of this encounter
--- OUTSIDE RECORDS SUMMARY | 2024-10-12 09:54 | XMS_ITS | Encounter Summary ---
Author Organization [facility] Address [address] [place] [address] Phone Support Name Relationship Address Phone Ellis Connolly Father [address] [place] [address] Care Team Providers Care Switchman Name Role Phone Kaylan Casey MD Primary Care Provider [phone] Encounter Details Date Type Department Care Team (Late st Contact Info) Description 01/24/2010 Documentation [facility] [place] Family Medicine [address] [place], [place] [id number] Family Medicine, Physician [address] [place], [place] [address] Social History Tobacco Use Types Packs/Day Years [...] on filedocumented in this encounter Care Teams Switchman Relationship Specialty Start Date End Date Kaylan Casey MD [address] [place] [address] PCP - General 03/20/17 01/14/23 documented as of this encounter
--- OUTSIDE RECORDS SUMMARY | 2024-10-12 09:54 | XMS_ITS | Encounter Summary ---
Author Organization [facility] Address [address] [place] [address] Phone Support Name Relationship Address Phone Ellis Connolly Father [address] [place] [address] Care Team Providers Care Employment Representative Name Role Phone Kaylan Casey MD Primary Care Provider [phone] Encounter Details Date Type Department Care Team (Late st Contact Info) Description 11/27/2010 Documentation [facility] [place] [address] [place], [place] [id number] Family Medicine, Physician [address] [place], [place] [address] Social History Tobacco Use Types Packs/Day Years [...] on filedocumented in this encounter Care Teams Employment Representative Relationship Specialty Start Date End Date Kaylan Casey MD [address] [facility] [place] [address] PCP - General 03/20/17 01/14/23 documented as of this encounter
--- OUTSIDE RECORDS SUMMARY | 2024-10-12 09:54 | XMS_ITS | Encounter Summary ---
Author Organization [facility] Address [address] [place] [address] Phone Support Name Relationship Address Phone Ellis Connolly Father [address] [place] [address] Care Team Providers Care Ager Tender Name Role Phone Kaylan Casey MD Primary Care Provider [phone] Encounter Details Date Type Department Care Team (Late st Contact Info) Description 01/23/2016 Documentation [facility] [place] Family Medicine [address] [place] [address] Family Medicine, Physician [address] [place] [address] Social History Tobacco Use Types Packs/Day Years [...] on filedocumented in this encounter Care Teams Ager Tender Relationship Specialty Start Date End Date Kaylan Casey MD [address] [place] [address] [place] [address] PCP - General 03/20/17 01/14/23 documented as of this encounter
--- OUTSIDE RECORDS SUMMARY | 2024-10-12 09:54 | XMS_ITS | Clinical Summary ---
Author Organization [facility] it Address [address] [place] [address] Care Team Providers Care Shellfish Processing Laborer Name Role Phone Diane Casey MD Primary Care Provider [phone] Social History Tobacco Use Types Packs/Day Years [...] age to complete this topic Care Teams Shellfish Processing Laborer Relationship Specialty Start Date End Date Diane Casey MD [address] [facility] [place] [address] PCP - General Pediatrics 01/10/14
== END 2024-10-12 09:36 | disposition home or self-care (01) ==
LOC: HO.HWS 09:03
PROVIDERS: PCP Internal Medicine; Visit Provider Obstetrics & Gynecology
DX: Z32.02 Encounter for pregnancy test, result negative (principal)
CPT/HCPCS: 99213

== ENCOUNTER → 2024-10-12 09:03 | Outpatient (BNVA) | payer OTHER, SELFPAY | PROVIDERS: PCP Internal Medicine; Visit Provider Obstetrics & Gynecology | DX: Z32.02 Encounter for pregnancy test, result negative (principal) | CPT/HCPCS: 99212 ==

== ENCOUNTER 2025-01-09 17:25 | Outpatient (AMB) | payer OTHER, SELFPAY ==
--- NOTE | 2025-01-09 17:30 | MHC.PC.OV ---
Vital Signs 01/09/25 17:31 Height 5 ft Weight 173 lb BMI 33.8 BP 120/82 Blood Pressure Location Lt brachial Position Sitting Intake Visit Reasons: Annual PE Intake Note: Patient here for a physical exam Bobbin Collector Required: No Accompanied by: Self / Same As Patient Allergies peanut Allergy (Verified 01/09/25 17:37) Swelling Medication List - Last Reconciled 01/09/25 by Leslie Reilly MD albuterol sulfate 90 mcg/actuation (ProAir HFA) 1 inh inhalation QID PRN 30 days albuterol sulfate 2.5 mg (3 mL) inhalation Q4H PRN 30 days amitriptyline 10 mg PO BEDTIME epinephrine 0.3 mg (0.3 mL) IM Q4H PRN 30 days fluticasone furoate-vilanterol 200-25 mcg/dose (Breo Ellipta) 1 inh inhalation DAILY 30 days ibuprofen 600 mg PO Q6H PRN levocetirizine (Xyzal) 5 mg PO DAILY lidocaine 5% (Lidoderm) 1 patch topical DAILY meclizine 25 mg PO BID PRN montelukast 10 mg PO DAILY nebulizers (AeroEclipse II Nebulizer) As directed ondansetron 4 mg PO Q8H PRN progesterone micronized (Prometrium) 200 mg PO BEDTIME 10 days sertraline 25 mg PO DAILY Tobacco use date assessed: 01/09/25 Dental Screening Dental Screen Date: 01/09/25 Did you have a dental visit in the last 12 months?: Yes Did you have a dental problem in the last 6 months where you did not have access to dental care?: No Was dental information given to patient?: Patient has dentist HPI HPI Comments History of Present Illness Details The patient is a 29-year-old female presenting for her physical exam with insomnia as well as associated chronic conditions including migraine syndrome and depression. She reports long-standing sleep difficulties characterized by an inability to fall asleep until late at night, compounded by persistent 24/7 pain. Attempts to manage insomnia with amitriptyline were reportedly ineffective, even with dosage adjustments. Chronic daily diarrhea is attributed to her diagnosis of Irritable Bowel Syndrome (IBS), with previously identified concerns of gastritis and possible colitis. Despite medical and dietary interventions, including trialed medications and a gluten-free diet, symptoms persist, suggesting a need for reevaluation, possibly starting with a celiac disease panel and thyroid function tests. Current asthma treatment includes inhaler use and montelukast, paired with Breo for pulmonary support. The patient reports no new instances of chest pain or shortness of breath, though wheezing was remarked upon during the exam. Allergic rhinitis is also managed with medications such as Cyso. There is an expressed concern regarding increased anxiety. - Tdap vaccination up to date; next due at age 35 - Pap smears current - Plan for fasting labs, including celiac disease panel and thyroid function - Discussed potential increase in sertraline dosage [facility] Medical History (Updated 01/09/25 @ 17:53 by Leslie Reilly MD) Acute diverticulitis Family history of ovarian cancer Physical exam Mild recurrent major depression Class 1 obesity with body mass index (BMI) of 32.0 to 32.9 in adult Enlarged tonsils Allergic rhinitis Chronic eczema PCOS (polycystic ovarian syndrome) IBS (irritable bowel syndrome) Anxiety Depression History of deviated nasal septum Moderate persistent asthma Surgical History H/O LEEP History of tonsillectomy Hx of nasal septoplasty History of wisdom tooth extraction Family History Father Asthma Mother Liver disease Mental health disorder Maternal Aunt Ovarian cancer Maternal Aunt Ovarian cancer Maternal Aunt Ovarian cancer Maternal Grandfather Leukemia Paternal Grandmother Pancreatic cancer Social History Household Members: Significant Other and Children Housing: Apartment Do you presently have visiting nurse or other home services: No Alcohol intake: current Alcohol intake frequency: other Alcohol type: wine Patient Tobacco Use Status: Never used Tobacco e-Cigarette/Vaping Use: Never Used Second Hand Smoke Exposure: No Substance Use Type: Marijuana service: No Current occupational status: employed Current occupational exposures/hazards: No Sexual orientation: Straight/Heterosexual Gender identity: Female Cognitive needs: No Hearing needs: No Vision needs: Yes (glasses) Female Reproductive History Menstrual Age of Menarche: 9 Questionnaire PHQ-9 Over the last 2 weeks, how often have you been bothered by any of the following problems? 1. Little interest or pleasure in doing things: more than half the days 2. Feeling down, depressed, or hopeless: several days 3. Trouble falling or staying asleep, or sleeping too much: nearly every day 4. Feeling tired or having little energy: several days 5. Poor appetite or overeating: several days 6. Feeling bad about yourself - or that you are a failure or have let yourself or your family down: not at all 7. Trouble concentrating on things, such as reading the newspaper or watching television: several days 8. Moving or speaking so slowly that other people could have noticed. Or the opposite - being so fidgety or restless that you have been moving around a lot more than usual: not at all 9. Thoughts that you would be better off or of hurting yourself in some way: not at all Total score: 9 Depression Screening Interpretation: Positive Depression Screening Follow-up: Existing condition, In treatment and Follow-up Visit Requested Depression Screening Done: Yes 14162 - PHQ-9 Billing: Yes Source: Developed by Drs. Nehemias Luz, Brook Miller, Bk Burgos and colleagues, with an educational karla from [employer]. Thrive Questionnaire Date Thrive assessed: 01/02/25 I am a: Patient What is your living situation today?: I have a steady place to live Within the past 12 months, did the food you bought not last and you didn't have the money to get more?: I choose not to answer this question Within the past 12 months, did you worry whether your food would run out before you got money to buy more?: Never true Do you have trouble paying for medicines?: I choose not to answer this question Do you have trouble getting transportation to medical appointments?: No Do you have trouble paying your heating and electricity bill?: I choose not to answer this question Do you have trouble taking care of your child, family member or friend?: No Do you have trouble with day-to-day activities such as bathing, preparing meals, shopping, managing finances, etc.?: No Are you currently unemployed and looking for a job?: No Are you interested in more education?: I choose not to answer this question Please select the resources that you would like help with: None Currently or been in a relationship where the following occur: No concerns reported THRIVE Score: 0 AUDIT C Alcohol Use Questionnaire (AUDIT-C) 1. How often do you have a drink containing alcohol?: Monthly or less 2. How many drinks containing alcohol do you have on a typical day when you are drinking?: 1 or 2 3. How often do you have six or more drinks on one occasion?: Less than monthly Total Score: 2 ROSAMARIA-7 AMB Questionnaire ROSAMARIA-7 Date ROSAMARIA - 7 assessed: 01/09/25 Feeling nervous, anxious, or on edge: 1 = Several days Not being able to stop or control worryin = Several days Worrying too much about different things: 1 = Several days Trouble relaxin = Several days Being so restless that it is hard to sit still: 1 = Several days Becoming easily annoyed or irritable: 1 = Several days Feeling afraid as if something awful might happen: 1 = Several days Total ROSAMARIA-7 score (0-4 normal; 5-9 mild; 10-14 moderate; 15-21 severe): 7 Source: Developed by Drs. Nehemias Luz, Brook Miller, Bk Burgos and colleagues, with an educational karla from [employer]. ROSAMARIA-7 Assessment Billing ROSAMARIA-7 Assessment Tool: ROSAMARIA-7 Assessment 34896 Review of Systems Const All systems reviewed & are unremarkable except as noted in HPI and below Card Denies chest pain at rest, Denies chest pain with activity, Denies edema, Denies irregular heart rhythm, Denies claudication, Denies dyspnea, Denies dyspnea on exertion, Denies orthopnea, Denies paroxysmal nocturnal dyspnea and Denies slow heart rate Resp Denies cough, Denies dyspnea and Denies dyspnea on exertion GI Denies abdominal pain, Denies change in bowel habits, Denies excessive flatus, Denies nausea and Denies vomiting Denies urinary incontinence, Denies urinary hesitancy and Denies urinary urgency Musc Denies abnormal gait, Denies atrophy, Denies deformity and Denies limited range of motion Skin/Breast Denies bleeding lesions, Denies changing lesions and Denies rash Neuro Denies abnormal gait and Denies lack of coordination Physical exam (Primary Care) Vital Signs: Last Vital Signs BP 120/82 01/09/25 17:31 BMI result Body Mass Index 33.8 Tobacco/Smoking Status: Tobacco use Status Tobacco use date assessed 01/09/25 01/09/25 17:37 Patient Tobacco Use Status Never used Tobacco 01/09/25 17:37 e-Cigarette/Vaping Use Never Used 01/09/25 17:37 PHQ-9: PHQ-9 Score PHQ-9: Total score 9 01/09/25 17:44 Depression Screening Interpretation: Positive Depression Screening Follow-up: Existing condition, In treatment and Follow-up Visit Requested Thrive Assessment: Date of Thrive Assessment Date Thrive assessed 01/02/25 01/09/25 17:37 Currently or been in a relationship where the following occur: No concerns reported [facility] Head: Yes normal to inspection, Yes normocephalic and Yes atraumatic Ears: external ears normal Eyes General: appearance normal, both eyes and all related structures Eyelids: Yes eyelids normal Conjunctivae: conjunctivae normal Neck Neck: Yes normal visual inspection and Yes supple Resp Effort & Inspection: normal respiratory effort Auscultation: clear to auscultation bilaterally Cardio Jugular venous distension: no JVD Rate: regular rate Rhythm: regular rhythm Heart sounds: S1 normal heart sound present and S2 normal heart sound present GI Inspection: Yes normal to inspection Palpation (GI): Soft to palpation and nontender Auscultation: normal bowel sounds Skin General skin exam: no rashes or lesions noted Neuro General: no focal motor deficits Extrem General: Yes full ROM Psych Appearance: grossly normal Coding Level of Care Code Est Pt Level 3 (61790) Est Pt Prev Care 18-39y(03939) Diagnoses Physical exam Z00.00 Mild recurrent major depression F33.0 Diarrhea R19.7 Additional Codes ROSAMARIA-7 Assessment Billing - ROSAMARIA-7 Assessment Tool: ROSAMARIA-7 Assessment 28318 ([id number]) PHQ-9 - 86199 - PHQ-9 Billing: Yes ([id number]) Time Spent (min) 32 Assessment & Plan Assessment & Plan (1) Physical exam: Code(s): Z00.00 - Encounter for general adult medical examination without abnormal findings Category: Medical (2) Mild recurrent major depression: Code(s): F33.0 - Major depressive disorder, recurrent, mild Category: Medical (3) Diarrhea: Code(s): R19.7 - Diarrhea, unspecified Category: Medical Plan We will consider increasing the sertraline dosage to address persistent insomnia, depression, and anxiety symptoms, monitoring the patient over the next few weeks for response. Continued asthma management with Breo and montelukast is essential, and the patient is advised on using the Epipen and other medications as appropriate. We'll conduct fasting labs to reassess celiac disease and thyroid function. Any significant changes in gastrointestinal symptoms should precipitate further gastroenterological evaluation. Neurology follow-up will be considered if inadequate migraine relief persists. Patient was informed and verbally consented to the use of an ambient scribe for clinic note documentation during this visit. I discussed with the patient the potential adjustment in sertraline dosage and its expected efficacy timeframe of two to three weeks. Management of asthma and allergies with existing medications was reinforced. The necessity of repeating fasting labs, including a celiac disease panel and thyroid function tests, was emphasized. We reviewed the status of her migraines, and the need to pursue further neurological advice was considered if current treatments falter. Follow-up with gastroenterology remains paramount if bowel symptoms bristle. All healthcare discussions included [id number] reasoning and shared decision-making about her mental, gastrointestinal, and respiratory health. Orders: Orders Complete Blood Count Auto Diff Today D64.9 - Anemia, unspecified Lipid Panel Today E78.5 - Hyperlipidemia, unspecified, Z00.00 - Encounter for general adult medical examination without abnormal findings IRON PROFILE Today D64.9 - Anemia, unspecified Vitamin D 25-OH Total Today E55.9 - Vitamin D deficiency, unspecified Vitamin B12 and Folate Today E53.8 - Deficiency of other specified B group vitamins Thyroid Stimulating Hormone Today E04.1 - Nontoxic single thyroid nodule Comprehensive [place]. Panel Fast Today Z00.00 - Encounter for general adult medical examination without abnormal findings Celiac Disease Panel Today R19.7 - Diarrhea, unspecified Medications: New sertraline 50 mg PO DAILY 90 tabs 1RF 90 days F41.9 - Anxiety disorder, unspecified Discontinued sertraline Discontinued Reason: Patient Completed Course 25 mg PO DAILY 30 tabs 0RF F33.0 - Major depressive disorder, recurrent, mild, F41.9 - Anxiety disorder, unspecified Patient Instructions: - Continue current medications for asthma and allergies - Plan to do fasting labs including celiac disease panel and thyroid test - Monitor sleep and mood over the next few weeks; be open to adjusted sertraline dosage - Return for further evaluation or if symptoms worsen - Seek gastroenterology follow-up if GI symptoms escalate
[2025-01-09 17:31] VITALS: BP 120/82; BMI 33.8
== END 2025-01-09 17:51 | disposition home or self-care (01) ==
LOC: HO.HMCH 17:26
PROVIDERS: PCP Internal Medicine; Visit Provider Internal Medicine
DX: Z00.00 Encounter for general adult medical examination without abnormal findings (principal); F33.0 Major depressive disorder, recurrent, mild; R19.7 Diarrhea, unspecified

== ENCOUNTER → 2025-01-09 17:25 | Outpatient (BNVA) | payer OTHER, SELFPAY | PROVIDERS: PCP Internal Medicine; Visit Provider Internal Medicine | DX: Z00.00 Encounter for general adult medical examination without abnormal findings (principal); G47.00 Insomnia, unspecified; G43.909 Migraine, unspecified, not intractable, without status migrainosus; F41.9 Anxiety disorder, unspecified; K59.09 Other constipation; K58.1 Irritable bowel syndrome with constipation; J45.909 Unspecified asthma, uncomplicated; F33.0 Major depressive disorder, recurrent, mild; K58.0 Irritable bowel syndrome with diarrhea | CPT/HCPCS: 96127; 99212; 99395 ==

== ENCOUNTER 2025-01-26 16:03 | Outpatient (REF) | payer OTHER, SELFPAY ==
[2025-01-26 16:15] LABS: MANUAL DIFF FLAG NO
[2025-01-26 16:38] LABS: Basophils Absolute Auto 0.1 X10*3/uL (0.0-0.2); Basophils Percent Auto 0.7 % (0-2); Eosinophils Absolute Auto 0.4 X10*3/uL (0.0-0.4); Eosinophils Percent Auto 3.2 % (0-4); Hematocrit 40.9 % (37.0-47.0); Hemoglobin 13.4 g/dl (12.0-16.0); Imm Gran Abs Auto 0.04 X10*3/uL (0.00-0.03); Imm Gran Pct Auto 0.4 % (0.0-0.4); Lymphocytes Absolute Auto 2.9 X10*3/uL (1.2-4.9); Lymphocytes Percent Auto 26.8 % (20-40); Mean Corpuscular HGB Conc 32.8 g/dl (31.0-35.0); Mean Corpuscular Hemoglobin 25.7 pg (27.0-33.0); Mean Corpuscular Volume 78.5 fL (80.0-98.0); Mean Platelet Volume 9.6 fL (9.4-12.3); Monocytes Absolute Auto 0.6 X10*3/uL (0.1-1.2); Monocytes Percent Auto 5.8 % (2-11); Neutrophils Absolute Auto 6.9 x10*3/uL (2.0-8.3); Neutrophils Percent Auto 63.1 % (45-73); Platelet Count 367 X10*3/uL (160-400); Red Blood Count 5.21 X10*6/uL (4.20-5.50); Red Cell Distribution Width 14.2 % (11.0-16.0)
--- OUTSIDE RECORDS SUMMARY | 2025-01-26 16:57 | XMS_ITS | Encounter Summary ---
Author Organization [facility] Address [address] [place] [address] Phone Support Name Relationship Address Phone Ellis Connolly Father [address] [place] [address] Care Team Providers Care Associate Teacher Name Role Phone Kaylan Casey MD Primary Care Provider [phone] Encounter Details Date Type Department Care Team (Late st Contact Info) Description 11/27/2010 Documentation [facility] Family Medicine [address] [place], [place] [id number] Family Medicine, Physician [address] [place], [place] [address] Social History Tobacco Use Types Packs/Day Years [...] on filedocumented in this encounter Care Teams Associate Teacher Relationship Specialty Start Date End Date Kaylan Casey MD [address] [facility] [place] [address] PCP - General 03/20/17 01/14/23 documented as of this encounter
[2025-01-26 17:03] LABS: Alanine Aminotransferase 30 U/L (0-31); Albumin Level 4.3 g/dL (3.5-5.0); Alkaline Phosphatase 57 U/L (39-117); Anion Gap 12 (12-20); Aspartate Amino Transferase 34 U/L (5-31); Bilirubin Total 0.8 mg/dL (0.0-1.0); Blood Urea Nitrogen 11 mg/dL (9-16); Calcium 9.3 mg/dL (8.4-10.2); Carbon Dioxide 24 mmol/L (22-29); Chloride 108 mmol/L (96-108); Cholesterol 118 mg/dL (<200); Estimated Glomerular Filt Rate > 60; Glucose Fasting 92 mg/dL (60-99); HDL Cholesterol 30 mg/dL (>40); Iron 128 mcg/dL (30-160); LDL Cholesterol Calculated 67 mg/dL (<100); Percent Iron Saturation 49 % (15-50); Potassium 3.9 mmol/L (3.3-5.1); Sodium 140 mmol/L (135-145); Total Iron Binding Capacity 263 mcg/dL (228-428); Total Protein 7.4 g/dL (6.5-8.0); Triglycerides 107 mg/dL (<150); Unsaturated Iron Binding 135 ug/dL
[2025-01-26 17:22] LABS: Vitamin D 25-OH Total 39.1 ng/mL (>30)
[2025-01-26 17:34] LABS: Folate 7.8 ng/mL (> or = 4.0); Vitamin B12 564 pg/mL (200-900)
[2025-01-27 20:49] LABS: Immunoglobulin A 378 mg/dL (47-310); Transglutaminase IgA <1.0 U/mL
== END 2025-01-26 16:04 | disposition home or self-care (01) ==
LOC: HO.LAB 16:03
PROVIDERS: PCP Internal Medicine; Visit Provider Internal Medicine
DX: Z00.00 Encounter for general adult medical examination without abnormal findings (principal); D64.9 Anemia, unspecified; E78.5 Hyperlipidemia, unspecified; E55.9 Vitamin D deficiency, unspecified; E04.1 Nontoxic single thyroid nodule; R19.7 Diarrhea, unspecified; E53.8 Deficiency of other specified B group vitamins
CPT/HCPCS: 36415; 80053; 80061; 82306; 82607; 82746; 82784; 83540; 84443; 85025; 86364

== ENCOUNTER 2025-05-10 09:51 | Outpatient (AMB) | payer OTHER, SELFPAY ==
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
[2025-05-10 10:04] VITALS: BP 124/78; PULSE 110; RESP 16; O2SAT 98; BMI 31.3
--- OUTSIDE RECORDS SUMMARY | 2025-05-10 10:49 | XMS_ITS | Continuity of Care Document ---
Author Organization [place] [facility], Allergy Address [address] [place] [address] Assessment Encounter Date Assessment Date Assessment LastModified by Organization Details LastModified Time 05/09/2025 05/09/2025 Visit With: Becky Tellez Use of Antihistamine s: No If yes: Vial Test Yes Change in medications: No If yes Increase in asthma symptoms No If yes, inhaler use: Reaction to last injections: No If yes: Allergy Symptoms: Other: Missed: Dose Aware of Vial Test Aware: Notes: [email or web address] Not available 05/09/2025 11:55:30 Plan of Treatment Reminders Order Date Submit Date Provider Last Modified By Organization Details Last Modified Time Details Appointments [facility]- Allergy f-up 6mon 2024 11:00A M NERI CONTRERAS MD Not available Not [...] Name and Address Organization Details Recorded Time Hypertro phy of nasal turbinat es 71602699 Active 2018 Hypertro phy of nasal turbinat es; Note: Date Diagnose d: 9 12:38 PM (J34.3) Not Available [facility] 4 03:07:20 Uncompli cated moderate persiste nt asthma 510420847 Active 2018 Moderate persiste nt asthma NOS; Note: Date Diagnose d: 9 10:53 AM (J45.40) Not Available [facility] 4 03:07:21 Nasal congesti on 43293127 Active 2018 Nasal congesti on; Note: Date Diagnose d: 9 10:51 AM (R09.81) Not Available [facility] 4 03:07:21 Deviated nasal septum 915494733 Active 2018 Deviated nasal septum; Note: Date Diagnose d: 9 12:38 PM (J34.2) Not Available [facility] 4 03:07:20 Follow-u p visit Active 2019 Medical surveill ance followin g complete d treatmen t; Note: Date Diagnose d: 0 3:20 PM (Z09) Not Available [facility] 4 03:07:19 Snoring 54952930 Active 2019 Snoring; Note: Date Diagnose d: 0 3:44 PM (R06.83) Not Available [facility] 4 03:07:21 Contusio n of nose 87166574 Active 2021 Contusio n of nose, initial encounte r; Note: Date Diagnose d: 2 11:21 AM (S00.33X A) Not Available [facility] 4 03:07:19 Chronic tonsilli tis 20064312 Completed 202103/11/2024 Chronic tonsilli tis; Note: Date Diagnose d: 04/18/2022 12:18 PM (J35.01) Not Available [facility] 4 03:07:19 Chronic disease of tonsils AND/OR adenoids 03266749 Completed 202103/11/2024 Calculus , tonsil; Note: Date Diagnose d: 04/18/2022 12:18 PM (J35.8) Not Available [facility] 4 03:07:19 Abnormal auditory percepti on 27701395 Active 2022 Other abnormal auditory percepti ons, bilatera l; Note: Date Diagnose d: 3 12:05 PM (H93.293 ) Other abnormal auditory percepti ons, bilatera l; Note: Date Diagnose d: 01/14/2023 9:47 AM (H93.293 ) ; Start Date : 01/15/20 Not Available [facility] 4 03:07:20 Allergic rhinitis 75628933 Active 2023 Allergic rhinitis : Due to [...] allergen ; Note: Date Diagnose d: 08/04/20 23 2:04 PM (477.8) Note: Date Diagnose d: 08/04/20 23 2:04 PM (477.8) ; Start Date : 08/04/20 Aller gic rhinitis : Due to other allergen ; Note: Date Diagnose d: 07/24/20 23 1:53 PM (477.8) Note: Date Diagnose d: 07/24/20 1:53 PM (477.8) ; Start Date : 07/24/20 Aller gic rhinitis : Due to other allergen ; Note: Date Diagnose d: 3 11:57 AM (477.8) Note: Date Diagnose d: 11:57 AM (477.8) ; Start Date : 07/10/20 Aller gic rhinitis : Due to other allergen ; Note: Date Diagnose d: 07/01/20 23 2:30 PM (477.8) Note: Date Diagnose d: 07/01/20 23 2:30 PM (477.8) ; Start Date : [...] 2:51 PM (477.8) Note: Date Diagnose d: 3 2:51 PM (477.8) ; Start Date : [...] other allergen ; Note: Date Diagnose d: 1:46 PM (477.8) Note: Date Diagnose d: 1:46 PM (477.8) ; Start Date : 04/07/20 Aller gic rhinitis : Due to other allergen ; Note: Date Diagnose d: 1:53 PM (477.8) Note: Date Diagnose d: 1:53 PM (477.8) ; Start Date : 02/21/20 Aller gic rhinitis : Due to other allergen ; Note: Date Diagnose d: 02/13/2023 11:56 AM (477.8) Note: Date Diagnose d: 02/13/2023 11:56 AM (477.8) ; Start Date : 02/14/20 Aller gic rhinitis : Due to other allergen ; Note: Date Diagnose d: 11:47 AM (477.8) Note: Date Diagnose d: 11:47 AM (477.8) ; Start Date : 02/07/20 Aller gic rhinitis : Due to other allergen ; Note: Date Diagnose d: 6/23/202 3 11:15 AM (477.8) Note: Date Diagnose d: 3 11:15 AM (477.8) ; Start Date : 01/31/20 23 Aller gic rhinitis : Due to other allergen ; Note: Date Diagnose d: 3 11:09 AM (4 Not Available [facility] 4 01:19:06 Perennia l allergic rhinitis 564982087 Active 2023 GLORY CHANCE RN [address], [place], [address] , [facility] 5 11:55:00 Exacerba tion of moderate persiste nt asthma 364622911 Active 2023 NERI NUNO MD [address], [place], [address] , [place] [facility] 4 10:56:48 Acute respirat ory syncytia l virus bronchit is 261377484 Active 2023 NERI NUNO MD [address] [facility] [address], [place], [place], [address] , [place] [facility] 4 10:56:56 Uncompli cated mild persiste nt asthma 472144705 Active 2024 NERI NUNO MD [address] [facility] [address], [place], [address] , [place] [facility] 5 11:13:55 Problem Notes None recorded. Procedures Surgical History Date Name Laterality Status Provider Name and Address Organization Details Recorded Time 05/09/20 25 Allergy Immunotherapy Injections completed GLORY CHANCE RN [address] [facility] [address] [facility], [place], [address], [facility] - [facility] 05/09/2025 11:56:12 05/04/20 Allergy Immunotherapy Injections completed GLORY CHANCE RN [address] [facility] [address], [place], [address], [place] [facility] 05/04/2025 09:51:49 04/27/20 25 Allergy Immunotherapy Injections completed KARISSA KORZEC, RMA [address], [place], [address], [place] [facility] 04/27/2025 10:30:59 04/21/20 25 Allergy Immunotherapy Injections completed KARISSA KORZEC, RMA [address], [place], [address], [place] [facility] 04/21/2025 09:53:31 04/14/20 25 Allergy Immunotherapy Injections completed Tiara Tomi [address], [place], [address], [place] [facility] 04/14/2025 09:49:11 04/07/20 25 Allergy Immunotherapy Injections completed KARISSA BONNERZEC, RMA [address], [place], [address], [place] [facility] 04/07/2025 12:03:37 03/31/20 25 Allergy Immunotherapy Injections completed BECKY TELLEZ RMA [address], [place], [address], [place] [facility] 03/31/2025 14:37:21 03/24/20 25 Allergy Immunotherapy Injections completed Tiara Tomi [address], [place], [address], [place] [facility] 03/24/2025 11:51:03 03/17/20 25 Allergy Immunotherapy Injections completed Tiara Krishna [address], [place], [address], [place] [facility] 03/17/2025 09:43:37 03/02/20 25 Allergy Immunotherapy Injections completed BECKY TELLEZ RMA [address], [place], [address], [place] [facility] 03/02/2025 10:27:07 02/25/20 25 Allergy Immunotherapy Injections completed GLORY CHANCE RN [address], [place], [address], [place] [facility] 02/24/2025 14:58:39 02/17/20 25 Allergy Immunotherapy Injections completed KARISSA IRVIN, RMA [address], [place], [address], [place] [facility] 02/16/2025 14:25:33 02/04/20 25 Allergy Immunotherapy Injections completed KARISSA KAILEYZEC, RMA [address], [place], [address], [place] [facility] 02/03/2025 09:35:41 01/27/20 25 Allergy Immunotherapy Injections completed KARISSA IRVIN, RMA [address], [place], [address], [place] [facility] 01/26/2025 15:34:28 01/19/20 25 Allergy Immunotherapy Injections completed BECKY TELLEZ, RMA [address], [place], [address], [place] [facility] 01/18/2025 10:45:02 01/14/20 25 Allergy Immunotherapy Injections completed KARISSA IRVIN, RMA [address], [place], [address], [place] [facility] 01/13/2025 14:19:15 01/07/20 25 Allergy Immunotherapy Injections completed GLORY CHANCE RN [address], [place], [address], [place] [facility] 01/06/2025 10:20:16 12/23/19 25 Allergy Immunotherapy Injections completed KARISSA IRVIN, RMA [address], [place], [address], [place] [facility] 12/22/2024 16:16:14 12/17/19 25 Allergy Immunotherapy Injections completed GLORY CHANCE RN [address], [place], [address], [place] [facility] 12/16/2024 10:05:08 12/01/19 25 Allergy Immunotherapy Injections completed KARISSA IRVIN, RMA [address], [place], [address], [place] [facility] 11/30/2024 14:28:25 11/26/19 25 Allergy Immunotherapy Injections completed GLORY CHANCE RN [address], [place], [address], [place] [facility] 11/25/2024 13:58:56 11/19/19 25 Allergy Immunotherapy Injections completed GLORY CHANCE RN [address], [place], [address], [place] [facility] 11/18/2024 15:03:49 11/12/19 25 Allergy Immunotherapy Injections completed KARISSA IRVIN, RMA [address], [place], [address], [place] [facility] 11/11/2024 14:35:30 11/03/19 25 Allergy Immunotherapy Injections completed KARISSA IRVIN RMA [address], [place], [address], [place] [facility] 11/02/2024 11:18:48 10/29/19 25 Allergy Immunotherapy Injections completed GENARO GOMEZ [address], [place], [address], [place] [facility] 10/28/2024 12:07:38 10/22/19 25 Allergy Immunotherapy Injections completed KARISSA IRVIN RMA [address], [place], [address], [place] [facility] 10/21/2024 14:48:48 10/15/19 25 Allergy Immunotherapy Injections completed GENARO GOMEZ [address], [place], [address], [place] [facility] 10/14/2024 09:30:19 10/07/19 25 Allergy Immunotherapy Injections completed GLORY CHANCE RN [address], [place], [address], [place] [facility] 10/07/2024 09:34:51 09/09/19 25 Allergy Immunotherapy Injections completed GENARO GOMEZ [address], [place], [address], [place] [facility] 09/09/2024 12:08:11 09/02/19 25 Allergy Immunotherapy Injections completed GLORY CHANCE RN [address], [place], [address], [place] [facility] 09/02/2024 11:18:45 08/26/19 25 Allergy Immunotherapy Injections completed KARISSA IRVIN, RMA [address], [place], [address], [place] [facility] 08/26/2024 10:14:32 08/19/19 25 Allergy Immunotherapy Injections completed KARISSA IRVIN, RMA [address], [place], [address], [place] [facility] 08/19/2024 12:05:52 07/15/20 24 Allergy Immunotherapy Injections completed KARISSA IRVIN, RMA [address], [place], [address], [place] [facility] 07/15/2024 15:28:49 07/08/20 24 Allergy Immunotherapy Injections completed KARISSA IRVIN, RMA [address], [place], [address], [place] [facility] 07/08/2024 10:51:03 07/01/20 24 Allergy Immunotherapy Injections completed KARISSA IRVIN, RMA [address], [place], [address], [place] [facility] 07/01/2024 12:06:05 06/24/20 24 Allergy Immunotherapy Injections completed KARISSA IRVIN, RMA [address], [place], [address], [place] [facility] 06/24/2024 10:43:53 05/27/20 24 Allergy Immunotherapy Injections completed GLORY CHANCE RN [address], [place], [address], [place] [facility] 05/27/2024 14:17:32 05/20/20 24 Allergy Immunotherapy Injections completed BECKY TELLEZ RMA [address], [place], [address], [place] [facility] 05/20/2024 14:53:55 05/06/20 24 Allergy Immunotherapy Injections completed KARISSA KAILEYZEC, RMA [address], [place], [address], [place] [facility] 05/06/2024 12:16:34 04/22/20 24 Allergy Immunotherapy Injections completed KARISSA KORZEC, RMA [address], [place], [address], [place] [facility] 04/22/2024 14:44:11 04/14/20 24 Allergy Immunotherapy Injections completed KARISSA KORZEC, RMA [address], [place], [address], [place] [facility] 04/14/2024 09:39:13 04/07/20 24 Allergy Immunotherapy Injections completed GLORY CHANCE RN [address] [place] [address], [address], [place] [facility] 04/07/2024 10:47:25 03/30/20 24 Allergy Immunotherapy Injections completed GLORY CHANCE RN [address] [facility], [place], [address], [place] [facility] 03/30/2024 16:46:23 03/25/20 24 Allergy Immunotherapy Injections completed GLORY CHANCE RN [address] [place] [address], [address], [place] [facility] 03/25/2024 09:57:47 03/16/20 24 Allergy Immunotherapy Injections completed GLORY CHANCE RN [address] [place] [address], [address], [place] [facility] 03/16/2024 16:30:45 03/01/20 24 Allergy Immunotherapy Injections completed GLORY CHANCE RN [address] [place] [address], [address], [place] [facility] 03/01/2024 14:09:49 02/24/20 24 Allergy Immunotherapy Injections completed KARISSA IRVIN, RMA [address], [place], [address], [place] [facility] 02/24/2024 11:58:32 02/19/20 24 Allergy Immunotherapy Injections completed YOGI GOMEZA [address], [place], [address], [place] [facility] 02/19/2024 11:57:43 02/05/20 24 Allergy Immunotherapy Injections completed KARISSA IRVIN, RMA [address], [place], [address], [place] [facility] 02/05/2024 13:29:36 01/22/20 24 Allergy Immunotherapy Injections completed KARISSA MAKC, RMA [address], [place], [address], [place] [facility] 01/22/2024 15:12:23 01/07/20 24 Allergy Immunotherapy Injections completed YOGI GOMEZA [address], [place], [address], [place] [facility] 01/07/2024 10:29:05 01/01/20 24 Allergy Immunotherapy Injections completed BECKY TELLEZ RMA [address] [facility], [place], [address], [place] [facility] 01/01/2024 09:50:13 12/25/19 24 Allergy Immunotherapy Injections completed KARISSA IRVIN, RMA [address], [place], [address], [place] [facility] 12/25/2023 15:20:45 08/12/19 23 Tonsillectomy completed NERI KRISHNA MD [address] [place] [address], [address], [facility] 07/25/2024 00:29:19 08/18/19 20 Septoplasty completed NERI KRISHNA MD [address] [place] [address], [address], [facility] - [facility] 07/25/2024 00:29:56 Imaging Results None recorded. Procedure Notes None recorded. Medical Equipment None Reported. Allergies No known drug allergies Medications Name Sig Start Date Stop Date Status Note LastModified by Organization Details LastModified Time prednison e 10 mg tablet TAKE 4 TABS DAILY FOR 5 DAYS, THEN GO DOWN BY 1 TAB EVERY 5 DAYS DIRECTED 01/18 completed Not Available Not Available Not Available Vitamin B-6 25 mg tablet 07/14 completed Medicati on ID: [id number] D uration Value: 60 Brand Name: Vitamin [...] t Available azithromy marcial 250 mg tablet TAKE 2 TABLETS BY MOUTH TODAY, THEN TAKE 1 TABLET DAILY FOR 4 DAYS DIRECTED 01/18 completed Not Available Not Available Not Available albuterol sulfate 1.25 mg/3 mL solution for nebulizat ion 2018 active Medicati on ID: [id number] D uration Value: 25 Brand Name: albutero l sulfate Send Method: E-Prescr ibed Sub s Allowed: subs OK Speci al Instruct ion: INHALE 1 VIAL VIA NEBULIZE R EVERY 8 HRS NEEDED M edicatio nGeneric Name: albutero l sulfate Not Available Not Available Not Available ondansetr on HCl 4 mg tablet 07/14 completed Medicati on ID: [id number] B rand Name: ondanset yuko HCl Send [...] POR V A ORAL TODOS LOS D 01/18 completed Not Available Not Available Not Available clobetaso l 0.05 % topical cream 03/30 completed Medicati on ID: [id number] D uration Value: 10 Reason: () Brand [...] every six hours as needed for pain 01/18 completed Medicati on ID: [id number] D uration Value: 5 Brand Name: oxycodon [...] A CUANDO SEA NECESARI O FOR COUGH 01/18 completed Not Available Not Available Not Available oseltamiv ir 75 mg capsule TAKE 1 CAPSULE BY MOUTH TWICE DAILY FOR 5 DAYS. 01/18 completed Not Available Not Available Not Available lidocaine 5 % topical patch APPLY 1 PATCH TOPICALL Y DAILY NEEDED FOR MILD PAIN REMOVE AFTER 12 HOURS 01/18 completed Not Available Not Available Not Available progester one micronize d 200 mg capsule PLEASE SEE ATTACHED FOR DETAILED DIRECTIO NS 01/18 completed Not Available Not Available Not Available sertralin e 25 mg tablet 01/18 completed Medicati on ID: [id number] B rand Name: sertrali ne Send Method: E-Prescr ibed Sub s Allowed: subs OK Medic ationGen ericName : sertrali ne Not Available Not Available Not Available omeprazol e 20 mg capsule,d elayed release 03/30 completed Medicati on ID: [id number] D uration Value: 30 Reason: () Brand Name: omeprazo le Send Method: E-Prescr ibed Sub s Allowed: subs OK Speci al Instruct ion: TOME MARCELL C?PSULA TODOS LOS D? Med icationG enericNa me: omeprazo le Not Available Not Available Not Available monteluka st 10 mg tablet 1 tablet by mouth 03/30 completed Medicati on ID: [id number] P rescribe d By Name: Lisa Zapien nd Name: monteluk ast Send Method: E-Prescr ibed Sub s Allowed: subs OK Speci al Instruct ion: Take 1 tablet by mouth every day in the evening Medicati onGeneri cName: monteluk ast Not Available Not Available Not Available hydroxyzi ne HCl 25 mg tablet 03/30 completed Medicati on ID: [id number] D uration Value: 30 Reason: () Brand Name: hydroxyz ine HCl Send Method: E-Prescr ibed Sub s Allowed: subs OK Speci al Instruct ion: TOME MARCELL TABLETA POR V?A ORAL TODOS LOS D? CUANDO SEA NECESARI O FOR 30 DAYS Med icationG enericNa me: hydroxyz ine HCl Not Available Not Available Not Available azelastin e 137 mcg (0.1 %) nasal spray Strawn 2 spray into both nostrils twice a day as directed 07/25 completed Medicati on ID: [id number] D uration Value: 30 Prescri bed By Name: GREGORY Curiel nd Name: azelasti ne Send Method: E-Prescr ibed Sub s Allowed: subs OK Medic ationGen ericName : azelasti ne Not Available Not Available Not Available epinephri ne 0.3 mg/0.3 mL injection , auto-inje ctor INJECT 1 PEN INJECTOR INTRAMUS CULARLY SINGLE DOSE active Not Available Not Available No t Available ibuprofen 600 mg tablet 03/30 completed Medicati on ID: [id number] D uration Value: 10 Reason: () Brand [...] dose pack 07/29 completed Medicati on ID: [id number] D uration Value: 6 Brand Name: methylpr ednisolo ne Send Method: E-Prescr ibed Sub s Allowed: subs OK Medic ationGen ericName : methylpr ednisolo ne Not Available Not Available Not Available oxycodone 5 mg tablet 08/12 completed Medicati on ID: [id number] B rand Name: oxycodon e Send Method: [...] mg tablet 01/14 completed Medicati on ID: [id number] B rand Name: cycloben zaprine Send Method: E-Prescr ibed Sub s Allowed: subs OK Speci al Instruct ion: TOME MARCELL TABLETA KATJA VECES AL D A PARA EL ESPASMO MUSCULAR CUANDO SEA NECESARI O Medica tionGene ricName: cycloben zaprine Not Available Not Available Not Available bupropion HCl XL 150 mg 24 hr tablet, extended release 03/30 completed Medicati on ID: [id number] D uration Value: 30 Reason: () Brand Name: bupropio n HCl Send Method: E-Prescr ibed Sub s Allowed: subs OK Speci al Instruct ion: TOME MARCELL TABLETA TODOS LOS D? EN LA MA?TAB edicatio nGeneric Name: bupropio n HCl Not Available Not Available Not Available Flovent HFA 110 mcg/actua tion aerosol inhaler 01/14 completed Medicati on ID: [id number] B rand Name: Flovent HFA Send Method: E-Prescr ibed Sub s Allowed: subs OK Medic ationGen ericName : Flovent HFA Not Available Not Available Not Available Depo-SubQ provera 104 104 mg/0.65 mL subcutane ous syringe 01/14 completed Medicati on ID: [id number] B rand Name: Depo-Sub Q provera 104 Send Method: E-Prescr ibed Sub s Allowed: subs OK Medic ationGen ericName : Depo-Sub Q provera 104 Not Available Not Available Not Available Breo Ellipta 200 mcg-25 mcg/dose powder for inhalatio n USE 1 INHALATI ON DAILY active Not Available Not Available No t Available Qvar RediHaler 40 mcg/actua tion HFA breath activated aerosol 01/18 completed Medicati on ID: [id number] B rand Name: Siomara RediHale r Send Method: E-Prescr ibed Sub s Allowed: subs OK Medic ationGen ericName : Qvar RediHale r Not Available Not Available Not Available Gummies 400 mcg-35 mg-25 mg-5 mg chewable tablet 07/14 completed Medicati on ID: [id number] D uration Value: 90 Brand Name: Gummies [...] Diagnosis SNOMED-CT Code Diagnosis ICD10 Code Diagnosis IMO Codes Diagnosis Note [id number] GLORY CHANCE RN Allergy [address] [place] [address] [address] [place] [address] 04/14/2025 09:18:13 04/14/2025 09:28:02 Perennial allergic rhinitis [id number] J30.89 [id number] KARISSA OBDULIO, RMA Allergy [address] [place] [address] [address] [place] [address] 04/21/2025 09:17:57 04/21/2025 09:53:54 Perennial allergic rhinitis [id number] J30.89 [id number] KARISSA OBDULIO, RMA Allergy [address] [place] [address],[place] [address] [place] [address] 04/27/2025 09:26:31 04/27/2025 10:38:28 Perennial allergic rhinitis [id number] J30.89 [id number] GLORY CHANCE RN Allergy [address] [place] [address] [address] [place] [address] 05/04/2025 09:12:37 05/04/2025 09:52:29 Perennial allergic rhinitis [id number] J30.89 [id number] GLORY CHANCE RN Allergy [address] [facility] [address] [place] [address] 05/09/2025 09:17:55 05/09/2025 11:56:55 Perennial allergic rhinitis [id number] J30.89 Health Concerns Section Related Observation LastModified by Organization Detai ls LastModified Time None Recorded Concern Status LastModified by Organization Details LastModified Time None Recorded Payers Encounter Date Sequence Insurance Name Policy Number Policy Sykes Covered Member ID Sykes Member ID Guarantor Name 05/09/2025 1 [facility] NET PLAN (MEDICAID HMO) CHELSI bella [id number] Gigi Kendrick OBGyn Episode No OBEpisode recorded.
--- OUTSIDE RECORDS SUMMARY | 2025-05-10 10:49 | XMS_ITS | Data Portability ---
Author Organization [place] - [facility], Allergy Address [address] [place] [address] Assessment Encounter Date Assessment Date Assessment LastModified by Organization Details LastModified Time 04/14/2025 04/14/2025 Visit With: Tiara Krishna [place] Use of Antihistamine s: No If yes: Vial Test Change in medications: No If yes Increase in asthma symptoms No If yes, inhaler use: Reaction to last injections: No If yes: Allergy Symptoms: Other: Missed: Dose Aware of Vial Test Aware: Notes: Not available 04/14/2025 09:49:21 04/21/2025 04/21/2025 Visit With: GENARO Rogers Use of Antihistamine s: No If yes: Vial Test Change in medications: No If yes Increase in asthma symptoms If yes, inhaler use: Reaction to last injections: No If yes: Allergy Symptoms: Other: Missed: Dose Aware of Vial Test Aware: Notes: sd Not available 04/21/2025 09:53:40 04/27/2025 04/27/2025 Visit With: GENARO Rogers Use of Antihistamine s: No If yes: Vial Test Change in medications: No If yes Increase in asthma symptoms If yes, inhaler use: Reaction to last injections: No If yes: Allergy Symptoms: Other: Missed: Dose Aware of Vial Test Aware: Notes: sd Not available 04/27/2025 10:31:11 05/04/2025 05/04/2025 Visit With: Glory Chance RN Use of Antihistamine s: No If yes: Vial Test Change in medications: No If yes Increase in asthma symptoms No If yes, inhaler use: Reaction to last injections: No If yes: Allergy Symptoms: Other: Missed: Dose Aware of Vial Test Yes Aware: Notes: [email or web address] Not available 05/04/2025 09:51:58 05/09/2025 05/09/2025 Visit With: Becky Bravo Use of Antihistamine s: No If yes: [...] Organization Details Last Modified Time Details Appointments [facility]- Allergy f-up 6mon 2024 11:00A M NERI [...] Time Hypertro phy of nasal turbinat es 66223403 Active 2018 Hypertro phy of nasal turbinat es; Note: Date Diagnose d: 9 12:38 PM (J34.3) Not Available [facility] 03:07:20 Uncompli cated moderate persiste nt asthma 620906102 Active 2018 Moderate persiste nt asthma NOS; Note: Date Diagnose d: 9 10:53 AM (J45.40) Not Available [facility] 03[facility]21 Nasal congesti on 97909482 Active 2018 Nasal congesti on; Note: Date Diagnose d: 9 10:51 AM (R09.81) Not Available [facility] 4 03:07:21 Deviated nasal septum 072930130 Active 2018 Deviated nasal septum; Note: Date Diagnose d: 9 12:38 PM (J34.2) Not Available [facility] 4 03:07:20 Follow-u p visit Active 2019 Medical surveill ance followin g complete d treatmen t; Note: Date Diagnose d: 0 3:20 PM (Z09) Not Available [facility] 4 03:07:19 Snoring 85938752 Active 2019 Snoring; Note: Date Diagnose d: 0 3:44 PM (R06.83) Not Available [facility] 4 03:07:21 Contusio n of nose 53699434 Active 2021 Contusio n of nose, initial encounte r; Note: Date Diagnose d: 2 11:21 AM (S00.33X A) Not Available [facility] hospital 4 03:07:19 Chronic tonsilli tis 15538345 Completed 202103/11/2024 Chronic tonsilli tis; Note: Date Diagnose d: 04/18/2022 12:18 PM (J35.01) Not Available [facility] 4 03:07:19 Chronic disease of tonsils AND/OR adenoids 93217917 Completed 202103/11/2024 Calculus , tonsil; Note: Date Diagnose d: 04/18/2022 12:18 PM (J35.8) Not Available [facility] 4 03:07:19 Abnormal auditory percepti on 44932510 Active 2022 Other abnormal auditory percepti ons, bilatera l; Note: Date Diagnose d: 3 12:05 PM (H93.293 ) Other abnormal auditory percepti ons, bilatera l; Note: Date Diagnose d: 01/14/2023 9:47 AM (H93.293 ) ; Start Date : 01/15/20 Not Available Critical access hospital 4 03:07:20 Allergic rhinitis 11922613 Active 2023 Allergic rhinitis : Due to [...] 3:56 PM (477.8) Note: Date Diagnose d: 3 3:56 PM (477.8) ; Start Date : [...] other allergen ; Note: Date Diagnose d: 11:15 AM (477.8) Note: Date Diagnose d: 11:15 AM (477.8) ; Start Date : 01/31/20 Aller gic rhinitis : Due to other allergen ; Note: Date Diagnose d: 3 11:09 AM (4 Not Available [facility] 4 01:19:06 Perennia l allergic rhinitis 251375091 Active 2023 GLORY CHANCE, MARY [address] [place] [address], [place], [address] , [place] [facility] 5 11:55:00 Exacerba tion of moderate persiste nt asthma 271177471 Active 2023 NERI NUNO MD [address], [place], [address] , [place] [facility] 4 10:56:48 Acute respirat ory syncytia l virus bronchit is 582298695 Active 2023 NERI NUNO MD [address], [place], [address] , [place] [facility] 4 10:56:56 Uncompli cated mild persiste nt asthma 891912185 Active 2024 NERI NUNO MD [address], [place], [address] , [place] [facility] 5 11:13:55 Problem Notes None recorded. Procedures Surgical History Date Name Laterality Status Provider Name and Address Organization Details Recorded Time 05/09/20 25 Allergy Immunotherapy Injections completed GLORY CHANCE RN 100 [facility],[address], [address], [place] [facility] 05/09/2025 11:56:12 05/04/20 25 Allergy Immunotherapy Injections completed GL[facility] CHANCE RN [facility],[address], [address], [place] [facility] 05/04/2025 09:51:49 04/27/20 25 Allergy Immunotherapy Injections completed KARISSA IRVIN Nicol [address] [address] [place] [address], [address], [place] [facility] 04/27/2025 10:30:59 04/21/20 25 Allergy Immunotherapy Injections completed GENARO ROGERS [address] [facility], [place], [address], [place] [facility] 04/21/2025 09:53:31 04/14/20 25 Allergy Immunotherapy Injections completed Tiara Tomi [address], [place], [address], [place] [facility] 04/14/2025 09:49:11 04/07/20 25 Allergy Immunotherapy Injections completed KARISSA IRVIN, RMA [address], [place], [address], [place] [facility] 04/07/2025 12:03:37 03/31/20 25 Allergy Immunotherapy Injections completed YOGI GOMEZA [address], [place], [address], [place] [facility] 03/31/2025 14:37:21 03/24/20 25 Allergy Immunotherapy Injections completed Tiara Krishna [address], [place], [address], [place] [facility] 03/24/2025 11:51:03 03/17/20 25 Allergy Immunotherapy Injections completed Tiara Krishna [address] [address], [place], [address], [place] [facility] 03/17/2025 09:43:37 03/02/20 25 Allergy Immunotherapy Injections completed BECKY BRAVO A [address] [place] [address], [address], [facility] - [facility] 03/02/2025 10:27:07 02/25/20 25 Allergy Immunotherapy Injections completed GLORY CHANCE RN [address] [address] [place] [address], [address], [place] [facility] 02/24/2025 14:58:39 02/17/20 25 Allergy Immunotherapy Injections completed KARISSA IRVIN, RMA [address] [address], [place], [address], [place] [facility] 02/16/2025 14:25:33 02/04/20 25 Allergy Immunotherapy Injections completed KARISSA MAKC, RMA [address], [place], [address], [place] [facility] 02/03/2025 09:35:41 01/27/20 25 Allergy Immunotherapy Injections completed KARISSA KORZEC, RMA [address], [place], [address], [place] [facility] 01/26/2025 15:34:28 01/19/20 25 Allergy Immunotherapy Injections completed BECKY BRAVO, RMA [address], [place], [address], [place] [facility] 01/18/2025 10:45:02 01/14/20 25 Allergy Immunotherapy Injections completed KARISSA IRVIN, RMA [address], [place], [address], [place] [facility] 01/13/2025 14:19:15 01/07/20 25 Allergy Immunotherapy Injections completed GLORY CHANCE RN [address] [address], [place], [address], [place] [facility] 01/06/2025 10:20:16 12/23/19 25 Allergy Immunotherapy Injections completed KARISSA IRVIN RMNicol [address] [address], [place], [address], [place] [facility] 12/22/2024 16:16:14 12/17/19 25 Allergy Immunotherapy Injections completed GLORY CHANCE RN [address] [facility] [address] [place] [address], [address], [place] [facility] 12/16/2024 10:05:08 12/01/19 25 Allergy Immunotherapy Injections completed KARISSA IRVIN RMNicol [address], [place], [address], [place] [facility] 11/30/2024 14:28:25 11/26/19 25 Allergy Immunotherapy Injections completed GLORY CHANCE RN [address] [address], [place], [address], [place] [facility] 11/25/2024 13:58:56 11/19/19 25 Allergy Immunotherapy Injections completed GLORY CHANCE RN [address] [address], [place], [address], [place] [facility] 11/18/2024 15:03:49 11/12/19 25 Allergy Immunotherapy Injections completed KARISSA KORZEC, RMA [address], [place], [address], [place] [facility] 11/11/2024 14:35:30 11/03/19 25 Allergy Immunotherapy Injections completed KARISSA MAKC, RMA [address], [place], [address], [place] [facility] 11/02/2024 11:18:48 10/29/19 25 Allergy Immunotherapy Injections completed BECKY BRAVO RMA [address], [place], [address], [place] [facility] 10/28/2024 12:07:38 10/22/19 25 Allergy Immunotherapy Injections completed KARISSA MAKC, RMA [address], [place], [address], [place] [facility] 10/21/2024 14:48:48 10/15/19 25 Allergy Immunotherapy Injections completed YOGI GOMEZA [address], [place], [address], [place] [facility] 10/14/2024 09:30:19 10/07/19 25 Allergy Immunotherapy Injections completed GLORY CHANCE RN [address] [facility] [address] [place] [address], [address], [place] [facility] 10/07/2024 09:34:51 09/09/19 25 Allergy Immunotherapy Injections completed GENARO GOMEZ [address] [place] [address], [address], [place] [facility] 09/09/2024 12:08:11 09/02/19 25 Allergy Immunotherapy Injections completed GLORY CHANCE RN [address] [place] [address], [address], [place] [facility] 09/02/2024 11:18:45 08/26/19 25 Allergy Immunotherapy Injections completed KARISSA IRVIN, RMA [address], [place], [address], [place] [facility] 08/26/2024 10:14:32 08/19/19 25 Allergy Immunotherapy Injections completed KARISSA KORZEC, RMA [address], [place], [address], [place] [facility] 08/19/2024 12:05:52 07/15/20 24 Allergy Immunotherapy Injections completed KARISSA KORZEC, RMA [address], [place], [address], [place] [facility] 07/15/2024 15:28:49 07/08/20 24 Allergy Immunotherapy Injections completed KARISSA KORZEC, RMA [address], [place], [address], [place] [facility] 07/08/2024 10:51:03 07/01/20 24 Allergy Immunotherapy Injections completed KARISSA KORZEC, RMA [address], [place], [address], [place] [facility] 07/01/2024 12:06:05 06/24/20 24 Allergy Immunotherapy Injections completed KARISSA KAILEYZEC, RMA [address], [place], [address], [place] [facility] 06/24/2024 10:43:53 05/27/20 24 Allergy Immunotherapy Injections completed GLORY CHANCE RN [address] [facility] [address], [place], [address], [place] [facility] 05/27/2024 14:17:32 05/20/20 24 Allergy Immunotherapy Injections completed BECKY BRAVO Nicol [address] [facility] [address], [place], [address], [place] [facility] 05/20/2024 14:53:55 05/06/20 24 Allergy Immunotherapy [facility]jections [facility] [address], [place], [address], [place] [facility] 05/06/2024 12:16:34 04/22/20 24 Allergy Immunotherapy Injections completed KARISSA KORZEC, RMA [address], [place], [address], [place] [facility] 04/22/2024 14:44:11 04/14/20 24 Allergy Immunotherapy Injections completed GENARO ROGERS [address], [place], [address], [place] [facility] 04/14/2024 09:39:13 04/07/20 24 Allergy Immunotherapy Injections completed GLORY CHANCE RN [address] [facility] [address], [place], [address], [place] [facility] 04/07/2024 10:47:25 03/30/20 24 Allergy Immunotherapy Injections completed GLORY CHANCE RN [address] [facility] [address], [place], [address], [place] [facility] 03/30/2024 16:46:23 03/25/20 24 Allergy Immunotherapy Injections completed GLORY CHANCE RN [address] [facility] [address], [place], [address], [place] [facility] 03/25/2024 09:57:47 03/16/20 24 Allergy Immunotherapy Injections completed GLORY CHANCE RN [address] [facility] [address] [facility], [place], [address], [place] [facility] 03/16/2024 16:30:45 03/01/20 24 Allergy Immunotherapy Injections completed GLORY CHANCE RN [address] [facility] [address] [place] [address], [address], [place] [facility] 03/01/2024 14:09:49 02/24/20 24 Allergy Immunotherapy Injections completed GENARO ROGERS [address] [facility] [address], [place], [address], [place] [facility] 02/24/2024 11:58:32 02/19/20 24 Allergy Immunotherapy Injections completed GENARO GOMEZ [address], [place], [address], [place] [facility] 02/19/2024 11:57:43 02/05/20 24 Allergy Immunotherapy Injections completed KARISSA IRVIN RMNicol [address], [place], [address], [place] [facility] 02/05/2024 13:29:36 01/22/20 24 Allergy Immunotherapy Injections completed KARISSA BONNEREMMETT, RMA [address], [place], [address], [facility] - [facility] 01/22/2024 15:12:23 01/07/20 24 Allergy Immunotherapy Injections completed BECKY BRAVO [facility] [address], [place], [address], [facility] - [facility] 01/07/2024 10:29:05 01/01/20 24 Allergy Immunotherapy Injections completed BECKY BRAVO [facility] [address] [address], [place], [address], [facility] - [facility] 01/01/2024 09:50:13 12/25/19 24 Allergy Immunotherapy Injections completed KARISSA IRVIN, [facility] [address] [address], [place], [address], [facility] - [facility] 12/25/2023 15:20:45 08/12/19 23 Tonsillectomy completed NERI KRISHNA MD 100 [facility],[address], [address], [facility] - [facility] 07/25/2024 00:29:19 08/18/19 20 Septoplasty completed NERI KRISHNA MD [address] [facility],[address] [place] [address], [address], [facility] - [facility] 07/25/2024 00:29:56 Imaging Results None [...] mg tablet 07/14 completed Medicati on ID: [id number] D uration Value: 60 Brand Name: Vitamin [...] nebulizat ion 2018 active Medicati on ID: [id number] D uration Value: 25 Brand Name: albutero l sulfate Send Method: E-Prescr ibed Sub s Allowed: subs OK Speci al Instruct ion: INHALE 1 VIAL VIA NEBULIZE R EVERY 8 HRS NEEDED M edicatio nGeneric Name: albutero l sulfate Not Available Not Available Not Available ondansetr on HCl 4 mg tablet 07/14 completed Medicati on ID: [id number] B rand Name: ondanset yuko HCl Send [...] topical cream 03/30 completed Medicati on ID: [id number] D uration Value: 10 Reason: () Brand [...] for pain 01/18 completed Medicati on ID: [id number] D uration Value: 5 Brand Name: oxycodon [...] mg tablet 01/18 completed Medicati on ID: [id number] B rand Name: sertrali ne Send Method: E-Prescr ibed Sub s Allowed: subs OK Medic ationGen ericName : sertrali ne Not Available Not Available Not Available omeprazol e 20 mg capsule,d elayed release 03/30 completed Medicati on ID: [id number] D uration Value: 30 Reason: () Brand Name: omeprazo le Send Method: E-Prescr ibed Sub s Allowed: subs OK Speci al Instruct ion: TOME MARCELL C?PSULA TODOS LOS D? Med icationG enericNa me: omeprazo le Not Available Not Available Not Available monteluka st 10 mg tablet 1 tablet by mouth 03/30 completed Medicati on ID: [id number] P rescribe d By Name: Lisa Zapien nd Name: monteluk ast Send Method: E-Prescr ibed Sub s Allowed: subs OK Speci al Instruct ion: Take 1 tablet by mouth every day in the evening Medicati onGeneri cName: monteluk ast Not Available Not Available Not Available hydroxyzi ne HCl 25 mg tablet 03/30 completed Medicati on ID: [id number] D uration Value: 30 Reason: () Brand Name: hydroxyz ine HCl Send Method: E-Prescr ibed Sub s Allowed: subs OK Speci al Instruct ion: TOME MARCELL TABLETA POR V?A ORAL TODOS LOS D? CUANDO SEA NECESARI O FOR 30 DAYS Med icationG enericNa me: hydroxyz ine HCl Not Available Not Available Not Available azelastin e 137 mcg (0.1 %) nasal spray Nordman 2 spray into both nostrils twice a day as directed 07/25 completed Medicati on ID: [id number] D uration Value: 30 Prescri bed By [...] mg tablet 03/30 completed Medicati on ID: [id number] D uration Value: 10 Reason: () Brand Name: ibuprofe n Send Method: E-Prescr ibed Sub s Allowed: subs OK Speci al Instruct ion: TAKE 1 TABLET WITH FOOD OR MILK NEEDED THREE TIMES A DAY ORALLY 10 DAYS [facility] en[facility] me: ibuprofe n Not Available Not Available Not Available methylpre dnisolone 4 mg tablets in a dose pack 07/29 completed Medicati on ID: [id number] D uration Value: 6 Brand Name: methylpr ednisolo ne Send Method: E-Prescr ibed Sub s Allowed: subs OK Medic ationGen ericName : methylpr ednisolo ne Not Available Not Available Not Available oxycodone 5 mg tablet 08/12 completed Medicati on ID: [id number] B rand Name: oxycodon e Send Method: [...] mg tablet 01/14 completed Medicati on ID: [id number] B rand Name: markie alanisrine Send Method: E-Prescr ibed Sub s Allowed: subs OK Speci al Instruct ion: TOME MARCELL TABLETA KATJA VECES AL D A PARA EL ESPASMO MUSCULAR CUANDO SEA NECESARI O Medica tionGene ricName: meraribedagoberto zaprine Not Available Not Available Not Available bupropion HCl XL 150 mg 24 hr tablet, extended release 03/30 completed Medicati on ID: [id number] D uration Value: 30 Reason: () Brand Name: bupropio n HCl Send Method: E-Prescr ibed Sub s Allowed: subs OK Speci al Instruct ion: TOME MARCELL TABLETA TODOS LOS D? EN LA MA?TAB edicatio nGeneric Name: bupropio n HCl Not Available Not Available Not Available Flovent HFA 110 mcg/actua tion aerosol inhaler 01/14 completed Medicati on ID: [id number] B rand Name: Flovent HFA Send Method: E-Prescr ibed Sub s Allowed: subs OK Medic ationGen ericName : Flovent HFA Not Available Not Available Not Available Depo-SubQ provera 104 104 mg/0.65 mL subcutane ous syringe 01/14 completed Medicati on ID: [id number] B rand Name: Depo-Sub Q provera 104 [...] activated aerosol 01/18 completed Medicati on ID: [id number] B rand Name: Qvar [employer]iHale r Send Method: E-Prescr ibed Sub s Allowed: subs OK Medic ationGen ericName : Qvar [employer]ale r Not Available Not Available Not Available Gummies 400 mcg-35 mg-25 mg-5 mg chewable tablet 07/14 completed Medicati on ID: [id number] D uration Value: 90 Brand Name: Gummies [...] ICD10 Code Diagnosis IMO Codes Diagnosis Note 750 KARISSA IRVIN RMA Allergy 100 [facility],[address] [place] [address] 12/25/2023 14:43:25 12/29/2023 08:48:44 Perennial allergic rhinitis [id number] J30.89 1424 BECKY BRAVO A Allergy [address] [place] [address],[address] [place] [address] 01/01/2024 09:36:15 01/01/2024 09:56:52 Perennial allergic rhinitis [id number] J30.89 2019 BECKY BRAVO A Allergy 100 [facility],[address] [place] [address] 01/07/2024 10:20:29 01/07/2024 10:28:06 Perennial allergic rhinitis [id number] J30.89 [id number] KARISSA IRVIN RMA Allergy 100 [facility],[address] [place] [address] 01/22/2024 14:40:30 01/22/2024 15:26:50 Perennial allergic rhinitis [id number] J30.89 [id number] KARISSA IRVIN RMA Allergy 100 [facility],[address] [place] [address] 02/05/2024 13:07:34 02/05/2024 13:43:16 Perennial allergic rhinitis [id number] J30.89 [id number] KARISSA IRVIN RMA Allergy 100 [facility],[address] [place] [address] 02/19/2024 11:19:36 02/19/2024 13:05:59 Perennial allergic rhinitis [id number] J30.89 [id number] [facility] Allergy [address] [place] [address] [address] [place] [address] 02/24/2024 11:42:37 02/24/2024 13:00:06 Perennial allergic rhinitis [id number] J30.89 [id number] GLORY CHANCE RN Allergy [address] [place] [address] [address] [place] [address] 03/01/2024 13:30:55 03/01/2024 14:10:09 Perennial allergic rhinitis [id number] J30.89 [id number] GLORY CHANCE RN Allergy [address] [place], [place] [address] [place] [address] 03/16/2024 15:42:09 03/16/2024 16:54:31 Perennial allergic rhinitis [id number] J30.89 [id number] GLORY CHANCE RN Allergy [address] [place] [address] [address] [place] [address] 03/25/2024 09:57:02 03/25/2024 09:59:06 Perennial allergic rhinitis [id number] J30.89 [id number] BECKY BRAVO, [facility] Allergy [address] [place] [address] [address] [place] [address] 03/30/2024 15:51:02 03/30/2024 16:46:47 Perennial allergic rhinitis [id number] J30.89 [id number] GLORY CHANCE RN Allergy [address] [place] [address] [address] [place] [address] 04/07/2024 09:02:30 04/07/2024 10:48:22 Perennial allergic rhinitis [id number] J30.89 [id number] [facility] Allergy [address] [place] [address] [address] [place] [address] 04/14/2024 09:36:57 04/14/2024 10:01:59 Perennial allergic rhinitis [id number] J30.89 [id number] [facility] Allergy [address] [place] [address] 04/22/2024 14:39:52 04/22/2024 15:41:42 Perennial allergic rhinitis [id number] J30.89 [id number] KARISSA MAK, [facility] Allergy [address] [place] [address],[address] [place] [address] 05/06/2024 11:47:02 05/06/2024 12:17:17 Perennial allergic rhinitis [id number] J30.89 [id number] KARISSA MAK, [facility] Allergy [address] [place] [address],[address] [place] [address] 05/20/2024 14:53:04 05/20/2024 16:14:07 Perennial allergic rhinitis [id number] J30.89 [id number] GLORY CHANCE RN Allergy [address] [place] [address],[address] [place] [address] 05/27/2024 14:16:54 05/27/2024 14:18:01 Perennial allergic rhinitis [id number] J30.89 [id number] KARISSA OBDULIO, [facility] Allergy [address] [place] [address],[address] [place] [address] 06/24/2024 10:00:17 06/24/2024 10:44:20 Perennial allergic rhinitis [id number] J30.89 [id number] KARISSA MAK, [facility] Allergy [address] [place] [address],[address] [place] [address] 07/01/2024 11:58:54 07/01/2024 12:07:09 Perennial allergic rhinitis [id number] J30.89 [id number] KARISSA MAK, [facility] Allergy [address] [place] [address],[address] [place] [address] 07/08/2024 10:45:09 07/08/2024 10:54:57 Perennial allergic rhinitis [id number] J30.89 [id number] KARISSA OBDULIO, [facility] Allergy [address] [place] [address],[address] [place] [address] 07/15/2024 14:42:28 07/15/2024 15:29:46 Perennial allergic rhinitis [id number] J30.89 [id number] NERI NUNO MD ENTS of [facility] - [facility] 100 [facility] [place] [address] 07/25/2024 10:46:22 07/25/2024 11:03:11 Allergic rhinitis [id number] J30.89 Exacerbati on of moderate persistent asthma [id number] J45.41 Acute resp iratory syncytial virus bronchitis [id number] J20.5 [id number] [facility], [facility] Allergy [address] [place] [address],[facility] [address] [place] [address] 08/19/2024 11:30:02 08/19/2024 12:08:41 Perennial allergic rhinitis [id number] J30.89 [id number] [facility], [facility] Allergy [address] [place] [address],[facility] [address] [place] [address] 08/26/2024 09:08:01 08/26/2024 10:14:57 Perennial allergic rhinitis [id number] J30.89 [id number] [facility] Allergy [address] [place], [place] [address] 100 [facility] [place] [address] 09/02/2024 10:48:25 09/02/2024 11:19:13 Perennial allergic rhinitis [id number] J30.89 [id number] [facility] Allergy [address] [place] [address],[facility] [address] [place] [address] 09/09/2024 11:57:35 09/09/2024 12:08:45 Perennial allergic rhinitis [id number] J30.89 [id number] GLORY CHANCE RN Allergy [address] [place], [place] [address] [address] [place] [address] 10/07/2024 09:15:52 10/07/2024 09:35:05 Perennial allergic rhinitis [id number] J30.89 [id number] BECKY BRAVO [facility] Allergy [address] [place] [address],[address] [place] [address] 10/14/2024 08:46:18 10/14/2024 09:32:32 Perennial allergic rhinitis [id number] J30.89 [id number] BECKY BRAVO [facility] Allergy [address] [place] [address] it 100 [place] [address] 10/21/2024 13:30:32 10/21/2024 14:49:37 Perennial allergic rhinitis [id number] J30.89 [id number] BECKY BRAVO, A Allergy [address] [place] [address],[address] [place] [address] 10/28/2024 11:53:47 10/28/2024 12:08:02 Perennial allergic rhinitis [id number] J30.89 [id number] [facility], [facility] Allergy [address] [place] [address],[address] [place] [address] 11/02/2024 11:12:33 11/02/2024 11:19:36 Perennial allergic rhinitis [id number] J30.89 [id number] [facility] All[facility] [address] [place] [address],[address] [place] [address] 11/11/2024 14:34:54 11/11/2024 14:35:59 Perennial allergic rhinitis [id number] J30.89 [id number] [facility], [facility] Allergy [address] [place] [address], [address] [place] [address] 11/18/2024 14:57:29 11/18/2024 15:04:16 Perennial allergic rhinitis [id number] J30.89 [id number] GLORY CHANCE RN Allergy [address] [place] [address], [address] [place] [address] 11/25/2024 13:58:11 11/25/2024 13:59:30 Perennial allergic rhinitis [id number] J30.89 [id number] [facility], [facility] Allergy [address] [place] [address],[address] [place] [address] 11/30/2024 14:04:42 11/30/2024 14:28:49 Perennial allergic rhinitis [id number] J30.89 [id number] GLORY CHANCE RN Allergy [address] [place] [address],[address] [place] [address] 12/16/2024 08:59:17 12/16/2024 10:05:42 Perennial allergic rhinitis [id number] J30.89 [id number] GLORY CHANCE RN Allergy [address] [place] [address] [address] [place] [address] 12/22/2024 15:45:52 12/22/2024 16:16:38 Perennial allergic rhinitis [id number] J30.89 [id number] GLORY CHANCE RN Allergy [address] [place] [address],[address] [place] [address] 01/06/2025 10:13:54 01/06/2025 10:21:00 Perennial allergic rhinitis [id number] J30.89 [id number] [facility] OBDULIO, A Allergy [address] [place] [address], [address] [place] [address] 01/13/2025 11:21:50 01/13/2025 14:23:57 Perennial allergic rhinitis [id number] J30.89 [id number] NERI NUNO MD ENTS of [facility] - [facility] 100 [facility] [address] 01/18/2025 10:33:55 01/18/2025 11:14:51 Allergic rhinitis [id number] J30.89 Uncomplica brigid mild persistent asthma [id number] J45.30 [id number] BECKY BRAVO, [facility] Allergy [address] [place] [address], [address] [place] [address] 01/18/2025 10:35:02 01/18/2025 10:45:24 Perennial allergic rhinitis [id number] J30.89 [id number] [facility] OBDULIO, A Allergy [address] [place] [address],[address] [place] [address] 01/26/2025 15:26:19 01/26/2025 15:34:51 Perennial allergic rhinitis [id number] J30.89 [id number] [facility] Allergy [address] [place] [address],[address] [place] [address] 02/03/2025 09:15:15 02/03/2025 09:36:27 Perennial allergic rhinitis [id number] J30.89 [id number] [facility] OBDULIO, A Allergy 100 [facility],[address] [place] [address] 02/16/2025 14:06:07 02/16/2025 14:26:00 Perennial allergic rhinitis [id number] J30.89 [id number] [facility]MA Allergy 100 [facility],[address] [place], [place] [address] 02/24/2025 14:00:58 02/24/2025 14:59:08 Perennial allergic rhinitis [id number] J30.89 [id number] BECKY LAWRENCE A Allergy 100 [facility],[address] [place] [address] 03/02/2025 10:06:34 03/02/2025 10:27:35 Perennial allergic rhinitis [id number] J30.89 [id number] [facility] Allergy [address] [facility],[address] [place] [address] 03/17/2025 09:35:25 03/17/2025 09:44:07 Perennial allergic rhinitis [id number] J30.89 [id number] GLORY CHANCE RN Allergy [address] [place] [address],[address] [place] [address] 03/24/2025 11:40:51 03/24/2025 11:51:35 Perennial allergic rhinitis [id number] J30.89 [id number] BECKY BRAVO A Allergy 100 [facility],[address] [place] [address] 03/31/2025 13:20:40 03/31/2025 14:38:12 Perennial allergic rhinitis [id number] J30.89 [id number] [facility], A Allergy [address] [facility],[address] [place] [address] 04/07/2025 11:42:56 04/07/2025 12:04:11 Perennial allergic rhinitis [id number] J30.89 [id number] GLORY CHANCE RN Allergy [address] [place] [address],[address] [place] [address] 04/14/2025 09:18:13 04/14/2025 09:28:02 Perennial allergic rhinitis [id number] J30.89 [id number] [facility] Allergy [address] [facility],[address] [place] [address] 04/21/2025 09:17:57 04/21/2025 09:53:54 Perennial allergic rhinitis [id number] J30.89 [id number] KARISSA IRVIN, RMA Allergy 100 [facility], [address] [place] [address] 04/27/2025 09:26:31 04/27/2025 10:38:28 Perennial allergic rhinitis [id number] J30.89 [id number] GLORY CHANCE RN Allergy [address] [place] [address],[facility] 100 [place] [address] 05/04/2025 09:12:37 05/04/2025 09:52:29 Perennial allergic rhinitis [id number] J30.89 [id number] GLORY CHANCE RN Allergy [address] [place] [address],[facility] 100 [place] [address] 05/09/2025 09:17:55 05/09/2025 11:56:55 Perennial allergic rhinitis [id number] J30.89 Health Concerns Section Related Observation LastModified by Organization Detai ls LastModified Time None Recorded Concern Status LastModified by Organization Details LastModified Time None Recorded Advance Directives Directive None Recorded Payers Insurance Date Sequence Insurance Name Policy Number Policy Sykes Covered Member ID Sykes Member ID Guarantor Name 05/04/2025 1 [facility] [employer] - HEALTH NET PLAN (MEDICAID HMO) CHELSI bella [id number] Gigi Kendrick OBGyn Episode No OBEpisode recorded.
--- OUTSIDE RECORDS SUMMARY | 2025-05-10 10:49 | XMS_ITS | Clinical Summary ---
Author Organization Diane Handle [facility] ity Address [address] [place] [address] Care Team Providers Care Automatic Clipper Name Role Phone Diane Casey MD Primary Care Provider [phone] Social History Tobacco Use Types Packs/Day Years [...] Cervical Cancer Screening: P ap Smear 2016 HPV Vaccines (1 - 3-dose SCD M series) 2022 Depression Screening 08/10/2024 COVID-19 Vaccine ( - 2023-2 5 season) 2025 Influenza Vaccine (#1) 2025 RSV Immunization Adult Patie nts (1 - 1-dose 75+ series) 2070 HIB Vaccines Aged Out No longer eligi [...] age to complete this topic Meningococcal B Vaccine Aged Out No l onger eligible based on patient's age to complete this topic Pneumococcal Vaccine: Pediat rics (0 to 5 Years) and At-Risk Patients (6 to 49 Years) Aged Out No longer eligible b ased on patient's age to complete this topic RSV Immunization Patients Un ksenia 20 months Aged Out No longer eligible b ased on patient's age to complete this topic Varicella Vaccines Aged Out No longer eligible based on patient's age to complete this topic Care Teams Automatic Clipper Relationship Specialty Start Date End Date Diane Casey MD [address] [place] [address] [place] [id number] PCP - General Pediatrics 01/10/14
== END 2025-05-10 10:25 | disposition home or self-care (01) ==
LOC: HO.HSM 09:51
PROVIDERS: PCP Internal Medicine; Visit Provider Nurse Practitioner
DX: M54.81 Occipital neuralgia (principal); M00-M99 Diseases of the musculoskeletal system and connective tissue; M79.18 Myalgia, other site; M25.519 Pain in unspecified shoulder
CPT/HCPCS: 64405; 99204

== ENCOUNTER → 2025-05-10 09:51 | Outpatient (BNVA) | payer OTHER, SELFPAY | PROVIDERS: PCP Internal Medicine; Visit Provider Nurse Practitioner | DX: M79.18 Myalgia, other site (principal); M00-M99 Diseases of the musculoskeletal system and connective tissue; M25.519 Pain in unspecified shoulder | CPT/HCPCS: 64405; 99202; J0665; J2003 ==

== ENCOUNTER 2025-07-21 21:00 | Emergency (ER) | payer OTHER, SELFPAY ==
[2025-07-21 21:26] VITALS: BP 152/90; PULSE 128; RESP 18; TEMP 36.3; O2SAT 99; BMI 30.7
--- NOTE | 2025-07-21 23:08 | ED_ITS ---
HPI - General Adult General Chief complaint: General Medical Stated complaint: Left side body pain and discomfort Time Seen by Provider: 07/21/25 23:08 Source: patient Limitations: no limitations History of Present Illness HPI narrative: 29-year-old female who has a history of chronic myofascial pain for which she is followed by Neurology and receives trigger point injections , states that she was unable to make her last appointment for injections. Patient also reports that she is currently working 11 hour shifts on her feet and that this is not sustainable. Patient states she has tried [id number]-[id number] medications, has had oxycodone in the past, as well as lidocaine any patches. She reports being compliant with her medications. Patient confirms that this is the same pain that she has had in the past. She denies any new trauma. Related Data Previous Rx's ?Medication ?Instructions ?Recorded meclizine 25 mg tablet 25 mg PO BID PRN dizziness # 14 tabs 08/06/21 Held on 11/12/21. Instructions: Doctor's Order lidocaine 5 % topical patch 1 patch topical DAILY #15 ea 01/07/22 (Lidoderm) levocetirizine 5 mg tablet (Xyzal) 5 mg PO DAILY #30 t abs 04/07/22 nebulizers (AeroEclipse II #1 ea 04/08/22 Nebulizer) ibuprofen 600 mg tablet 600 mg PO Q6H PRN fever or p ain 06/18/22 #20 tabs montelukast 10 mg tablet 10 mg PO DAILY #30 tabs 06/11 10/01 epinephrine 0.3 mg/0.3 mL 0.3 mg (0.3 mL) IM Q4H PRN 0 11/11/22 injection, auto-injector anaphylaxis 30 days #1 ea ondansetron 4 mg disintegrating 4 mg PO Q8H PRN nausea and 05/05/23 tablet vomiting #10 tabs albuterol sulfate 90 mcg/actuation 1 inh inhalation QI D PRN shortness 06/19/23 aerosol inhaler (ProAir HFA) of breath or wheezing 30 days #18 grams progesterone micronized 200 mg 200 mg PO BEDTIME 10 da ys #30 caps 08/20/23 capsule (Prometrium) fluticasone furoate 200 1 inh inhalation DAILY 30 da ys #1 06/01/24 mcg-vilanterol 25 mcg/dose ea inhalation powder (Breo Ellipta) albuterol sulfate 2.5 mg/3 mL 2.5 mg (3 mL) inhalation Q4H PRN 07/22/24 (0.083 %) solution for nebulization shortness of breat h or wheezing 30 days #90 mL sertraline 50 mg tablet 50 mg PO DAILY 90 days #90 t abs 01/09/25 amitriptyline 100 mg tablet 100 mg PO BEDTIME #30 tabs 05/10/25 rimegepant 75 mg disintegrating 75 mg PO Q OTHER DAY P RN migraine 05/10/25 tablet (Nurtec ODT) headache 30 days #8 tabs methocarbamol 750 mg tablet 750 mg PO TID PRN muscle s pasm #20 07/21/25 tabs Allergies Allergy/AdvReac Type Severity Reaction Status Date / Time cat dander Allergy Unknown Unknown Verified 07/21/25 21:28 dog dander (dogs) Allergy Unknown Unknown Verified 07/21/25 21:28 grass pollen Allergy Unknown Unknown Verified 07/21/25 21:28 mold Allergy Unknown Unknown Verified 07/21/25 21:28 tree and shrub pollen Allergy Unknown Unknown Verified 07/21/25 21:28 peanut Allergy Swelling Verified 07/21/25 21:28 Review of Systems Constitutional: Constitutional: Denies body ache(s) and Denies chills Gastrointestinal: Gastrointestinal: Denies abdominal pain Musculoskeletal: Musculoskeletal: Reports back pain and Denies tingling Neurologic: Denies tingling PMFSH Past Medical History Medical History Migraine Acute diverticulitis Family history of ovarian cancer Physical exam Mild recurrent major depression Class 1 obesity with body mass index (BMI) of 32.0 to 32.9 in adult Enlarged tonsils Allergic rhinitis Chronic eczema PCOS (polycystic ovarian syndrome) IBS (irritable bowel syndrome) Anxiety Depression History of deviated nasal septum Moderate persistent asthma Surgical History H/O LEEP History of tonsillectomy Hx of nasal septoplasty History of wisdom tooth extraction Family History Family History Father Asthma Mother Liver disease Mental health disorder Maternal Aunt Ovarian cancer Maternal Aunt Ovarian cancer Maternal Aunt Ovarian cancer Maternal Grandfather Leukemia Paternal Grandmother Pancreatic cancer Social History Social History (Updated 05/10/25 @ 10:09 by Lauren Wright CMA) Household Members: Significant Other and Children Housing: Apartment Do you presently have visiting nurse or other home services: No Alcohol intake: current Alcohol intake frequency: other Alcohol type: wine Comment: Social Patient Tobacco Use Status: Never used Tobacco e-Cigarette/Vaping Use: Never Used Second Hand Smoke Exposure: No Substance Use Type: Marijuana Advance Directives: No Advance Directives Information Provided: Yes service: No Current occupational status: employed Current occupational exposures/hazards: No Sexual orientation: Straight/Heterosexual Gender identity: Female Cognitive needs: No Hearing needs: No Vision needs: Yes (glasses) Physical Exam ED Vital Signs: Vital Signs - 24 hr 07/21/25 21:26 Temperature 97.3 F Pulse Rate 128 H Respiratory Rate 18 Blood Pressure 152/90 H Pulse Oximetry 99 Oxygen Delivery Method Room Air BMI result Body Mass Index 30.7 Const General: alert and awake Neck Other: No spinous, paraspinous or paravertebral tenderness. Mild left trapezius tenderness. Extrem Other: Surgical Lead is 5/5 bilaterally. Full range of motion of all joints. Diffuse left lumbar, left SI joint region tenderness. Ambulates without difficulty. Medical Decision Making Medical Decision Making MDM Narrative: 29-year-old female who has chronic myofascial pain, typically receives trigger point injections, presents complaining of exacerbation of chronic pain. Patient is hemodynamically stable without any focal deficits. Trial of Robaxin. Patient to follow up with specialist on Thursday. Work note provided. Patient expresses understanding of all discharge instructions and has no further questions at this time. Differential Diagnosis Differential Diagnoses: The differential diagnosis associated with the presentation includes Chronic pain Myofascial pain Muscle strain Disc herniation Admission/Observation Consideration of admission/observation: Escalation of care including admission/observation considered Prescription Management I considered prescription management with: Pain Medication Discharge Plan Discharge Clinical Impression: Acute myofascial pain Patient Disposition: Home, Self-Care Instructions: Musculoskeletal Pain (ED) Additional Instructions: Rest. Avoid strenuous activity. Continue current medications as directed. Robaxin as directed. Follow-up with your primary care provider. Call this week to schedule a follow- up appointment. Return to the emergency department if you have any worsening of symptoms, or any concerns. Get well soon! Prescriptions: New methocarbamol 750 mg tablet 750 mg PO TID PRN (Reason: muscle spasm) Qty: 20 0RF No Action lidocaine [Lidoderm] 5 % adhesive patch,medicated 1 patch topical DAILY Qty: 15 0RF Rx Instructions: leave on most painful area for up to 12 hrs levocetirizine [Xyzal] 5 mg tablet 5 mg PO DAILY Qty: 30 0RF (DME) AeroEclipse II Nebulizer Misc See Rx Instructions .Route Qty: 1 0RF Rx Instructions: As directed albuterol sulfate [ProAir HFA] 90 mcg/actuation HFA aerosol inhaler 1 inh inhalation QID PRN (Reason: shortness of breath or wheezing) 30 Days Qty: 18 0RF fluticasone furoate-vilanterol [Breo Ellipta] 200-25 mcg/dose blister with device 1 inh inhalation DAILY 30 Days Qty: 1 6RF albuterol sulfate 2.5 mg /3 mL (0.083 %) solution for nebulization 2.5 mg inhalation Q4H PRN (Reason: shortness of breath or wheezing) 30 Days Qty: 90 3RF ibuprofen 600 mg tablet 600 mg PO Q6H PRN (Reason: fever or pain) Qty: 20 0RF ondansetron 4 mg tablet,disintegrating 4 mg PO Q8H PRN (Reason: nausea and vomiting) Qty: 10 0RF montelukast 10 mg tablet 10 mg PO DAILY Qty: 30 3RF meclizine 25 mg tablet 25 mg PO BID PRN (Reason: dizziness) Qty: 14 0RF epinephrine 0.3 mg/0.3 mL auto-injector 0.3 mg IM Q4H PRN (Reason: anaphylaxis) 30 Days Qty: 1 0RF Patient Comments: PT STS NEVER USED HER EPI PEN progesterone micronized [Prometrium] 200 mg capsule 200 mg PO BEDTIME 10 Days Qty: 30 3RF Rx Instructions: Take the pill 1 tablet a day cyclically every month from day 15-24 day 1 being the 1st day of next menstrual cycle sertraline 50 mg tablet 50 mg PO DAILY 90 Days Qty: 90 1RF Nurtec ODT 75 mg tablet,disintegrating 75 mg PO Q OTHER DAY PRN (Reason: migraine headache) 30 Days Qty: 8 3RF amitriptyline 100 mg tablet 100 mg PO BEDTIME Qty: 30 5RF Stand Alone Forms: Work/School Release Print Language: Emirati
--- OUTSIDE RECORDS SUMMARY | 2025-07-21 23:20 | XMS_ITS | Encounter Summary ---
Author Organization [facility] Address [address] [place] [address] Phone Support Name Relationship Address Phone Ellis Connolly Father [address] [place] [address] Care Team Providers Care Supervisor [employer] Name Role Phone Kaylan Casey MD Primary Care Provider [phone] Encounter Details Date Type Department Care Team (Late st Contact Info) Description 01/24/2010 Documentation [facility] Family Medicine [address] [place], [place] [id number] Family Medicine, Physician [address] [place], [place] [id number] Social History Tobacco Use Types Packs/Day Years [...] on filedocumented in this encounter Care Teams Supervisor [employer] Relationship Specialty Start Date End Date Kaylan Casey MD [address] [facility] [place] [address] PCP - General 03/20/17 01/14/23 documented as of this encounter
--- OUTSIDE RECORDS SUMMARY | 2025-07-21 23:20 | XMS_ITS | Continuity of Care Document ---
Author Organization [facility], Allergy Address [address] [place] [address] Assessment Encounter Date Assessment Date Assessment LastModified by Organization Details LastModified Time 04/27/2025 04/27/2025 Visit With: GENARO Rogers Use of Antihistamine s: No If yes: Vial Test Change in medications: No If yes Increase in asthma symptoms If yes, inhaler use: Reaction to last injections: No If yes: Allergy Symptoms: Other: Missed: Dose Aware of Vial Test Aware: Notes: [email or web address] Not available 04/27/2025 10:31:11 Plan of Treatment Reminders Order Date Submit Date Provider Last Modified By Organization Details Last Modified Time Details Appointments Establish ed 30 2024 11:00A M NERI CONTRERAS MD Not available Not available Not available Lab None recorded. Referral None recorded. Procedures None recorded. Surgeries None recorded. Imaging None recorded. Medication Orders None recorded. Patient TargetsNo targets recorded. Patient InstructionsNo instructions recorded. Reason for Referral None Reported. Problems Name Problem SNOMED Code Status Onset Date Resolution Date Notes Provider Name and Address Organization Details Recorded Time Hypertro phy of nasal turbinat es 36959551 Active 2018 Hypertro phy of nasal turbinat es; Note: Date Diagnose d: 9 12:38 PM (J34.3) Not Available [facility] 4 03:07:20 Uncompli cated moderate persiste nt asthma 646373244 Active 2018 Moderate persiste nt asthma NOS; Note: Date Diagnose d: 9 10:53 AM (J45.40) Not Available [facility] 4 03:07:21 Nasal congesti on 16087184 Active 2018 Nasal congesti on; Note: Date Diagnose d: 9 10:51 AM (R09.81) Not Available [facility] 4 03:07:21 Deviated nasal septum 620336849 Active 2018 Deviated nasal septum; Note: Date Diagnose d: 9 12:38 PM (J34.2) Not Available [facility] 4 03:07:20 Follow-u p visit Active 2019 Medical surveill ance followin g complete d treatmen t; Note: Date Diagnose d: 0 3:20 PM (Z09) Not Available [facility] 4 03:07:19 Snoring 44327541 Active 2019 Snoring; Note: Date Diagnose d: 0 3:44 PM (R06.83) Not Available [facility] 4 03:07:21 Contusio n of nose 15045552 Active 2021 Contusio n of nose, initial encounte r; Note: Date Diagnose d: 2 11:21 AM (S00.33X A) Not Available [facility] 4 03:07:19 Chronic tonsilli tis 65668125 Completed 202103/11/2024 Chronic tonsilli tis; Note: Date Diagnose d: 04/18/2022 12:18 PM (J35.01) Not Available [facility] 4 03:07:19 Chronic disease of tonsils AND/OR adenoids 57045406 Completed 202103/11/2024 Calculus , tonsil; Note: Date Diagnose d: 04/18/2022 12:18 PM (J35.8) Not Available [facility] 4 03:07:19 Abnormal auditory percepti on 86695772 Active 2022 Other abnormal auditory percepti ons, bilatera l; Note: Date Diagnose d: 3 12:05 PM (H93.293 ) Other abnormal auditory percepti ons, bilatera l; Note: Date Diagnose d: 01/14/2023 9:47 AM (H93.293 ) ; Start Date : 01/15/20 Not Available [facility] 4 03:07:20 Allergic rhinitis 57249891 Active 2023 Allergic rhinitis : Due to [...] 11:09 AM (4 Not Available [facility] 4 01:19:06 Perennia l allergic rhinitis 703199708 Active 2023 KARISSA IRVIN, [facility] [address], [place], [address] , [facility] 5 10:37:21 Exacerba tion of moderate persiste nt asthma 793877112 Active 2023 NERI NUNO MD [address], [place], [address] , [facility] - [facility] 4 10:56:48 Acute respirat ory syncytia l virus bronchit is 096849627 Active 2023 NERI NUNO MD [address] [facility] [address], [place], [address] , [facility] 4 10:56:56 Uncompli cated mild persiste nt asthma 952947811 Active 2024 NERI NUNO MD [address], [place], [address] , [facility] 5 11:13:55 Problem Notes None recorded. Procedures Surgical History Date Name Laterality Status Provider Name and Address Organization Details Recorded Time 05/30/20 25 Allergy Immunotherapy Injections completed CHANDA BRAVO [facility] [address], [place], [address], [facility] 05/30/2025 13:40:09 05/25/20 25 Allergy Immunotherapy Injections completed KARISSA IRVIN Nicol [address], [place], [address], [facility] 05/25/2025 10:07:45 05/16/20 25 Allergy Immunotherapy Injections completed KARISSA IRVIN, RMA [address], [place], [address], [place] [facility] 05/16/2025 10:37:49 05/09/20 25 Allergy Immunotherapy Injections completed GLORY CHANCE RN [address], [place], [address], [place] [facility] 05/09/2025 11:56:12 05/04/20 25 Allergy Immunotherapy Injections completed GLORY CHANCE RN [address] [facility] [address], [place], [address], [place] [facility] 05/04/2025 09:51:49 04/27/20 25 Allergy Immunotherapy Injections completed KARISSA IRVIN, RMA [address] [facility] [address], [place], [address], [place] [facility] 04/27/2025 10:30:59 04/21/20 25 Allergy Immunotherapy Injections completed KARISSA IRVIN, RMA [address] [facility] [address], [place], [address], [place] [facility] 04/21/2025 09:53:31 04/14/20 25 Allergy Immunotherapy Injections completed Tiara Krishna [address] [facility] [address], [place], [address], [place] [facility] 04/14/2025 09:49:11 04/07/20 25 Allergy Immunotherapy Injections completed KARISSA IRVIN RMA [address] [facility] [address], [place], [address], [place] [facility] 04/07/2025 12:03:37 03/31/20 25 Allergy Immunotherapy Injections completed CHANDA BRAVO RMA [address], [place], [address], [place] [facility] 03/31/2025 14:37:21 03/24/20 25 Allergy Immunotherapy Injections completed Tiara Krishna [address], [place], [address], [place] [facility] 03/24/2025 11:51:03 03/17/20 25 Allergy Immunotherapy Injections completed Tiara Krishna [address], [place], [address], [place] [facility] 03/17/2025 09:43:37 03/02/20 25 Allergy Immunotherapy Injections completed GENARO GOMEZ [address], [place], [address], [place] [facility] 03/02/2025 10:27:07 02/25/20 25 Allergy Immunotherapy Injections completed GLORY CHANCE RN [address] [facility] [address], [place], [address], [place] [facility] 02/24/2025 14:58:39 02/17/20 25 Allergy Immunotherapy Injections completed KARISSA IRVIN RMNicol [address], [place], [address], [place] [facility] 02/16/2025 14:25:33 02/04/20 25 Allergy Immunotherapy Injections completed KARISSA IRVIN RMA [address], [place], [address], [place] [facility] 02/03/2025 09:35:41 01/27/20 25 Allergy Immunotherapy Injections completed KARISSA IRVIN RMA [address] [facility] [address], [place], [address], [place] [facility] 01/26/2025 15:34:28 01/19/20 25 Allergy Immunotherapy Injections completed GENARO GOMEZ [address] [facility] [address] [place] [address], [address], [facility] 01/18/2025 10:45:02 01/14/20 25 Allergy Immunotherapy Injections completed KARISSA IRVIN RMA [address], [place], [address], [place] [facility] 01/13/2025 14:19:15 01/07/20 25 Allergy Immunotherapy Injections completed GLORY CHANCE RN [address], [place], [address], [place] [facility] 01/06/2025 10:20:16 12/23/19 25 Allergy Immunotherapy Injections completed KARISSA IRVIN, RMA [address], [place], [address], [place] [facility] 12/22/2024 16:16:14 12/17/19 25 Allergy Immunotherapy Injections completed GLORY CHANCE RN [address], [place], [address], [place] [facility] 12/16/2024 10:05:08 12/01/19 25 Allergy Immunotherapy Injections completed KARISSA IRVIN, RMA [address], [place], [address], [place] [facility] 11/30/2024 14:28:25 11/26/19 25 Allergy Immunotherapy Injections completed GLORY CHANCE RN [address], [place], [address], [place] [facility] 11/25/2024 13:58:56 11/19/19 25 Allergy Immunotherapy Injections completed GLORY CHANCE RN [address], [place], [address], [place] [facility] 11/18/2024 15:03:49 11/12/19 25 Allergy Immunotherapy Injections completed KARISSA IRVIN, RMA [address], [place], [address], [place] [facility] 11/11/2024 14:35:30 11/03/19 25 Allergy Immunotherapy Injections completed KARISSA IRVIN RMA [address], [place], [address], [place] [facility] 11/02/2024 11:18:48 10/29/19 25 Allergy Immunotherapy Injections completed CHANDA BRAVO RMNicol [address], [place], [address], [place] [facility] 10/28/2024 12:07:38 10/22/19 25 Allergy Immunotherapy Injections completed KARISSA IRVIN RMA [address], [place], [address], [place] [facility] 10/21/2024 14:48:48 10/15/19 25 Allergy Immunotherapy Injections completed YOGI GOMEZA [address], [place], [address], [place] [facility] 10/14/2024 09:30:19 10/07/19 25 Allergy Immunotherapy Injections completed GLORY CHANCE RN [address], [place], [address], [place] [facility] 10/07/2024 09:34:51 09/09/19 25 Allergy Immunotherapy Injections completed CHANDA BRAVO RMA [address], [place], [address], [place] [facility] 09/09/2024 12:08:11 09/02/19 25 Allergy Immunotherapy Injections completed GLORY CHANCE RN [address], [place], [address], [place] [facility] 09/02/2024 11:18:45 08/26/19 25 Allergy Immunotherapy Injections completed KARISSA IRVIN, RMA [address], [place], [address], [place] [facility] 08/26/2024 10:14:32 08/19/19 25 Allergy Immunotherapy Injections completed KARISSA IRVIN, RMA [address], [place], [address], [place] [facility] 08/19/2024 12:05:52 07/15/20 24 Allergy Immunotherapy Injections completed KARISSA IRVIN RMA [address], [place], [address], [place] [facility] 07/15/2024 15:28:49 07/08/20 24 Allergy Immunotherapy Injections completed KARISSA MAKC, RMA [address], [place], [address], [place] [facility] 07/08/2024 10:51:03 07/01/20 24 Allergy Immunotherapy Injections completed KARISSA MAKC, RMA [address], [place], [address], [place] [facility] 07/01/2024 12:06:05 06/24/20 24 Allergy Immunotherapy Injections completed KARISSA IRVIN, RMA [address], [place], [address], [place] [facility] 06/24/2024 10:43:53 05/27/20 24 Allergy Immunotherapy Injections completed GLORY CHANCE RN [address], [place], [address], [place] [facility] 05/27/2024 14:17:32 05/20/20 24 Allergy Immunotherapy Injections completed CHANDA BRAVO RMA [address], [place], [address], [place] [facility] 05/20/2024 14:53:55 05/06/20 24 Allergy Immunotherapy Injections completed KARISSA IRVIN, RMA [address], [place], [address], [place] [facility] 05/06/2024 12:16:34 04/22/20 24 Allergy Immunotherapy Injections completed KARISSA IRVIN, RMA [address], [place], [address], [place] [facility] 04/22/2024 14:44:11 04/14/20 24 Allergy Immunotherapy Injections completed KARISSA IRVIN, RMA [address], [place], [address], [place] [facility] 04/14/2024 09:39:13 04/07/20 24 Allergy Immunotherapy Injections completed GLORY CHANCE RN [address] [facility] [address], [place], [address], [place] [facility] 04/07/2024 10:47:25 03/30/20 24 Allergy Immunotherapy Injections completed GLORY CHANCE RN [address] [facility] [address], [place], [address], [place] [facility] 03/30/2024 16:46:23 03/25/20 24 Allergy Immunotherapy Injections completed GLORY CHANCE RN [address] [facility] [address], [place], [address], [place] [facility] 03/25/2024 09:57:47 03/16/20 24 Allergy Immunotherapy Injections completed GLORY CHANCE RN [address], [place], [address], [place] [facility] 03/16/2024 16:30:45 03/01/20 24 Allergy Immunotherapy Injections completed GLORY CHANCE RN [address], [place], [address], [place] [facility] 03/01/2024 14:09:49 02/24/20 24 Allergy Immunotherapy Injections completed KARISSA IRVIN, RMA [address], [place], [address], [place] [facility] 02/24/2024 11:58:32 02/19/20 24 Allergy Immunotherapy Injections completed GENARO GOMEZ [address], [place], [address], [place] [facility] 02/19/2024 11:57:43 02/05/20 24 Allergy Immunotherapy Injections completed KARISSA IRVIN RMA [address], [place], [address], [place] [facility] 02/05/2024 13:29:36 01/22/20 24 Allergy Immunotherapy Injections completed KARISSA IRVIN RMA [address], [place], [address], [place] [facility] 01/22/2024 15:12:23 01/07/20 24 Allergy Immunotherapy Injections completed GENARO GOMEZ [address], [place], [address], [place] [facility] 01/07/2024 10:29:05 01/01/20 24 Allergy Immunotherapy Injections completed CHANDA BRAVO RMA [address], [place], [address], [place] [facility] 01/01/2024 09:50:13 12/25/19 24 Allergy Immunotherapy Injections completed KARISSA IRVIN RMA [address], [place], [address], [place] [facility] 12/25/2023 15:20:45 08/12/19 23 Tonsillectomy completed NERI KRISHNA MD [address] [facility],[place] [address], [place], [address], [facility] 07/25/2024 00:29:19 08/18/19 20 Septoplasty completed NERI KRISHNA MD [address] [facility],[address], [address], [facility] 07/25/2024 00:29:56 Imaging Results None recorded. [...] mg tablet 07/14 completed Medicati on ID: [id number] D uration Value: 60 Brand Name: Vitamin [...] nebulizat ion 2018 active Medicati on ID: [id number] D uration Value: 25 Brand Name: albutero l sulfate Send Method: E-Prescr ibed Sub s Allowed: subs OK Speci al Instruct ion: INHALE 1 VIAL VIA NEBULIZE R EVERY 8 HRS NEEDED M edicatio nGeneric Name: albutero l sulfate Not Available Not Available Not Available ondansetr on HCl 4 mg tablet 07/14 completed Medicati on ID: [id number] B rand Name: ondanset yuko HCl Send [...] topical cream 03/30 completed Medicati on ID: [id number] D uration Value: 10 Reason: () Brand [...] for pain 01/18 completed Medicati on ID: [id number] D uration Value: 5 Brand Name: oxycodon [...] mg tablet 01/18 completed Medicati on ID: [id number] B rand Name: sertrali ne Send Method: E-Prescr ibed Sub s Allowed: subs OK Medic ationGen ericName : sertrali ne Not Available Not Available Not Available omeprazol e 20 mg capsule,d elayed release 03/30 completed Medicati on ID: [id number] D uration Value: 30 Reason: () Brand Name: omeprazo le Send Method: E-Prescr ibed Sub s Allowed: subs OK Speci al Instruct ion: TOME MARCELL C?PSULA TODOS LOS D? Med icationG enericNa me: omeprazo le Not Available Not Available Not Available mont[address] [facility] 10 mg tablet 1 tablet by mouth 03/30 completed Medicati on ID: [id number] Wil hubbard d By Name: Lisa Zapien nd Name: monteluk ast Send Method: E-Prescr ibed Sub s Allowed: subs OK Speci al Instruct ion: Take 1 tablet by mouth every day in the evening Medicati onGeneri cName: monteluk ast Not Available Not Available Not Available hydroxyzi ne HCl 25 mg tablet 03/30 completed Medicati on ID: [id number] D uration Value: 30 Reason: () Brand Name: hydroxyz ine HCl Send Method: E-Prescr ibed Sub s Allowed: subs OK Speci al Instruct ion: TOME MARCELL TABLETA POR V?A ORAL TODOS LOS D? CUANDO SEA NECESARI O FOR 30 DAYS Med icationG enericNa me: hydroxyz ine HCl Not Available Not Available Not Available azelastin e 137 mcg (0.1 %) nasal spray [place] 2 spray into both nostrils twice a day as directed 07/25 completed Medicati on ID: [id number] D uration Value: 30 Pres[address] By [...] mg tablet 03/30 completed Medicati on ID: [id number] D uration Value: 10 Reason: () Brand [...] dose pack 07/29 completed Medicati on ID: [id number] D uration Value: 6 Brand Name: methylpr ednisolo ne Send Method: E-Prescr ibed Sub s Allowed: subs OK Medic ationGen ericName : methylpr ednisolo ne Not Available Not Available Not Available oxycodone 5 mg tablet 08/12 completed Medicati on ID: [id number] B rand Name: oxycodon e Send Method: [...] mg tablet 01/14 completed Medicati on ID: [id number] B rand Name: cycloben zaprine Send Method: E-Prescr ibed Sub s Allowed: subs OK Speci al Instruct ion: TOME MARCELL TABLETA KATJA VECES AL D A PARA EL ESPASMO MUSCULAR CUANDO SEA NECESARI O Medica tionGene ricName: cycloben zaprine Not Available Not Available Not Available bupropion HCl XL 150 mg 24 hr tablet, extended release 03/30 completed Medicati on ID: [id number] D uration Value: 30 Reason: () Brand Name: bupropio n HCl Send Method: E-Prescr ibed Sub s Allowed: subs OK Speci al Instruct ion: TOME MARCELL TABLETA TODOS LOS D? EN LA MA?TAB edicatio nGeneric Name: bupropio n HCl Not Available Not Available Not Available Flovent HFA 110 mcg/actua tion aerosol inhaler 01/14 completed Medicati on ID: [id number] B rand Name: Flovent HFA Send Method: E-Prescr ibed Sub s Allowed: subs OK Medic ationGen ericName : Flovent HFA Not Available Not Available Not Available Depo-SubQ provera 104 104 mg/0.65 mL subcutane ous syringe 01/14 completed Medicati on ID: [id number] B rand Name: Depo-Sub Q provera 104 [...] activated aerosol 01/18 completed Medicati on ID: [id number] B rand Name: Qvar RediHale r Send Method: E-Prescr ibed Sub s Allowed: subs OK Medic ationGen ericName : Qvar [employer]ale r Not Available Not Available Not Available Gummies 400 mcg-35 mg-25 mg-5 mg chewable tablet 07/14 completed Medicati on ID: [id number] D uration Value: 90 Brand Name: Gummies Send Method: E-Prescr ibed Sub s Allowed: subs OK Medic ationGen ericName : Gummies Not Available Not Available Not Available [facility] 75 mg disintegr ating tablet Take by oral route. active Not Available Not Available No t Available Vitals None Recorded Social History None recorded. Functional Status None recorded. Mental Status None recorded. Family History Nothing Reported. Medical History Condition Response Asthma Y Nasal or Sinus Problems Y Allergies/Hayfever Y Gynecological HistoryNo gynecological history recorded. Obstetrics History GPAL:G 0 P 0 0 0 0 Past Encounters Encounter ID Performer Location Encounter Start Date Encounter Closed Date Diagnosis/Indication Diagnosis SNOMED-CT Code Diagnosis ICD10 Code Diagnosis IMO Codes Diagnosis Note [id number] GENARO GOMEZ Allergy [address] [facility],[place] [address] [place] [address] 03/31/2025 13:20:40 03/31/2025 14:38:12 Perennial allergic rhinitis 958146307 J30.89 [id number] KARISSA IRVIN [facility] Allergy [address] [place] [address],[place] [address] [place] [address] 04/07/2025 11:42:56 04/07/2025 12:04:11 Perennial allergic rhinitis [id number] J30.89 [id number] GLORY CHANCE RN Allergy [address] [place] [address], [address] [place] [address] 04/14/2025 09:18:13 04/14/2025 09:28:02 Perennial allergic rhinitis [id number] J30.89 [id number] KARISSA IRVIN [facility] Allergy [address] [place] [address], [address] [place] [address] 04/21/2025 09:17:57 04/21/2025 09:53:54 Perennial allergic rhinitis 222314315 J30.89 [id number] KARISSA IRVIN [facility] Allergy [address] [place] [address], [address] [place] [address] 04/27/2025 09:26:31 04/27/2025 10:38:28 Perennial allergic rhinitis [id number] J30.89 Health Concerns Section Related Observation LastModified by Organization Detai ls LastModified Time None Recorded Concern Status LastModified by Organization Details LastModified Time None Recorded Payers Encounter Date Sequence Insurance Name Policy Number Policy Sykes Covered Member ID Sykes Member ID Guarantor Name 04/27/2025 1 [employer] - HEALTH NET PLAN (MEDICAID HMO) CHELSI [facility] [id number] Gigi Connolly Lefebre OBGyn Episode No OBEpisode recorded.
--- OUTSIDE RECORDS SUMMARY | 2025-07-21 23:20 | XMS_ITS | Continuity of Care Document ---
Author Organization MD - [facility], Allergy Address [address] [place] [id number] Assessment Encounter Date Assessment Date Assessment LastModified by Organization Details LastModified Time 04/21/2025 04/21/2025 Visit With: GENARO Rogers Use of Antihistamine s: No If yes: Vial Test Change in medications: No If yes Increase in asthma symptoms If yes, inhaler use: Reaction to last injections: No If yes: Allergy Symptoms: Other: Missed: Dose Aware of Vial Test Aware: Notes: [email or web address] Not available 04/21/2025 09:53:40 Plan of Treatment Reminders Order Date Submit [...] Time Hypertro phy of nasal turbinat es 93117229 Active 2018 Hypertro phy of nasal turbinat es; Note: Date Diagnose d: 9 12:38 PM (J34.3) Not Available [facility] 4 03:07:20 Uncompli cated moderate persiste nt asthma 519675167 Active 2018 Moderate persiste nt asthma NOS; Note: Date Diagnose d: 9 10:53 AM (J45.40) Not Available [facility] 4 03:07:21 Nasal congesti on 97132859 Active 2018 Nasal congesti on; Note: Date Diagnose d: 9 10:51 AM (R09.81) Not Available [facility] 4 03:07:21 Deviated nasal septum 700396356 Active 2018 Deviated nasal septum; Note: Date Diagnose d: 9 12:38 PM (J34.2) Not Available [facility] 4 03:07:20 Follow-u p visit Active 2019 Medical surveill ance followin g complete d treatmen t; Note: Date Diagnose d: 0 3:20 PM (Z09) Not Available [facility] 4 03:07:19 Snoring 34360759 Active 2019 Snoring; Note: Date Diagnose d: 0 3:44 PM (R06.83) Not Available [facility] 4 03:07:21 Contusio n of nose 28991696 Active 2021 Contusio n of nose, initial encounte r; Note: Date Diagnose d: 2 11:21 AM (S00.33X A) Not Available [facility] 4 03:07:19 Chronic tonsilli tis 57418540 Completed 202103/11/2024 Chronic tonsilli tis; Note: Date Diagnose d: 04/18/2022 12:18 PM (J35.01) Not Available [facility] 4 03:07:19 Chronic disease of tonsils AND/OR adenoids 53270849 Completed 202103/11/2024 Calculus , tonsil; Note: Date Diagnose d: 04/18/2022 12:18 PM (J35.8) Not Available [facility] 4 03:07:19 Abnormal auditory percepti on 80884389 Active 2022 Other abnormal auditory percepti ons, bilatera l; Note: Date Diagnose d: 3 12:05 PM (H93.293 ) Other abnormal auditory percepti ons, bilatera l; Note: Date Diagnose d: 01/14/2023 9:47 AM (H93.293 ) ; Start Date : 01/15/20 Not Available [facility] 4 03:07:20 Allergic rhinitis 59762576 Active 2023 Allergic rhinitis : Due to [...] d: 3 11:09 AM (4 Not Available [facility] 4 01:19:06 Perennia l allergic rhinitis 278934438 Active 2023 KARISSA IRVIN, [facility] [address], [place], [address] , [facility] - [facility] [place] 5 10:37:21 Exacerba tion of moderate persiste nt asthma 133197302 Active 2023 NERI NUNO MD [address], [place], [address] , [facility] - [facility] [place] 4 10:56:48 Acute respirat ory syncytia l virus bronchit is 661437478 Active 2023 NERI NUNO MD [address], [place], [address] , [facility] - [facility] [place] 4 10:56:56 Uncompli cated mild persiste nt asthma 312603123 Active 2024 NERI NUNO MD [address], [place], [address] , [facility] - [facility] 5 11:13:55 Problem Notes None recorded. Procedures Surgical History Date Name Laterality Status Provider Name and Address Organization Details Recorded Time 05/30/20 25 Allergy Immunotherapy Injections completed CHANDA BRAVO [facility] [address], [place], [address], [facility] - [facility] [place] 05/30/2025 13:40:09 05/25/20 25 Allergy Immunotherapy Injections completed KARISSA IRVIN Nicol [address], [place], [address], [facility] - [facility] 05/25/2025 10:07:45 05/16/20 25 Allergy Immunotherapy Injections completed KARISSA IRVIN, RMA [address], [place], [address], [place] [facility] 05/16/2025 10:37:49 05/09/20 25 Allergy Immunotherapy Injections completed GLORY CHANCE RN [address], [place], [address], [place] [facility] 05/09/2025 11:56:12 05/04/20 25 Allergy Immunotherapy Injections completed GLORY CHANCE RN [address], [place], [address], [place] [facility] 05/04/2025 09:51:49 04/27/20 25 Allergy Immunotherapy Injections completed KARISSA IRVIN, RMA [address], [place], [address], [place] [facility] 04/27/2025 10:30:59 04/21/20 25 Allergy Immunotherapy Injections completed KARISSA IRVIN, RMA [address], [place], [address], [place] [facility] 04/21/2025 09:53:31 04/14/20 25 Allergy Immunotherapy Injections completed Tiara Krishna [address], [place], [address], [place] [facility] 04/14/2025 09:49:11 04/07/20 25 Allergy Immunotherapy Injections completed KARISSA IRVIN RMA [address], [place], [address], [place] [facility] 04/07/2025 12:03:37 03/31/20 25 Allergy Immunotherapy Injections completed CHANDA BRAVO RMA [address], [place], [address], [place] [facility] 03/31/2025 14:37:21 03/24/20 25 Allergy Immunotherapy Injections completed Tiara Krishna [address], [place], [address], [place] [facility] 03/24/2025 11:51:03 03/17/20 25 Allergy Immunotherapy Injections completed Tiara Krishna [address], [place], [address], [place] [facility] 03/17/2025 09:43:37 03/02/20 25 Allergy Immunotherapy Injections completed GENARO GOMEZ [address], [place], [address], [place] [facility] 03/02/2025 10:27:07 02/25/20 25 Allergy Immunotherapy Injections completed GLORY CHANCE RN [address], [place], [address], [place] [facility] 02/24/2025 14:58:39 02/17/20 25 Allergy Immunotherapy Injections completed KARISSA IRVIN RMNicol [address], [place], [address], [place] [facility] 02/16/2025 14:25:33 02/04/20 25 Allergy Immunotherapy Injections completed KARISSA IRVIN RMA [address], [place], [address], [place] [facility] 02/03/2025 09:35:41 01/27/20 25 Allergy Immunotherapy Injections completed KARISSA IRVIN RMA [address], [place], [address], [place] [facility] 01/26/2025 15:34:28 01/19/20 25 Allergy Immunotherapy Injections completed GENARO GOMEZ [address] [place] [address], [address], [facility] - [facility] 01/18/2025 10:45:02 01/14/20 25 Allergy Immunotherapy Injections completed KARISSA IRVIN RMA [address], [place], [address], [place] [facility] 01/13/2025 14:19:15 01/07/20 25 Allergy Immunotherapy Injections completed GLORY CHANCE RN [address], [place], [address], [place] [facility] 01/06/2025 10:20:16 12/23/19 25 Allergy Immunotherapy Injections completed KARISSA IRVIN, RMA [address], [place], [address], [place] [facility] 12/22/2024 16:16:14 12/17/19 25 Allergy Immunotherapy Injections completed GLORY CHANCE RN [address], [place], [address], [place] [facility] 12/16/2024 10:05:08 12/01/19 25 Allergy Immunotherapy Injections completed KARISSA IRVIN, RMA [address], [place], [address], [place] [facility] 11/30/2024 14:28:25 11/26/19 25 Allergy Immunotherapy Injections completed GLORY CHANCE RN [address], [place], [address], [place] [facility] 11/25/2024 13:58:56 11/19/19 25 Allergy Immunotherapy Injections completed GLORY CHANCE RN [address], [place], [address], [place] [facility] 11/18/2024 15:03:49 11/12/19 25 Allergy Immunotherapy Injections completed KARISSA IRVIN, RMA [address], [place], [address], [place] [facility] 11/11/2024 14:35:30 11/03/19 25 Allergy Immunotherapy Injections completed KARISSA IRVIN RMA [address], [place], [address], [place] [facility] 11/02/2024 11:18:48 10/29/19 25 Allergy Immunotherapy Injections completed CHANDA BRAVO RMNicol [address], [place], [address], [place] [facility] 10/28/2024 12:07:38 10/22/19 25 Allergy Immunotherapy Injections completed KARISSA IRVIN RMA [address], [place], [address], [place] [facility] 10/21/2024 14:48:48 10/15/19 25 Allergy Immunotherapy Injections completed YOGI GOMEZA [address], [place], [address], [place] [facility] 10/14/2024 09:30:19 10/07/19 25 Allergy Immunotherapy Injections completed GLORY CHANCE RN [address], [place], [address], [place] [facility] 10/07/2024 09:34:51 09/09/19 25 Allergy Immunotherapy Injections completed CHANDA BRAVO RMA [address], [place], [address], [place] [facility] 09/09/2024 12:08:11 09/02/19 25 Allergy Immunotherapy Injections completed GLORY CHANCE RN [address], [place], [address], [place] [facility] 09/02/2024 11:18:45 08/26/19 25 Allergy Immunotherapy Injections completed KARISSA IRVIN, RMA [address], [place], [address], [place] [facility] 08/26/2024 10:14:32 08/19/19 25 Allergy Immunotherapy Injections completed KARISSA IRVIN, RMA [address], [place], [address], [place] [facility] 08/19/2024 12:05:52 07/15/20 24 Allergy Immunotherapy Injections completed KARISSA IRVIN RMA [address], [place], [address], [place] [facility] 07/15/2024 15:28:49 07/08/20 24 Allergy Immunotherapy Injections completed KARISSA MAKC, RMA [address], [place], [address], [place] [facility] 07/08/2024 10:51:03 07/01/20 24 Allergy Immunotherapy Injections completed KARISSA MAKC, RMA [address], [place], [address], [place] [facility] 07/01/2024 12:06:05 06/24/20 24 Allergy Immunotherapy Injections completed KARISSA IRVIN, RMA [address], [place], [address], [place] [facility] 06/24/2024 10:43:53 05/27/20 24 Allergy Immunotherapy Injections completed GLORY CHANCE RN [address], [place], [address], [place] [facility] 05/27/2024 14:17:32 05/20/20 24 Allergy Immunotherapy Injections completed CHANDA BRAVO RMA [address], [place], [address], [place] [facility] 05/20/2024 14:53:55 05/06/20 24 Allergy Immunotherapy Injections completed KARISSA IRVIN, RMA [address], [place], [address], [place] [facility] 05/06/2024 12:16:34 04/22/20 24 Allergy Immunotherapy Injections completed KARISSA IRVIN, RMA [address], [place], [address], [place] [facility] 04/22/2024 14:44:11 04/14/20 24 Allergy Immunotherapy Injections completed KARISSA IRVIN, RMA [address], [place], [address], [place] [facility] 04/14/2024 09:39:13 04/07/20 24 Allergy Immunotherapy Injections completed GLORY CHANCE RN [address], [place], [address], [place] [facility] 04/07/2024 10:47:25 03/30/20 24 Allergy Immunotherapy Injections completed GLORY CHANCE RN [address], [place], [address], [place] [facility] 03/30/2024 16:46:23 03/25/20 24 Allergy Immunotherapy Injections completed GLORY CHANCE RN [address], [place], [address], [place] [facility] 03/25/2024 09:57:47 03/16/20 24 Allergy Immunotherapy Injections completed GLORY CHANCE RN [address], [place], [address], [place] [facility] 03/16/2024 16:30:45 03/01/20 24 Allergy Immunotherapy Injections completed GLORY CHANCE RN [address], [place], [address], [place] [facility] 03/01/2024 14:09:49 02/24/20 24 Allergy Immunotherapy Injections completed KARISSA IRVIN, RMA [address], [place], [address], [place] [facility] 02/24/2024 11:58:32 02/19/20 24 Allergy Immunotherapy Injections completed GENARO GOMEZ [address], [place], [address], [place] [facility] 02/19/2024 11:57:43 02/05/20 24 Allergy Immunotherapy Injections completed KARISSA IRVIN RMA [address], [place], [address], [place] [facility] 02/05/2024 13:29:36 01/22/20 24 Allergy Immunotherapy Injections completed KARISSA IRVIN RMA [address], [place], [address], [place] [facility] 01/22/2024 15:12:23 01/07/20 24 Allergy Immunotherapy Injections completed GENARO GOMEZ [address], [place], [address], [place] [facility] 01/07/2024 10:29:05 01/01/20 24 Allergy Immunotherapy Injections completed CHANDA BRAVO RMA [address], [place], [address], [place] [facility] 01/01/2024 09:50:13 12/25/19 24 Allergy Immunotherapy Injections completed KARISSA IRVIN RMA [address], [place], [address], [place] [facility] 12/25/2023 15:20:45 08/12/19 23 Tonsillectomy completed NERI KRISHNA MD [address],[place] [address], [place], [address], [facility] 07/25/2024 00:29:19 08/18/19 20 Septoplasty completed NERI KRISHNA MD [address], [address], [facility] 07/25/2024 00:29:56 Imaging Results None recorded. Procedure [...] mg tablet 07/14 completed Medicati on ID: [id number] D uration Value: 60 Brand Name: Vitamin [...] nebulizat ion 2018 active Medicati on ID: [id number] D uration Value: 25 Brand Name: albutero l sulfate Send Method: E-Prescr ibed Sub s Allowed: subs OK Speci al Instruct ion: INHALE 1 VIAL VIA NEBULIZE R EVERY 8 HRS NEEDED M edicatio nGeneric Name: albutero l sulfate Not Available Not Available Not Available ondansetr on HCl 4 mg tablet 07/14 completed Medicati on ID: [id number] B rand Name: ondanset yuko HCl Send [...] topical cream 03/30 completed Medicati on ID: [id number] D uration Value: 10 Reason: () Brand [...] for pain 01/18 completed Medicati on ID: [id number] D uration Value: 5 Brand Name: oxycodon [...] mg tablet 01/18 completed Medicati on ID: [id number] B rand Name: sertrali ne Send Method: E-Prescr ibed Sub s Allowed: subs OK Medic ationGen ericName : sertrali ne Not Available Not Available Not Available omeprazol e 20 mg capsule,d elayed release 03/30 completed Medicati on ID: [id number] D uration Value: 30 Reason: () Brand Name: omeprazo le Send Method: E-Prescr ibed Sub s Allowed: subs OK Speci al Instruct ion: TOME MARCELL C?PSULA TODOS LOS D? Med icationG enericNa me: omeprazo le Not Available Not Available Not Available [address] 10 mg tablet 1 tablet by mouth 03/30 completed Medicati on ID: [id number] Wil hubbard d By Name: Lisa Zapien nd Name: monteluk ast Send Method: E-Prescr ibed Sub s Allowed: subs OK Speci al Instruct ion: Take 1 tablet by mouth every day in the evening Medicati onGeneri cName: monteluk ast Not Available Not Available Not Available hydroxyzi ne HCl 25 mg tablet 03/30 completed Medicati on ID: [id number] D uration Value: 30 Reason: () Brand Name: hydroxyz ine HCl Send Method: E-Prescr ibed Sub s Allowed: subs OK Speci al Instruct ion: TOME MARCELL TABLETA POR V?A ORAL TODOS LOS D? CUANDO SEA NECESARI O FOR 30 DAYS Med icationG enericNa me: hydroxyz ine HCl Not Available Not Available Not Available azelastin e 137 mcg (0.1 %) nasal spray [place] 2 spray into both nostrils twice a day as directed 07/25 completed Medicati on ID: [id number] D uration Value: 30 Pres[address] By [...] mg tablet 03/30 completed Medicati on ID: [id number] D uration Value: 10 Reason: () Brand [...] dose pack 07/29 completed Medicati on ID: [id number] D uration Value: 6 Brand Name: methylpr ednisolo ne Send Method: E-Prescr ibed Sub s Allowed: subs OK Medic ationGen ericName : methylpr ednisolo ne Not Available Not Available Not Available oxycodone 5 mg tablet 08/12 completed Medicati on ID: [id number] B rand Name: oxycodon e Send Method: [...] mg tablet 01/14 completed Medicati on ID: [id number] B rand Name: cycloben zaprine Send Method: E-Prescr ibed Sub s Allowed: subs OK Speci al Instruct ion: TOME MARCELL TABLETA KATJA VECES AL D A PARA EL ESPASMO MUSCULAR CUANDO SEA NECESARI O Medica tionGene ricName: cycloben zaprine Not Available Not Available Not Available bupropion HCl XL 150 mg 24 hr tablet, extended release 03/30 completed Medicati on ID: [id number] D uration Value: 30 Reason: () Brand Name: bupropio n HCl Send Method: E-Prescr ibed Sub s Allowed: subs OK Speci al Instruct ion: TOME MARCELL TABLETA TODOS LOS D? EN LA MA?TAB edicatio nGeneric Name: bupropio n HCl Not Available Not Available Not Available Flovent HFA 110 mcg/actua tion aerosol inhaler 01/14 completed Medicati on ID: [id number] B rand Name: Flovent HFA Send Method: E-Prescr ibed Sub s Allowed: subs OK Medic ationGen ericName : Flovent HFA Not Available Not Available Not Available Depo-SubQ provera 104 104 mg/0.65 mL subcutane ous syringe 01/14 completed Medicati on ID: [id number] B rand Name: Depo-Sub Q provera 104 [...] activated aerosol 01/18 completed Medicati on ID: [id number] B rand Name: Qvar [employer] r Send Method: E-Prescr ibed Sub s Allowed: subs OK Medic ationGen ericName : Qvar [employer] r Not Available Not Available Not Available Gummies 400 mcg-35 mg-25 mg-5 mg chewable tablet 07/14 completed Medicati on ID: [id number] D uration Value: 90 Brand Name: Gummies Send Method: E-Prescr ibed Sub s Allowed: subs OK Medic ationGen ericName : Gummies Not Available Not Available Not Available [facility] mg disintegr ating tablet Take by oral route. active Not Available Not Available No t Available Vitals None Recorded Social History None recorded. Functional Status None recorded. Mental Status None recorded. Family History Nothing Reported. Medical History Condition Response Allergies/Hayfever Y Nasal or Sinus Problems Y Asthma Y Gynecological HistoryNo gynecological history recorded. Obstetrics History GPAL:G 0 P 0 0 0 0 Past Encounters Encounter ID Performer Location Encounter Start Date Encounter Closed Date Diagnosis/Indication Diagnosis SNOMED-CT Code Diagnosis ICD10 Code Diagnosis IMO Codes Diagnosis Note [id number] GLORY CHANCE RN Allergy [address],[place] [address] [place] [address] 03/24/2025 11:40:51 03/24/2025 11:51:35 Perennial allergic rhinitis 062122191 J30.89 [id number] CHANDA BRAVO [facility] Allergy [address] [address] [place] [address] 03/31/2025 13:20:40 03/31/2025 14:38:12 Perennial allergic rhinitis [id number] J30.89 [id number] KARISSA KAILEYPREETHI, [facility] Allergy [address] [place] [address],[facility] [address] [place] [address] 04/07/2025 11:42:56 04/07/2025 12:04:11 Perennial allergic rhinitis [id number] J30.89 [id number] GLORY CHANCE RN Allergy [address] [place] [address], [address] [place] [address] 04/14/2025 09:18:13 04/14/2025 09:28:02 Perennial allergic rhinitis [id number] J30.89 [id number] KARISSA KAILEYPREETHI, [facility] Allergy [address] [place] [address],[facility] [address] [place] [address] 04/21/2025 09:17:57 04/21/2025 09:53:54 Perennial allergic rhinitis 957179363 J30.89 Health Concerns Section Related Observation LastModified by Organization Detai ls LastModified Time None Recorded Concern Status LastModified by Organization Details LastModified Time None Recorded Payers Encounter Date Sequence Insurance Name Policy Number Policy Sykes Covered Member ID Sykes Member ID Guarantor Name 04/21/2025 1 [employer] - HEALTH NET PLAN (MEDICAID HMO) CHELSI [facility] [id number] Gigi Connolly Lefebre OBGyn Episode No OBEpisode recorded.
--- OUTSIDE RECORDS SUMMARY | 2025-07-21 23:20 | XMS_ITS | Continuity of Care Document ---
Author Organization MD - [facility], Allergy Address [address] [place] [id number] Assessment Encounter Date Assessment Date Assessment LastModified by Organization Details LastModified Time 05/09/2025 05/09/2025 Visit With: Becky Bravo Use [...] Time Hypertro phy of nasal turbinat es [id number] Active 2018 Hypertro phy of nasal turbinat es; Note: Date Diagnose d: 9 12:38 PM (J34.3) Not Available [facility] 4 03:07:20 Uncompli cated moderate persiste nt asthma 648453100 Active 2018 Moderate persiste nt asthma NOS; Note: Date Diagnose d: 9 10:53 AM (J45.40) Not Available [facility] 4 03:07:21 Nasal congesti on 06118251 Active 2018 Nasal congesti on; Note: Date Diagnose d: 9 10:51 AM (R09.81) Not Available [facility] 4 03:07:21 Deviated nasal septum 983952441 Active 2018 Deviated nasal septum; Note: Date Diagnose d: 9 12:38 PM (J34.2) Not Available [facility] 4 03:07:20 Follow-u p visit Active 2019 Medical surveill ance followin g complete d treatmen t; Note: Date Diagnose d: 0 3:20 PM (Z09) Not Available [facility] 4 03:07:19 Snoring 82161855 Active 2019 Snoring; Note: Date Diagnose d: 0 3:44 PM (R06.83) Not Available [facility] 4 03:07:21 Contusio n of nose 38567859 Active 2021 Contusio n of nose, initial encounte r; Note: Date Diagnose d: 2 11:21 AM (S00.33X A) Not Available [facility] 4 03:07:19 Chronic tonsilli tis 02560865 Completed 202103/11/2024 Chronic tonsilli tis; Note: Date Diagnose d: 04/18/2022 12:18 PM (J35.01) Not Available [facility] 4 03:07:19 Chronic disease of tonsils AND/OR adenoids 35836732 Completed 202103/11/2024 Calculus , tonsil; Note: Date Diagnose d: 04/18/2022 12:18 PM (J35.8) Not Available [facility] 4 03:07:19 Abnormal auditory percepti on 82074954 Active 2022 Other abnormal auditory percepti ons, bilatera l; Note: Date Diagnose d: 3 12:05 PM (H93.293 ) Other abnormal auditory percepti ons, bilatera l; Note: Date Diagnose d: 01/14/2023 9:47 AM (H93.293 ) ; Start Date : 01/15/20 Not Available [facility] 4 03:07:20 Allergic rhinitis 32743775 Active 2023 Allergic rhinitis : Due to [...] d: 3 11:09 AM (4 Not Available [facility] 4 01:19:06 Perennia l allergic rhinitis 938049575 Active 2023 KARISSA IRVIN, [facility] [address], [place], [address] , [facility] - [facility] 5 10:37:21 Exacerba tion of moderate persiste nt asthma 789728290 Active 2023 NERI NUNO MD [address], [place], [address] , [facility] - [facility] 4 10:56:48 Acute respirat ory syncytia l virus bronchit is 327899405 Active 2023 NERI NUNO MD [address], [place], [address] , [facility] - [facility] 4 10:56:56 Uncompli cated mild persiste nt asthma 986823121 Active 2024 NERI NUNO MD [address], [place], [place], [address] , [facility] - [facility] 5 11:13:55 Problem Notes None recorded. Procedures Surgical History Date Name Laterality Status Provider Name and Address Organization Details Recorded Time 05/30/20 25 Allergy Immunotherapy Injections completed BECKY BRAVO [facility] [address], [place], [address], [facility] - [facility] 05/30/2025 13:40:09 05/25/20 25 Allergy Immunotherapy Injections completed KARISSA IRVIN Nicol [address], [place], [address], [facility] - [facility] 05/25/2025 10:07:45 05/16/20 25 Allergy Immunotherapy Injections completed KRAISSA IRVIN, RMA [address], [place], [address], [place] [facility] 05/16/2025 10:37:49 05/09/20 25 Allergy Immunotherapy Injections completed GLORY CHANCE RN [address], [place], [address], [place] [facility] 05/09/2025 11:56:12 05/04/20 25 Allergy Immunotherapy Injections completed GLORY CHANCE RN [address], [place], [address], [place] [facility] 05/04/2025 09:51:49 04/27/20 25 Allergy Immunotherapy Injections completed KARISSA IRVIN, RMA [address], [place], [address], [place] [facility] 04/27/2025 10:30:59 04/21/20 25 Allergy Immunotherapy Injections completed KARISSA IRVIN, RMA [address], [place], [address], [place] [facility] 04/21/2025 09:53:31 04/14/20 25 Allergy Immunotherapy Injections completed Tiara Krishna [address], [place], [address], [place] [facility] 04/14/2025 09:49:11 04/07/20 25 Allergy Immunotherapy Injections completed KARISSA IRVIN RMA [address], [place], [address], [place] [facility] 04/07/2025 12:03:37 03/31/20 25 Allergy Immunotherapy Injections completed BECKY BRAVO RMA [address], [place], [address], [place] [facility] 03/31/2025 14:37:21 03/24/20 25 Allergy Immunotherapy Injections completed Tiara Krishna [address], [place], [address], [place] [facility] 03/24/2025 11:51:03 03/17/20 25 Allergy Immunotherapy Injections completed Tiara Krishna [address], [place], [address], [place] [facility] 03/17/2025 09:43:37 03/02/20 25 Allergy Immunotherapy Injections completed YOGI GOMEZA [address], [place], [address], [place] [facility] 03/02/2025 10:27:07 02/25/20 25 Allergy Immunotherapy Injections completed GLORY CHANCE RN [address], [address], [place] [facility] 02/24/2025 14:58:39 02/17/20 25 Allergy Immunotherapy Injections completed KARISSA IRVIN RMA [address], [address], [place] [facility] 02/16/2025 14:25:33 02/04/20 25 Allergy Immunotherapy Injections completed KARISSA IRVIN RMA [address], [place], [address], [place] [facility] 02/03/2025 09:35:41 01/27/20 25 Allergy Immunotherapy Injections completed KARISSA IRVIN RMA [address] [place] [address], [address], [place] [facility] 01/26/2025 15:34:28 01/19/20 25 Allergy Immunotherapy Injections completed GENARO GOMEZ [address], [address], [place] [facility] 01/18/2025 10:45:02 01/14/20 25 Allergy Immunotherapy Injections completed KARISSA IRVIN RMA [address], [address], [place] [facility] 01/13/2025 14:19:15 01/07/20 25 Allergy Immunotherapy Injections completed GLORY CHANCE RN [address], [place], [address], [place] [facility] 01/06/2025 10:20:16 12/23/19 25 Allergy Immunotherapy Injections completed KARISSA IRVIN, RMA [address], [place], [address], [place] [facility] 12/22/2024 16:16:14 12/17/19 25 Allergy Immunotherapy Injections completed GLORY CHANCE RN [address], [place], [address], [place] [facility] 12/16/2024 10:05:08 12/01/19 25 Allergy Immunotherapy Injections completed KARISSA IRVIN, RMA [address], [place], [address], [place] [facility] 11/30/2024 14:28:25 11/26/19 25 Allergy Immunotherapy Injections completed GLORY CHANCE RN [address], [place], [address], [place] [facility] 11/25/2024 13:58:56 11/19/19 25 Allergy Immunotherapy Injections completed GLORY CHANCE RN [address], [address], [place] [facility] 11/18/2024 15:03:49 11/12/19 25 Allergy Immunotherapy Injections completed KARISSA IRVIN RMA [address], [place], [address], [place] [facility] 11/11/2024 14:35:30 11/03/19 25 Allergy Immunotherapy Injections completed KARISSA IRVIN RMA [address], [place], [address], [place] [facility] 11/02/2024 11:18:48 10/29/19 25 Allergy Immunotherapy Injections completed GENARO GOMEZ [address], [place], [address], [place] [facility] 10/28/2024 12:07:38 10/22/19 25 Allergy Immunotherapy Injections completed KARISSA IRVIN RMA [address], [place], [address], [place] [facility] 10/21/2024 14:48:48 10/15/19 25 Allergy Immunotherapy Injections completed GENARO GOMEZ [address], [place], [address], [place] [facility] 10/14/2024 09:30:19 10/07/19 25 Allergy Immunotherapy Injections completed GLORY CHANCE RN [address], [place], [address], [place] [facility] 10/07/2024 09:34:51 09/09/19 25 Allergy Immunotherapy Injections completed BECKY BRAVO RMA [address], [place], [address], [place] [facility] 09/09/2024 12:08:11 09/02/19 25 Allergy Immunotherapy Injections completed GLORY CHANCE RN [address], [address], [place] [facility] 09/02/2024 11:18:45 08/26/19 25 Allergy Immunotherapy Injections completed KARISSA IRVIN, RMA [address], [place], [address], [place] [facility] 08/26/2024 10:14:32 08/19/19 25 Allergy Immunotherapy Injections completed KARISSA IRVIN RMA [address], [address], [place] [facility] 08/19/2024 12:05:52 07/15/20 24 Allergy Immunotherapy Injections completed KARISSA IRVIN RMA [address], [place], [address], [place] [facility] 07/15/2024 15:28:49 07/08/20 24 Allergy Immunotherapy Injections completed KARISSA MAKC, RMA [address], [address], [place] [facility] 07/08/2024 10:51:03 07/01/20 24 Allergy Immunotherapy Injections completed KARISSA MAKC, RMA [address], [address], [place] [facility] 07/01/2024 12:06:05 06/24/20 24 Allergy Immunotherapy Injections completed KARISSA IRVIN, RMA [address], [place], [address], [place] [facility] 06/24/2024 10:43:53 05/27/20 24 Allergy Immunotherapy Injections completed GLORY CHANCE RN [address], [place], [address], [place] [facility] 05/27/2024 14:17:32 05/20/20 24 Allergy Immunotherapy Injections completed BECKY BRAVO, A [address], [place], [address], [place] [facility] 05/20/2024 14:53:55 05/06/20 24 Allergy Immunotherapy Injections completed KARISSA IRVIN, RMA [address], [place], [address], [place] [facility] 05/06/2024 12:16:34 04/22/20 24 Allergy Immunotherapy Injections completed KARISSA IRVIN, RMA [address], [place], [address], [place] [facility] 04/22/2024 14:44:11 04/14/20 24 Allergy Immunotherapy Injections completed KARISSA IRVIN, A [address], [place], [address], [place] [facility] 04/14/2024 09:39:13 04/07/20 24 Allergy Immunotherapy Injections completed GLORY CHANCE RN [address], [place], [address], [place] [facility] 04/07/2024 10:47:25 03/30/20 24 Allergy Immunotherapy Injections completed GLORY CHANCE RN [address], [place], [address], [place] [facility] 03/30/2024 16:46:23 03/25/20 24 Allergy Immunotherapy Injections completed GLORY CHANCE RN [address], [place], [address], [place] [facility] 03/25/2024 09:57:47 08/07/20 24 Allergy Immunotherapy Injections completed GLORY CHANCE RN [address], [place], [address], [place] [facility] 03/16/2024 16:30:45 03/01/20 24 Allergy Immunotherapy Injections completed GLORY CHANCE RN [address], [place], [address], [place] [facility] 03/01/2024 14:09:49 02/24/20 24 Allergy Immunotherapy Injections completed KARISSA IRVIN, RMA [address], [place], [address], [place] [facility] 02/24/2024 11:58:32 02/19/20 24 Allergy Immunotherapy Injections completed GENARO GOMEZ [address], [place], [address], [place] [facility] 02/19/2024 11:57:43 02/05/20 24 Allergy Immunotherapy Injections completed KARISSA IRVIN RMA [address], [place], [address], [place] [facility] 02/05/2024 13:29:36 01/22/20 24 Allergy Immunotherapy Injections completed KARISSA IRVIN RMA [address], [place], [address], [place] [facility] 01/22/2024 15:12:23 01/07/20 24 Allergy Immunotherapy Injections completed GENARO GOMEZ [address], [place], [address], [place] [facility] 01/07/2024 10:29:05 01/01/20 24 Allergy Immunotherapy Injections completed BECKY BRAVO RMA [address], [address], [place] [facility] 01/01/2024 09:50:13 12/25/19 24 Allergy Immunotherapy Injections completed KARISSA IRVIN RMA [address], [address], [place] [facility] 12/25/2023 15:20:45 08/12/19 23 Tonsillectomy completed NERI KRISHNA MD [address] [facility],[place] [address], [place], [address], [facility] 07/25/2024 00:29:19 08/18/19 20 Septoplasty completed NERI KRISHNA MD [address] [facility] [[email or web address] [address], [place], [address], [facility] 07/25/2024 00:29:56 Imaging Results None recorded. [...] mg tablet 07/14 completed Medicati on ID: [id number] D uration Value: 60 Brand Name: Vitamin [...] nebulizat ion 2018 active Medicati on ID: [id number] D uration Value: 25 Brand Name: albutero l sulfate Send Method: E-Prescr ibed Sub s Allowed: subs OK Speci al Instruct ion: INHALE 1 VIAL VIA NEBULIZE R EVERY 8 HRS NEEDED M edicatio nGeneric Name: albutero l sulfate Not Available Not Available Not Available ondansetr on HCl 4 mg tablet 07/14 completed Medicati on ID: [id number] B rand Name: ondanset yuko HCl Send [...] topical cream 03/30 completed Medicati on ID: [id number] D uration Value: 10 Reason: () Brand [...] for pain 01/18 completed Medicati on ID: [id number] D uration Value: 5 Brand Name: oxycodon [...] mg tablet 01/18 completed Medicati on ID: [id number] B rand Name: sertrali ne Send Method: E-Prescr ibed Sub s Allowed: subs OK Medic ationGen ericName : sertrali ne Not Available Not Available Not Available omeprazol e 20 mg capsule,d elayed release 03/30 completed Medicati on ID: [id number] D uration Value: 30 Reason: () Brand Name: omeprazo le Send Method: E-Prescr ibed Sub s Allowed: subs OK Speci al Instruct ion: TOME MARCELL C?PSULA TODOS LOS D? Med icationG enericNa me: omeprazo le Not Available Not Available Not Available [facility] [facility] 10 mg tablet 1 tablet by mouth 03/30 completed Medicati on ID: [id number] P stevie d By Name: Lisa Zapien nd Name: monteluk ast Send Method: E-Prescr ibed Sub s Allowed: subs OK Speci al Instruct ion: Take 1 tablet by mouth every day in the evening Medicati onGeneri cName: monteluk ast Not Available Not Available Not Available hydroxyzi ne HCl 25 mg tablet 03/30 completed Medicati on ID: [id number] D uration Value: 30 Reason: () Brand Name: hydroxyz ine HCl Send Method: E-Prescr ibed Sub s Allowed: subs OK Speci al Instruct ion: TOME MARCELL TABLETA POR V?A ORAL TODOS LOS D? CUANDO SEA NECESARI O FOR 30 DAYS Med icationG enericNa me: hydroxyz ine HCl Not Available Not Available Not Available azelastin e 137 mcg (0.1 %) nasal spray [place] 2 spray into both nostrils twice a day as directed 07/25 completed Medicati on ID: [id number] D uration Value: 30 Pres[address] bed By [...] mg tablet 03/30 completed Medicati on ID: [id number] D uration Value: 10 Reason: () Brand [...] dose pack 07/29 completed Medicati on ID: [id number] D uration Value: 6 Brand Name: methylpr ednisolo ne Send Method: E-Prescr ibed Sub s Allowed: subs OK Medic ationGen ericName : methylpr ednisolo ne Not Available Not Available Not Available oxycodone 5 mg tablet 08/12 completed Medicati on ID: [id number] B rand Name: oxycodon e Send Method: [...] mg tablet 01/14 completed Medicati on ID: [id number] B rand Name: cycloben zaprine Send Method: E-Prescr ibed Sub s Allowed: subs OK Speci al Instruct ion: TOME MARCELL TABLETA KATJA VECES AL D A PARA EL ESPASMO MUSCULAR CUANDO SEA NECESARI O Medica tionGene ricName: cycloben zaprine Not Available Not Available Not Available bupropion HCl XL 150 mg 24 hr tablet, extended release 03/30 completed Medicati on ID: [id number] D uration Value: 30 Reason: () Brand Name: bupropio n HCl Send Method: E-Prescr ibed Sub s Allowed: subs OK Speci al Instruct ion: TOME MARCELL TABLETA TODOS LOS D? EN LA MA?TAB edicatio nGeneric Name: bupropio n HCl Not Available Not Available Not Available Flovent HFA 110 mcg/actua tion aerosol inhaler 01/14 completed Medicati on ID: [id number] B rand Name: Flovent HFA Send Method: E-Prescr ibed Sub s Allowed: subs OK Medic ationGen ericName : Flovent HFA Not Available Not Available Not Available Depo-SubQ provera 104 104 mg/0.65 mL subcutane ous syringe 01/14 completed Medicati on ID: [id number] B rand Name: Depo-Sub Q provera 104 [...] activated aerosol 01/18 completed Medicati on ID: [id number] B rand Name: Qvar [employer] r Send Method: E-Prescr ibed Sub s Allowed: subs OK Medic ationGen ericName : Qvar [employer] r Not Available Not Available Not Available Gummies 400 mcg-35 mg-25 mg-5 mg chewable tablet 07/14 completed Medicati on ID: [id number] D uration Value: 90 Brand Name: Gummies Send Method: E-Prescr ibed Sub s Allowed: subs OK Medic ationGen ericName : Gummies Not Available Not Available Not Available [facility] ODT 75 mg disintegr ating tablet Take [...] ICD10 Code Diagnosis IMO Codes Diagnosis Note [id number] GLORY CHANCE RN Allergy [address] [facility],[place] [address] [place] [address] 04/14/2025 09:18:13 04/14/2025 09:28:02 Perennial allergic rhinitis [id number] J30.89 [id number] KARISSA MAK, RMA Allergy [address] [place] [address],[facility] [address] [place] [address] 04/21/2025 09:17:57 04/21/2025 09:53:54 Perennial allergic rhinitis [id number] J30.89 [id number] KARISSA MAK, RMA Allergy [address] [place] [address],[facility] [address] [place] [address] 04/27/2025 09:26:31 04/27/2025 10:38:28 Perennial allergic rhinitis [id number] J30.89 [id number] GLORY CHANCE RN Allergy [address] [place] [address],[facility] [address] [place] [address] 05/04/2025 09:12:37 05/04/2025 09:52:29 Perennial allergic rhinitis [id number] J30.89 [id number] GLORY CHANCE RN Allergy [address] [place] [address] [address] [place] [address] 05/09/2025 09:17:55 05/09/2025 11:56:55 Perennial allergic rhinitis [id number] J30.89 Health Concerns Section Related Observation LastModified by Organization Detai ls LastModified Time None Recorded Concern Status LastModified by Organization Details LastModified Time None Recorded Payers Encounter Date Sequence Insurance Name Policy Number Policy Sykes Covered Member ID Sykes Member ID Guarantor Name 05/09/2025 1 [facility] (MEDICAID HMO) CHELSI [facility] [id number] Gigi Connolly Lefebre OBG[facility] Episode No OBEpisode recorded.
--- OUTSIDE RECORDS SUMMARY | 2025-07-21 23:20 | XMS_ITS | Continuity of Care Document ---
Author Organization [facility], Allergy Address [address] [place] [phone] Assessment Encounter Date Assessment Date Assessment LastModified by Organization Details LastModified Time 05/25/2025 05/25/2025 Visit With: Tiara Krishna [place] Use of Antihistamine s: No If yes: Vial Test Change in medications: No If yes Increase in asthma symptoms If yes, inhaler use: Reaction to last injections: No If yes: Allergy Symptoms: Other: Missed: Dose Aware of Vial Test Aware: Notes: [email or web address] Not available 05/25/2025 10:08:01 Plan of Treatment Reminders Order Date Submit [...] Time Hypertro phy of nasal turbinat es 56987224 Active 2018 Hypertro phy of nasal turbinat es; Note: Date Diagnose d: 9 12:38 PM (J34.3) Not Available [facility] 4 03:07:20 Uncompli cated moderate persiste nt asthma 151810296 Active 2018 Moderate persiste nt asthma NOS; Note: Date Diagnose d: 9 10:53 AM (J45.40) Not Available [facility] 4 03:07:21 Nasal congesti on 34185043 Active 2018 Nasal congesti on; Note: Date Diagnose d: 9 10:51 AM (R09.81) Not Available [facility] 4 03:07:21 Deviated nasal septum 812959658 Active 2018 Deviated nasal septum; Note: Date Diagnose d: 9 12:38 PM (J34.2) Not Available [facility] 4 03:07:20 Follow-u p visit Active 2019 Medical surveill ance followin g complete d treatmen t; Note: Date Diagnose d: 0 3:20 PM (Z09) Not Available [facility] 4 03:07:19 Snoring 93592410 Active 2019 Snoring; Note: Date Diagnose d: 0 3:44 PM (R06.83) Not Available [facility] 4 03:07:21 Contusio n of nose 24253453 Active 2021 Contusio n of nose, initial encounte r; Note: Date Diagnose d: 2 11:21 AM (S00.33X A) Not Available [facility] 4 03:07:19 Chronic tonsilli tis 95150593 Completed 202103/11/2024 Chronic tonsilli tis; Note: Date Diagnose d: 04/18/2022 12:18 PM (J35.01) Not Available [facility] 4 03:07:19 Chronic disease of tonsils AND/OR adenoids 45786658 Completed 202103/11/2024 Calculus , tonsil; Note: Date Diagnose d: 04/18/2022 12:18 PM (J35.8) Not Available [facility] 4 03:07:19 Abnormal auditory percepti on 66261344 Active 2022 Other abnormal auditory percepti ons, bilatera l; Note: Date Diagnose d: 3 12:05 PM (H93.293 ) Other abnormal auditory percepti ons, bilatera l; Note: Date Diagnose d: 01/14/2023 9:47 AM (H93.293 ) ; Start Date : 01/15/20 Not Available [facility] 4 03:07:20 Allergic rhinitis 04610765 Active 2023 Allergic rhinitis : Due to [...] PM (477.8) Note: Date Diagnose d: 07/24/20 23 1:53 PM (477.8) ; Start Date : [...] d: 3 11:09 AM (4 Not Available [facility] 4 01:19:06 Perennia l allergic rhinitis 873387123 Active 2023 KARISSA IRVIN, [facility] [address], [place], [address] , [facility] - [facility] 5 10:37:21 Exacerba tion of moderate persiste nt asthma 403993040 Active 2023 NERI NUNO MD [address], [place], [place], [address] , [facility] - [facility] [place] 4 10:56:48 Acute respirat ory syncytia l virus bronchit is 883739103 Active 2023 NERI NUNO MD [address], [place], [address] , [facility] - [facility] [place] 4 10:56:56 Uncompli cated mild persiste nt asthma 359806275 Active 2024 NERI NUNO MD [address], [place], [address] , [facility] - [facility] 5 11:13:55 Problem Notes None recorded. Procedures Surgical History Date Name Laterality Status Provider Name and Address Organization Details Recorded Time 05/30/20 25 Allergy Immunotherapy Injections completed CHANDA BRAVO [facility] [address], [place], [address], [facility] - [facility] [place] [facility] 05/30/2025 13:40:09 05/25/20 25 Allergy Immunotherapy Injections completed KARISSA IRVIN [facility] [address], [place], [address], [facility] 05/25/2025 10:07:45 05/16/20 25 Allergy Immunotherapy Injections completed KARISSA IRVIN, RMA [address], [place], [address], [place] [facility] 05/16/2025 10:37:49 05/09/20 25 Allergy Immunotherapy Injections completed GLORY CHANCE RN [address], [place], [address], [place] [facility] 05/09/2025 11:56:12 05/04/20 25 Allergy Immunotherapy Injections completed GLORY CHANCE RN [address], [place], [address], [place] [facility] 05/04/2025 09:51:49 04/27/20 25 Allergy Immunotherapy Injections completed KARISSA IRVIN, RMA [address], [place], [address], [place] [facility] 04/27/2025 10:30:59 04/21/20 25 Allergy Immunotherapy Injections completed KARISSA IRVIN, RMA [address], [place], [address], [place] [facility] 04/21/2025 09:53:31 04/14/20 25 Allergy Immunotherapy Injections completed Tiara Krishna [address], [place], [address], [place] [facility] 04/14/2025 09:49:11 04/07/20 25 Allergy Immunotherapy Injections completed KARISSA IRVIN RMA [address], [place], [address], [place] [facility] 04/07/2025 12:03:37 03/31/20 25 Allergy Immunotherapy Injections completed CHANDA BRAVO RMA [address], [place], [address], [place] [facility] 03/31/2025 14:37:21 03/24/20 25 Allergy Immunotherapy Injections completed Tiara Krishna [address], [place], [address], [place] [facility] 03/24/2025 11:51:03 03/17/20 25 Allergy Immunotherapy Injections completed Tiara Krishna [address], [place], [address], [place] [facility] 03/17/2025 09:43:37 03/02/20 25 Allergy Immunotherapy Injections completed YOGI GOMEZA [address], [place], [address], [place] [facility] 03/02/2025 10:27:07 02/25/20 25 Allergy Immunotherapy Injections completed GLORY CHANCE RN [address] [facility], [place], [address], [place] [facility] 02/24/2025 14:58:39 02/17/20 25 Allergy Immunotherapy Injections completed KARISSA IRVIN RMA [address], [place], [address], [place] [facility] 02/16/2025 14:25:33 02/04/20 25 Allergy Immunotherapy Injections completed KARISSA IRVIN RMA [address] [facility], [place], [address], [place] [facility] 02/03/2025 09:35:41 01/27/20 25 Allergy Immunotherapy Injections completed KARISSA IRVIN RMA [address] [place] [address], [address], [place] [facility] 01/26/2025 15:34:28 01/19/20 25 Allergy Immunotherapy Injections completed GENARO GOMEZ [address], [place], [address], [place] [facility] 01/18/2025 10:45:02 01/14/20 25 Allergy Immunotherapy Injections completed KARISSA IRVIN RMA [address], [place], [address], [place] [facility] 01/13/2025 14:19:15 01/07/20 25 Allergy Immunotherapy Injections completed GLORY CHANCE RN [address], [place], [address], [place] [facility] 01/06/2025 10:20:16 12/23/19 25 Allergy Immunotherapy Injections completed KARISSA IRVIN, RMA [address], [place], [address], [place] [facility] 12/22/2024 16:16:14 12/17/19 25 Allergy Immunotherapy Injections completed GLORY CHANCE RN [address], [place], [address], [place] [facility] 12/16/2024 10:05:08 12/01/19 25 Allergy Immunotherapy Injections completed KARISSA IRVIN, RMA [address], [place], [address], [place] [facility] 11/30/2024 14:28:25 11/26/19 25 Allergy Immunotherapy Injections completed GLORY CHANCE RN [address], [place], [address], [place] [facility] 11/25/2024 13:58:56 11/19/19 25 Allergy Immunotherapy Injections completed GLORY CHANCE RN [address] [facility], [place], [address], [place] [facility] 11/18/2024 15:03:49 11/12/19 25 Allergy Immunotherapy Injections completed KARISSA IRVIN RMA [address], [place], [address], [place] [facility] 11/11/2024 14:35:30 11/03/19 25 Allergy Immunotherapy Injections completed KARISSA IRVIN RMA [address], [place], [address], [place] [facility] 11/02/2024 11:18:48 10/29/19 25 Allergy Immunotherapy Injections completed GENARO GOMEZ [address], [place], [address], [place] [facility] 10/28/2024 12:07:38 10/22/19 25 Allergy Immunotherapy Injections completed KARISSA IRVIN RMA [address], [place], [address], [place] [facility] 10/21/2024 14:48:48 10/15/19 25 Allergy Immunotherapy Injections completed GENARO GOMEZ [address], [place], [address], [place] [facility] 10/14/2024 09:30:19 10/07/19 25 Allergy Immunotherapy Injections completed GLORY CHANCE RN [address], [place], [address], [place] [facility] 10/07/2024 09:34:51 09/09/19 25 Allergy Immunotherapy Injections completed CHANDA BRAVO RMA [address], [place], [address], [place] [facility] 09/09/2024 12:08:11 09/02/19 25 Allergy Immunotherapy Injections completed GLORY CHANCE RN [address], [place], [address], [place] [facility] 09/02/2024 11:18:45 08/26/19 25 Allergy Immunotherapy Injections completed KARISSA IRVIN, RMA [address], [place], [address], [place] [facility] 08/26/2024 10:14:32 08/19/19 25 Allergy Immunotherapy Injections completed KARISSA IRVIN RMA [address], [place], [address], [place] [facility] 08/19/2024 12:05:52 07/15/20 24 Allergy Immunotherapy Injections completed KARISSA IRVIN RMA [address], [place], [address], [place] [facility] 07/15/2024 15:28:49 07/08/20 24 Allergy Immunotherapy Injections completed KARISSA MAKC, RMA [address], [place], [address], [place] [facility] 07/08/2024 10:51:03 07/01/20 24 Allergy Immunotherapy Injections completed KARISSA MAKC, RMA [address], [place], [address], [place] [facility] 07/01/2024 12:06:05 06/24/20 24 Allergy Immunotherapy Injections completed KARISSA IRVIN, RMA [address], [place], [address], [place] [facility] 06/24/2024 10:43:53 05/27/20 24 Allergy Immunotherapy Injections completed GLORY CHANCE RN [address], [place], [address], [place] [facility] 05/27/2024 14:17:32 05/20/20 24 Allergy Immunotherapy Injections completed CHANDA BRAVO, RMA [address], [place], [address], [place] [facility] 05/20/2024 14:53:55 05/06/20 24 Allergy Immunotherapy Injections completed KARISSA IRVIN, RMA [address], [place], [address], [place] [facility] 05/06/2024 12:16:34 04/22/20 24 Allergy Immunotherapy Injections completed KARISSA IRVIN, RMA [address], [place], [address], [place] [facility] 04/22/2024 14:44:11 04/14/20 24 Allergy Immunotherapy Injections completed KARISSA IRVIN, RMA [address], [place], [address], [place] [facility] 04/14/2024 09:39:13 04/07/20 24 Allergy Immunotherapy Injections completed GLORY CHANCE RN [address] [facility] [address], [place], [address], [place] [facility] 04/07/2024 10:47:25 03/30/20 24 Allergy Immunotherapy Injections completed GLORY CHANCE RN [address] [facility] [address], [place], [address], [place] [facility] 03/30/2024 16:46:23 03/25/20 24 Allergy Immunotherapy Injections completed GLORY CHANCE RN [address], [place], [address], [place] [facility] 03/25/2024 09:57:47 03/16/20 24 Allergy Immunotherapy Injections completed GLORY CHANCE RN [address], [place], [address], [place] [facility] 03/16/2024 16:30:45 03/01/20 24 Allergy Immunotherapy Injections completed GLORY CHANCE RN [address], [place], [address], [place] [facility] 03/01/2024 14:09:49 02/24/20 24 Allergy Immunotherapy Injections completed KARISSA IRVIN, RMA [address], [place], [address], [place] [facility] 02/24/2024 11:58:32 02/19/20 24 Allergy Immunotherapy Injections completed GENARO GOMEZ [address], [place], [address], [place] [facility] 02/19/2024 11:57:43 02/05/20 24 Allergy Immunotherapy Injections completed KARISSA IRVIN RMA [address], [place], [address], [place] [facility] 02/05/2024 13:29:36 01/22/20 24 Allergy Immunotherapy Injections completed KARISSA IRVIN RMA [address], [place], [address], [place] [facility] 01/22/2024 15:12:23 01/07/20 24 Allergy Immunotherapy Injections completed GENARO GOMEZ [address], [place], [address], [place] [facility] 01/07/2024 10:29:05 01/01/20 24 Allergy Immunotherapy Injections completed CHANDA BRAVO RMA [address], [place], [address], [place] [facility] 01/01/2024 09:50:13 12/25/19 24 Allergy Immunotherapy Injections completed KARISSA IRVIN RMA [address], [place], [address], [place] [facility] 12/25/2023 15:20:45 08/12/19 23 Tonsillectomy completed NERI KRISHNA MD [address] [facility],[place] [address], [place], [address], [facility] 07/25/2024 00:29:19 08/18/19 20 Septoplasty completed NERI KRISHNA MD [address] [facility],[address], [address], [facility] 07/25/2024 00:29:56 Imaging Results None recorded. [...] mg tablet 07/14 completed Medicati on ID: [id number] D uration Value: 60 Brand Name: Vitamin [...] nebulizat ion 2018 active Medicati on ID: [id number] D uration Value: 25 Brand Name: albutero l sulfate Send Method: E-Prescr ibed Sub s Allowed: subs OK Speci al Instruct ion: INHALE 1 VIAL VIA NEBULIZE R EVERY 8 HRS NEEDED M edicatio nGeneric Name: albutero l sulfate Not Available Not Available Not Available ondansetr on HCl 4 mg tablet 07/14 completed Medicati on ID: [id number] B rand Name: ondanset yuko HCl Send [...] topical cream 03/30 completed Medicati on ID: [id number] D uration Value: 10 Reason: () Brand [...] for pain 01/18 completed Medicati on ID: [id number] D uration Value: 5 Brand Name: oxycodon [...] mg tablet 01/18 completed Medicati on ID: [id number] B rand Name: sertrali ne Send Method: E-Prescr ibed Sub s Allowed: subs OK Medic ationGen ericName : sertrali ne Not Available Not Available Not Available omeprazol e 20 mg capsule,d elayed release 03/30 completed Medicati on ID: [id number] D uration Value: 30 Reason: () Brand Name: omeprazo le Send Method: E-Prescr ibed Sub s Allowed: subs OK Speci al Instruct ion: TOME MARCELL C?PSULA TODOS LOS D? Med icationG enericNa me: omeprazo le Not Available Not Available Not Available monteluka st 10 mg tablet 1 tablet by mouth 03/30 completed Medicati on ID: [id number] P stevie d By Name: Lisa Zapien nd Name: monteluk ast Send Method: E-Prescr ibed Sub s Allowed: subs OK Speci al Instruct ion: Take 1 tablet by mouth every day in the evening Medicati onGeneri cName: monteluk ast Not Available Not Available Not Available hydroxyzi ne HCl 25 mg tablet 03/30 completed Medicati on ID: [id number] D uration Value: 30 Reason: () Brand Name: hydroxyz ine HCl Send Method: E-Prescr ibed Sub s Allowed: subs OK Speci al Instruct ion: TOME MARCELL TABLETA POR V?A ORAL TODOS LOS D? CUANDO SEA NECESARI O FOR 30 DAYS Med icationG enericNa me: hydroxyz ine HCl Not Available Not Available Not Available azelastin e 137 mcg (0.1 %) nasal spray Carson 2 spray into both nostrils twice a day as directed 07/25 completed Medicati on ID: [id number] D uration Value: 30 Pres[address] bed By [...] mg tablet 03/30 completed Medicati on ID: [id number] D uration Value: 10 Reason: () Brand [...] dose pack 07/29 completed Medicati on ID: [id number] D uration Value: 6 Brand Name: methylpr ednisolo ne Send Method: E-Prescr ibed Sub s Allowed: subs OK Medic ationGen ericName : methylpr ednisolo ne Not Available Not Available Not Available oxycodone 5 mg tablet 08/12 completed Medicati on ID: [id number] B rand Name: oxycodon e Send Method: [...] mg tablet 01/14 completed Medicati on ID: [id number] B rand Name: cycloben zaprine Send Method: E-Prescr ibed Sub s Allowed: subs OK Speci al Instruct ion: TOME MARCELL TABLETA KATJA VECES AL D A PARA EL ESPASMO MUSCULAR CUANDO SEA NECESARI O Medica tionGene ricName: cycloben zaprine Not Available Not Available Not Available bupropion HCl XL 150 mg 24 hr tablet, extended release 03/30 completed Medicati on ID: [id number] D uration Value: 30 Reason: () Brand Name: bupropio n HCl Send Method: E-Prescr ibed Sub s Allowed: subs OK Speci al Instruct ion: TOME MARCELL TABLETA TODOS LOS D? EN LA MA?TAB edicatio nGeneric Name: bupropio n HCl Not Available Not Available Not Available Flovent HFA 110 mcg/actua tion aerosol inhaler 01/14 completed Medicati on ID: [id number] B rand Name: Flovent HFA Send Method: E-Prescr ibed Sub s Allowed: subs OK Medic ationGen ericName : Flovent HFA Not Available Not Available Not Available Depo-SubQ provera 104 104 mg/0.65 mL subcutane ous syringe 01/14 completed Medicati on ID: [id number] B rand Name: Depo-Sub Q provera 104 [...] activated aerosol 01/18 completed Medicati on ID: [id number] B rand Name: Qvar [employer] r Send Method: E-Prescr ibed Sub s Allowed: subs OK Medic ationGen ericName : Qvar [employer] Not Available Not Available Not Available Gummies 400 mcg-35 mg-25 mg-5 mg chewable tablet 07/14 completed Medicati on ID: [id number] D uration Value: 90 Brand Name: Gummies Send Method: E-Prescr ibed Sub s Allowed: subs OK Medic ationGen ericName : Gummies Not Available Not Available Not Available Nurtec ODT 75 mg disintegr ating tablet Take [...] ICD10 Code Diagnosis IMO Codes Diagnosis Note [id number] KARISSA KORPREETHI, RMA Allergy [address] [facility],[place] [address] [place] [address] 04/27/2025 09:26:31 04/27/2025 10:38:28 Perennial allergic rhinitis [id number] J30.89 [id number] GLORY CHANCE RN Allergy [address] [place] [address],[facility] [address] [place] [address] 05/04/2025 09:12:37 05/04/2025 09:52:29 Perennial allergic rhinitis [id number] J30.89 [id number] GLORY CHANCE RN Allergy [address] [place] [address] 100 [place] [address] 05/09/2025 09:17:55 05/09/2025 11:56:55 Perennial allergic rhinitis [id number] J30.89 59686 GENARO GOMEZ Allergy [address] [place] [address],[facility] 100 [place] [address] 05/16/2025 09:53:31 05/16/2025 10:39:22 Perennial allergic rhinitis [id number] J30.89 [id number] Tiara Krishna Allergy [address] [place] [address],[facility] 100 [place] [address] 05/25/2025 09:46:34 05/25/2025 10:08:17 Perennial allergic rhinitis [id number] J30.89 Health Concerns Section Related Observation LastModified by Organization Detai ls LastModified Time None Recorded Concern Status LastModified by Organization Details LastModified Time None Recorded Payers Encounter Date Sequence Insurance Name Policy Number Policy Sykes Covered Member ID Sykes Member ID Guarantor Name 05/25/2025 1 [employer] - HEALTH NET PLAN (MEDICAID HMO) CHELSI Connolly-Lef ebre [id number] Gigi Kendrick OBGyn Episode No OBEpisode recorded.
--- OUTSIDE RECORDS SUMMARY | 2025-07-21 23:20 | XMS_ITS | Continuity of Care Document ---
Author Organization ID - [facility], Allergy Address [address] [place] [phone] Assessment Encounter Date Assessment Date Assessment LastModified by Organization Details LastModified Time 05/30/2025 05/30/2025 Visit With: GENARO Rogers Use of Antihistamine s: Yes If yes: Vial Test Change in medications: No If yes Increase in asthma symptoms If yes, inhaler use: Reaction to last injections: No If yes: Allergy Symptoms: Other: Missed: Dose Aware of Vial Test Aware: Notes: [email or web address] Not available 05/30/2025 13:39:50 Plan of Treatment Reminders Order Date Submit [...] Time Hypertro phy of nasal turbinat es [id number] Active 2018 Hypertro phy of nasal turbinat es; Note: Date Diagnose d: 9 12:38 PM (J34.3) Not Available [facility] 4 03:07:20 Uncompli cated moderate persiste nt asthma [id number] Active 2018 Moderate persiste nt asthma NOS; Note: Date Diagnose d: 9 10:53 AM (J45.40) Not Available [facility] 4 03:07:21 Nasal congesti on 71400745 Active 2018 Nasal congesti on; Note: Date Diagnose d: 9 10:51 AM (R09.81) Not Available [facility] 4 03:07:21 Deviated nasal septum 470840798 Active 2018 Deviated nasal septum; Note: Date Diagnose d: 9 12:38 PM (J34.2) Not Available [facility] 4 03:07:20 Follow-u p visit Active 2019 Medical surveill ance followin g complete d treatmen t; Note: Date Diagnose d: 0 3:20 PM (Z09) Not Available [facility] 4 03:07:19 Snoring 59061858 Active 2019 Snoring; Note: Date Diagnose d: 0 3:44 PM (R06.83) Not Available [facility] 4 03:07:21 Contusio n of nose 44598849 Active 2021 Contusio n of nose, initial encounte r; Note: Date Diagnose d: 2 11:21 AM (S00.33X A) Not Available [facility] 4 03:07:19 Chronic tonsilli tis 21070237 Completed 202103/11/2024 Chronic tonsilli tis; Note: Date Diagnose d: 04/18/2022 12:18 PM (J35.01) Not Available [facility] 4 03:07:19 Chronic disease of tonsils AND/OR adenoids 90006635 Completed 202103/11/2024 Calculus , tonsil; Note: Date Diagnose d: 04/18/2022 12:18 PM (J35.8) Not Available [facility] 4 03:07:19 Abnormal auditory percepti on 21757944 Active 2022 Other abnormal auditory percepti ons, bilatera l; Note: Date Diagnose d: 3 12:05 PM (H93.293 ) Other abnormal auditory percepti ons, bilatera l; Note: Date Diagnose d: 01/14/2023 9:47 AM (H93.293 ) ; Start Date : 01/15/20 Not Available [facility] 4 03:07:20 Allergic rhinitis 30127874 Active 2023 Allergic rhinitis : Due to other allergen ; Note: Date Diagnose d: 4 4:18 PM (477.8) Note: Date Diagnose d: 4 4:18 PM (477.8) Allerg ic rhinitis : Due to other allergen ; Note: Date Diagnose d: 4 9:52 AM (477.8) Note: Date Diagnose d: 9:52 AM (477.8) ; Start Date : [...] 2:51 PM (477.8) Note: Date Diagnose d: 9/29/202 3 2:51 PM (477.8) ; Start Date [...] 11:09 AM (4 Not Available [facility] 4 01:19:06 Perennia l allergic rhinitis 692199815 Active 2023 KARISSA IRVIN, [facility] [address], [place], [address] , [facility] 5 10:37:21 Exacerba tion of moderate persiste nt asthma 350293263 Active 2023 NERI NUNO MD [address], [place], [address] , [facility] - [facility] [place] 4 10:56:48 Acute respirat ory syncytia l virus bronchit is 830388547 Active 2023 NERI NUNO MD [address], [place], [address] , [facility] - [facility] 4 10:56:56 Uncompli cated mild persiste nt asthma 965881817 Active 2024 NERI NUNO MD [address], [place], [address] , [facility] - [facility] 5 11:13:55 Problem Notes None recorded. Procedures Surgical History Date Name Laterality Status Provider Name and Address Organization Details Recorded Time 05/30/20 25 Allergy Immunotherapy Injections completed CHANDA BRAVO [facility] [address], [place], [address], [facility] - [facility] 05/30/2025 13:40:09 05/25/20 25 Allergy Immunotherapy Injections completed KARISSA IRVIN Nicol [address], [place], [address], [facility] 05/25/2025 10:07:45 05/16/20 25 Allergy Immunotherapy Injections completed KARISSA IRVIN, RMA [address], [place], [address], [place] [facility] 05/16/2025 10:37:49 05/09/20 25 Allergy Immunotherapy Injections completed GLORY CHANCE RN [address], [place], [address], [place] [facility] 05/09/2025 11:56:12 05/04/20 25 Allergy Immunotherapy Injections completed GLORY CHANCE RN [address] [facility] [address], [place], [address], [place] [facility] 05/04/2025 09:51:49 04/27/20 25 Allergy Immunotherapy Injections completed KARISSA IRVIN, RMA [address] [facility] [address], [place], [address], [place] [facility] 04/27/2025 10:30:59 04/21/20 25 Allergy Immunotherapy Injections completed KARISSA IRVIN, RMA [address] [facility] [address], [place], [address], [place] [facility] 04/21/2025 09:53:31 04/14/20 25 Allergy Immunotherapy Injections completed Tiara Krishna [address] [facility] [address], [place], [address], [place] [facility] 04/14/2025 09:49:11 04/07/20 25 Allergy Immunotherapy Injections completed KARISSA IRVIN RMA [address] [facility] [address], [place], [address], [place] [facility] 04/07/2025 12:03:37 03/31/20 25 Allergy Immunotherapy Injections completed CHANDA BRAVO RMA [address], [place], [address], [place] [facility] 03/31/2025 14:37:21 03/24/20 25 Allergy Immunotherapy Injections completed Tiara Krishna [address], [place], [address], [place] [facility] 03/24/2025 11:51:03 03/17/20 25 Allergy Immunotherapy Injections completed Tiara Krishna [address], [place], [address], [place] [facility] 03/17/2025 09:43:37 03/02/20 25 Allergy Immunotherapy Injections completed GENARO GOMEZ [address], [place], [address], [place] [facility] 03/02/2025 10:27:07 02/25/20 25 Allergy Immunotherapy Injections completed GLORY CHANCE RN [address] [facility] [address], [place], [address], [place] [facility] 02/24/2025 14:58:39 02/17/20 25 Allergy Immunotherapy Injections completed KARISSA IRVIN RMA [address], [place], [address], [place] [facility] 02/16/2025 14:25:33 02/04/20 25 Allergy Immunotherapy Injections completed KARISSA IRVIN RMA [address] [facility], [place], [address], [place] [facility] 02/03/2025 09:35:41 01/27/20 25 Allergy Immunotherapy Injections completed KARISSA IRVIN RMA [address], [place], [address], [place] [facility] 01/26/2025 15:34:28 01/19/20 25 Allergy Immunotherapy Injections completed GENARO GMOEZ [address] [facility] [address], [place], [address], [place] [facility] 01/18/2025 10:45:02 01/14/20 25 Allergy Immunotherapy Injections completed KARISSA IRVIN RMA [address], [place], [address], [place] [facility] 01/13/2025 14:19:15 01/07/20 25 Allergy Immunotherapy Injections completed GLORY CHANCE RN [address], [place], [address], [place] [facility] 01/06/2025 10:20:16 12/23/19 25 Allergy Immunotherapy Injections completed KARISSA IRVIN, RMA [address], [place], [address], [place] [facility] 12/22/2024 16:16:14 12/17/19 25 Allergy Immunotherapy Injections completed GLORY CHANCE RN [address], [place], [address], [place] [facility] 12/16/2024 10:05:08 12/01/19 25 Allergy Immunotherapy Injections completed KARISSA IRVIN, RMA [address], [place], [address], [place] [facility] 11/30/2024 14:28:25 11/26/19 25 Allergy Immunotherapy Injections completed GLORY CHANCE RN [address] [facility] [address], [place], [address], [place] [facility] 11/25/2024 13:58:56 11/19/19 25 Allergy Immunotherapy Injections completed GLORY CHANCE RN [address], [place], [address], [place] [facility] 11/18/2024 15:03:49 11/12/19 25 Allergy Immunotherapy Injections completed KARISSA IRVIN, RMA [address], [place], [address], [place] [facility] 11/11/2024 14:35:30 11/03/19 25 Allergy Immunotherapy Injections completed KARISSA IRVIN RMA [address], [place], [address], [place] [facility] 11/02/2024 11:18:48 10/29/19 25 Allergy Immunotherapy Injections completed CHANDA BRAVO RMNicol [address], [place], [address], [place] [facility] 10/28/2024 12:07:38 10/22/19 25 Allergy Immunotherapy Injections completed KARISSA IRVIN RMA [address], [place], [address], [place] [facility] 10/21/2024 14:48:48 10/15/19 25 Allergy Immunotherapy Injections completed YOGI GOMEZA [address], [place], [address], [place] [facility] 10/14/2024 09:30:19 10/07/19 25 Allergy Immunotherapy Injections completed GLORY CHANCE RN [address], [place], [address], [place] [facility] 10/07/2024 09:34:51 09/09/19 25 Allergy Immunotherapy Injections completed CHANDA BRAVO RMA [address], [place], [address], [place] [facility] 09/09/2024 12:08:11 09/02/19 25 Allergy Immunotherapy Injections completed GLORY CHANCE RN [address], [place], [address], [place] [facility] 09/02/2024 11:18:45 08/26/19 25 Allergy Immunotherapy Injections completed KARISSA IRVIN, RMA [address], [place], [address], [place] [facility] 08/26/2024 10:14:32 08/19/19 25 Allergy Immunotherapy Injections completed KARISSA IRVIN RMA [address], [place], [address], [place] [facility] 08/19/2024 12:05:52 07/15/20 24 Allergy Immunotherapy Injections completed KARISSA IRVIN RMA [address], [place], [address], [place] [facility] 07/15/2024 15:28:49 07/08/20 24 Allergy Immunotherapy Injections completed KARISSA MAKC, RMA [address], [place], [address], [place] [facility] 07/08/2024 10:51:03 07/01/20 24 Allergy Immunotherapy Injections completed KARISSA MAKC, RMA [address], [place], [address], [place] [facility] 07/01/2024 12:06:05 06/24/20 24 Allergy Immunotherapy Injections completed KARISSA IRVIN, RMA [address], [place], [address], [place] [facility] 06/24/2024 10:43:53 05/27/20 24 Allergy Immunotherapy Injections completed GLORY CHANCE RN [address], [place], [address], [place] [facility] 05/27/2024 14:17:32 05/20/20 24 Allergy Immunotherapy Injections completed CHANDA BRAVO RMA [address], [place], [address], [place] [facility] 05/20/2024 14:53:55 05/06/20 24 Allergy Immunotherapy Injections completed KARISSA IRVIN, RMA [address] [facility] [address], [place], [address], [place] [facility] 05/06/2024 12:16:34 04/22/20 24 Allergy Immunotherapy Injections completed KARISSA IRVIN, RMA [address] [facility] [address] [facility], [place], [address], [place] [facility] 04/22/2024 14:44:11 04/14/20 24 Allergy Immunotherapy Injections completed KARISSA IRVIN, RMA [address] [facility] [address], [place], [address], [place] [facility] 04/14/2024 09:39:13 04/07/20 24 Allergy Immunotherapy Injections completed GLORY CHANCE RN [address] [facility] [address], [place], [address], [place] [facility] 04/07/2024 10:47:25 03/30/20 24 Allergy Immunotherapy Injections completed GLORY CHANCE RN [address] [facility] [address], [place], [address], [place] [facility] 03/30/2024 16:46:23 03/25/20 24 Allergy Immunotherapy Injections completed GLORY CHANCE RN [address] [facility] [place],[address], [place], [address], [place] [facility] 03/25/2024 09:57:47 03/16/20 24 Allergy Immunotherapy Injections completed GLORY CHANCE RN [address], [place], [address], [place] [facility] 03/16/2024 16:30:45 03/01/20 24 Allergy Immunotherapy Injections completed GLORY CHANCE RN [address], [place], [address], [place] [facility] 03/01/2024 14:09:49 02/24/20 24 Allergy Immunotherapy Injections completed KARISSA IRVIN, RMA [address], [place], [address], [place] [facility] 02/24/2024 11:58:32 02/19/20 24 Allergy Immunotherapy Injections completed GENARO GOMEZ [address], [place], [address], [place] [facility] 02/19/2024 11:57:43 02/05/20 24 Allergy Immunotherapy Injections completed KARISSA IRVIN RMA [address], [place], [address], [place] [facility] 02/05/2024 13:29:36 01/22/20 24 Allergy Immunotherapy Injections completed KARISSA IRVIN RMA [address], [place], [address], [place] [facility] 01/22/2024 15:12:23 01/07/20 24 Allergy Immunotherapy Injections completed GENARO GOMEZ [address], [place], [address], [place] [facility] 01/07/2024 10:29:05 01/01/20 24 Allergy Immunotherapy Injections completed CHANDA BRAVO RMA [address], [place], [address], [place] [facility] 01/01/2024 09:50:13 12/25/19 24 Allergy Immunotherapy Injections completed KARISSA IRVIN RMA [address], [place], [address], [place] [facility] 12/25/2023 15:20:45 08/12/19 23 Tonsillectomy completed NERI KRISHNA MD [address] [facility],[address], [address], [facility] 07/25/2024 00:29:19 08/18/19 20 Septoplasty completed NERI KRISHNA MD [address] [facility],[address], [address], [facility] 07/25/2024 00:29:56 Imaging Results None recorded. [...] mg tablet 07/14 completed Medicati on ID: [id number] D uration Value: 60 Brand Name: Vitamin [...] nebulizat ion 2018 active Medicati on ID: [id number] D uration Value: 25 Brand Name: albutero l sulfate Send Method: E-Prescr ibed Sub s Allowed: subs OK Speci al Instruct ion: INHALE 1 VIAL VIA NEBULIZE R EVERY 8 HRS NEEDED M edicatio nGeneric Name: albutero l sulfate Not Available Not Available Not Available ondansetr on HCl 4 mg tablet 07/14 completed Medicati on ID: [id number] B rand Name: ondanset yuko HCl Send [...] topical cream 03/30 completed Medicati on ID: [id number] D uration Value: 10 Reason: () Brand [...] for pain 01/18 completed Medicati on ID: [id number] D uration Value: 5 Brand Name: oxycodon [...] mg tablet 01/18 completed Medicati on ID: [id number] B rand Name: sertrali ne Send Method: E-Prescr ibed Sub s Allowed: subs OK Medic ationGen ericName : sertrali ne Not Available Not Available Not Available omeprazol e 20 mg capsule,d elayed release 03/30 completed Medicati on ID: [id number] D uration Value: 30 Reason: () Brand Name: omeprazo le Send Method: E-Prescr ibed Sub s Allowed: subs OK Speci al Instruct ion: TOME MARCELL C?PSULA TODOS LOS D? Med icationG enericNa me: omeprazo le Not Available Not Available Not Available mont[address] [facility] 10 mg tablet 1 tablet by mouth 03/30 completed Medicati on ID: [id number] P stevie [place] By Name: Lisa Zapien nd Name: monteluk ast Send Method: E-Prescr ibed Sub s Allowed: subs OK Speci al Instruct ion: Take 1 tablet by mouth every day in the evening Medicati onGeneri cName: monteluk ast Not Available Not Available Not Available hydroxyzi ne HCl 25 mg tablet 03/30 completed Medicati on ID: [id number] D uration Value: 30 Reason: () Brand Name: hydroxyz ine HCl Send Method: E-Prescr ibed Sub s Allowed: subs OK Speci al Instruct ion: TOME MARCELL TABLETA POR V?A ORAL TODOS LOS D? CUANDO SEA NECESARI O FOR 30 DAYS Med icationG enericNa me: hydroxyz ine HCl Not Available Not Available Not Available azelastin e 137 mcg (0.1 %) nasal spray Vanduser 2 spray into both nostrils twice a day as directed 07/25 completed Medicati on ID: [id number] D uration Value: 30 Prescri bed By [...] mg tablet 03/30 completed Medicati on ID: [id number] D uration Value: 10 Reason: () Brand [...] dose pack 07/29 completed Medicati on ID: [id number] D uration Value: 6 Brand Name: methylpr ednisolo ne Send Method: E-Prescr ibed Sub s Allowed: subs OK Medic ationGen ericName : methylpr ednisolo ne Not Available Not Available Not Available oxycodone 5 mg tablet 08/12 completed Medicati on ID: [id number] B rand Name: oxycodon e Send Method: [...] mg tablet 01/14 completed Medicati on ID: [id number] B rand Name: cycloben zaprine Send Method: E-Prescr ibed Sub s Allowed: subs OK Speci al Instruct ion: TOME MARCELL TABLETA KATJA VECES AL D A PARA EL ESPASMO MUSCULAR CUANDO SEA NECESARI O Medica tionGene ricName: cycloben zaprine Not Available Not Available Not Available bupropion HCl XL 150 mg 24 hr tablet, extended release 03/30 completed Medicati on ID: [id number] D uration Value: 30 Reason: () Brand Name: bupropio n HCl Send Method: E-Prescr ibed Sub s Allowed: subs OK Speci al Instruct ion: TOME MARCELL TABLETA TODOS LOS D? EN LA MA?TAB edicatio nGeneric Name: bupropio n HCl Not Available Not Available Not Available Flovent HFA 110 mcg/actua tion aerosol inhaler 01/14 completed Medicati on ID: [id number] B rand Name: Flovent HFA Send Method: E-Prescr ibed Sub s Allowed: subs OK Medic ationGen ericName : Flovent HFA Not Available Not Available Not Available Depo-SubQ provera 104 104 mg/0.65 mL subcutane ous syringe 01/14 completed Medicati on ID: [id number] B rand Name: Depo-Sub Q provera 104 [...] activated aerosol 01/18 completed Medicati on ID: [id number] B rand Name: Qvar RediHale r Send Method: E-Prescr ibed Sub s Allowed: subs OK Medic ationGen ericName : Qvar [employer]ale r Not Available Not Available Not Available Gummies 400 mcg-35 mg-25 mg-5 mg chewable tablet 07/14 completed Medicati on ID: [id number] D uration Value: 90 Brand Name: Gummies Send Method: E-Prescr ibed Sub s Allowed: subs OK Medic ationGen ericName : Gummies Not Available Not Available Not Available [facility] 75 mg disintegr ating tablet Take [...] ICD10 Code Diagnosis IMO Codes Diagnosis Note [id number] GLORY CHANCE RN Allergy [address] [facility],[place] [address] [place] [address] 05/04/2025 09:12:37 05/04/2025 09:52:29 Perennial allergic rhinitis [id number] J30.89 09329 GLORY CHANCE RN Allergy [address] [place] [address],[facility] 100 [place] [address] 05/09/2025 09:17:55 05/09/2025 11:56:55 Perennial allergic rhinitis [id number] J30.89 [id number] CHANDA BRAVO, [facility] Allergy [address] [place] [address],[facility] 100 [place] [address] 05/16/2025 09:53:31 05/16/2025 10:39:22 Perennial allergic rhinitis [id number] J30.89 [id number] Tiara Tomi Allergy [address] [place] [address],[facility] 100 [place] [address] 05/25/2025 09:46:34 05/25/2025 10:08:17 Perennial allergic rhinitis [id number] J30.89 [id number] KARISSA IRVIN, [facility] [address] [place] [address],[facility] 100 [place] [address] 05/30/2025 09:25:56 05/30/2025 13:40:27 Perennial allergic rhinitis [id number] J30.89 Health Concerns Section Related Observation LastModified by Organization Detai ls LastModified Time None Recorded Concern Status LastModified by Organization Details LastModified Time None Recorded Payers Encounter Date Sequence Insurance Name Policy Number Policy Sykes Covered Member ID Sykes Member ID Guarantor Name 05/30/2025 1 *SELF PAY* Sa bao Kendrick OBGyn Episode No OBEpisode recorded.
--- OUTSIDE RECORDS SUMMARY | 2025-07-21 23:20 | XMS_ITS | Encounter Summary ---
Author Organization [facility] Address [address] [place] [address] Phone Support Name Relationship Address Phone Ellis Connolly Father [address] [place] [address] Care Team Providers Care Occupational Therapy Supervisor Name Role Phone Kaylan Casey MD Primary Care Provider [phone] Encounter Details Date Type Department Care Team (Late st Contact Info) Description 11/27/2010 Documentation [facility] Family Medicine [address] [place], [place] [phone] Family Medicine, Physician [address] [place], [place] [id number] Social History Tobacco Use Types Packs/Day Years [...] on filedocumented in this encounter Care Teams Occupational Therapy Supervisor Relationship Specialty Start Date End Date Kaylan Casey MD [address] [facility] [place] [address] PCP - General 03/20/17 01/14/23 documented as of this encounter
--- OUTSIDE RECORDS SUMMARY | 2025-07-21 23:21 | XMS_ITS | Clinical Summary ---
Author Organization Diane [facility]ad[facility] ity Address [address] [place] [address] Care Team Providers Care Milk Drier Name Role Phone Diane Casey MD Primary Care Provider [phone] Social History Tobacco Use Types Packs/Day Years Used Date Smoking Tobacco: Never Assessed Comments Unknown Sex and Gender Information Value Date Recorded Sex Assigned at Not on file Legal Sex Female 4:37 AM EST Gender Identity Not on file Sexual Orientation Not on file Plan of Treatment Health Maintenance Due Date Last Done Comments DTaP,Tdap,and Td Vaccines (1 - Tdap) 2014 Hepatitis B Vaccines (1 of 3 - 19+ 3-dose series) 2014 Cervical Cancer Screening: P ap Smear 2016 HPV Vaccines (1 - 3-dose SCD M series) 2022 Depression Screening 08/10/2024 COVID-19 Vaccine ( - 2024-2 6 season) 2025 Influenza Vaccine (#1) 2025 RSV [...] age to complete this topic Care Teams Milk Drier Relationship Specialty Start Date End Date Diane Casey MD [address] [place] [address] B[place] Mcbride [address] PCP - General Pediatrics 01/10/14
--- OUTSIDE RECORDS SUMMARY | 2025-07-21 23:21 | XMS_ITS | Encounter Summary ---
Author Organization [facility] Address [address] [place] [address] Phone Support Name Relationship Address Phone Ellis Connolly Father [address] [place] [address] Care Team Providers Care Tactical Debriefer Name Role Phone Kaylan Casey MD Primary Care Provider [phone] Encounter Details Date Type Department Care Team (Late st Contact Info) Description 01/23/2016 Documentation [facility] [facility] [address] [place] [address] Family Medicine, Physician [address] [place] [address] Social History Tobacco Use Types Packs/Day Years [...] on filedocumented in this encounter Care Teams Tactical Debriefer Relationship Specialty Start Date End Date Kaylan Casey MD [address] [place] [address] [place] [address] PCP - General 03/20/17 01/14/23 documented as of this encounter
--- OUTSIDE RECORDS SUMMARY | 2025-07-21 23:21 | XMS_ITS | Continuity of Care Document ---
Author Organization [place] [facility], Allergy Address [address] [place] [address] Assessment Encounter Date Assessment Date Assessment LastModified by Organization Details LastModified Time 05/04/2025 05/04/2025 Visit With: Glory Chance RN Use of Antihistamine s: No If yes: Vial Test Change in medications: No If yes Increase in asthma symptoms No If yes, inhaler use: Reaction to last injections: No If yes: Allergy Symptoms: Other: Missed: Dose Aware of Vial Test Yes Aware: Notes: [email or web address] Not available 05/04/2025 09:51:58 Plan of Treatment Reminders Order Date Submit [...] Time Hypertro phy of nasal turbinat es 89259910 Active 2018 Hypertro phy of nasal turbinat es; Note: Date Diagnose d: 9 12:38 PM (J34.3) Not Available [facility] 4 03:07:20 Uncompli cated moderate persiste nt asthma 445817426 Active 2018 Moderate persiste nt asthma NOS; Note: Date Diagnose d: 9 10:53 AM (J45.40) Not Available [facility] 4 03:07:21 Nasal congesti on 58393176 Active 2018 Nasal congesti on; Note: Date Diagnose d: 9 10:51 AM (R09.81) Not Available [facility] 4 03:07:21 Deviated nasal septum 016543474 Active 2018 Deviated nasal septum; Note: Date Diagnose d: 9 12:38 PM (J34.2) Not Available [facility] 4 03:07:20 Follow-u p visit Active 2019 Medical surveill ance followin g complete d treatmen t; Note: Date Diagnose d: 0 3:20 PM (Z09) Not Available [facility] 4 03:07:19 Snoring 22481549 Active 2019 Snoring; Note: Date Diagnose d: 0 3:44 PM (R06.83) Not Available [facility] 4 03:07:21 Contusio n of nose 23526963 Active 2021 Contusio n of nose, initial encounte r; Note: Date Diagnose d: 2 11:21 AM (S00.33X A) Not Available [facility] 4 03:07:19 Chronic tonsilli tis 43886015 Completed 202103/11/2024 Chronic tonsilli tis; Note: Date Diagnose d: 04/18/2022 12:18 PM (J35.01) Not Available [facility] 4 03:07:19 Chronic disease of tonsils AND/OR adenoids 31028475 Completed 202103/11/2024 Calculus , tonsil; Note: Date Diagnose d: 04/18/2022 12:18 PM (J35.8) Not Available [facility] 4 03:07:19 Abnormal auditory percepti on 20307164 Active 2022 Other abnormal auditory percepti ons, bilatera l; Note: Date Diagnose d: 3 12:05 PM (H93.293 ) Other abnormal auditory percepti ons, bilatera l; Note: Date Diagnose d: 01/14/2023 9:47 AM (H93.293 ) ; Start Date : 01/15/20 Not Available [facility] 4 03:07:20 Allergic rhinitis 36383817 Active 2023 Allergic rhinitis : Due to [...] Not Available [facility] 4 01:19:06 Perennia l allergic rhinitis 659369910 Active 2023 KARISSA IRVIN, [facility] [address], [place], [address] , [facility] - [facility] 5 10:37:21 Exacerba tion of moderate persiste nt asthma 529213342 Active 2023 NERI NUNO MD [address], [place], [address] , [facility] - [facility] 4 10:56:48 Acute respirat ory syncytia l virus bronchit is 559333860 Active 2023 NERI NUNO MD [address], [place], [address] , [facility] - [facility] 4 10:56:56 Uncompli cated mild persiste nt asthma 029752158 Active 2024 NERI NUNO MD [address], [place], [address] , [facility] - [facility] 5 11:13:55 Problem Notes None recorded. Procedures Surgical History Date Name Laterality Status Provider Name and Address Organization Details Recorded Time 05/30/20 25 Allergy Immunotherapy Injections completed [facility]ANDA BRAVO [facility] [address], [place], [address], [facility] - [facility] 05/30/2025 13:40:09 05/25/20 25 Allergy Immunotherapy Injections completed KARISSA IRVNI Nicol [address], [place], [address], [facility] - [facility] 05/25/2025 10:07:45 05/16/20 25 Allergy Immunotherapy Injections completed KARISSA IRVIN, RMA [address], [place], [address], [place] [facility] 05/16/2025 10:37:49 05/09/20 25 Allergy Immunotherapy Injections completed GLORY CHANCE RN [address], [place], [address], [place] [facility] 05/09/2025 11:56:12 05/04/20 25 Allergy Immunotherapy Injections completed GLORY CHANCE RN [address], [place], [address], [place] [facility] 05/04/2025 09:51:49 04/27/20 25 Allergy Immunotherapy Injections completed KARISSA IRVIN, RMA [address], [place], [address], [place] [facility] 04/27/2025 10:30:59 04/21/20 25 Allergy Immunotherapy Injections completed KARISSA IRVIN, RMA [address], [place], [address], [place] [facility] 04/21/2025 09:53:31 04/14/20 25 Allergy Immunotherapy Injections completed Tiara Krishna [address], [place], [address], [place] [facility] 04/14/2025 09:49:11 04/07/20 25 Allergy Immunotherapy Injections completed KARISSA IRVIN RMA [address], [place], [address], [place] [facility] 04/07/2025 12:03:37 03/31/20 25 Allergy Immunotherapy Injections completed CHANDA BRAVO RMA [address], [place], [address], [place] [facility] 03/31/2025 14:37:21 03/24/20 25 Allergy Immunotherapy Injections completed Tiara Krishna [address], [place], [address], [place] [facility] 03/24/2025 11:51:03 03/17/20 25 Allergy Immunotherapy Injections completed Tiara Krishna [address], [place], [address], [place] [facility] 03/17/2025 09:43:37 03/02/20 25 Allergy Immunotherapy Injections completed GENARO GOMEZ [address], [place], [address], [place] [facility] 03/02/2025 10:27:07 02/25/20 25 Allergy Immunotherapy Injections completed GLORY CHANCE RN [address], [place], [address], [place] [facility] 02/24/2025 14:58:39 02/17/20 25 Allergy Immunotherapy Injections completed KARISSA IRVIN RMA [address], [place], [address], [place] [facility] 02/16/2025 14:25:33 02/04/20 25 Allergy Immunotherapy Injections completed KARISSA IRVIN RMA [address] [facility], [place], [address], [place] [facility] 02/03/2025 09:35:41 01/27/20 25 Allergy Immunotherapy Injections completed KARISSA IRVIN RMA [address], [place], [address], [place] [facility] 01/26/2025 15:34:28 01/19/20 25 Allergy Immunotherapy Injections completed GENARO GOMEZ [address], [place], [address], [place] [facility] 01/18/2025 10:45:02 01/14/20 25 Allergy Immunotherapy Injections completed KARISSA IRVIN RMA [address], [place], [address], [place] [facility] 01/13/2025 14:19:15 01/07/20 25 Allergy Immunotherapy Injections completed GLORY CHANCE RN [address], [place], [address], [place] [facility] 01/06/2025 10:20:16 12/23/19 25 Allergy Immunotherapy Injections completed KARISSA IRVIN, RMA [address], [place], [address], [place] [facility] 12/22/2024 16:16:14 12/17/19 25 Allergy Immunotherapy Injections completed GLORY CHANCE RN [address], [place], [address], [place] [facility] 12/16/2024 10:05:08 12/01/19 25 Allergy Immunotherapy Injections completed KARISSA IRVIN, RMA [address], [place], [address], [place] [facility] 11/30/2024 14:28:25 11/26/19 25 Allergy Immunotherapy Injections completed GLORY CHANCE RN [address], [place], [address], [place] [facility] 11/25/2024 13:58:56 11/19/19 25 Allergy Immunotherapy Injections completed GLORY CHANCE RN [address], [place], [address], [place] [facility] 11/18/2024 15:03:49 11/12/19 25 Allergy Immunotherapy Injections completed KARISSA IRVIN, RMA [address], [place], [address], [place] [facility] 11/11/2024 14:35:30 11/03/19 25 Allergy Immunotherapy Injections completed KARISSA IRVIN RMA [address], [place], [address], [place] [facility] 11/02/2024 11:18:48 10/29/19 25 Allergy Immunotherapy Injections completed CHANDA BRAVO RMNicol [address], [place], [address], [place] [facility] 10/28/2024 12:07:38 10/22/19 25 Allergy Immunotherapy Injections completed KARISSA IRVIN RMA [address], [place], [address], [place] [facility] 10/21/2024 14:48:48 10/15/19 25 Allergy Immunotherapy Injections completed YOGI GOMEZA [address], [place], [address], [place] [facility] 10/14/2024 09:30:19 10/07/19 25 Allergy Immunotherapy Injections completed GLORY CHANCE RN [address], [place], [address], [place] [facility] 10/07/2024 09:34:51 09/09/19 25 Allergy Immunotherapy Injections completed CHANDA BRAVO RMA [address], [place], [address], [place] [facility] 09/09/2024 12:08:11 09/02/19 25 Allergy Immunotherapy Injections completed GLORY CHANCE RN [address], [place], [address], [place] [facility] 09/02/2024 11:18:45 08/26/19 25 Allergy Immunotherapy Injections completed KARISSA IRVIN, RMA [address], [place], [address], [place] [facility] 08/26/2024 10:14:32 08/19/19 25 Allergy Immunotherapy Injections completed KARISSA IRVIN RMA [address], [place], [address], [place] [facility] 08/19/2024 12:05:52 07/15/20 24 Allergy Immunotherapy Injections completed KARISSA IRVIN RMA [address], [place], [address], [place] [facility] 07/15/2024 15:28:49 07/08/20 24 Allergy Immunotherapy Injections completed KARISSA MAKC, RMA [address], [place], [address], [place] [facility] 07/08/2024 10:51:03 07/01/20 24 Allergy Immunotherapy Injections completed KARISSA MAKC, RMA [address], [place], [address], [place] [facility] 07/01/2024 12:06:05 06/24/20 24 Allergy Immunotherapy Injections completed KARISSA IRVIN, RMA [address], [place], [address], [place] [facility] 06/24/2024 10:43:53 05/27/20 24 Allergy Immunotherapy Injections completed GLORY CHANCE RN [address], [place], [address], [place] [facility] 05/27/2024 14:17:32 05/20/20 24 Allergy Immunotherapy Injections completed CHANDA BRAVO RMA [address], [place], [address], [place] [facility] 05/20/2024 14:53:55 05/06/20 24 Allergy Immunotherapy Injections completed KARISSA IRVIN, RMA [address], [place], [address], [place] [facility] 05/06/2024 12:16:34 04/22/20 24 Allergy Immunotherapy Injections completed KARISSA IRVIN, RMA [address] [facility], [place], [address], [place] [facility] 04/22/2024 14:44:11 04/14/20 24 Allergy Immunotherapy Injections completed KARISSA IRVIN, RMA [address], [place], [address], [place] [facility] 04/14/2024 09:39:13 04/07/20 24 Allergy Immunotherapy Injections completed GLORY CHANCE RN [address], [place], [address], [place] [facility] 04/07/2024 10:47:25 03/30/20 24 Allergy Immunotherapy Injections completed GLORY CHANCE RN [address], [place], [address], [place] [facility] 03/30/2024 16:46:23 03/25/20 24 Allergy Immunotherapy Injections completed GLORY CHANCE RN [address], [place], [address], [place] [facility] 03/25/2024 09:57:47 03/16/20 24 Allergy Immunotherapy Injections completed GLORY CHANCE RN [address], [place], [address], [place] [facility] 03/16/2024 16:30:45 03/01/20 24 Allergy Immunotherapy Injections completed GLORY CHANCE RN [address], [place], [address], [place] [facility] 03/01/2024 14:09:49 02/24/20 24 Allergy Immunotherapy Injections completed KARISSA IRVIN, RMA [address], [place], [address], [place] [facility] 02/24/2024 11:58:32 02/19/20 24 Allergy Immunotherapy Injections completed GENARO GOMEZ [address], [place], [address], [place] [facility] 02/19/2024 11:57:43 02/05/20 24 Allergy Immunotherapy Injections completed KARISSA IRVIN RMA [address], [place], [address], [place] [facility] 02/05/2024 13:29:36 01/22/20 24 Allergy Immunotherapy Injections completed KARISSA IRVIN RMA [address], [place], [address], [place] [facility] 01/22/2024 15:12:23 01/07/20 24 Allergy Immunotherapy Injections completed GENARO GOMEZ [address], [place], [address], [place] [facility] 01/07/2024 10:29:05 01/01/20 24 Allergy Immunotherapy Injections completed CHANDA BRAVO RMA [address], [place], [address], [place] [facility] 01/01/2024 09:50:13 12/25/19 24 Allergy Immunotherapy Injections completed KARISSA IRVIN RMA [address], [place], [address], [place] [facility] 12/25/2023 15:20:45 08/12/19 23 Tonsillectomy completed NERI KRISHNA MD 100 [facility],[address], [address], [facility] 07/25/2024 00:29:19 08/18/19 20 Septoplasty completed NERI KRISHNA MD 100 [facility],[address], [address], [facility] 07/25/2024 00:29:56 Imaging Results None recorded. Procedure [...] mg tablet 07/14 completed Medicati on ID: [id number] D uration Value: 60 Brand Name: Vitamin [...] nebulizat ion 2018 active Medicati on ID: [id number] D uration Value: 25 Brand Name: albutero l sulfate Send Method: E-Prescr ibed Sub s Allowed: subs OK Speci al Instruct ion: INHALE 1 VIAL VIA NEBULIZE R EVERY 8 HRS NEEDED M edicatio nGeneric Name: albutero l sulfate Not Available Not Available Not Available ondansetr on HCl 4 mg tablet 07/14 completed Medicati on ID: [id number] B rand Name: ondanset yuko HCl Send [...] topical cream 03/30 completed Medicati on ID: [id number] D uration Value: 10 Reason: () Brand [...] for pain 01/18 completed Medicati on ID: [id number] D uration Value: 5 Brand Name: oxycodon [...] mg tablet 01/18 completed Medicati on ID: [id number] B rand Name: sertrali ne Send Method: E-Prescr ibed Sub s Allowed: subs OK Medic ationGen ericName : sertrali ne Not Available Not Available Not Available omeprazol e 20 mg capsule,d elayed release 03/30 completed Medicati on ID: [id number] D uration Value: 30 Reason: () Brand Name: omeprazo le Send Method: E-Prescr ibed Sub s Allowed: subs OK Speci al Instruct ion: TOME MARCELL C?PSULA TODOS LOS D? Med icationG enericNa me: omeprazo le Not Available Not Available Not Available mont[address] 10 mg tablet 1 tablet by mouth 03/30 completed Medicati on ID: [id number] P stevie sage By Name: Lisa Zapien nd Name: monteluk ast Send Method: E-Prescr ibed Sub s Allowed: subs OK Speci al Instruct ion: Take 1 tablet by mouth every day in the evening Medicati onGeneri cName: monteluk ast Not Available Not Available Not Available hydroxyzi ne HCl 25 mg tablet 03/30 completed Medicati on ID: [id number] D uration Value: 30 Reason: () Brand Name: hydroxyz ine HCl Send Method: E-Prescr ibed Sub s Allowed: subs OK Speci al Instruct ion: TOME MARCELL TABLETA POR V?A ORAL TODOS LOS D? CUANDO SEA NECESARI O FOR 30 DAYS Med icationG enericNa me: hydroxyz ine HCl Not Available Not Available Not Available azelastin e 137 mcg (0.1 %) nasal spray [place] 2 spray into both nostrils twice a day as directed 07/25 completed Medicati on ID: [id number] D uration Value: 30 Presc[address] bed By [...] mg tablet 03/30 completed Medicati on ID: [id number] D uration Value: 10 Reason: () Brand [...] dose pack 07/29 completed Medicati on ID: [id number] D uration Value: 6 Brand Name: methylpr ednisolo ne Send Method: E-Prescr ibed Sub s Allowed: subs OK Medic ationGen ericName : methylpr ednisolo ne Not Available Not Available Not Available oxycodone 5 mg tablet 08/12 completed Medicati on ID: [id number] B rand Name: oxycodon e Send Method: [...] mg tablet 01/14 completed Medicati on ID: [id number] B rand Name: cycloben zaprine Send Method: E-Prescr ibed Sub s Allowed: subs OK Speci al Instruct ion: TOME MARCELL TABLETA KATJA VECES AL D A PARA EL ESPASMO MUSCULAR CUANDO SEA NECESARI O Medica tionGene ricName: cycloben zaprine Not Available Not Available Not Available bupropion HCl XL 150 mg 24 hr tablet, extended release 03/30 completed Medicati on ID: [id number] D uration Value: 30 Reason: () Brand Name: bupropio n HCl Send Method: E-Prescr ibed Sub s Allowed: subs OK Speci al Instruct ion: TOME MARCELL TABLETA TODOS LOS D? EN LA MA?TAB edicatio nGeneric Name: bupropio n HCl Not Available Not Available Not Available Flovent HFA 110 mcg/actua tion aerosol inhaler 01/14 completed Medicati on ID: [id number] B rand Name: Flovent HFA Send Method: E-Prescr ibed Sub s Allowed: subs OK Medic ationGen ericName : Flovent HFA Not Available Not Available Not Available Depo-SubQ provera 104 104 mg/0.65 mL subcutane ous syringe 01/14 completed Medicati on ID: [id number] B rand Name: Depo-Sub Q provera 104 [...] activated aerosol 01/18 completed Medicati on ID: [id number] B rand Name: Qvar RediHale r Send Method: E-Prescr ibed Sub s Allowed: subs OK Medic ationGen ericName : Qvar [employer] r Not Available Not Available Not Available Gummies 400 mcg-35 mg-25 mg-5 mg chewable tablet 07/14 completed Medicati on ID: [id number] D uration Value: 90 Brand Name: Gummies [...] ICD10 Code Diagnosis IMO Codes Diagnosis Note [id number] KARISSA KORZEC, RMA Allergy [address] [facility],[place] [address] [facility] [address] 04/07/2025 11:42:56 04/07/2025 12:04:11 Perennial allergic rhinitis [id number] J30.89 20101 GLORY CHANCE RN Allergy [address] [place] [address], [address] [place] [address] 04/14/2025 09:18:13 04/14/2025 09:28:02 Perennial allergic rhinitis [id number] J30.89 [id number] KARISSA OBDULIO, A Allergy [address] [place] [address], [address] [place] [address] 04/21/2025 09:17:57 04/21/2025 09:53:54 Perennial allergic rhinitis [id number] J30.89 [id number] KARISSA OBDULIO, A Allergy [address] [place] [address], [address] [place] [address] 04/27/2025 09:26:31 04/27/2025 10:38:28 Perennial allergic rhinitis [id number] J30.89 [id number] GLORY CHANCE RN Allergy [address] [place] [address],[facility] [address] [place] [address] 05/04/2025 09:12:37 05/04/2025 09:52:29 Perennial allergic rhinitis [id number] J30.89 Health Concerns Section Related Observation LastModified by Organization Detai ls LastModified Time None Recorded Concern Status LastModified by Organization Details LastModified Time None Recorded Payers Encounter Date Sequence Insurance Name Policy Number Policy Sykes Covered Member ID Sykes Member ID Guarantor Name 05/04/2025 1 [employer] - HEALTH NET PLAN (MEDICAID HMO) CHELSI [facility] [id number] Gigi Connolly Lefebre OBGyn Episode No OBEpisode recorded.
--- OUTSIDE RECORDS SUMMARY | 2025-07-21 23:21 | XMS_ITS | Encounter Summary ---
Author Organization [facility] Address [address] [place] [address] Phone Support Name Relationship Address Phone Ellis Connolly Father [address] [place] [address] Care Team Providers Care Clinical Assoc Name Role Phone Kaylan Casey MD Primary Care Provider [phone] Encounter Details Date Type Department Care Team (Late st Contact Info) Description 01/12/2015 Documentation [facility] [place] [address] [place], [place] [id number] Family Medicine, Physician [address] [place], [place] [address] Social History Tobacco Use Types Packs/Day Years [...] on filedocumented in this encounter Care Teams Clinical Assoc Relationship Specialty Start Date End Date Kaylan Casey MD [address] [facility] [place] [address] PCP - General 03/20/17 01/14/23 documented as of this encounter
--- OUTSIDE RECORDS SUMMARY | 2025-07-21 23:21 | XMS_ITS | Encounter Summary ---
Author Organization [facility] Address [address] [place] [address] Phone Support Name Relationship Address Phone Ellis Connolly Father [address] [place] [address] Care Team Providers Care Collar Pointer Name Role Phone Kaylan Casey MD Primary Care Provider [phone] Encounter Details Date Type Department Care Team (Late st Contact Info) Description 03/26/2017 Conversion Encounter [facility] [place] [address] [place] [address] Social History Tobacco Use Types Packs/Day Years [...] on filedocumented in this encounter Care Teams Collar Pointer Relationship Specialty Start Date End Date Kaylan Casey MD [address] [place] [address] PCP - General 03/20/17 01/14/23 documented as of this encounter
--- OUTSIDE RECORDS SUMMARY | 2025-07-21 23:21 | XMS_ITS | Data Portability ---
Author Organization [place] [facility], Allergy Address [address] [place] [address] Assessment Encounter Date Assessment Date Assessment LastModified [...] 05/04/2025 09:51:58 05/09/2025 05/09/2025 Visit With: Becky Brvao Use of Antihistamine s: No If yes: Vial Test Yes Change in medications: No If yes Increase in asthma symptoms No If yes, inhaler use: Reaction to last injections: No If yes: Allergy Symptoms: Other: Missed: Dose Aware of Vial Test Aware: Notes: [email or web address] Not available 05/09/2025 11:55:30 05/16/2025 05/16/2025 Visit With: Becky Bravo Use of Antihistamine s: No If yes: Vial Test Change in medications: Yes If yes nurtec Increase in asthma symptoms If yes, inhaler use: Reaction to last injections: No If yes: Allergy Symptoms: Other: Missed: Dose Aware of Vial Test Aware: Notes: [email or web address] Not available 05/16/2025 10:38:58 05/25/2025 05/25/2025 Visit With: Tiara Krishna [place] Use of Antihistamine s: No If yes: Vial Test Change in medications: No If yes Increase in asthma symptoms If yes, inhaler use: Reaction to last injections: No If yes: Allergy Symptoms: Other: Missed: Dose Aware of Vial Test Aware: Notes: sd Not available 05/25/2025 10:08:01 05/30/2025 05/30/2025 Visit With: Karissa Mcdonald GENARO Use of Antihistamine s: Yes If yes: Vial Test Change in medications: No If yes Increase in asthma symptoms If yes, inhaler use: Reaction to last injections: No If yes: Allergy Symptoms: Other: Missed: Dose Aware of Vial Test Aware: Notes: Not available 05/30/2025 13:39:50 Plan of Treatment [...] Time Hypertro phy of nasal turbinat es 93505366 Active 2018 Hypertro phy of nasal turbinat es; Note: Date Diagnose d: 9 12:38 PM (J34.3) Not Available [facility] 4 03:07:20 Uncompli cated moderate persiste nt asthma 557454041 Active 2018 Moderate persiste nt asthma NOS; Note: Date Diagnose d: 9 10:53 AM (J45.40) Not Available [facility] 4 03:07:21 Nasal congesti on 80051840 Active 2018 Nasal congesti on; Note: Date Diagnose d: 9 10:51 AM (R09.81) Not Available [facility] 4 03:07:21 Deviated nasal septum 956195076 Active 2018 Deviated nasal septum; Note: Date Diagnose d: 9 12:38 PM (J34.2) Not Available [facility] 4 03:07:20 Follow-u p visit Active 2019 Medical surveill ance followin g complete d treatmen t; Note: Date Diagnose d: 0 3:20 PM (Z09) Not Available [facility] 4 03:07:19 Snoring 84085633 Active 2019 Snoring; Note: Date Diagnose d: 0 3:44 PM (R06.83) Not Available [facility] 4 03:07:21 Contusio n of nose 72497705 Active 2021 Contusio n of nose, initial encounte r; Note: Date Diagnose d: 2 11:21 AM (S00.33X A) Not Available [facility] 4 03:07:19 Chronic tonsilli tis 03469615 Completed 202103/11/2024 Chronic tonsilli tis; Note: Date Diagnose d: 04/18/2022 12:18 PM (J35.01) Not Available [facility] 4 03:07:19 Chronic disease of tonsils AND/OR adenoids 97756542 Completed 202103/11/2024 Calculus , tonsil; Note: Date Diagnose d: 04/18/2022 12:18 PM (J35.8) Not Available [facility] 4 03:07:19 Abnormal auditory percepti on 25707706 Active 2022 Other abnormal auditory percepti ons, bilatera l; Note: Date Diagnose d: 3 12:05 PM (H93.293 ) Other abnormal auditory percepti ons, bilatera l; Note: Date Diagnose d: 01/14/2023 9:47 AM (H93.293 ) ; Start Date : 01/15/20 Not Available [facility] 4 03:07:20 Allergic rhinitis 67540798 Active 2023 Allergic rhinitis : Due to [...] d: 3 11:09 AM (4 Not Available [facility] 4 01:19:06 Perennia l allergic rhinitis 883036515 Active 2023 [facility], [facility] [address] [facility],[place] [address], [facility] [place], [address] , [place] [facility] 5 10:37:21 Exacerba tion of moderate persiste nt asthma 703510378 Active 2023 NERI NUNO MD [address], [place], [address] , [place] [facility] 4 10:56:48 Acute respirat ory syncytia l virus bronchit is 232221674 Active 2023 NERI NUNO MD [address], [place], [address] , [place] [facility] 4 10:56:56 Uncompli cated mild persiste nt asthma 123025810 Active 2024 NERI NUNO MD [address] [facility] [place],[address], [place], [address] , [place] [facility] 5 11:13:55 Problem Notes None recorded. Procedures Surgical History Date Name Laterality Status Provider Name and Address Organization Details Recorded Time 05/30/20 25 Allergy Immunotherapy Injections completed GENARO GOMEZ 100 [facility],[address], [address], [facility] - [facility] 05/30/2025 13:40:09 05/25/20 25 Allergy Immunotherapy Injections completed KARISSA MCDONALD RMA [address] [facility] [place],[address] [place] [address], [address], [place] [facility] 05/25/2025 10:07:45 05/16/20 25 Allergy Immunotherapy Injections completed KARISSA MCDONALD RMNicol [address] [facility] [place],[address] [place] [address], [address], [place] [facility] 05/16/2025 10:37:49 05/09/20 25 Allergy Immunotherapy Injections completed GLORY CHANCE RN 100 [facility],[address], [address], [place] [facility] 05/09/2025 11:56:12 05/04/20 25 Allergy Immunotherapy Injections completed GLORY CHANCE RN [address], [place], [address], [place] [facility] 05/04/2025 09:51:49 04/27/20 25 Allergy Immunotherapy Injections completed KARISSA MCDONALD, RMA [address], [place], [address], [place] [facility] 04/27/2025 10:30:59 04/21/20 25 Allergy Immunotherapy Injections completed KARISSA MCDONALD, RMA [address], [place], [address], [place] [facility] 04/21/2025 09:53:31 04/14/20 25 Allergy Immunotherapy Injections completed Tiarajuan Krishna [address], [place], [address], [place] [facility] 04/14/2025 09:49:11 04/07/20 25 Allergy Immunotherapy Injections completed KARISSA MCDONALD, RMA [address], [place], [address], [place] [facility] 04/07/2025 12:03:37 03/31/20 25 Allergy Immunotherapy Injections completed GENARO GOMEZ [address], [place], [address], [place] [facility] 03/31/2025 14:37:21 03/24/20 25 Allergy Immunotherapy Injections completed Tiara Tomi [address] [facility], [place], [address], [place] [facility] 03/24/2025 11:51:03 03/17/20 25 Allergy Immunotherapy Injections completed Tiara Tomi [address], [place], [address], [place] [facility] 03/17/2025 09:43:37 03/02/20 25 Allergy Immunotherapy Injections completed GENARO GOMEZ [address], [place], [address], [place] [facility] 03/02/2025 10:27:07 02/25/20 25 Allergy Immunotherapy Injections completed GLORY CHANCE RN [address], [place], [address], [place] [facility] 02/24/2025 14:58:39 02/17/20 25 Allergy Immunotherapy Injections completed KARISSA MCDONALD, RMA [address], [place], [address], [place] [facility] 02/16/2025 14:25:33 02/04/20 25 Allergy Immunotherapy Injections completed KARISSA OBDULIOC, RMA [address], [place], [address], [place] [facility] 02/03/2025 09:35:41 01/27/20 25 Allergy Immunotherapy Injections completed KARISSA MCDONALD, RMA [address] [facility], [place], [address], [place] [facility] 01/26/2025 15:34:28 01/19/20 25 Allergy Immunotherapy Injections completed BECKY BRAVO A [address] [facility] [place],[address] [place] [address], [address], [place] [facility] 01/18/2025 10:45:02 01/14/20 25 Allergy Immunotherapy Injections completed KARISSA MCDONALD, RMA [address] [facility] [place],[address] [place] [address], [address], [place] [facility] 01/13/2025 14:19:15 01/07/20 25 Allergy Immunotherapy Injections completed GLORY CHANCE RN [address] [facility] [place],[address], [address], [place] [facility] 01/06/2025 10:20:16 12/23/19 25 Allergy Immunotherapy Injections completed KARISSA MCDONALD, RMA [address], [place], [address], [place] [facility] 12/22/2024 16:16:14 12/17/19 25 Allergy Immunotherapy Injections completed GLORY CHANCE RN [address], [place], [address], [place] [facility] 12/16/2024 10:05:08 12/01/19 25 Allergy Immunotherapy Injections completed KARISSA MAKC, RMA [address], [place], [address], [place] [facility] 11/30/2024 14:28:25 11/26/19 25 Allergy Immunotherapy Injections completed GLORY CHANCE RN [address], [place], [address], [place] [facility] 11/25/2024 13:58:56 11/19/19 25 Allergy Immunotherapy Injections completed GLORY CHANCE RN [address], [place], [address], [place] [facility] 11/18/2024 15:03:49 11/12/19 25 Allergy Immunotherapy Injections completed KARISSA MCDONALD RMNicol [address], [place], [address], [place] [facility] 11/11/2024 14:35:30 11/03/19 25 Allergy Immunotherapy Injections completed GENARO HUTCHISON [address] [place] [address], [address], [place] [facility] 11/02/2024 11:18:48 10/29/19 25 Allergy Immunotherapy Injections completed GENARO GOMEZ [address], [place], [address], [place] [facility] 10/28/2024 12:07:38 10/22/19 25 Allergy Immunotherapy Injections completed GENARO HUTCHISON [address], [place], [address], [place] [facility] 10/21/2024 14:48:48 10/15/19 25 Allergy Immunotherapy Injections completed GENARO GOMEZ [address], [place], [address], [place] [facility] 10/14/2024 09:30:19 10/07/19 25 Allergy Immunotherapy Injections completed GLORY CHANCE RN [address], [place], [address], [place] [facility] 10/07/2024 09:34:51 09/09/19 25 Allergy Immunotherapy Injections completed GENARO GOMEZ [address], [place], [address], [place] [facility] 09/09/2024 12:08:11 09/02/19 25 Allergy Immunotherapy Injections completed GLORY CHANCE RN [address], [place], [address], [place] [facility] 09/02/2024 11:18:45 08/26/19 25 Allergy Immunotherapy Injections completed KARISSA MCDONALD, RMA [address], [place], [address], [place] [facility] 08/26/2024 10:14:32 08/19/19 25 Allergy Immunotherapy Injections completed KARISSA MAKC, RMA [address], [place], [address], [place] [facility] 08/19/2024 12:05:52 07/15/20 24 Allergy Immunotherapy Injections completed KARISSA MCDONALD, RMA [address], [place], [address], [place] [facility] 07/15/2024 15:28:49 07/08/20 24 Allergy Immunotherapy Injections completed KARISSA MAKC, RMA [address], [place], [address], [place] [facility] 07/08/2024 10:51:03 07/01/20 24 Allergy Immunotherapy Injections completed KARISSA MAKC, RMA [address], [place], [address], [place] [facility] 07/01/2024 12:06:05 06/24/20 24 Allergy Immunotherapy Injections completed KARISSA MAKC, RMA [address], [place], [address], [place] [facility] 06/24/2024 10:43:53 05/27/20 24 Allergy Immunotherapy Injections completed GLORY CHANCE RN [address], [place], [address], [place] [facility] 05/27/2024 14:17:32 05/20/20 24 Allergy Immunotherapy Injections completed BECKY BRAVO, RMA [address], [place], [address], [place] [facility] 05/20/2024 14:53:55 05/06/20 24 Allergy Immunotherapy Injections completed KARISSA MCDONALD, RMA [address], [place], [address], [place] [facility] 05/06/2024 12:16:34 04/22/20 24 Allergy Immunotherapy Injections completed KARISSA MCDONALD, RMA [address], [place], [address], [place] [facility] 04/22/2024 14:44:11 04/14/20 24 Allergy Immunotherapy Injections completed KARISSA MCDONALD, RMA [address], [place], [address], [place] [facility] 04/14/2024 09:39:13 04/07/20 24 Allergy Immunotherapy Injections completed GLORY CHANCE RN [address] [facility] [place],[address] [place] [address], [address], [place] [facility] 04/07/2024 10:47:25 03/30/20 24 Allergy Immunotherapy Injections completed GLORY CHANCE RN [address] [place] [address], [address], [place] [facility] 03/30/2024 16:46:23 03/25/20 24 Allergy Immunotherapy Injections completed GLORY CHANCE RN [address] [facility] [place],[address] [place] [address], [address], [place] [facility] 03/25/2024 09:57:47 03/16/20 24 Allergy Immunotherapy Injections completed GLORY CHANCE RN [address] [facility] [place],[address] [place] [address], [address], [place] [facility] 03/16/2024 16:30:45 03/01/20 24 Allergy Immunotherapy Injections completed GLORY CHANCE RN [address], [place], [address], [place] [facility] 03/01/2024 14:09:49 02/24/20 24 Allergy Immunotherapy Injections completed KARISSA MCDONALD, RMA [address], [place], [address], [place] [facility] 02/24/2024 11:58:32 02/19/20 24 Allergy Immunotherapy Injections completed YOGI GOMEZA [address], [place], [address], [place] [facility] 02/19/2024 11:57:43 02/05/20 24 Allergy Immunotherapy Injections completed KARISSA MCDONALD RMA [address], [place], [address], [place] [facility] 02/05/2024 13:29:36 01/22/20 24 Allergy Immunotherapy Injections completed KARISSA MCDONALD, RMA [address], [place], [address], [place] [facility] 01/22/2024 15:12:23 01/07/20 24 Allergy Immunotherapy Injections completed GENARO GOMEZ [address], [place], [address], [place] [facility] 01/07/2024 10:29:05 01/01/20 24 Allergy Immunotherapy Injections completed GENARO GOMEZ [address], [place], [address], [place] [facility] 01/01/2024 09:50:13 12/25/19 24 Allergy Immunotherapy Injections completed KARISSA MCDONALD RMA [address], [place], [address], [place] [facility] 12/25/2023 15:20:45 08/12/19 23 Tonsillectomy completed NERI KRISHNA MD [address] [facility], [place], [address], [place] [facility] 07/25/2024 00:29:19 08/18/19 20 Septoplasty completed NERI KRISHNA MD [address], [place], [address], [place] [facility] 07/25/2024 00:29:56 Imaging Results None recorded. Procedure [...] mg tablet 07/14 completed Medicati on ID: [id number] D uration Value: 60 Brand Name: Vitamin [...] nebulizat ion 2018 active Medicati on ID: [id number] D uration Value: 25 Brand Name: albutero l sulfate Send Method: E-Prescr ibed Sub s Allowed: subs OK Speci al Instruct ion: INHALE 1 VIAL VIA NEBULIZE R EVERY 8 HRS NEEDED M edicatio nGeneric Name: albutero l sulfate Not Available Not Available Not Available ondansetr on HCl 4 mg tablet 07/14 completed Medicati on ID: [id number] B rand Name: ondanset yuko HCl Send [...] topical cream 03/30 completed Medicati on ID: [id number] D uration Value: 10 Reason: () Brand [...] for pain 01/18 completed Medicati on ID: [id number] D uration Value: 5 Brand Name: oxycodon [...] mg tablet 01/18 completed Medicati on ID: [id number] B rand Name: sertrali ne Send Method: E-Prescr ibed Sub s Allowed: subs OK Medic ationGen ericName : sertrali ne Not Available Not Available Not Available omeprazol e 20 mg capsule,d elayed release 03/30 completed Medicati on ID: [id number] D uration Value: 30 Reason: () Brand Name: omeprazo le Send Method: E-Prescr ibed Sub s Allowed: subs OK Speci al Instruct ion: TOME MARCELL C?PSULA TODOS LOS D? Med icationG enericNa me: omeprazo le Not Available Not Available Not Available monteluka st 10 mg tablet 1 tablet by mouth 03/30 completed Medicati on ID: [id number] P rescribe d By Name: Lisa Zapien nd Name: ru ast Send Method: E-Prescr ibed Sub s Allowed: subs OK Speci al Instruct ion: Take 1 tablet by mouth every day in the evening Medicati onGeneri cName: monteluk ast Not Available Not Available Not Available hydroxyzi ne HCl 25 mg tablet 03/30 completed Medicati on ID: [id number] D uration Value: 30 Reason: () Brand Name: hydroxyz ine HCl Send Method: E-Prescr ibed Sub s Allowed: subs OK Speci al Instruct ion: TOME MARCELL TABLETA POR V?A ORAL TODOS LOS D? CUANDO SEA NECESARI O FOR 30 DAYS Med icationG enericNa me: hydroxyz ine HCl Not Available Not Available Not Available azelastin e 137 mcg (0.1 %) nasal spray [place] 2 spray into both nostrils twice a day as directed 07/25 completed Medicati on ID: [id number] D uration Value: 30 Prescri bed By Name: GREGORY Curiel nd Name: azelastjonathon ne Send Method: E-Prescr ibed Sub s Allowed: subs OK Medic ationGen ericName : azelasti ne Not Available Not Available Not Available epinephri ne 0.3 mg/0.3 mL injection , auto-inje ctor INJECT 1 PEN INJECTOR INTRAMUS CULARLY SINGLE DOSE active Not Available Not Available No t Available ibuprofen 600 mg tablet 03/30 completed Medicati on ID: [id number] D uration Value: 10 Reason: () Brand [...] dose pack 07/29 completed Medicati on ID: [id number] D uration Value: 6 Brand Name: methylpr ednisolo ne Send Method: E-Prescr ibed Sub s Allowed: subs OK Medic ationGen ericName : methylpr ednisolo ne Not Available Not Available Not Available oxycodone 5 mg tablet 08/12 completed Medicati on ID: [id number] B rand Name: oxycodon e Send Method: [...] mg tablet 01/14 completed Medicati on ID: [id number] B rand Name: cycloben zaprine Send Method: E-Prescr ibed Sub s Allowed: subs OK Speci al Instruct ion: TOME MARCELL TABLETA KATJA VECES AL D A PARA EL ESPASMO MUSCULAR CUANDO SEA NECESARI O Medica tionGene ricName: cycloben zaprine Not Available Not Available Not Available bupropion HCl XL 150 mg 24 hr tablet, extended release 03/30 completed Medicati on ID: [id number] D uration Value: 30 Reason: () Brand Name: bupropio n HCl Send Method: E-Prescr ibed Sub s Allowed: subs OK Speci al Instruct ion: TOME MARCELL TABLETA TODOS LOS D? EN LA MA?TAB edicatio nGeneric Name: bupropio n HCl Not Available Not Available Not Available Flovent HFA 110 mcg/actua tion aerosol inhaler 01/14 completed Medicati on ID: [id number] B rand Name: Flovent HFA Send Method: E-Prescr ibed Sub s Allowed: subs OK Medic ationGen ericName : Flovent HFA Not Available Not Available Not Available Depo-SubQ provera 104 104 mg/0.65 mL subcutane ous syringe 01/14 completed Medicati on ID: [id number] B rand Name: Depo-Sub Q provera 104 [...] activated aerosol 01/18 completed Medicati on ID: [id number] B rand Name: Qvar RediHale r Send Method: E-Prescr ibed Sub s Allowed: subs OK Medic ationGen ericName : Qvar RediHale r Not Available Not Available Not Available Gummies 400 mcg-35 mg-25 mg-5 mg chewable tablet 07/14 completed Medicati on ID: [id number] D uration Value: 90 Brand Name: Gummies [...] Code Diagnosis IMO Codes Diagnosis Note 750 [facility] All[facility] [address] [facility],[address] [place] [address] 12/25/2023 14:43:25 12/29/2023 08:48:44 Perennial allergic rhinitis [id number] J30.89 1424 BECKY BRAVO A Allergy 100 [facility],[address] [place] [address] 01/01/2024 09:36:15 01/01/2024 09:56:52 Perennial allergic rhinitis [id number] J30.89 2019 BECKY BRAVO A Allergy 100 [facility],[address] [place] [address] 01/07/2024 10:20:29 01/07/2024 10:28:06 Perennial allergic rhinitis [id number] J30.89 [id number] [facility], A Allergy [address] [place] [address],[address] [place] [address] 01/22/2024 14:40:30 01/22/2024 15:26:50 Perennial allergic rhinitis [id number] J30.89 6048 [facility], A Allergy [address] [place] [address],[address] [place] [address] 02/05/2024 13:07:34 02/05/2024 13:43:16 Perennial allergic rhinitis [id number] J30.89 [id number] [facility], A Allergy [address] [place] [address], [address] [place] [address] 02/19/2024 11:19:36 02/19/2024 13:05:59 Perennial allergic rhinitis [id number] J30.89 8245 [facility], A Allergy [address] [place] [address], [address] [place] [address] 02/24/2024 11:42:37 02/24/2024 13:00:06 Perennial allergic rhinitis [id number] J30.89 [id number] GLORY CHANCE RN Allergy [address] [place] [address], [address] [place] [address] 03/01/2024 13:30:55 03/01/2024 14:10:09 Perennial allergic rhinitis [id number] J30.89 [id number] GLORY CHANCE RN Allergy [address] [place] [address],[place] [address] [place] [address] 03/16/2024 15:42:09 03/16/2024 16:54:31 Perennial allergic rhinitis [id number] J30.89 [id number] GLORY CHANCE RN Allergy [address] [place] [address],[address] [place] [address] 03/25/2024 09:57:02 03/25/2024 09:59:06 Perennial allergic rhinitis [id number] J30.89 [id number] BECKY BRAVO, [facility] Allergy [address] [place] [address],[address] [place] [address] 03/30/2024 15:51:02 03/30/2024 16:46:47 Perennial allergic rhinitis [id number] J30.89 [id number] GLORY CHANCE RN Allergy [address] [place] [address],[address] [address] [place] [address] 04/07/2024 09:02:30 04/07/2024 10:48:22 Perennial allergic rhinitis [id number] J30.89 [id number] [facility], RMA Allergy [address] [place] [address],[address] [place] [address] 04/14/2024 09:36:57 04/14/2024 10:01:59 Perennial allergic rhinitis [id number] J30.89 [id number] [facility], A Allergy [address] [place], [place] [address] [place] [address] 04/22/2024 14:39:52 04/22/2024 15:41:42 Perennial allergic rhinitis [id number] J30.89 [id number] [facility], A Allergy [address] [place] [address],[address] [place] [address] 05/06/2024 11:47:02 05/06/2024 12:17:17 Perennial allergic rhinitis [id number] J30.89 [id number] [facility] All[facility] [address] [place] [address],[address] [place] [address] 05/20/2024 14:53:04 05/20/2024 16:14:07 Perennial allergic rhinitis [id number] J30.89 [id number] GLORY CHANCE RN Allergy [address] [place] [address],[address] [place] [address] 05/27/2024 14:16:54 05/27/2024 14:18:01 Perennial allergic rhinitis [id number] J30.89 [id number] [facility] All[facility] [address] [place] [address],[address] [place] [address] 06/24/2024 10:00:17 06/24/2024 10:44:20 Perennial allergic rhinitis [id number] J30.89 [id number] [facility], [facility] Allergy [address] [place] [address],[address] [place] [address] 07/01/2024 11:58:54 07/01/2024 12:07:09 Perennial allergic rhinitis [id number] J30.89 [id number] KARISSA MCDONALD RMA Allergy 100 [facility],[address] [place], [place] [address] 07/08/2024 10:45:09 07/08/2024 10:54:57 Perennial allergic rhinitis [id number] J30.89 [id number] KARISSA MCDONALD, RMA Allergy 100 [facility],[address] [place] [address] 07/15/2024 14:42:28 07/15/2024 15:29:46 Perennial allergic rhinitis [id number] J30.89 [id number] NERI NUNO MD [facility] [place] 100 [facility] [place] [address] 07/25/2024 10:46:22 07/25/2024 11:03:11 Allergic rhinitis [id number] J30.89 Exacerbati on of moderate persistent asthma [id number] J45.41 Acute resp iratory syncytial virus bronchitis [id number] J20.5 [id number] KARISSA MCDONALD [facility] Allergy 100 [facility],[address] [place] [address] 08/19/2024 11:30:02 08/19/2024 12:08:41 Perennial allergic rhinitis [id number] J30.89 [id number] KARISSA MCDONALD, RMA Allergy 100 [facility],[address] [place] [address] 08/26/2024 09:08:01 08/26/2024 10:14:57 Perennial allergic rhinitis [id number] J30.89 [id number] KARISSA MCDONALD, RMA Allergy 100 [facility],[address] [place] [address] 09/02/2024 10:48:25 09/02/2024 11:19:13 Perennial allergic rhinitis [id number] J30.89 [id number] KARISSA MCDONALD RMA Allergy 100 [facility],[address] [place] [address] 09/09/2024 11:57:35 09/09/2024 12:08:45 Perennial allergic rhinitis [id number] J30.89 [id number] GLORY CHANCE RN Allergy [address] [place] [address],[address] [place] [address] 10/07/2024 09:15:52 10/07/2024 09:35:05 Perennial allergic rhinitis [id number] J30.89 [id number] BECKY BRAVO [facility] Allergy [address] [place] [address],[address] [place] [address] 10/14/2024 08:46:18 10/14/2024 09:32:32 Perennial allergic rhinitis [id number] J30.89 [id number] BECKY BRAVO, [facility] Allergy [address] [place] [address],[address] [place] [address] 10/21/2024 13:30:32 10/21/2024 14:49:37 Perennial allergic rhinitis [id number] J30.89 [id number] [facility]ECKY BRAVO [facility] Allergy [address] [place] [address] it[address] [place] [address] 10/28/2024 11:53:47 10/28/2024 12:08:02 Perennial allergic rhinitis [id number] J30.89 [id number] KARISSA OBDULIO, [facility] Allergy [address] [place] [address],[address] [place] [address] 11/02/2024 11:12:33 11/02/2024 11:19:36 Perennial allergic rhinitis [id number] J30.89 [id number] [facility] All[facility] [address] [place] [address],[address] [place] [address] 11/11/2024 14:34:54 11/11/2024 14:35:59 Perennial allergic rhinitis [id number] J30.89 [id number] [facility]SA [facility] All[facility] [address] [place] [address],[address] [place] [address] 11/18/2024 14:57:29 11/18/2024 15:04:16 Perennial allergic rhinitis [id number] J30.89 [id number] GLORY CHANCE RN Allergy [address] [place] [address],[address] [place] [address] 11/25/2024 13:58:11 11/25/2024 13:59:30 Perennial allergic rhinitis [id number] J30.89 [id number] [facility]SA [facility] Allergy [address] [place] [address] 100 [facility] [place] [address] 11/30/2024 14:04:42 11/30/2024 14:28:49 Perennial allergic rhinitis [id number] J30.89 [id number] GLORY CHANCE RN Allergy [address] [place] [address] 100 [facility] [place] [address] 12/16/2024 08:59:17 12/16/2024 10:05:42 Perennial allergic rhinitis [id number] J30.89 [id number] GLORY CHANCE RN Allergy [address] [place] [address], [place] [address] 12/22/2024 15:45:52 12/22/2024 16:16:38 Perennial allergic rhinitis [id number] J30.89 [id number] GLORY CHANCE RN Allergy [address] [place] [address], [place] [address] 01/06/2025 10:13:54 01/06/2025 10:21:00 Perennial allergic rhinitis [id number] J30.89 [id number] [facility] All[facility] [address] [place] [address] 100 [facility] [place] [address] 01/13/2025 11:21:50 01/13/2025 14:23:57 Perennial allergic rhinitis [id number] J30.89 [id number] NERI NUNO MD [facility] - [address] [place] [address] 01/18/2025 10:33:55 01/18/2025 11:14:51 Allergic rhinitis [id number] J30.89 Uncomplica brigid mild persistent asthma [id number] J45.30 [id number] BECKY BRAVO [facility] Allergy [address] [place] [address] 100 [facility] [place] [address] 01/18/2025 10:35:02 01/18/2025 10:45:24 Perennial allergic rhinitis [id number] J30.89 [id number] [facility] 100 [facility] [place],[address] [place] [address] 01/26/2025 15:26:19 01/26/2025 15:34:51 Perennial allergic rhinitis [id number] J30.89 [id number] [facility] Allergy 100 [facility],[address] [place] [address] 02/03/2025 09:15:15 02/03/2025 09:36:27 Perennial allergic rhinitis [id number] J30.89 [id number] [facility] Allergy 100 [facility],[address] [place] [address] 02/16/2025 14:06:07 02/16/2025 14:26:00 Perennial allergic rhinitis [id number] J30.89 [id number] [facility] Allergy 100 [facility],[address] [place] [address] 02/24/2025 14:00:58 02/24/2025 14:59:08 Perennial allergic rhinitis [id number] J30.89 [id number] BECKY BRAVO [facility] Allergy [address] [place] [address],[address] [place] [address] 03/02/2025 10:06:34 03/02/2025 10:27:35 Perennial allergic rhinitis [id number] J30.89 [id number] [facility] Allergy 100 [facility],[address] [place] [address] 03/17/2025 09:35:25 03/17/2025 09:44:07 Perennial allergic rhinitis [id number] J30.89 [id number] GLORY CHANCE software asset manager 100 [facility],[address] [place] [address] 03/24/2025 11:40:51 03/24/2025 11:51:35 Perennial allergic rhinitis [id number] J30.89 [id number] BECKY BRA[facility] Allergy 100 [facility],[address] [place] [address] 03/31/2025 13:20:40 03/31/2025 14:38:12 Perennial allergic rhinitis [id number] J30.89 [id number] [facility] All[facility] 100 [facility],[address] [place] [address] 04/07/2025 11:42:56 04/07/2025 12:04:11 Perennial allergic rhinitis [id number] J30.89 [id number] GLORY CHANCE RN Allergy [address] [place] [address],[address] [place] [address] 04/14/2025 09:18:13 04/14/2025 09:28:02 Perennial allergic rhinitis [id number] J30.89 [id number] [facility]SA [facility] All[facility] [address] [place] [address],[address] [place] [address] 04/21/2025 09:17:57 04/21/2025 09:53:54 Perennial allergic rhinitis [id number] J30.89 [id number] [facility] Allergy [address] [place] [address],[address] [place] [address] 04/27/2025 09:26:31 04/27/2025 10:38:28 Perennial allergic rhinitis [id number] J30.89 [id number] GLORY CHANCE RN Allergy [address] [place] [address], [address] [place] [address] 05/04/2025 09:12:37 05/04/2025 09:52:29 Perennial allergic rhinitis [id number] J30.89 [id number] GLORY CHANCE RN Allergy [address] [place] [address],[address] [place] [address] 05/09/2025 09:17:55 05/09/2025 11:56:55 Perennial allergic rhinitis [id number] J30.89 [id number] BECKY BRAVO, [facility] Allergy 100 [facility],[address] [place] [address] 05/16/2025 09:53:31 05/16/2025 10:39:22 Perennial allergic rhinitis [id number] J30.89 [id number] Tiara Krishna Allergy [address] [place] [address],[address] [place] [address] 05/25/2025 09:46:34 05/25/2025 10:08:17 Perennial allergic rhinitis [id number] J30.89 [id number] KARISSA MAK, RMA Allergy 100 [facility], [address] 100 [facility] [place] [address] 05/30/2025 09:25:56 05/30/2025 13:40:27 Perennial allergic rhinitis [id number] J30.89 Health Concerns Section Related Observation LastModified by Organization Detai ls LastModified Time None Recorded Concern Status LastModified by Organization Details LastModified Time None Recorded Advance Directives Directive None Recorded Payers Insurance Date Sequence Insurance Name Policy Number Policy Sykes Covered Member ID Sykes Member ID Guarantor Name 05/30/2025 1 [facility] [employer] - HEALTH NET PLAN (MEDICAID HMO) CHELSI bella [id number] Gigi Kendrick 05/30/2025 1 *SELF PAY* Sa bao Kendrick OBGyn Episode No OBEpisode recorded.
--- OUTSIDE RECORDS SUMMARY | 2025-07-21 23:21 | XMS_ITS | Clinical Summary ---
Author Organization [facility] Address [address] [place] [address] Phone Support Name Relationship Address Phone Ellis Connolly Father [address] [place] [address] Care Team Providers Care Spiritual Counselor Name Role Phone Unavailable Primary Care Provider [...] 109 03/22/2016 12:00 AM EDT Temperature 37.2 C (99 F) 03/22/2016 12:00 AM EDT Respiratory Rate - [...] 02/06/1997, Additional history exists Influenza Vaccines (#1) 2025 08/31/19 16, 06/20/2014, 06/17/2013, Additional history exists COVID-19 Vaccine (2024- season) 2025 Hepatitis B Vaccines Completed 03/09/1996, 01/08/1996, 1995 [...] complete this topic Procedures * Due to [facility] law, this organization might not be sharing sensitive test results. Procedure Name Priority Date/Time Associated Diagnosis Comments CHLAMYDIA AND GONORRHEA, AMPLIFIED Routine 09/03/2015 2:05 PM EST from Last 3 Months or Most Recently Relevant to Health Maintenance Results * Due to [facility] law, this organization might not be sharing sensitive test results. * Chlamydia and Gonorrhoea, Amplified (09/03/2015 2:05 PM EST) URINE CHLAMYDIA AMP PROBE NEGATIVE [facility] Comment: No Chlamydia Trachomatis RNA detected in this patient's sample (REFERENCE RANGE/NORMAL VALUE: NOT DETECTED) URINE GC AMP PROBE NEGATIVE [facility] Comment: No Neisseria Gonorrhoeae RNA detected in this patient's sample (REFERENCE RANGE/NORMAL VALUE: NOT DETECTED) NOTE: This test uses hogshead head matcher-mediated amplification method to detect rRNA from C.Trachomatis [...] without risk of sexual abuse. Consult the [facility] if needed. Contact phone number . Therapeutic failure or success cannot be determined with the Aptima Combo2 assay since nucleic acid may persist following appropriate antimicrobial therapy. The Centers for Disease Control and Prevention (CDC) recommends confirmatory retesting using culture or a different nucleic acid amplification test when positive results occur, if indicated. Testing performed or reported by [facility], a Service of [facility] [place] [address] CLIA [id number] Michael Nguyen MD, PhD, Woodworker 09/03/2015 2:05 PM EST Narrative [facility] - 09/03/2015 2:05 PM EST URINE CHLAMYDIA GC AMP PROBE Kaylan Casey MD LAB MICROBIOLOGY - GENERAL ORD ERABLES Final Result [facility] [address] [place] [address], [place] from Last 3 Months or Most Recently Relevant to Health Maintenance
--- OUTSIDE RECORDS SUMMARY | 2025-07-21 23:21 | XMS_ITS | Continuity of Care Document ---
Author Organization MD - [facility], Allergy Address [address] [place] [address] Assessment Encounter Date Assessment Date Assessment LastModified by Organization Details LastModified Time 05/16/2025 05/16/2025 Visit With: Becky Bravo Use of Antihistamine s: No If yes: Vial Test Change in medications: Yes If yes nurtec Increase in asthma symptoms If yes, inhaler use: Reaction to last injections: No If yes: Allergy Symptoms: Other: Missed: Dose Aware of Vial Test Aware: Notes: [email or web address] Not available 05/16/2025 10:38:58 Plan of Treatment Reminders Order Date Submit [...] Time Hypertro phy of nasal turbinat es 08120481 Active 2018 Hypertro phy of nasal turbinat es; Note: Date Diagnose d: 9 12:38 PM (J34.3) Not Available [facility] 4 03:07:20 Uncompli cated moderate persiste nt asthma [id number] Active 2018 Moderate persiste nt asthma NOS; Note: Date Diagnose d: 9 10:53 AM (J45.40) Not Available [facility] 4 03:07:21 Nasal congesti on 64126034 Active 2018 Nasal congesti on; Note: Date Diagnose d: 9 10:51 AM (R09.81) Not Available [facility] 4 03:07:21 Deviated nasal septum 476186727 Active 2018 Deviated nasal septum; Note: Date Diagnose d: 9 12:38 PM (J34.2) Not Available [facility] 4 03:07:20 Follow-u p visit Active 2019 Medical surveill ance followin g complete d treatmen t; Note: Date Diagnose d: 0 3:20 PM (Z09) Not Available [facility] 4 03:07:19 Snoring 97919659 Active 2019 Snoring; Note: Date Diagnose d: 0 3:44 PM (R06.83) Not Available [facility] 4 03:07:21 Contusio n of nose 67603194 Active 2021 Contusio n of nose, initial encounte r; Note: Date Diagnose d: 2 11:21 AM (S00.33X A) Not Available [facility] 4 03:07:19 Chronic tonsilli tis 84697780 Completed 202103/11/2024 Chronic tonsilli tis; Note: Date Diagnose d: 04/18/2022 12:18 PM (J35.01) Not Available [facility] 4 03:07:19 Chronic disease of tonsils AND/OR adenoids 86972203 Completed 202103/11/2024 Calculus , tonsil; Note: Date Diagnose d: 04/18/2022 12:18 PM (J35.8) Not Available [facility] 4 03:07:19 Abnormal auditory percepti on 66515054 Active 2022 Other abnormal auditory percepti ons, bilatera l; Note: Date Diagnose d: 3 12:05 PM (H93.293 ) Other abnormal auditory percepti ons, bilatera l; Note: Date Diagnose d: 01/14/2023 9:47 AM (H93.293 ) ; Start Date : 01/15/20 Not Available [facility] 4 03:07:20 Allergic rhinitis 76739510 Active 2023 Allergic rhinitis : Due to [...] d: 3 11:09 AM (4 Not Available [facility] 4 01:19:06 Perennia l allergic rhinitis 023791543 Active 2023 KARISSA IRVIN, [facility] [address], [place], [address] , [facility] 5 10:37:21 Exacerba tion of moderate persiste nt asthma 989744811 Active 2023 NERI NUNO MD [address], [place], [address] , [facility] 4 10:56:48 Acute respirat ory syncytia l virus bronchit is 671721906 Active 2023 NERI NUNO MD [address], [place], [address] , [facility] 4 10:56:56 Uncompli cated mild persiste nt asthma 204165557 Active 2024 NERI NUNO MD [address], [place], [address] , [facility] 5 11:13:55 Problem Notes None recorded. Procedures Surgical History Date Name Laterality Status Provider Name and Address Organization Details Recorded Time 05/30/20 25 Allergy Immunotherapy Injections completed BECKY BRAVO [facility] [address], [place], [address], [facility] 05/30/2025 13:40:09 05/25/20 25 Allergy Immunotherapy Injections completed KARISSA IRVIN Nicol [address], [place], [address], [facility] 05/25/2025 10:07:45 05/16/20 25 Allergy Immunotherapy Injections completed KARISSA IRVIN, RMA [address], [place], [address], [place] [facility] 05/16/2025 10:37:49 05/09/20 25 Allergy Immunotherapy Injections completed GLORY CHANCE RN [address], [place], [address], [place] [facility] 05/09/2025 11:56:12 05/04/20 25 Allergy Immunotherapy Injections completed GLORY CHANCE RN [address], [place], [address], [place] [facility] 05/04/2025 09:51:49 04/27/20 25 Allergy Immunotherapy Injections completed KARISSA IRVIN, RMA [address], [place], [address], [place] [facility] 04/27/2025 10:30:59 04/21/20 25 Allergy Immunotherapy Injections completed KARISSA IRVIN, RMA [address], [place], [address], [place] [facility] 04/21/2025 09:53:31 04/14/20 25 Allergy Immunotherapy Injections completed Tiara Krishna [address], [place], [address], [place] [facility] 04/14/2025 09:49:11 04/07/20 25 Allergy Immunotherapy Injections completed KARISSA IRVIN RMA [address], [place], [address], [place] [facility] 04/07/2025 12:03:37 03/31/20 25 Allergy Immunotherapy Injections completed BECKY BRAVO RMA [address], [place], [address], [place] [facility] 03/31/2025 14:37:21 03/24/20 25 Allergy Immunotherapy Injections completed Tiara Krishna [address], [place], [address], [place] [facility] 03/24/2025 11:51:03 03/17/20 25 Allergy Immunotherapy Injections completed Tiara Krishna [address], [place], [address], [place] [facility] 03/17/2025 09:43:37 03/02/20 25 Allergy Immunotherapy Injections completed GENARO GOMEZ [address], [place], [address], [place] [facility] 03/02/2025 10:27:07 02/25/20 25 Allergy Immunotherapy Injections completed GLORY CHANCE RN [address], [place], [address], [place] [facility] 02/24/2025 14:58:39 02/17/20 25 Allergy Immunotherapy Injections completed KARISSA IRVIN RMNicol [address], [place], [address], [place] [facility] 02/16/2025 14:25:33 02/04/20 25 Allergy Immunotherapy Injections completed KARISSA IRVIN RMA [address], [place], [address], [place] [facility] 02/03/2025 09:35:41 01/27/20 25 Allergy Immunotherapy Injections completed KARISSA IRVIN RMA [address], [place], [address], [place] [facility] 01/26/2025 15:34:28 01/19/20 25 Allergy Immunotherapy Injections completed GENARO GOMEZ [address] [place] [address], [address], [facility] 01/18/2025 10:45:02 01/14/20 25 Allergy Immunotherapy Injections completed KARISSA IRVIN RMA [address], [place], [address], [place] [facility] 01/13/2025 14:19:15 01/07/20 25 Allergy Immunotherapy Injections completed GLORY CHANCE RN [address], [place], [address], [place] [facility] 01/06/2025 10:20:16 12/23/19 25 Allergy Immunotherapy Injections completed KARISSA IRVIN, RMA [address], [place], [address], [place] [facility] 12/22/2024 16:16:14 12/17/19 25 Allergy Immunotherapy Injections completed GLORY CHANCE RN [address], [place], [address], [place] [facility] 12/16/2024 10:05:08 12/01/19 25 Allergy Immunotherapy Injections completed KARISSA IRVIN, RMA [address], [place], [address], [place] [facility] 11/30/2024 14:28:25 11/26/19 25 Allergy Immunotherapy Injections completed GLORY CHANCE RN [address], [place], [address], [place] [facility] 11/25/2024 13:58:56 11/19/19 25 Allergy Immunotherapy Injections completed GLORY CHANCE RN [address], [place], [address], [place] [facility] 11/18/2024 15:03:49 11/12/19 25 Allergy Immunotherapy Injections completed KARISSA IRVIN, RMA [address], [place], [address], [place] [facility] 11/11/2024 14:35:30 11/03/19 25 Allergy Immunotherapy Injections completed KARISSA IRVIN RMA [address], [place], [address], [place] [facility] 11/02/2024 11:18:48 10/29/19 25 Allergy Immunotherapy Injections completed BECKY BRAVO RMNicol [address], [place], [address], [place] [facility] 10/28/2024 12:07:38 10/22/19 25 Allergy Immunotherapy Injections completed KARISSA IRVIN RMA [address], [place], [address], [place] [facility] 10/21/2024 14:48:48 10/15/19 25 Allergy Immunotherapy Injections completed YOGI GOMEZA [address], [place], [address], [place] [facility] 10/14/2024 09:30:19 10/07/19 25 Allergy Immunotherapy Injections completed GLORY CHANCE RN [address], [place], [address], [place] [facility] 10/07/2024 09:34:51 09/09/19 25 Allergy Immunotherapy Injections completed BECKY BRAVO RMA [address], [place], [address], [place] [facility] 09/09/2024 12:08:11 09/02/19 25 Allergy Immunotherapy Injections completed GLORY CHANCE RN [address], [place], [address], [place] [facility] 09/02/2024 11:18:45 08/26/19 25 Allergy Immunotherapy Injections completed KARISSA IRVIN, RMA [address], [place], [address], [place] [facility] 08/26/2024 10:14:32 08/19/19 25 Allergy Immunotherapy Injections completed KARISSA IRVIN, RMA [address], [place], [address], [place] [facility] 08/19/2024 12:05:52 07/15/20 24 Allergy Immunotherapy Injections completed KARISSA IRVIN RMA [address], [place], [address], [place] [facility] 07/15/2024 15:28:49 07/08/20 24 Allergy Immunotherapy Injections completed KARISSA MAKC, RMA [address], [place], [address], [place] [facility] 07/08/2024 10:51:03 07/01/20 24 Allergy Immunotherapy Injections completed KARISSA MAKC, RMA [address], [place], [address], [place] [facility] 07/01/2024 12:06:05 06/24/20 24 Allergy Immunotherapy Injections completed KARISSA IRVIN, RMA [address], [place], [address], [place] [facility] 06/24/2024 10:43:53 05/27/20 24 Allergy Immunotherapy Injections completed GLORY CHANCE RN [address], [place], [address], [place] [facility] 05/27/2024 14:17:32 05/20/20 24 Allergy Immunotherapy Injections completed BECKY BRAVO RMA [address], [place], [address], [place] [facility] 05/20/2024 14:53:55 05/06/20 24 Allergy Immunotherapy Injections completed KARISSA IRVIN, RMA [address], [place], [address], [place] [facility] 05/06/2024 12:16:34 04/22/20 24 Allergy Immunotherapy Injections completed KARISSA IRVIN, RMA [address], [place], [address], [place] [facility] 04/22/2024 14:44:11 04/14/20 24 Allergy Immunotherapy Injections completed KARISSA IRVIN, RMA [address], [place], [address], [place] [facility] 04/14/2024 09:39:13 04/07/20 24 Allergy Immunotherapy Injections completed GLORY CHANCE RN [address], [place], [address], [place] [facility] 04/07/2024 10:47:25 03/30/20 24 Allergy Immunotherapy Injections completed GLORY CHANCE RN [address], [place], [address], [place] [facility] 03/30/2024 16:46:23 03/25/20 24 Allergy Immunotherapy Injections completed GLORY CHANCE RN [address], [place], [address], [place] [facility] 03/25/2024 09:57:47 03/16/20 24 Allergy Immunotherapy Injections completed GLORY CHANCE RN [address], [place], [address], [place] [facility] 03/16/2024 16:30:45 03/01/20 24 Allergy Immunotherapy Injections completed GLORY CHANCE RN [address], [place], [address], [place] [facility] 03/01/2024 14:09:49 02/24/20 24 Allergy Immunotherapy Injections completed KARISSA IRVIN, RMA [address], [place], [address], [place] [facility] 02/24/2024 11:58:32 02/19/20 24 Allergy Immunotherapy Injections completed GENARO GOMEZ [address], [place], [address], [place] [facility] 02/19/2024 11:57:43 02/05/20 24 Allergy Immunotherapy Injections completed KARISSA IRVIN RMA [address], [place], [address], [place] [facility] 02/05/2024 13:29:36 01/22/20 24 Allergy Immunotherapy Injections completed KARISSA IRVIN RMA [address], [place], [address], [place] [facility] 01/22/2024 15:12:23 01/07/20 24 Allergy Immunotherapy Injections completed GENARO GOMEZ [address], [place], [address], [place] [facility] 01/07/2024 10:29:05 01/01/20 24 Allergy Immunotherapy Injections completed BECKY BRAVO RMA [address], [place], [address], [place] [facility] 01/01/2024 09:50:13 12/25/19 24 Allergy Immunotherapy Injections completed KARISSA IRVIN RMA [address], [place], [address], [place] [facility] 12/25/2023 15:20:45 08/12/19 23 Tonsillectomy completed NERI KRISHNA MD [address] [facility] [address], [place], [address], [facility] 07/25/2024 00:29:19 08/18/19 20 Septoplasty completed NERI KRISHNA MD [address] [facility],[address], [address], [facility] 07/25/2024 00:29:56 Imaging Results None recorded. Procedure [...] mg tablet 07/14 completed Medicati on ID: [id number] D uration Value: 60 Brand Name: Vitamin [...] nebulizat ion 2018 active Medicati on ID: [id number] D uration Value: 25 Brand Name: albutero l sulfate Send Method: E-Prescr ibed Sub s Allowed: subs OK Speci al Instruct ion: INHALE 1 VIAL VIA NEBULIZE R EVERY 8 HRS NEEDED M edicatio nGeneric Name: albutero l sulfate Not Available Not Available Not Available ondansetr on HCl 4 mg tablet 07/14 completed Medicati on ID: [id number] B rand Name: ondanset yuko HCl Send [...] topical cream 03/30 completed Medicati on ID: [id number] D uration Value: 10 Reason: () Brand [...] for pain 01/18 completed Medicati on ID: [id number] D uration Value: 5 Brand Name: oxycodon [...] mg tablet 01/18 completed Medicati on ID: [id number] B rand Name: sertrali ne Send Method: E-Prescr ibed Sub s Allowed: subs OK Medic ationGen ericName : sertrali ne Not Available Not Available Not Available omeprazol e 20 mg capsule,d elayed release 03/30 completed Medicati on ID: [id number] D uration Value: 30 Reason: () Brand Name: omeprazo le Send Method: E-Prescr ibed Sub s Allowed: subs OK Speci al Instruct ion: TOME MARCELL C?PSULA TODOS LOS D? Med icationG enericNa me: omeprazo le Not Available Not Available Not Available [address] 10 mg tablet 1 tablet by mouth 03/30 completed Medicati on ID: [id number] Wil hubbard d By Name: Lisa Zapien nd Name: monteluk ast Send Method: E-Prescr ibed Sub s Allowed: subs OK Speci al Instruct ion: Take 1 tablet by mouth every day in the evening Medicati onGeneri cName: [place] ast Not Available Not Available Not Available hydroxyzi ne HCl 25 mg tablet 03/30 completed Medicati on ID: [id number] D uration Value: 30 Reason: () Brand Name: hydroxyz ine HCl Send Method: E-Prescr ibed Sub s Allowed: subs OK Speci al Instruct ion: TOME MARCELL TABLETA POR V?A ORAL TODOS LOS D? CUANDO SEA NECESARI O FOR 30 DAYS Med icationG enericNa me: hydroxyz ine HCl Not Available Not Available Not Available azelastin e 137 mcg (0.1 %) nasal spray [employer] 2 spray into both nostrils twice a day as directed 07/25 completed Medicati on ID: [id number] D uration Value: 30 Pres[address] By [...] mg tablet 03/30 completed Medicati on ID: [id number] D uration Value: 10 Reason: () Brand [...] dose pack 07/29 completed Medicati on ID: [id number] D uration Value: 6 Brand Name: methylpr ednisolo ne Send Method: E-Prescr ibed Sub s Allowed: subs OK Medic ationGen ericName : methylpr ednisolo ne Not Available Not Available Not Available oxycodone 5 mg tablet 08/12 completed Medicati on ID: [id number] B rand Name: oxycodon e Send Method: [...] mg tablet 01/14 completed Medicati on ID: [id number] B rand Name: cycloben zaprine Send Method: E-Prescr ibed Sub s Allowed: subs OK Speci al Instruct ion: TOME MARCELL TABLETA KATJA VECES AL D A PARA EL ESPASMO MUSCULAR CUANDO SEA NECESARI O Medica tionGene ricName: cycloben zaprine Not Available Not Available Not Available bupropion HCl XL 150 mg 24 hr tablet, extended release 03/30 completed Medicati on ID: [id number] D uration Value: 30 Reason: () Brand Name: bupropio n HCl Send Method: E-Prescr ibed Sub s Allowed: subs OK Speci al Instruct ion: TOME MARCELL TABLETA TODOS LOS D? EN LA MA?TAB edicatio nGeneric Name: bupropio n HCl Not Available Not Available Not Available Flovent HFA 110 mcg/actua tion aerosol inhaler 01/14 completed Medicati on ID: [id number] B rand Name: Flovent HFA Send Method: E-Prescr ibed Sub s Allowed: subs OK Medic ationGen ericName : Flovent HFA Not Available Not Available Not Available Depo-SubQ provera 104 104 mg/0.65 mL subcutane ous syringe 01/14 completed Medicati on ID: [id number] B rand Name: Depo-Sub Q provera 104 [...] activated aerosol 01/18 completed Medicati on ID: [id number] B rand Name: Qvar [employer] r Send Method: E-Prescr ibed Sub s Allowed: subs OK Medic ationGen ericName : Qvar [employer] Not Available Not Available Not Available Gummies 400 mcg-35 mg-25 mg-5 mg chewable tablet 07/14 completed Medicati on ID: [id number] D uration Value: 90 Brand Name: Gummies [...] ICD10 Code Diagnosis IMO Codes Diagnosis Note [id number] KARISSA MAK, A Allergy [address] [facility],[place] [address] [place] [address] 04/21/2025 09:17:57 04/21/2025 09:53:54 Perennial allergic rhinitis [id number] J30.89 [id number] KARISSA BRANDEE, A Allergy [address] [facility] [address] [place] [address] 04/27/2025 09:26:31 04/27/2025 10:38:28 Perennial allergic rhinitis [id number] J30.89 [id number] GLORY CHANCE RN Allergy [address] [place] [address],[facility] 100 [place] [address] 05/04/2025 09:12:37 05/04/2025 09:52:29 Perennial allergic rhinitis [id number] J30.89 [id number] GLORY CHANCE RN Allergy [address] [place] [address],[facility] 100 [place] [address] 05/09/2025 09:17:55 05/09/2025 11:56:55 Perennial allergic rhinitis [id number] J30.89 [id number] BECKY BRAVO, [facility] Allergy [address] [place] [address],[facility] [address] [place] [address] 05/16/2025 09:53:31 05/16/2025 10:39:22 Perennial allergic rhinitis [id number] J30.89 Health Concerns Section Related Observation LastModified by Organization Detai ls LastModified Time None Recorded Concern Status LastModified by Organization Details LastModified Time None Recorded Payers Encounter Date Sequence Insurance Name Policy Number Policy Sykes Covered Member ID Sykes Member ID Guarantor Name 05/16/2025 1 [employer] - HEALTH NET PLAN (MEDICAID HMO) CHELSI [facility] [id number] Gigi Connolly Lefebre OBG[facility] Episode No OBEpisode recorded.
[2025-07-21 23:55] VITALS: BP 133/88; PULSE 112; RESP 16; TEMP 36.7; O2SAT 98
== END 2025-07-21 23:57 | disposition home or self-care (01) ==
PROVIDERS: Emergency Provider Emergency Medicine; PCP Internal Medicine
DX: M79.18 Myalgia, other site (principal)
CPT/HCPCS: 99282